=== PATIENT | female | born 1960 | race Caucasian/White ===

== ENCOUNTER 2017-01-23 09:39 | Inpatient (IN) | payer MEDICAID, OTHER ==
[2017-01-23 09:39] VITALS: BMI 29.9
[2017-01-23] MEDS ORDERED: Sodium Chloride 0.9% 1,000 ML IV STA (10:06)
--- NOTE | 2017-01-23 10:08 | C.PDOC ---
History Of Present Illness 56 y/o female presents to the ED complaining of cough x 2 weeks. Patient reports that for the past few days she has been feeling weaker. She also complains of some chest "soreness" with cough and deep inspiration. Patient denies fevers, throat pain, or other complaints. Time Seen by Provider: 01/23/17 09:57 Chief Complaint (Nursing): Chest Pain History Per: Patient History/Exam Limitations: no limitations Onset/Duration Of Symptoms: Days (2 weeks), Gradual, Persistent Current Symptoms Are (Timing): Still Present Recent travel outside of the [place] States: No Past Medical History Reviewed: Historical Data, Nursing Documentation, Vital Signs Vital Signs: Last Vital Signs Temp 98.2 F 01/23/17 09:45 Pulse 102 H 01/23/17 09:45 Resp 20 01/23/17 09:45 BP 123/82 01/23/17 09:45 Pulse Ox 100 01/23/17 12:19 - Medical History PMH: HTN Other PMH: Right breast cancer Other Surgeries: Right mastectomy - [facility] Procedures CONTRAST PHLEBOGRAM NEC (04/13/13) INCIS W REM OF FORIEGN BODY OR DEV FROM SKIN & SUBCUT TISSUE (08/18/13) INSERTION OF TOTALLY IMPLANTABLE VASC ACCESS DEVIC (04/27/13) OTHER SKIN & SUBQ I D (05/07/13) TETANUS TOXOID ADMINIST (05/07/13) Family History: States: Unknown Family Hx - Social History Hx Tobacco Use: No Hx Alcohol Use: No Hx Substance Use: No Review Of Systems Except As Marked, All Systems Reviewed And Found Negative. Constitutional: Positive for: Weakness. Negative for: Fever ENT: Negative for: Throat Pain Cardiovascular: Positive for: Chest Pain Respiratory: Positive for: Cough Physical Exam - Physical Exam Appears: Non-toxic, No Acute Distress Skin: Normal Color, Warm, Dry Head: Atraumatic, Normacephalic Eye(s): bilateral: Normal Inspection, PERRL Ear(s): Bilateral: Normal Nose: Normal Oral Mucosa: Moist Throat: Normal, No Erythema, No Exudate Neck: Normal ROM, Supple Chest: Symmetrical Cardiovascular: Rhythm Regular Respiratory: Decreased Breath Sounds (right), No Rales, No Rhonchi, No Wheezing Gastrointestinal/Abdominal: Normal Exam, Soft, No Tenderness Extremity: Normal ROM, No Swelling Neurological/Psych: Oriented x3, Normal Speech, Normal Cognition ED Course And Treatment - Laboratory Results Result Diagrams: 01/23/17 10:15 01/23/17 10:15 O2 Sat by Pulse Oximetry: 100 (ra) Pulse Ox Interpretation: Normal - Other Rad Chest X-Ray X-Ray: Viewed By Me, Read By Radiologist Interpretation: Accession No. : [id number]. Patient Name / ID : FARIDEH UNDERWOOD / [id number]. Exam Date : 01/23/2017 10:01:43 ( Approved ). Study Comment : Sex / Age : F / 56Y. Creator : Antonio Mariscal MD. Dictator : Antonio Mariscal MD. Production Estimator : Gravity Prospecting Operator Helper : Antonio Mariscal MD. Approver2 : Report Date : 01/23/2017 11:49:30. My Comment : . HISTORY: cough/sob. COMPARISON: 04/27/2013. TECHNIQUE: Chest PA and lateral. FINDINGS: LUNGS: Near complete opacification of the right lung. PLEURA: Possible loculated pleural effusion on the right. CARDIOVASCULAR: Shift of the mediastinum to the left. OSSEOUS STRUCTURES: No significant abnormalities. VISUALIZED UPPER ABDOMEN: Upper abdomen is suboptimally evaluated. OTHER FINDINGS: Surgical clips along right lateral chest wall. IMPRESSION: Near complete opacification of the right mack thorax with most likely space-occupying lesion versus loculated pleural effusion. There is shifted mediastinal to the left. Chest CT recommended. - CT Scan/US CT Chest Other Rad Studies (CT/US): Read By Radiologist, Radiology Report Reviewed CT/US Interpretation: Accession No. : [id number]. Patient Name / ID : FARIDEH UNDERWOOD / [id number]. Exam Date : 01/23/2017 11:38:13 ( Approved ). Study Comment : Sex / Age : F / 56Y. Creator : Antonio Mariscal MD. Dictator : Antonio Mariscal MD. Production Estimator : Gravity Prospecting Operator Helper : Antonio Mariscal MD. Approver2 : Report Date : 01/23/2017 12:00:05. My Comment : . PROCEDURE: CT Chest without contrast. HISTORY: right effusion/vs infiltrate. COMPARISON: 2012. TECHNIQUE: Contiguous axial images were obtained through the chest without intravenous contrast enhancement. Sagittal and coronal reconstructions were performed. Due to lack of intravenous contrast, evaluation of lymph nodes and soft tissue structures is suboptimal. . Radiation dose (DLP): 288.53 mGy- cm. FINDINGS: LUNGS: Patchy and nodular airspace opacities seen in association with right-sided pleural effusion. Hazy and ground-glass opacities also noted in the left lung particularly in the left upper lung. Atelectatic changes in the left lung base. MEDIASTINUM: Unremarkable thoracic aorta. No aneurysm. The heart is not significantly enlarged. Minimal pericardial effusion. Normal caliber of the main pulmonary artery. Evaluation of lymph nodes in the mediastinum is suboptimal due to lack IV contrast. Scattered mediastinal lymphadenopathy. PLEURA: Moderate to large loculated pleural effusion on the right seen. BONES: Diffuse sclerotic densities throughout the osseous structures. These are likely to be metastatic in etiology. UPPER ABDOMEN: Geographic hypoattenuation of the liver could be related to hepatic steatosis. Given lack of intravenous contrast, subtle hepatic masses on PE adequately evaluated. The visualized segments of the spleen, pancreas, gallbladder and the kidneys appear unremarkable. Diffuse thickening of both adrenal glands. Small hiatal hernia. Collapsed stomach limiting evaluation. Visualized segments of the bowel appear grossly unremarkable however remains suboptimally evaluated. OTHER FINDINGS: Right mastectomy. Surgical clips along right lateral chest wall. Nodular soft tissue density along the surgical sabrina are likely from postsurgical scarring. Scattered lymphadenopathy in the left axilla. IMPRESSION: Moderate to large loculated pleural effusion on the right with associated compressive atelectasis and/ pneumonia. Scattered airspace opacities seen in the left side which could represent infection and/or metastatic disease. Diffuse bony metastatic disease. Other findings as above. Progress Note: EKG, CXR, Blood Work, and Blood Culture were ordered. Patient was treated with IV Fluids. CT chest was ordered. Case was d/w and with who accepted patient for admission. - Physician Consult Information Physician Contacted: Gianluca Gordon Outcome Of Conversation: Requested to admit patient to the Hospitalist service and order thoracentesis. 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 - Scribe Statement The provider has reviewed the documentation as recorded by the Scribe (Nguyen Richards) All medical record entries made by the Scribe were at my direction and personally dictated by me. I have reviewed the chart and agree that the record accurately reflects my personal performance of the history, physical exam, medical decision making, and the department course for this patient. I have also personally directed, reviewed, and agree with the discharge instructions and disposition. Decision To Admit - Pt Status Changed To: Hospital Disposition Of: Inpatient - Admit Certification Admit to Inpatient:: After my assessment, the patient will require hospitalization for at least two midnights. This is because of the severity of symptoms shown, intensity of services needed, and/or the medical risk in this patient being treated as an outpatient. - InPatient: Physician Admission Certification: I certify that this patient requires 2 or more midnights of care for the following reason:: Patient with dyspnea, large pleural effusion and newerly found metastasis, probably from previously diagnosed breast cancer. She will need more than 2 days of hospital admission. - . Bed Request Type: Regular Admitting Physician: Ramakrishna Hensley Patient Diagnosis: Pleural effusion, Pleuritic pain, Metastasis, Dyspnea
[2017-01-23] MEDS ORDERED: Sodium Chloride 0.9% 1,000 ML ONE (10:19)
[2017-01-23 10:26] LABS: BASO % 0.5 % (0.0-2.0); EOS % 0.2 % (0.0-4.0); HEMATOCRIT 42.7 % (34.0-47.0); LYMPH # 2.3 K/uL (1.0-4.3); LYMPH % 23.7 % (20.0-40.0); MEAN CORPUSCULAR HEMOGLOBIN 28.2 pg (27.0-31.0); MEAN CORPUSCULAR HGB CONC 32.7 g/dL (33.0-37.0); MEAN PLATELET VOLUME 8.6 fL (7.2-11.7); MONO # 0.8 K/uL (0.0-0.8); MONO % 8.4 % (0.0-10.0); RED CELL DISTRIBUTION WIDTH 13.7 % (11.5-14.5)
[2017-01-23 10:27] LABS: MEAN CELL VOLUME 86.3 fL (81.0-99.0); WHITE BLOOD COUNT 9.7 K/uL (4.8-10.8)
[2017-01-23 10:29] LABS: CHLORIDE 93 mmol/L (98-107); SODIUM 139 mmol/L (132-148)
[2017-01-23 10:30] LABS: POTASSIUM 3.9 mmol/L (3.6-5.2)
[2017-01-23 10:31] LABS: AST/SGOT 85 U/L (14-36); BILIRUBIN,TOTAL 1.6 mg/dL (0.2-1.3); CARBON DIOXIDE 28 mmol/L (22-30); GFR AFRICAN-AMERICAN > 60
[2017-01-23 10:32] LABS: ALB/GLOB RATIO 1.2 (1.0-2.1); ALKALINE PHOSPHATASE 380 U/L (38-126); ALT/SGPT 47 U/L (9-52); BLOOD UREA NITROGEN 11 mg/dL (7-17); CALCIUM 8.9 mg/dl (8.6-10.4); GLUCOSE,RANDOM 178 mg/dL (65-105); TOTAL PROTEIN 7.5 g/dL (6.3-8.3)
[2017-01-23] MEDS ORDERED: Azithromycin 500 MG in Sodium Chloride 0.9% 250 ML IVPB STA (11:08)
[2017-01-23] MEDS ORDERED: cefTRIAXone IV 1 gm in Dextros 50 ML IVPB ONE (11:51)
--- NOTE | 2017-01-23 11:51 | RAD ---
HISTORY: cough/sob COMPARISON: 04/27/2013 TECHNIQUE: Chest PA and lateral FINDINGS: LUNGS: Near complete opacification of the right lung. PLEURA: Possible loculated pleural effusion on the right. CARDIOVASCULAR: Shift of the mediastinum to the left. OSSEOUS STRUCTURES: No significant abnormalities. VISUALIZED UPPER ABDOMEN: Upper abdomen is suboptimally evaluated. OTHER FINDINGS: Surgical clips along right lateral chest wall. IMPRESSION: Near complete opacification of the right mack thorax with most likely space-occupying lesion versus loculated pleural effusion. There is shifted mediastinal to the left. Chest CT recommended.
[2017-01-23] MEDS ORDERED: Azithromycin 500mg/250ML NS 250 ML IVPB ONE (11:52)
--- NOTE | 2017-01-23 12:01 | CT ---
PROCEDURE: CT Chest without contrast HISTORY: right effusion/vs infiltrate COMPARISON: 08/19/2013. TECHNIQUE: Contiguous axial images were obtained through the chest without intravenous contrast enhancement. Sagittal and coronal reconstructions were performed. Due to lack of intravenous contrast, evaluation of lymph nodes and soft tissue structures is suboptimal. Radiation dose (DLP): 288.53 mGy-cm. FINDINGS: LUNGS: Patchy and nodular airspace opacities seen in association with right-sided pleural effusion. Hazy and ground-glass opacities also noted in the left lung particularly in the left upper lung. Atelectatic changes in the left lung base. MEDIASTINUM: Unremarkable thoracic aorta. No aneurysm. The heart is not significantly enlarged. Minimal pericardial effusion. Normal caliber of the main pulmonary artery. Evaluation of lymph nodes in the mediastinum is suboptimal due to lack IV contrast. Scattered mediastinal lymphadenopathy. PLEURA: Moderate to large loculated pleural effusion on the right seen. BONES: Diffuse sclerotic densities throughout the osseous structures. These are likely to be metastatic in etiology. UPPER ABDOMEN: Geographic hypoattenuation of the liver could be related to hepatic steatosis. Given lack of intravenous contrast, subtle hepatic masses on PE adequately evaluated. The visualized segments of the spleen, pancreas, gallbladder and the kidneys appear unremarkable. Diffuse thickening of both adrenal glands. Small hiatal hernia. Collapsed stomach limiting evaluation. Visualized segments of the bowel appear grossly unremarkable however remains suboptimally evaluated. OTHER FINDINGS: Right mastectomy. Surgical clips along right lateral chest wall. Nodular soft tissue density along the surgical sabrina are likely from postsurgical scarring. Scattered lymphadenopathy in the left axilla. IMPRESSION: Moderate to large loculated pleural effusion on the right with associated compressive atelectasis and/ pneumonia. Scattered airspace opacities seen in the left side which could represent infection and/or metastatic disease. Diffuse bony metastatic disease. Other findings as above.
[2017-01-23 13:20] LABS: INR 1.1
--- NOTE | 2017-01-23 15:27 | PCM.SURG1 ---
Surgeon's Initial Post Op Note - Surgeon's Notes Surgeon: Tolu Hernandez MD Quilt Stuffer: NONE Type of Anesthesia: Local Pre-Operative Diagnosis: Pleural effusion Operative Findings: US showed a moderate right effusion Post-Operative Diagnosis: Pleural effusion Operation Performed: US guided thoracentesis. Specimen/Specimens Removed: 900 straw color fluid Estimated Blood Loss: EBL {In ML}: 0 Blood Products Given: N/A Drains Used: No Drains Post-Op Condition: Fair Date of Surgery/Procedure: 01/23/17 Time of Surgery/Procedure: 15:25
[2017-01-23] MEDS: Sodium Chloride 0.9% 1,000 ML IV SCH ×2 (15:50→19:34)
[2017-01-23 15:55] LABS: BODY FLUID TYPE PLEURAL/THORACENTESI
[2017-01-23] MEDS ORDERED: Iohexol 240 (50 ml) ONE (16:02)
--- NOTE | 2017-01-23 16:12 | RAD ---
PROCEDURE: CHEST RADIOGRAPH, 1 VIEW HISTORY: Right pleural effusion COMPARISON: None available. FINDINGS: LUNGS: Slightly improved aeration of the right lung. Residual hazy opacity involving the right lung. PLEURA: Residual effusion on the right. No definite pneumothorax. CARDIOVASCULAR: Normal. OSSEOUS STRUCTURES: The osseous structures demonstrate degenerative changes. VISUALIZED UPPER ABDOMEN: Upper abdomen is suboptimally evaluated. OTHER FINDINGS: Surgical clip along the right axilla and right chest wall. IMPRESSION: Slightly improved aeration of the right lung with residual effusion and opacity.
[2017-01-23] MEDS: Tramadol 25 mg PO PRN (16:16)
[2017-01-23 16:24] LABS: BF GROSS APPEARANCE CLEAR (CLEAR)
[2017-01-23] MEDS ORDERED: Iodixanol 320 MG/ML 100 ML BOTTLE IV ONE (16:41)
--- NOTE | 2017-01-23 17:56 | CP.PCM.HP ---
<Chase Motley - Last Filed: 01/23/17 17:53> History of Present Illness - History of Present Illness History of Present Illness: CC: "Right-sided chest pain and shortness of breath" HPI: Patient is a 56y.o F with PMH of HTN and breast cancer s/p chemo, radiation and right mastectomy in 2012 who presents with shortness of breath and right-sided chest pain that started 2 weeks ago. Patient decided to come to the hospital today because of worsening shortness of breath. She is unable to walk 10 feet without feeling weak. Patient also complains of chest pain that radiates to axilla region but not down arm. Pain is intermittent and currently a 4/10. She is also complaining of bilateral lower back pain as well as a mild headache. Patient reports nonproductive cough that started 1 month ago without accompanying fever or chills. She complains of a 14-pound weight loss in the last month, as well as occasional night sweats. She denies nausea, vomiting, diarrhea, constipation, abdominal pain or leg pain. Heme/onc: Gianluca Gordon PMH: HTN, breast cancer (diagnosed [address] Menon) PSx: Right mastectomy in 2012 Meds: Tamoxifen (prescribed by Dr. Menon in 2012, now gets from [facility]), Antihypertensive Allergies: NKDA Family Hx: Mother and Father- HTN SocialHx: No history of EtOH, tobacco or illicit drug use. Patient is unemployed and lives with sister Present on Admission - Present on Admission Any Indicators Present on Admission: No Review of Systems - Constitutional Constitutional: absent: Chills, Fever - EENT Eyes: absent: Blurred Vision, Pain - Cardiovascular Cardiovascular: absent: Chest Pain, Palpitations - Respiratory Respiratory: Cough (dry), Dyspnea, Dyspnea on Exertion. absent: Hemoptysis, Wheezing, Pain on Inspiration - Gastrointestinal Gastrointestinal: absent: Abdominal Pain, Diarrhea, Nausea, Vomiting - Genitourinary Genitourinary: absent: Urinary Frequency, Urinary Urgency - Musculoskeletal Musculoskeletal: absent: Back Pain, Muscle Cramps, Muscle Weakness, Stiffness - Integumentary Integumentary: absent: Pruritus, Rash - Neurological Neurological: absent: Numbness, Tingling Past Patient History - Past Social History Smoking Status: Never Smoked - CARDIAC Hx Hypertension: Yes - HEMATOLOGICAL/ONCOLOGICAL Other/Comment: Right breast CA - PSYCHIATRIC Hx Substance Use: No - SURGICAL HISTORY Other/Comment: Right mastectomy 2013? Meds Allergies/Adverse Reactions: Allergies Allergy/AdvReac Type Severity Reaction Status Date / Time No Known Allergies Allergy Verified 01/23/17 09:57 Physical Exam - Constitutional Appears: Non-toxic, No Acute Distress - Head Exam Head Exam: ATRAUMATIC, NORMOCEPHALIC - Eye Exam Eye Exam: Normal appearance Pupil Exam: PERRL - ENT Exam ENT Exam: Mucous Membranes Moist - Respiratory Exam Respiratory Exam: Chest Wall Tenderness (on the right), Decreased Breath Sounds (absent breath sounds on the right), NORMAL BREATHING PATTERN. absent: Wheezes - Cardiovascular Exam Cardiovascular Exam: +S1, +S2 - GI/Abdominal Exam GI & Abdominal Exam: Normal Bowel Sounds, Soft - Neurological Exam Neurological exam: Alert, Oriented x3 - Skin Skin Exam: Dry, Warm Results - Vital Signs Recent Vital Signs: Last Vital Signs Temp 98.2 F 01/23/17 16:29 Pulse 100 H 01/23/17 16:29 Resp 20 01/23/17 16:29 BP 130/86 01/23/17 16:29 Pulse Ox 90 L 01/23/17 16:29 - Labs Result Diagrams: 01/23/17 10:15 01/23/17 10:15 Labs: Laboratory Results - last 24 hr 01/23/17 15:53 Fluid Source Pleural/thoracentesi Fluid Appearance Clear Assessment & Plan - Assessment and Plan (Free Text) Assessment: Cough/shortness of breath - Unable to walk 10 feet without tiring/becoming sob - CXR 01/23 - Near complete opacification of the right mack thorax with most likely space-occupying lesion versus loculated pleural effusion. There is shifted mediastinal to the left. Chest CT recommended. - Chest CT 01/23 - Moderate to large loculated pleural effusion on the right with associated compressive atelectasis and/ pneumonia. Scattered airspace opacities seen in the left side which could represent infection and/or metastatic disease. Diffuse bony metastatic disease. - Thoracentesis ordered with labs including cytology - f/u - Heme/onc consulted (Evan) - help appreciated - agrees with thoracentesis - recommends CA15-3 - F/u further recs - Continue azithromycin and rocephin - IVF at 60 cc/hr - No leukocytosis or electrolyte abnormalities, f/u AM labs Chest pain - See above - Tramadol PRN for mod pain - Tylenol PRN for mild pain Elevated alkaline phosphatase - likely due to metastasis - will monitor Hx of HTN - normotensive currently - Heart healthy diet - will cont to monitor PPX - lovenox - protonix <Ramakrishna Hensley - Last Filed: 02/17/17 22:13> Results - Vital Signs Recent Vital Signs: Last Vital Signs Temp 98.2 F 02/05/17 16:00 Pulse 87 02/05/17 16:00 Resp 20 02/05/17 16:00 BP 118/76 02/05/17 16:00 Pulse Ox 98 02/05/17 16:00 - Labs Result Diagrams: 02/05/17 08:34 02/05/17 08:34 Assessment & Plan (1) Dyspnea Status: Acute (2) Metastatic cancer Status: Acute (3) Pleural effusion Status: Acute (4) Pain Status: Acute Attending/Attestation - Attestation I have personally seen and examined this patient.: Yes I have fully participated in the care of the patient.: Yes I have reviewed all pertinent clinical information: Yes
--- NOTE | 2017-01-23 18:57 | CT ---
PROCEDURE: CT Chest, Abdomen and Pelvis with intravenous contrast HISTORY: r/o metastatic disease COMPARISON: CT chest 01/23/2017 11:38 a.m. TECHNIQUE: IV dose administered: 100 mL Visipaque 320 Radiation dose: Total exam DLP = 794.18 mGy-cm. FINDINGS: CT CHEST WITH CONTRAST: LUNGS: Patchy ground-glass opacities and small nodular opacities in left upper lobe, nonspecific. This may be infectious or inflammatory. There are calcified granulomas in the left lower lobe. Right apical neoplasm in association with probable atelectasis. There is complete occlusion of the right upper lobe bronchus and right middle lobe bronchus. There is encasement and severe narrowing of the right pulmonary artery. There is right-sided volume loss with elevation of the right hemidiaphragm. The neoplasm is contiguous with spread to the mediastinum and right hilum. There are no discrete enlarged mediastinal lymph nodes appreciated. The superior vena cava is patent. MEDIASTINUM: As above, extension of right apical neoplasm to right hilum and mediastinum without discrete mediastinal enlarged nodes. Normal heart size. Trace pericardial effusion. LYMPH NODES: As above PLEURA: Small right pleural effusion. The patient is status post thoracentesis with a small amount of air seen in the pleural space at the right lung apex. BONES: There is diffuse sclerotic metastasis throughout all visualized osseous structures. OTHER FINDINGS: Status post right mastectomy. CT ABDOMEN AND PELVIS: LIVER: Diffuse fatty infiltration of the liver. No discrete mass. No biliary ductal dilatation. GALLBLADDER AND BILE DUCTS: Unremarkable. PANCREAS: Unremarkable. No gross lesion or ductal dilatation. SPLEEN: Unremarkable. ADRENALS: Unremarkable. No mass. KIDNEYS AND URETERS: Small bilateral renal cortical cysts, mid right kidney and upper pole left kidney. No renal calculus or hydronephrosis appreciated. VASCULATURE: Unremarkable. No aortic aneurysm. BOWEL: Unremarkable. No obstruction. No gross mural thickening. APPENDIX: Normal appendix. PERITONEUM: Unremarkable. No free fluid. No free air. LYMPH NODES: Unremarkable. No enlarged lymph nodes. BLADDER: Unremarkable. REPRODUCTIVE: Normal uterus. BONES: Diffuse sclerotic metastasis throughout all visualized osseous structures. OTHER FINDINGS: None. IMPRESSION: Right apical neoplasm with probable right apical atelectasis. Narrowing/occlusion right upper lobe and right middle lobe bronchi. Narrowing of right lower lobe bronchus. Severe narrowing and encasement of right pulmonary artery. Right-sided volume loss. Right pleural effusion with minimal pneumothorax status post thoracentesis. Patchy ground-glass and nodular opacities in left upper lobe, possibly infectious or inflammatory. Diffuse sclerotic metastasis of all visualized osseous structures. Right mastectomy. Fatty liver.
[2017-01-23 19:05] LABS: BODY FLUID TOTAL COUNT 100 (0-0)
[2017-01-24 08:10] LABS: BASO % 0.2 % (0.0-2.0); EOS # 0.1 K/uL (0.0-0.7); EOS % 0.6 % (0.0-4.0); HEMATOCRIT 39.8 % (34.0-47.0); LYMPH # 2.6 K/uL (1.0-4.3); LYMPH % 28.8 % (20.0-40.0); MEAN CORPUSCULAR HEMOGLOBIN 28.9 pg (27.0-31.0); MEAN CORPUSCULAR HGB CONC 33.2 g/dL (33.0-37.0); MEAN PLATELET VOLUME 8.5 fL (7.2-11.7); MONO # 0.7 K/uL (0.0-0.8); MONO % 8.3 % (0.0-10.0); NRBC % 0.1 % (0.0-2.0); RED CELL DISTRIBUTION WIDTH 13.7 % (11.5-14.5)
[2017-01-24 08:21] LABS: CHLORIDE 97 mmol/L (98-107); SODIUM 139 mmol/L (132-148)
[2017-01-24 08:23] LABS: GFR AFRICAN-AMERICAN > 60
[2017-01-24 08:24] LABS: ALB/GLOB RATIO 1.1 (1.0-2.1); ALKALINE PHOSPHATASE 373 U/L (38-126); ALT/SGPT 63 U/L (9-52); AST/SGOT 51 U/L (14-36); BILIRUBIN,TOTAL 0.4 mg/dL (0.2-1.3); BLOOD UREA NITROGEN 7 mg/dL (7-17); CALCIUM 8.5 mg/dl (8.6-10.4); CARBON DIOXIDE 31 mmol/L (22-30); GLUCOSE,RANDOM 106 mg/dL (65-105); TOTAL PROTEIN 5.8 g/dL (6.3-8.3)
[2017-01-24 08:38] LABS: POTASSIUM 2.7 mmol/L (3.6-5.2)
[2017-01-24] MEDS: Azithromycin 500 MG in Sodium Chloride 0.9% 250 ML IVPB SCH (10:07)
[2017-01-24] MEDS: Enoxaparin 40 mg Syringe SC SCH (10:08)
[2017-01-24] MEDS: Sodium Chloride 0.9% 1,000 ML IV SCH (10:09)
[2017-01-24] MEDS: Tramadol 25 mg PO PRN (10:59)
[2017-01-24] MEDS ORDERED: Potassium Chloride 20 mEq 100 ML IVPB ONE ×2 (11:01→13:05)
[2017-01-24] MEDS: Potassium Chloride 20 mEq ER Tab PO SCH (12:19)
--- NOTE | 2017-01-24 22:21 | CP.PCM.PN ---
<Charles Bennett - Last Filed: 01/25/17 00:21> Subjective - Date & Time of Evaluation Date of Evaluation: 01/24/17 Time of Evaluation: 11:00 - Subjective Subjective: 56y.o F with PMH of HTN and breast cancer s/p chemo, radiation and right mastectomy in 2012 who presents with shortness of breath and right-sided chest pain that started 2 weeks ago. Patient decided to come to the hospital today because of worsening shortness of breath. Today she is breathing a little better , but still has difficulty breathing. She denies chest pain, abdominal pain, N/V /D, or back pain. Objective - Vital Signs/Intake and Output Vital Signs (last 24 hours): Temp Pulse Resp BP Pulse Ox 98.5 F 82 20 109/74 96 01/24/17 15:35 01/24/17 15:35 01/24/17 15:35 01/24/17 15:35 01/24/17 15:35 Intake and Output: 01/24/17 01/25/17 18:59 06:59 Intake Total 980 Balance 980 - Medications Medications: Current Medications Acetaminophen (Tylenol 325mg Tab) 650 mg PO Q6 PRN PRN Reason: Pain, Mild (1-3) Enoxaparin Sodium (Lovenox) 40 mg SC DAILY [facility] Last Admin: 01/24/17 10:08 Dose: 40 mg Azithromycin 500 mg/ Sodium (Chloride) 250 mls @ 166.667 mls/hr IVPB Q24H [facility] Last Admin: 01/24/17 10:07 Dose: 166.667 mls/hr Sodium Chloride (Sodium Chloride 0.9%) 1,000 mls @ 60 mls/hr IV .[id number] [facility] Last Admin: 01/24/17 10:09 Dose: 60 mls/hr Ceftriaxone Sodium 1 gm/ (Sodium Chloride) 100 mls @ 200 mls/hr IVPB DAILY [facility] Last Admin: 01/24/17 10:55 Dose: 200 mls/hr Pantoprazole Sodium (Protonix Inj) 40 mg IVP DAILY [facility] Last Admin: 01/24/17 10:08 Dose: 40 mg Potassium Chloride (K-Dur 20 Meq Er Tab) 40 meq PO DAILY [facility] Last Admin: 01/24/17 12:19 Dose: 40 meq Tramadol HCl (Ultram) 25 mg PO Q8H PRN PRN Reason: Pain, moderate (4-7) Last Admin: 01/24/17 10:59 Dose: 25 mg - Labs Labs: 01/24/17 08:00 01/24/17 08:00 PT 12.3 SECONDS (9.7-12.2) H 01/23/17 13:04 INR 1.1 01/23/17 13:04 APTT 27 SECONDS (21-34) 01/23/17 13:04 - Constitutional Appears: No Acute Distress - Head Exam Head Exam: ATRAUMATIC, NORMOCEPHALIC - Eye Exam Eye Exam: EOMI - ENT Exam ENT Exam: Mucous Membranes Moist - Neck Exam Neck Exam: Full ROM - Respiratory Exam Respiratory Exam: Chest Wall Tenderness (right side), Decreased Breath Sounds ( right side), NORMAL BREATHING PATTERN - Cardiovascular Exam Cardiovascular Exam: +S1, +S2 - GI/Abdominal Exam GI & Abdominal Exam: Soft, Normal Bowel Sounds - Neurological Exam Neurological Exam: Alert, Awake - Psychiatric Exam Psychiatric exam: Normal Affect, Normal Mood - Skin Skin Exam: Dry, Intact, Normal Color, Warm Assessment and Plan - Assessment and Plan (Free Text) Plan: Cough/shortness of breath - Unable to walk 10 feet without tiring/becoming sob - CXR 01/23 - Near complete opacification of the right mack thorax with most likely space-occupying lesion versus loculated pleural effusion. There is shifted mediastinal to the left. Chest CT recommended. - Chest CT 01/23 - Moderate to large loculated pleural effusion on the right with associated compressive atelectasis and/ pneumonia. Scattered airspace opacities seen in the left side which could represent infection and/or metastatic disease. Diffuse bony metastatic disease. - Chest/Abd/Pel CT 01/23 - right apical neoplasm with probably right apical atelectasis. Diffuse sclerotic mets of all visualized osseous structures. right mastectomy, fatty liver - Thoracentesis ordered with labs including cytology -900 straw colored fluid - Heme/onc consulted (Evan) - help appreciated - agrees with thoracentesis - recommends CA15-3 - F/u further recs -Thoracic surgeon consult - Dr. Damon -surgical product sales consultant informed - Continue azithromycin and rocephin - IVF at 60 cc/hr - No leukocytosis or electrolyte abnormalities, f/u AM labs Chest pain - See above - Tramadol PRN for mod pain - Tylenol PRN for mild pain Elevated alkaline phosphatase - likely due to metastasis - will monitor Hx of HTN - normotensive currently - Heart healthy diet - will cont to monitor Hypokalemia -40 PO K-dur -20 KCl IV PPX - lovenox - protonix <Ramakrishna Hensley - Last Filed: 02/17/17 22:20> Objective - Vital Signs/Intake and Output Vital Signs (last 24 hours): Temp Pulse Resp BP Pulse Ox 98.2 F 87 20 118/76 98 02/05/17 16:00 02/05/17 16:00 02/05/17 16:00 02/05/17 16:00 02/05/17 16:00 - Labs Labs: 02/05/17 08:34 02/05/17 08:34 PT 12.3 SECONDS (9.7-12.2) H 01/23/17 13:04 INR 1.1 01/23/17 13:04 APTT 27 SECONDS (21-34) 01/23/17 13:04 Assessment and Plan (1) Dyspnea Status: Acute (2) Metastatic cancer Status: Acute (3) Pleural effusion Status: Acute (4) Pain Status: Acute Attending/Attestation - Attestation I have personally seen and examined this patient.: Yes I have fully participated in the care of the patient.: Yes I have reviewed all pertinent clinical information, including history, physical exam and plan: Yes
[2017-01-25] MEDS: Sodium Chloride 0.9% 1,000 ML IV SCH ×2 (01:45→17:45)
[2017-01-25 08:44] LABS: BASO # 0.1 K/uL (0.0-0.2); BASO % 0.7 % (0.0-2.0); EOS # 0.1 K/uL (0.0-0.7); EOS % 0.6 % (0.0-4.0); HEMATOCRIT 41.1 % (34.0-47.0); LYMPH # 2.7 K/uL (1.0-4.3); LYMPH % 28.7 % (20.0-40.0); MEAN CELL VOLUME 87.1 fL (81.0-99.0); MEAN CORPUSCULAR HEMOGLOBIN 28.9 pg (27.0-31.0); MEAN CORPUSCULAR HGB CONC 33.2 g/dL (33.0-37.0); MEAN PLATELET VOLUME 8.8 fL (7.2-11.7); MONO # 0.7 K/uL (0.0-0.8); MONO % 7.6 % (0.0-10.0); NRBC % 0.1 % (0.0-2.0); RED CELL DISTRIBUTION WIDTH 13.9 % (11.5-14.5); WHITE BLOOD COUNT 9.3 K/uL (4.8-10.8)
[2017-01-25 08:47] LABS: CHLORIDE 101 mmol/L (98-107)
[2017-01-25 08:48] LABS: POTASSIUM 3.5 mmol/L (3.6-5.2); SODIUM 140 mmol/L (132-148)
[2017-01-25 08:50] LABS: GFR AFRICAN-AMERICAN > 60
[2017-01-25 08:51] LABS: ALKALINE PHOSPHATASE 374 U/L (38-126); ALT/SGPT 74 U/L (9-52); AST/SGOT 48 U/L (14-36); BILIRUBIN,TOTAL 0.4 mg/dL (0.2-1.3); BLOOD UREA NITROGEN 5 mg/dL (7-17); CALCIUM 8.8 mg/dl (8.6-10.4); CARBON DIOXIDE 31 mmol/L (22-30); GLUCOSE,RANDOM 135 mg/dL (65-105); TOTAL PROTEIN 6.2 g/dL (6.3-8.3)
[2017-01-25] MEDS: Enoxaparin 40 mg Syringe SC SCH (09:16)
[2017-01-25] MEDS: Potassium Chloride 20 mEq ER Tab PO SCH (09:20)
[2017-01-25] MEDS: Azithromycin 500 MG in Sodium Chloride 0.9% 250 ML IVPB SCH (11:14)
[2017-01-25 15:51] LABS: RBC URINE < 1 /hpf (0-3); URINE BILIRUBIN NEGATIVE (NEGATIVE); URINE BLOOD NEGATIVE (NEGATIVE); URINE COLOR Straw (YELLOW); URINE GLUCOSE (UA) NORMAL (Normal); URINE KETONE NEGATIVE (NEGATIVE); URINE LEUKOCYTE ESTERASE NEG Leu/uL (Negative); URINE PROTEIN NEGATIVE (NEGATIVE); URINE UROBILINOGEN NORMAL mg/dL (0.2-1.0); WBC URINE < 1 /hpf (0-5)
--- NOTE | 2017-01-25 20:40 | CP.PCM.CON ---
History of Present Illness - History of Present Illness History of Present Illness: 56 year old [place] female with a history of HTN, stage IIIA breast cancer treated with surgery, adjuvant chemotherapy, radiation, on Tamoxifen, who presents with shortness of breath, fatigue/weakness, with concern for metastatic disease to the lung and bones. Cancer history: The patient had hit her breast on a chair in October 2012 which led to the realization of a breast mass. She was sent for mammogram as well as biopsy in [place] which led to the diagnosis of invasive breast cancer. Given her worrisome diagnosis, she traveled to her sisters residence in the [facility], in the hopes of seeking more specialized care. She initially presented with mammogram films and pathology and imaging reports. As they were in [place], I was unable to translate them. From what i could ascertain, she appeared to have had a 3.8cm right breast mass biopsy proven as invasive carcinoma. She underwent a right breast biopsy on 01/13/13 with the pathology revealing invasive ductal carcinoma ER/IA positive, HER2 negative. - 01/[address] C/A/P revealed 3mm RUL lung lesion; repeat imaging recommended in 1 year. - 01/2013 bone scan negative. - 02/10/13 right mastectomy; 3.5 cm, grade 3, negative margins, LVI present, 05/27 LN positive; pT2 N2a Mx Stage IIIa. - Began adjuvant dose dense AC (completed 04/28/13) followed by paclitaxel q2 weeks x 4; completed 06/22/13. - treated with adjuvant radiotherapy which completed in August. - She began Tamoxifen daily after radiotherapy and returned to [place]. Per her sister, she had been doing well up until this year when she began having progressive fatigue and weakness. Her appetite has been diminished and she has been losing weight. She felt she was continuing to decline which prompted her to come back to [place] to seek medical care. Imaging done is suggestive of a lung mass causing lung collapse, pleural effusion with loculation, and diffuse bone lesions concerning for metastatic disease. Past Patient History - Past Medical History & Family History Past Medical History?: Yes - Past Social History Smoking Status: Never Smoked - CARDIAC Hx Cardiac Disorders: Yes Hx Hypertension: Yes - PULMONARY Hx Respiratory Disorders: No - NEUROLOGICAL Hx Neurological Disorder: No - HEENT Hx HEENT Problems: No - RENAL Hx Chronic Kidney Disease: No - ENDOCRINE/METABOLIC Hx Endocrine Disorders: No - HEMATOLOGICAL/ONCOLOGICAL Hx Blood Disorders: No Other/Comment: Right breast CA - INTEGUMENTARY Hx Dermatological Problems: No - MUSCULOSKELETAL/RHEUMATOLOGICAL Hx Musculoskeletal Disorders: No Hx Falls: No - GASTROINTESTINAL Hx Gastrointestinal Disorders: No - GENITOURINARY/GYNECOLOGICAL Hx Genitourinary Disorders: No - PSYCHIATRIC Hx Psychophysiologic Disorder: No Hx Substance Use: No - SURGICAL HISTORY Hx Surgeries: Yes Other/Comment: Right mastectomy 2012? - ANESTHESIA Hx Anesthesia: Yes Hx Anesthesia Reactions: No Hx Malignant Hyperthermia: No Has any member of the family had a problem w/ anesthesia?: No Meds Allergies/Adverse Reactions: Allergies Allergy/AdvReac Type Severity Reaction Status Date / Time No Known Allergies Allergy Verified 01/23/17 09:57 - Medications Medications: Current Medications Acetaminophen (Tylenol 325mg Tab) 650 mg PO Q6 PRN PRN Reason: Pain, Mild (1-3) Enoxaparin Sodium (Lovenox) 40 mg SC DAILY [facility] Last Admin: 01/25/17 09:16 Dose: 40 mg Azithromycin 500 mg/ Sodium (Chloride) 250 mls @ 166.667 mls/hr IVPB Q24H [facility] Last Admin: 01/25/17 11:14 Dose: 166.667 mls/hr Sodium Chloride (Sodium Chloride 0.9%) 1,000 mls @ 60 mls/hr IV .[id number] [facility] Last Admin: 01/25/17 01:45 Dose: Not Given Ceftriaxone Sodium 1 gm/ (Sodium Chloride) 100 mls @ 200 mls/hr IVPB DAILY [facility] Last Admin: 01/25/17 09:22 Dose: 200 mls/hr Pantoprazole Sodium (Protonix Inj) 40 mg IVP DAILY [facility] Last Admin: 01/25/17 09:17 Dose: 40 mg Tramadol HCl (Ultram) 25 mg PO Q8H PRN PRN Reason: Pain, moderate (4-7) Last Admin: 01/24/17 10:59 Dose: 25 mg Physical Exam - Head Exam Head Exam: ATRAUMATIC - Eye Exam Eye Exam: Normal appearance - ENT Exam ENT Exam: Mucous Membranes Dry - Respiratory Exam Respiratory Exam: Decreased Breath Sounds - Cardiovascular Exam Cardiovascular Exam: +S1, +S2 - GI/Abdominal Exam GI & Abdominal Exam: Normal Bowel Sounds - Extremities Exam Extremities exam: Positive for: normal inspection - Neurological Exam Neurological exam: Oriented x3 - Psychiatric Exam Psychiatric exam: Normal Affect, Normal Mood - Skin Skin Exam: Warm Results - Vital Signs Recent Vital Signs: Last Vital Signs Temp 98.8 F 01/25/17 15:20 Pulse 84 01/25/17 15:20 Resp 20 01/25/17 15:20 BP 131/86 01/25/17 15:20 Pulse Ox 97 01/25/17 15:20 - Labs Result Diagrams: 01/25/17 08:32 01/25/17 08:32 Labs: Laboratory Results - last 24 hr 01/23/17 01/25/17 01/25/17 15:53 08:32 15:30 WBC 9.3 RBC 4.71 Hgb 13.6 Hct 41.1 MCV 87.1 MCH 28.9 MCHC 33.2 RDW 13.9 Plt Count 267 MPV 8.8 Neut % (Auto) 62.4 Lymph % (Auto) 28.7 [place] % (Auto) 7.6 Eos % (Auto) 0.6 Baso % (Auto) 0.7 Neut # 5.8 Lymph # 2.7 [place] # 0.7 Eos # 0.1 Baso # 0.1 Sodium 140 Potassium 3.5 L Chloride 101 Carbon Dioxide 31 H Anion Gap 12 BUN 5 L Creatinine 0.6 L Est GFR ( Amer) > 60 Est GFR (Non-Af Amer) > 60 Random Glucose 135 H Calcium 8.8 Total Bilirubin 0.4 AST 48 H ALT 74 H Alkaline Phosphatase 374 H Total Protein 6.2 L Albumin 3.0 L Globulin 3.1 Albumin/Globulin Ratio 1.0 Urine Color Straw Urine Clarity Clear Urine pH 7.0 Ur Specific [place] 1.006 Urine Protein Negative Urine Glucose (UA) Normal Urine Ketones Negative Urine Blood Negative Urine Nitrate Negative Urine Bilirubin Negative Urine Urobilinogen Normal Ur Leukocyte Esterase Neg Urine WBC (Auto) < 1 Urine RBC (Auto) < 1 Ur Squamous Epith Cells < 1 Fluid Albumin TNP Pleural Total Protein TNP Pleural LDH TNP Pleural Glucose TNP Assessment & Plan (1) Metastatic cancer Assessment and Plan: likely recurrence and metastatic breast cancer; lung, LN, bone mets agree with thoracentesis, CT surgery evaluation given loculation of effusion ? malignant effusion f/u pleural fluid cytology check CA 15-3 further treatment based on pathology Thank you for this interesting consult Status: Acute
--- NOTE | 2017-01-25 22:06 | CP.PCM.PN ---
<Charles Bennett - Last Filed: 01/26/17 02:20> Subjective - Date & Time of Evaluation Date of Evaluation: 01/25/17 Time of Evaluation: 08:10 - Subjective Subjective: 56y.o F with PMH of HTN and breast cancer s/p chemo, radiation and right mastectomy in 2012 who presents with shortness of breath and right-sided chest pain that started 2 weeks ago. Patient decided to come to the hospital today because of worsening shortness of breath. Today she is breathing well, but complains of fatigue and decreased appetite. Her family brought in food for her that she seems to like.She denies chest pain, abdominal pain, N/V/D, or back pain. Objective - Vital Signs/Intake and Output Vital Signs (last 24 hours): Temp Pulse Resp BP Pulse Ox 98.8 F 84 20 131/86 97 01/25/17 15:20 01/25/17 15:20 01/25/17 15:20 01/25/17 15:20 01/25/17 15:20 - Medications Medications: Current Medications Acetaminophen (Tylenol 325mg Tab) 650 mg PO Q6 PRN PRN Reason: Pain, Mild (1-3) Enoxaparin Sodium (Lovenox) 40 mg SC DAILY [facility] Last Admin: 01/25/17 09:16 Dose: 40 mg Azithromycin 500 mg/ Sodium (Chloride) 250 mls @ 166.667 mls/hr IVPB Q24H [facility] Last Admin: 01/25/17 11:14 Dose: 166.667 mls/hr Sodium Chloride (Sodium Chloride 0.9%) 1,000 mls @ 60 mls/hr IV .[id number] [facility] Last Admin: 01/25/17 01:45 Dose: Not Given Ceftriaxone Sodium 1 gm/ (Sodium Chloride) 100 mls @ 200 mls/hr IVPB DAILY [facility] Last Admin: 01/25/17 09:22 Dose: 200 mls/hr Pantoprazole Sodium (Protonix Inj) 40 mg IVP DAILY [facility] Last Admin: 01/25/17 09:17 Dose: 40 mg Tramadol HCl (Ultram) 25 mg PO Q8H PRN PRN Reason: Pain, moderate (4-7) Last Admin: 01/24/17 10:59 Dose: 25 mg - Labs Labs: 01/25/17 08:32 01/25/17 08:32 PT 12.3 SECONDS (9.7-12.2) H 01/23/17 13:04 INR 1.1 01/23/17 13:04 APTT 27 SECONDS (21-34) 01/23/17 13:04 - Constitutional Appears: No Acute Distress - Head Exam Head Exam: ATRAUMATIC, NORMOCEPHALIC - Eye Exam Eye Exam: EOMI - ENT Exam ENT Exam: Mucous Membranes Moist - Neck Exam Neck Exam: Normal Inspection - Respiratory Exam Respiratory Exam: Decreased Breath Sounds (Right side), NORMAL BREATHING PATTERN - Cardiovascular Exam Cardiovascular Exam: REGULAR RHYTHM, +S1, +S2. absent: JVD - GI/Abdominal Exam GI & Abdominal Exam: Soft, Normal Bowel Sounds. absent: Tenderness - Neurological Exam Neurological Exam: Alert, Awake - Psychiatric Exam Psychiatric exam: Normal Affect, Normal Mood - Skin Skin Exam: Dry, Intact, Normal Color, Warm Assessment and Plan - Assessment and Plan (Free Text) Plan: Cough/shortness of breath - Unable to walk 10 feet without tiring/becoming sob - CXR 01/23 - Near complete opacification of the right mack thorax with most likely space-occupying lesion versus loculated pleural effusion. There is shifted mediastinal to the left. Chest CT recommended. - Chest CT 01/23 - Moderate to large loculated pleural effusion on the right with associated compressive atelectasis and/ pneumonia. Scattered airspace opacities seen in the left side which could represent infection and/or metastatic disease. Diffuse bony metastatic disease. - Chest/Abd/Pel CT 01/23 - right apical neoplasm with probably right apical atelectasis. Diffuse sclerotic mets of all visualized osseous structures. right mastectomy, fatty liver - Thoracentesis ordered with labs including cytology -900 straw colored fluid - Heme/onc consulted (Evan) - help appreciated - agrees with thoracentesis - recommends CA15-3 - F/u further recs -Thoracic surgeon consult - Dr. Damon -residential sales representative informed - Continue azithromycin and rocephin - IVF at 60 cc/hr - No leukocytosis or electrolyte abnormalities, f/u AM labs Chest pain - See above - Tramadol PRN for mod pain - Tylenol PRN for mild pain Elevated alkaline phosphatase - likely due to metastasis - will monitor Hx of HTN - normotensive currently - Heart healthy diet - will cont to monitor Hypokalemia -40 PO K-dur -20 KCl IV PPX - lovenox - protonix <Ramakrishna Hensley - Last Filed: 02/17/17 22:27> Objective - Vital Signs/Intake and Output Vital Signs (last 24 hours): Temp Pulse Resp BP Pulse Ox 98.2 F 87 20 118/76 98 02/05/17 16:00 02/05/17 16:00 02/05/17 16:00 02/05/17 16:00 02/05/17 16:00 - Labs Labs: 02/05/17 08:34 02/05/17 08:34 PT 12.3 SECONDS (9.7-12.2) H 01/23/17 13:04 INR 1.1 01/23/17 13:04 APTT 27 SECONDS (21-34) 01/23/17 13:04 Assessment and Plan (1) Dyspnea Status: Acute (2) Metastatic cancer Status: Acute (3) Pleural effusion Status: Acute (4) Pain Status: Acute Attending/Attestation - Attestation I have personally seen and examined this patient.: Yes I have fully participated in the care of the patient.: Yes I have reviewed all pertinent clinical information, including history, physical exam and plan: Yes
--- NOTE | 2017-01-25 23:51 | CARD ---
APPROVED REPORT EKG Measurement Heart [id number] <Conclusion> Sinus tachycardia Nonspecific ST and T wave abnormality Abnormal ECG
[2017-01-26 08:46] LABS: BASO % 0.4 % (0.0-2.0); EOS # 0.1 K/uL (0.0-0.7); EOS % 0.7 % (0.0-4.0); HEMATOCRIT 40.2 % (34.0-47.0); LYMPH # 2.2 K/uL (1.0-4.3); LYMPH % 26.4 % (20.0-40.0); MEAN CELL VOLUME 87.4 fL (81.0-99.0); MEAN CORPUSCULAR HEMOGLOBIN 28.7 pg (27.0-31.0); MEAN CORPUSCULAR HGB CONC 32.9 g/dL (33.0-37.0); MEAN PLATELET VOLUME 9.1 fL (7.2-11.7); MONO # 0.6 K/uL (0.0-0.8); MONO % 7.4 % (0.0-10.0); RED CELL DISTRIBUTION WIDTH 13.9 % (11.5-14.5); WHITE BLOOD COUNT 8.4 K/uL (4.8-10.8)
[2017-01-26 08:58] LABS: CHLORIDE 97 mmol/L (98-107); POTASSIUM 3.3 mmol/L (3.6-5.2); SODIUM 139 mmol/L (132-148)
[2017-01-26 09:00] LABS: BILIRUBIN,TOTAL 0.2 mg/dL (0.2-1.3); CARBON DIOXIDE 31 mmol/L (22-30); GFR AFRICAN-AMERICAN > 60
[2017-01-26 09:01] LABS: ALB/GLOB RATIO 1.1 (1.0-2.1); ALKALINE PHOSPHATASE 342 U/L (38-126); ALT/SGPT 73 U/L (9-52); AST/SGOT 51 U/L (14-36); BLOOD UREA NITROGEN 4 mg/dL (7-17); CALCIUM 8.9 mg/dl (8.6-10.4); GLUCOSE,RANDOM 130 mg/dL (65-105); TOTAL PROTEIN 5.9 g/dL (6.3-8.3)
--- NOTE | 2017-01-26 09:29 | CP.PCM.CON ---
History of Present Illness - History of Present Illness History of Present Illness: PGY-1 Surgical Consult Note for Dr. Damon Pt is a 56yo F with PMH of HTN and breast cancer (invasive ductal carcinoma of Right breast) and PSHx of R mastectomy (2012), presented to the ED three days ago with a two week hx of dyspnea and right sided chest pain. In addition, pt reports non-productive cough and fatigue with exertion. CT from 01/23/17 showed large loculated pleural effusion on right side with compressive atelectasis. Thoracentesis was performed, produced 900cc of straw colored fluid and respiratory symptoms have improved. CT also showed right apical neoplasm and diffuse sclerotic mets of osseous structures. Surgery was consulted to evaluate patient for intervention to relieve loculated effusion. PMHx: HTN, Invasive Ductal Carcinoma of R breast (s/p chemo and radiation in 2012), fibroids PShx: R masectomy, myomectomy Home Meds: tamoxifen daily, antihypertensive Allergies: NKDA Family Hx: mom and father have HTN Social Hx: denied ETOH, tobacco and drugs. Pt is unemployed and lvied with sister while in [place]. Pt lives in [place] and comes to [place] for medical trx. Past Patient History - Past Medical History & Family History Past Medical History?: Yes - Past Social History Smoking Status: Never Smoked - CARDIAC Hx Cardiac Disorders: Yes Hx Hypertension: Yes - PULMONARY Hx Respiratory Disorders: No - NEUROLOGICAL Hx Neurological Disorder: No - HEENT Hx HEENT Problems: No - RENAL Hx Chronic Kidney Disease: No - ENDOCRINE/METABOLIC Hx Endocrine Disorders: No - HEMATOLOGICAL/ONCOLOGICAL Hx Blood Disorders: No Other/Comment: Right breast CA - INTEGUMENTARY Hx Dermatological Problems: No - MUSCULOSKELETAL/RHEUMATOLOGICAL Hx Musculoskeletal Disorders: No Hx Falls: No - GASTROINTESTINAL Hx Gastrointestinal Disorders: No - GENITOURINARY/GYNECOLOGICAL Hx Genitourinary Disorders: No - PSYCHIATRIC Hx Psychophysiologic Disorder: No Hx Substance Use: No - SURGICAL HISTORY Hx Surgeries: Yes Other/Comment: Right mastectomy 2012? - ANESTHESIA Hx Anesthesia: Yes Hx Anesthesia Reactions: No Hx Malignant Hyperthermia: No Has any member of the family had a problem w/ anesthesia?: No Meds Allergies/Adverse Reactions: Allergies Allergy/AdvReac Type Severity Reaction Status Date / Time No Known Allergies Allergy Verified 01/23/17 09:57 - Medications Medications: Current Medications Acetaminophen (Tylenol 325mg Tab) 650 mg PO Q6 PRN PRN Reason: Pain, Mild (1-3) Enoxaparin Sodium (Lovenox) 40 mg SC DAILY [facility] Last Admin: 01/25/17 09:16 Dose: 40 mg Azithromycin 500 mg/ Sodium (Chloride) 250 mls @ 166.667 mls/hr IVPB Q24H [facility] Last Admin: 01/25/17 11:14 Dose: 166.667 mls/hr Sodium Chloride (Sodium Chloride 0.9%) 1,000 mls @ 60 mls/hr IV .[id number] [facility] Last Admin: 01/25/17 17:45 Dose: Not Given Ceftriaxone Sodium 1 gm/ (Sodium Chloride) 100 mls @ 200 mls/hr IVPB DAILY [facility] Last Admin: 01/25/17 09:22 Dose: 200 mls/hr Pantoprazole Sodium (Protonix Inj) 40 mg IVP DAILY [facility] Last Admin: 01/25/17 09:17 Dose: 40 mg Tramadol HCl (Ultram) 25 mg PO Q8H PRN PRN Reason: Pain, moderate (4-7) Last Admin: 01/24/17 10:59 Dose: 25 mg Results - Vital Signs Recent Vital Signs: Last Vital Signs Temp 97.9 F 01/26/17 00:00 Pulse 103 H 01/26/17 00:00 Resp 20 01/26/17 00:00 BP 134/90 01/26/17 00:00 Pulse Ox 95 01/26/17 00:00 - Labs Result Diagrams: 01/26/17 08:30 01/26/17 08:30 Labs: Laboratory Results - last 24 hr 01/23/17 01/25/17 01/26/17 15:53 15:30 08:30 WBC 8.4 RBC 4.60 Hgb 13.2 Hct 40.2 MCV 87.4 MCH 28.7 MCHC 32.9 L RDW 13.9 Plt Count 252 MPV 9.1 Neut % (Auto) 65.1 Lymph % (Auto) 26.4 [place] % (Auto) 7.4 Eos % (Auto) 0.7 Baso % (Auto) 0.4 Neut # 5.4 Lymph # 2.2 [place] # 0.6 Eos # 0.1 Baso # 0.0 Sodium 139 Potassium 3.3 L Chloride 97 L Carbon Dioxide 31 H Anion Gap 14 BUN 4 L Creatinine 0.5 L Est GFR ( Amer) > 60 Est GFR (Non-Af Amer) > 60 Random Glucose 130 H Calcium 8.9 Total Bilirubin 0.2 AST 51 H ALT 73 H Alkaline Phosphatase 342 H Total Protein 5.9 L Albumin 3.1 L Globulin 2.8 Albumin/Globulin Ratio 1.1 Urine Color Straw Urine Clarity Clear Urine pH 7.0 Ur Specific [place] 1.006 Urine Protein Negative Urine Glucose (UA) Normal Urine Ketones Negative Urine Blood Negative Urine Nitrate Negative Urine Bilirubin Negative Urine Urobilinogen Normal Ur Leukocyte Esterase Neg Urine WBC (Auto) < 1 Urine RBC (Auto) < 1 Ur Squamous Epith Cells < 1 Fluid Albumin TNP Pleural Total Protein TNP Pleural LDH TNP Pleural Glucose TNP Assessment & Plan - Assessment and Plan (Free Text) Assessment: This is a 56yo F with recurrent breast cancer with bone metastasis and loculated pleural effusion causing cardiorespiratory sympmtoms. Plan: will discuss with Dr. Marisol Kay, PGY-1
[2017-01-26] MEDS ORDERED: Potassium Chloride 20 mEq ER Tab PO ONE (10:45)
[2017-01-26] MEDS: Enoxaparin 40 mg Syringe SC SCH (11:12)
[2017-01-26] MEDS: Azithromycin 500 MG in Sodium Chloride 0.9% 250 ML IVPB SCH (11:15)
--- NOTE | 2017-01-26 12:51 | CP.PCM.PN ---
<Chase Motley - Last Filed: 01/26/17 12:47> Subjective - Date & Time of Evaluation Date of Evaluation: 01/26/17 Time of Evaluation: 12:47 - Subjective Subjective: PGY-1 note medicine service Patient was seen and examined. Patient complaining of right-sided chest pain that radiates to axilla as well as bilateral neck pain with left sided neck swelling. The pain medications provide only 2 hours of pain relief. She states that the swelling is new and may have started 3 days ago. Patient also states that there was not much improvement with breathing after thoracentesis. She reports shortness of breath with any kind of movement, as well as a dry cough. She also reports loss of appetite, but denies nausea or vomiting. She complains of mild headache and generalized weakness. Patient denies fever, chills, diarrhea, constipation, abdominal pain, leg pain. Objective - Vital Signs/Intake and Output Vital Signs (last 24 hours): Temp Pulse Resp BP Pulse Ox 97.6 F 96 H 20 129/89 98 01/26/17 08:00 01/26/17 08:00 01/26/17 08:00 01/26/17 08:00 01/26/17 08:00 Intake and Output: 01/26/17 01/26/17 06:59 18:59 Intake Total 880 880 Balance 880 880 - Medications Medications: Current Medications Acetaminophen (Tylenol 325mg Tab) 650 mg PO Q6 PRN PRN Reason: Pain, Mild (1-3) Enoxaparin Sodium (Lovenox) 40 mg SC DAILY [facility] Last Admin: 01/26/17 11:12 Dose: 40 mg Azithromycin 500 mg/ Sodium (Chloride) 250 mls @ 166.667 mls/hr IVPB Q24H [facility] Last Admin: 01/26/17 11:15 Dose: 166.667 mls/hr Sodium Chloride (Sodium Chloride 0.9%) 1,000 mls @ 60 mls/hr IV .[id number] [facility] Last Admin: 01/25/17 17:45 Dose: Not Given Ceftriaxone Sodium 1 gm/ (Sodium Chloride) 100 mls @ 200 mls/hr IVPB DAILY [facility] Last Admin: 01/26/17 11:15 Dose: 200 mls/hr Pantoprazole Sodium (Protonix Inj) 40 mg IVP DAILY [facility] Last Admin: 01/26/17 11:12 Dose: 40 mg Tramadol HCl (Ultram) 25 mg PO Q8H [facility] - Labs Labs: 01/26/17 08:30 01/26/17 08:30 PT 12.3 SECONDS (9.7-12.2) H 01/23/17 13:04 INR 1.1 01/23/17 13:04 APTT 27 SECONDS (21-34) 01/23/17 13:04 - Constitutional Appears: Non-toxic, No Acute Distress, Chronically Ill - Eye Exam Eye Exam: Normal appearance Pupil Exam: PERRL - ENT Exam ENT Exam: Mucous Membranes Moist - Respiratory Exam Respiratory Exam: Decreased Breath Sounds (Significantly on the right), NORMAL BREATHING PATTERN - Cardiovascular Exam Cardiovascular Exam: +S1, +S2 - GI/Abdominal Exam GI & Abdominal Exam: Soft, Normal Bowel Sounds - Neurological Exam Neurological Exam: Alert, Awake - Skin Skin Exam: Dry, Warm Assessment and Plan - Assessment and Plan (Free Text) Assessment: Cough/shortness of breath - Unable to walk 10 feet without tiring/becoming sob - CXR 01/23 - Near complete opacification of the right mack thorax with most likely space-occupying lesion versus loculated pleural effusion. There is shifted mediastinal to the left. Chest CT recommended. - Chest CT 01/23 - Moderate to large loculated pleural effusion on the right with associated compressive atelectasis and/ pneumonia. Scattered airspace opacities seen in the left side which could represent infection and/or metastatic disease. Diffuse bony metastatic disease. - Chest/Abd/Pel CT 01/23 - right apical neoplasm with probably right apical atelectasis. Diffuse sclerotic mets of all visualized osseous structures. right mastectomy, fatty liver - Thoracentesis ordered with labs including cytology -900 straw colored fluid - results pending - Heme/onc consulted (Evan) - help appreciated - agrees with thoracentesis - recommends CA15-3 - F/u further recs -Thoracic surgeon consult - Dr. Damon -F/U recommendations - Continue azithromycin and rocephin - IVF at 60 cc/hr - No leukocytosis or electrolyte abnormalities - CA 15-3 elevated at 1930 Chest pain - See above - Tramadol scheduled Q8H - Tylenol PRN for mild pain Elevated alkaline phosphatase - likely due to metastasis, stable - will monitor Hx of HTN - normotensive currently - Heart healthy diet - will cont to monitor Hypokalemia - Monitor, replete as needed PPX - lovenox - protonix <Ramakrishna Hensley - Last Filed: 01/26/17 21:04> Objective - Vital Signs/Intake and Output Vital Signs (last 24 hours): Temp Pulse Resp BP Pulse Ox 77.1 F L 104 H 20 126/85 98 01/26/17 15:00 01/26/17 15:00 01/26/17 15:00 01/26/17 15:00 01/26/17 15:00 Intake and Output: 01/26/17 01/27/17 18:59 06:59 Intake Total 1600 Balance 1600 - Medications Medications: Current Medications Acetaminophen (Tylenol 325mg Tab) 650 mg PO Q6 PRN PRN Reason: Pain, Mild (1-3) Enoxaparin Sodium (Lovenox) 40 mg SC DAILY [facility] Last Admin: 01/26/17 11:12 Dose: 40 mg Azithromycin 500 mg/ Sodium (Chloride) 250 mls @ 166.667 mls/hr IVPB Q24H [facility] Last Admin: 01/26/17 11:15 Dose: 166.667 mls/hr Ceftriaxone Sodium 1 gm/ (Sodium Chloride) 100 mls @ 200 mls/hr IVPB DAILY [facility] Last Admin: 01/26/17 11:15 Dose: 200 mls/hr Pantoprazole Sodium (Protonix Inj) 40 mg IVP DAILY [facility] Last Admin: 01/26/17 11:12 Dose: 40 mg Tramadol HCl (Ultram) 25 mg PO Q8H [facility] Last Admin: 01/26/17 19:38 Dose: 25 mg - Labs Labs: 01/26/17 08:30 01/26/17 08:30 PT 12.3 SECONDS (9.7-12.2) H 01/23/17 13:04 INR 1.1 01/23/17 13:04 APTT 27 SECONDS (21-34) 01/23/17 13:04 Attending/Attestation - Attestation I have personally seen and examined this patient.: Yes I have fully participated in the care of the patient.: Yes I have reviewed all pertinent clinical information, including history, physical exam and plan: Yes Notes (Text): Patient with previous breast CA s/p R mastectomy, chemo/radiation, admitted with large R pleural effusion and R apical lung mass; Complaining of neck pain; changing prn tramadol to standing dose q8h; Underwent diagnostic/therapeutic thoracentesis 3 days ago, awaiting cytology results (received per pathology but still in process); Thoracic surgery being consulted regarding R lung mass that is causing complete occlusion of RUL and RML bronchus along with encasement and severe narrowing of R pulm artery; On ceftriaxone and zithromax due to possible PNA affeting L lung; Dispo: Patient uninsured and previously lost to f/u; need plan from thoracic surgery and onc to at least undertake palliative measures. 01/26/17 20:56
--- NOTE | 2017-01-26 12:56 | US ---
PROCEDURE: Date of procedure: 01/23/2017 Procedure: 1. Ultrasound-guided Right thoracentesis, CPT 14202 Medications: 6 cc 1% Lidocaine HISTORY: Right pleural effusion, shortness of breath TECHNIQUE: Following informed consent ,the Patients' right chest was marked. Procedure time-out was called, and the patient was placed in the sitting position and limited ultrasound showed a large right effusion. The patient's right back was prepped and draped in the usual sterile fashion. After the skin was anesthetized with lidocaine, a drainage catheter was advanced under ultrasound guidance into the pleural space. Ultrasound-guided thoracentesis was performed. A total of 900 cubic centimeters of straw-colored fluid removed without complication. A Xeroform dressing was applied. IMPRESSION: Ultrasound guided Right thoracentesis. There were no immediate complications.
[2017-01-26] MEDS: Tramadol 25 mg PO SCH ×2 (15:01→19:38)
[2017-01-27] MEDS: Tramadol 25 mg PO SCH ×3 (03:35→19:25)
[2017-01-27 07:09] LABS: BASO % 0.3 % (0.0-2.0); EOS # 0.1 K/uL (0.0-0.7); EOS % 0.9 % (0.0-4.0); LYMPH % 27.3 % (20.0-40.0); MEAN CELL VOLUME 87.8 fL (81.0-99.0); MEAN CORPUSCULAR HEMOGLOBIN 28.9 pg (27.0-31.0); MEAN PLATELET VOLUME 8.5 fL (7.2-11.7); MONO # 0.7 K/uL (0.0-0.8); MONO % 9.3 % (0.0-10.0); NRBC % 0.1 % (0.0-2.0); RED CELL DISTRIBUTION WIDTH 13.7 % (11.5-14.5); WHITE BLOOD COUNT 7.2 K/uL (4.8-10.8)
[2017-01-27 07:20] LABS: CHLORIDE 96 mmol/L (98-107); POTASSIUM 3.7 mmol/L (3.6-5.2); SODIUM 139 mmol/L (132-148)
[2017-01-27 07:22] LABS: AST/SGOT 50 U/L (14-36); BILIRUBIN,TOTAL 0.2 mg/dL (0.2-1.3); CARBON DIOXIDE 33 mmol/L (22-30); GFR AFRICAN-AMERICAN > 60
[2017-01-27 07:23] LABS: ALB/GLOB RATIO 1.1 (1.0-2.1); ALKALINE PHOSPHATASE 311 U/L (38-126); ALT/SGPT 65 U/L (9-52); BLOOD UREA NITROGEN 6 mg/dL (7-17); CALCIUM 8.6 mg/dl (8.6-10.4); GLUCOSE,RANDOM 110 mg/dL (65-105); TOTAL PROTEIN 5.7 g/dL (6.3-8.3)
--- NOTE | 2017-01-27 08:12 | CP.PCM.PN ---
Subjective - Date & Time of Evaluation Date of Evaluation: 01/27/17 Time of Evaluation: 08:05 - Subjective Subjective: Thoracic Surgery - Dr. Damon Pt S&E. NAEO. Pt complains of mild SOB, she states it is not improved since drainage. She denies any other complaints. No F/C, N/V. Objective - Vital Signs/Intake and Output Vital Signs (last 24 hours): Temp Pulse Resp BP Pulse Ox 97.9 F 93 H 20 120/85 97 01/27/17 07:20 01/27/17 07:20 01/27/17 07:20 01/27/17 07:20 01/27/17 07:20 Intake and Output: 01/27/17 01/27/17 06:59 18:59 Intake Total 1260 Output Total 700 Balance 560 - Medications Medications: Current Medications Acetaminophen (Tylenol 325mg Tab) 650 mg PO Q6 PRN PRN Reason: Pain, Mild (1-3) Enoxaparin Sodium (Lovenox) 40 mg SC DAILY [facility] Last Admin: 01/26/17 11:12 Dose: 40 mg Azithromycin 500 mg/ Sodium (Chloride) 250 mls @ 166.667 mls/hr IVPB Q24H [facility] Last Admin: 01/26/17 11:15 Dose: 166.667 mls/hr Ceftriaxone Sodium 1 gm/ (Sodium Chloride) 100 mls @ 200 mls/hr IVPB DAILY [facility] Last Admin: 01/26/17 11:15 Dose: 200 mls/hr Pantoprazole Sodium (Protonix Inj) 40 mg IVP DAILY [facility] Last Admin: 01/26/17 11:12 Dose: 40 mg Tramadol HCl (Ultram) 25 mg PO Q8H [facility] Last Admin: 01/27/17 03:35 Dose: Not Given - Labs Labs: 01/27/17 07:02 01/27/17 07:02 PT 12.3 SECONDS (9.7-12.2) H 01/23/17 13:04 INR 1.1 01/23/17 13:04 APTT 27 SECONDS (21-34) 01/23/17 13:04 - Constitutional Appears: No Acute Distress - Head Exam Head Exam: ATRAUMATIC, NORMOCEPHALIC - Respiratory Exam Respiratory Exam: Decreased Breath Sounds (Left), NORMAL BREATHING PATTERN. absent: Respiratory Distress - Neurological Exam Neurological Exam: Alert, Oriented x3 - Skin Skin Exam: Dry, Intact Assessment and Plan - Assessment and Plan (Free Text) Assessment: 56 yo F w/ hx of Breast CA s/p Mastectomy, Chemo/Rad, with R apical lung mass and R pleural effusion s/p Thoracentesis Plan: -F/U Pleural fluid Cytology, though negative result would not rule out malignant effusion -Pleurodesis is an option if effusion beecomes recurrent, however may not be beneficial d/t the R apical mass and failure for full lung re-expansion -R apical mass is not ammenable to resection d/t encasement of the pulmonary vessels -Compression of the RUL and RML bronchus could possibly be treated with Endbronchial stenting, however pt. would need to be transferred to another facility for this -Will KASSIDY Medical team regarding options -KASSIDY Damon, who will be by to see the patient later today Radames, PGY2
[2017-01-27] MEDS ORDERED: Potassium Chloride 20 mEq ER Tab PO ONE (10:13)
[2017-01-27] MEDS: Enoxaparin 40 mg Syringe SC SCH (10:27)
[2017-01-27] MEDS: Azithromycin 500 MG in Sodium Chloride 0.9% 250 ML IVPB SCH (12:29)
--- NOTE | 2017-01-27 13:04 | CP.PCM.CON ---
History of Present Illness - History of Present Illness History of Present Illness: Reason for consultation: Loculated right pleural effusion and right lung mass. Requested by: Ramakrishna Hensley. Pt s/e and imaging sutidies reviewed. This is a 56 yio female with pmh of breast ca s/p chemo/rt/mastectomy (2012)who presented to ER with right sided chest [id number] , sob and wt loss. ct: right apical lung mass with right pleural effusion, atelectasis (upper and middle lobe) + bone metastasis. Previous thoracentesis yielded 900cc of serous effusion and pts resp sx unchanged according to the pt.. No pathological dx of lung lesion so far( could be either lung or breast). In either case, we are dealing with stage IV disease, and surgery plays no role here. I am inclined to not to drain the effusion, as the pt has not imroved after thoracentesis, and I believed her resp sx are due to atelectais from bronchial obstructions and poorly functioning lung from the large lung mass. d/w Dr. Crum. Past Patient History - Past Medical History & Family History Past Medical History?: Yes - Past Social History Smoking Status: Never Smoked - CARDIAC Hx Cardiac Disorders: Yes Hx Hypertension: Yes - PULMONARY Hx Respiratory Disorders: No - NEUROLOGICAL Hx Neurological Disorder: No - HEENT Hx HEENT Problems: No - RENAL Hx Chronic Kidney Disease: No - ENDOCRINE/METABOLIC Hx Endocrine Disorders: No - HEMATOLOGICAL/ONCOLOGICAL Hx Blood Disorders: No Other/Comment: Right breast CA - INTEGUMENTARY Hx Dermatological Problems: No - MUSCULOSKELETAL/RHEUMATOLOGICAL Hx Musculoskeletal Disorders: No Hx Falls: No - GASTROINTESTINAL Hx Gastrointestinal Disorders: No - GENITOURINARY/GYNECOLOGICAL Hx Genitourinary Disorders: No - PSYCHIATRIC Hx Psychophysiologic Disorder: No Hx Substance Use: No - SURGICAL HISTORY Hx Surgeries: Yes Other/Comment: Right mastectomy 2012? - ANESTHESIA Hx Anesthesia: Yes Hx Anesthesia Reactions: No Hx Malignant Hyperthermia: No Has any member of the family had a problem w/ anesthesia?: No Meds Allergies/Adverse Reactions: Allergies Allergy/AdvReac Type Severity Reaction Status Date / Time No Known Allergies Allergy Verified 01/23/17 09:57 - Medications Medications: Current Medications Acetaminophen (Tylenol 325mg Tab) 650 mg PO Q6 PRN PRN Reason: Pain, Mild (1-3) Enoxaparin Sodium (Lovenox) 40 mg SC DAILY [facility] Last Admin: 01/27/17 10:27 Dose: 40 mg Azithromycin 500 mg/ Sodium (Chloride) 250 mls @ 166.667 mls/hr IVPB Q24H [facility] Last Admin: 01/27/17 12:29 Dose: 166.667 mls/hr Ceftriaxone Sodium 1 gm/ (Sodium Chloride) 100 mls @ 200 mls/hr IVPB DAILY [facility] Last Admin: 01/27/17 10:26 Dose: 200 mls/hr Pantoprazole Sodium (Protonix Inj) 40 mg IVP DAILY [facility] Last Admin: 01/27/17 10:26 Dose: 40 mg Tramadol HCl (Ultram) 25 mg PO Q8H [facility] Last Admin: 01/27/17 10:27 Dose: 25 mg Results - Vital Signs Recent Vital Signs: Last Vital Signs Temp 97.9 F 01/27/17 07:20 Pulse 93 H 01/27/17 10:52 Resp 20 01/27/17 07:20 BP 120/85 01/27/17 07:20 Pulse Ox 97 01/27/17 07:20 - Labs Result Diagrams: 01/28/17 07:15 01/28/17 07:15 Labs: Laboratory Results - last 24 hr 01/27/17 07:02 WBC 7.2 RBC 4.45 Hgb 12.9 Hct 39.0 MCV 87.8 MCH 28.9 MCHC 33.0 RDW 13.7 Plt Count 231 MPV 8.5 Neut % (Auto) 62.2 Lymph % (Auto) 27.3 [place] % (Auto) 9.3 Eos % (Auto) 0.9 Baso % (Auto) 0.3 Neut # 4.5 Lymph # 2.0 [place] # 0.7 Eos # 0.1 Baso # 0.0 Sodium 139 Potassium 3.7 Chloride 96 L Carbon Dioxide 33 H Anion Gap 14 BUN 6 L Creatinine 0.5 L Est GFR ( Amer) > 60 Est GFR (Non-Af Amer) > 60 Random Glucose 110 H Calcium 8.6 Total Bilirubin 0.2 AST 50 H ALT 65 H Alkaline Phosphatase 311 H Total Protein 5.7 L Albumin 3.0 L Globulin 2.8 Albumin/Globulin Ratio 1.1
--- NOTE | 2017-01-27 14:41 | CP.PCM.PN ---
<Chase Motley - Last Filed: 01/27/17 14:36> Subjective - Date & Time of Evaluation Date of Evaluation: 01/27/17 Time of Evaluation: 14:36 - Subjective Subjective: PGY-1 note for medicine service Pt seen and examined at bedside. She reports persistent fatigue, especially with any exertion. She states she is still sob with an associated cough. Denies any fevers, chills, chest pain, nausea or vomiting. Objective - Vital Signs/Intake and Output Vital Signs (last 24 hours): Temp Pulse Resp BP Pulse Ox 97.9 F 93 H 20 120/85 97 01/27/17 07:20 01/27/17 10:52 01/27/17 07:20 01/27/17 07:20 01/27/17 07:20 Intake and Output: 01/27/17 01/27/17 06:59 18:59 Intake Total 1260 Output Total 700 Balance 560 - Medications Medications: Current Medications Acetaminophen (Tylenol 325mg Tab) 650 mg PO Q6 PRN PRN Reason: Pain, Mild (1-3) Enoxaparin Sodium (Lovenox) 40 mg SC DAILY [facility] Last Admin: 01/27/17 10:27 Dose: 40 mg Azithromycin 500 mg/ Sodium (Chloride) 250 mls @ 166.667 mls/hr IVPB Q24H [facility] Last Admin: 01/27/17 12:29 Dose: 166.667 mls/hr Ceftriaxone Sodium 1 gm/ (Sodium Chloride) 100 mls @ 200 mls/hr IVPB DAILY [facility] Last Admin: 01/27/17 10:26 Dose: 200 mls/hr Pantoprazole Sodium (Protonix Inj) 40 mg IVP DAILY [facility] Last Admin: 01/27/17 10:26 Dose: 40 mg Tramadol HCl (Ultram) 25 mg PO Q8H [facility] Last Admin: 01/27/17 10:27 Dose: 25 mg - Labs Labs: 01/27/17 07:02 01/27/17 07:02 PT 12.3 SECONDS (9.7-12.2) H 01/23/17 13:04 INR 1.1 01/23/17 13:04 APTT 27 SECONDS (21-34) 01/23/17 13:04 - Constitutional Appears: Chronically Ill - Head Exam Head Exam: ATRAUMATIC, NORMOCEPHALIC - ENT Exam ENT Exam: Mucous Membranes Moist - Respiratory Exam Respiratory Exam: Decreased Breath Sounds (on the right, absent), NORMAL BREATHING PATTERN - Cardiovascular Exam Cardiovascular Exam: +S1, +S2 - GI/Abdominal Exam GI & Abdominal Exam: Soft, Normal Bowel Sounds - Neurological Exam Neurological Exam: Alert, Awake - Skin Skin Exam: Dry, Warm Assessment and Plan - Assessment and Plan (Free Text) Assessment: Cough/shortness of breath - Persistent, worse with exertion - CXR 01/23 - Near complete opacification of the right mack thorax with most likely space-occupying lesion versus loculated pleural effusion. There is shifted mediastinal to the left. Chest CT recommended. - Chest CT 01/23 - Moderate to large loculated pleural effusion on the right with associated compressive atelectasis and/ pneumonia. Scattered airspace opacities seen in the left side which could represent infection and/or metastatic disease. Diffuse bony metastatic disease. - Chest/Abd/Pel CT 01/23 - right apical neoplasm with probably right apical atelectasis. Diffuse sclerotic mets of all visualized osseous structures. right mastectomy, fatty liver - Thoracentesis ordered with labs including cytology -900 straw colored fluid - results still pending - Heme/onc consulted (Evan) - help appreciated - agrees with thoracentesis - recommends CA15-3 - elevated - F/u further recs -Thoracic surgeon consult - Dr. Damon -No surgery. SOB likely due to atelectasis from bronchial obstructions. Consider bronchial stenting - Continue azithromycin and rocephin - IVF at 60 cc/hr - No leukocytosis or electrolyte abnormalities - CA 15-3 elevated at 1930 Chest pain - See above - Tramadol scheduled Q8H - Tylenol PRN for mild pain Elevated alkaline phosphatase - likely due to metastasis, stable - will monitor Hx of HTN - normotensive currently - Heart healthy diet - will cont to monitor Hypokalemia - Monitor, replete as needed PPX - lovenox - protonix <Ramakrishna Hensley - Last Filed: 02/17/17 22:33> Objective - Vital Signs/Intake and Output Vital Signs (last 24 hours): Temp Pulse Resp BP Pulse Ox 98.2 F 87 20 118/76 98 02/05/17 16:00 02/05/17 16:00 02/05/17 16:00 02/05/17 16:00 02/05/17 16:00 - Labs Labs: 02/05/17 08:34 02/05/17 08:34 PT 12.3 SECONDS (9.7-12.2) H 01/23/17 13:04 INR 1.1 01/23/17 13:04 APTT 27 SECONDS (21-34) 01/23/17 13:04 Assessment and Plan (1) Dyspnea Status: Acute (2) Metastatic cancer Status: Acute (3) Pleural effusion Status: Acute (4) Pain Status: Acute Attending/Attestation - Attestation I have personally seen and examined this patient.: Yes I have fully participated in the care of the patient.: Yes I have reviewed all pertinent clinical information, including history, physical exam and plan: Yes
[2017-01-28] MEDS: Albuterol 0.042% Inhal Sol (1.25 mg/3 mL) UD INH SCH ×2 (01:22→08:07)
[2017-01-28] MEDS: Acetylcysteine 20% Inhal Soln (4ml) INH SCH ×2 (01:22→08:07)
[2017-01-28] MEDS: Tramadol 25 mg PO SCH ×3 (02:27→18:32)
[2017-01-28 07:53] LABS: BASO % 0.4 % (0.0-2.0); EOS # 0.1 K/uL (0.0-0.7); EOS % 0.7 % (0.0-4.0); HEMATOCRIT 40.6 % (34.0-47.0); LYMPH % 25.3 % (20.0-40.0); MEAN CELL VOLUME 88.3 fL (81.0-99.0); MEAN CORPUSCULAR HEMOGLOBIN 28.8 pg (27.0-31.0); MEAN CORPUSCULAR HGB CONC 32.7 g/dL (33.0-37.0); MEAN PLATELET VOLUME 8.9 fL (7.2-11.7); MONO # 0.7 K/uL (0.0-0.8); MONO % 8.6 % (0.0-10.0); NRBC % 0.1 % (0.0-2.0); RED CELL DISTRIBUTION WIDTH 13.7 % (11.5-14.5); WHITE BLOOD COUNT 7.8 K/uL (4.8-10.8)
[2017-01-28 07:57] LABS: CHLORIDE 94 mmol/L (98-107)
[2017-01-28 07:58] LABS: POTASSIUM 3.4 mmol/L (3.6-5.2); SODIUM 139 mmol/L (132-148)
[2017-01-28 08:00] LABS: ALB/GLOB RATIO 1.1 (1.0-2.1); AST/SGOT 62 U/L (14-36); BILIRUBIN,TOTAL 0.2 mg/dL (0.2-1.3); BLOOD UREA NITROGEN 6 mg/dL (7-17); CARBON DIOXIDE 34 mmol/L (22-30); GFR AFRICAN-AMERICAN > 60
[2017-01-28 08:01] LABS: ALKALINE PHOSPHATASE 336 U/L (38-126); ALT/SGPT 72 U/L (9-52); CALCIUM 8.8 mg/dl (8.6-10.4); GLUCOSE,RANDOM 110 mg/dL (65-105)
[2017-01-28] MEDS ORDERED: Potassium Chloride 20 mEq ER Tab PO ONE (10:15)
[2017-01-28] MEDS: Enoxaparin 40 mg Syringe SC SCH (10:18)
[2017-01-28] MEDS: Azithromycin 500 MG in Sodium Chloride 0.9% 250 ML IVPB SCH (10:20)
--- NOTE | 2017-01-28 12:48 | CP.PCM.PN ---
Subjective - Date & Time of Evaluation Date of Evaluation: 01/28/17 Time of Evaluation: 08:30 - Subjective Subjective: PGY-1 progress note for Cardiothoracic Surgery, Dr. Damon Pt S&E. ROCCO. Pt reports continued SOB and fatigue. Surgical team spoke with family member at bedside who understands that there is no role for surgery in her case. Dr. Damon spoke with the patient yesterday and discussed with her that there are no further plans for intervention. She denies chest pain, fever, or chills. Objective - Vital Signs/Intake and Output Vital Signs (last 24 hours): Temp Pulse Resp BP Pulse Ox 97.9 F 98 H 20 136/90 96 01/28/17 08:07 01/28/17 08:07 01/28/17 08:07 01/28/17 08:07 01/28/17 08:07 Intake and Output: 01/28/17 01/28/17 06:59 18:59 Intake Total 540 Balance 540 - Medications Medications: Current Medications Acetaminophen (Tylenol 325mg Tab) 650 mg PO Q6 PRN PRN Reason: Pain, Mild (1-3) Acetylcysteine (Acetylcysteine 20%) 4 ml INH RQ6 [facility] Last Admin: 01/28/17 08:07 Dose: 4 ml Albuterol Sulfate (Albuterol 0.042% Inhal [place] (1.25mg/3ml) Ud) 1.25 mg INH RQ6 [facility] Last Admin: 01/28/17 08:07 Dose: 1.25 mg Enoxaparin Sodium (Lovenox) 40 mg SC DAILY [facility] Last Admin: 01/28/17 10:18 Dose: 40 mg Azithromycin 500 mg/ Sodium (Chloride) 250 mls @ 166.667 mls/hr IVPB Q24H [facility] Last Admin: 01/28/17 10:20 Dose: 166.667 mls/hr Ceftriaxone Sodium 1 gm/ (Sodium Chloride) 100 mls @ 200 mls/hr IVPB DAILY [facility] Last Admin: 01/28/17 10:19 Dose: 200 mls/hr Pantoprazole Sodium (Protonix Inj) 40 mg IVP DAILY [facility] Last Admin: 01/28/17 10:19 Dose: 40 mg Tramadol HCl (Ultram) 25 mg PO Q8H [facility] Last Admin: 01/28/17 10:23 Dose: 25 mg - Labs Labs: 01/28/17 07:15 01/28/17 07:15 PT 12.3 SECONDS (9.7-12.2) H 01/23/17 13:04 INR 1.1 01/23/17 13:04 APTT 27 SECONDS (21-34) 01/23/17 13:04 - Constitutional Appears: Chronically Ill - Head Exam Head Exam: NORMAL INSPECTION, NORMOCEPHALIC - Eye Exam Eye Exam: EOMI, Normal appearance Pupil Exam: PERRL - ENT Exam ENT Exam: Mucous Membranes Moist - Respiratory Exam Respiratory Exam: Decreased Breath Sounds - Cardiovascular Exam Cardiovascular Exam: REGULAR RHYTHM, +S1, +S2 - GI/Abdominal Exam GI & Abdominal Exam: Soft, Normal Bowel Sounds Assessment and Plan - Assessment and Plan (Free Text) Assessment: 56 yo F w/ hx of Breast CA s/p Mastectomy, Chemo/Rad, with R apical lung mass and R pleural effusion s/p Thoracentesis Plan: Discussed with medical team regarding possible pt transfer for endobronchial stent Per Dr. Damon, no further surgical intervention Surgical team will sign off D/W Dr. Marisol Kay, PGY-1
[2017-01-28] MEDS: MethylPREDNISolone 40 mg Vial IVP SCH ×2 (14:03→21:01)
--- NOTE | 2017-01-28 16:28 | CP.PCM.PN ---
<Chase Motley - Last Filed: 01/28/17 16:24> Subjective - Date & Time of Evaluation Date of Evaluation: 01/28/17 Time of Evaluation: 16:24 - Subjective Subjective: PGY-1 note for medicine service Pt seen and examined at bedside. Pt states that she continues to have some sob and cough. No other new complaints. Denies fevers, chills, chest pain, sob, nausea or vomiting. Objective - Vital Signs/Intake and Output Vital Signs (last 24 hours): Temp Pulse Resp BP Pulse Ox 97.9 F 98 H 20 136/90 96 01/28/17 08:07 01/28/17 08:07 01/28/17 08:07 01/28/17 08:07 01/28/17 08:07 Intake and Output: 01/28/17 01/28/17 06:59 18:59 Intake Total 540 Balance 540 - Medications Medications: Current Medications Acetaminophen (Tylenol 325mg Tab) 650 mg PO Q6 PRN PRN Reason: Pain, Mild (1-3) Acetylcysteine (Acetylcysteine 20%) 4 ml INH RQ6 [facility] Last Admin: 01/28/17 08:07 Dose: 4 ml Albuterol Sulfate (Albuterol 0.042% Inhal Diamante (1.25mg/3ml) Ud) 1.25 mg INH RQ6 [facility] Last Admin: 01/28/17 08:07 Dose: 1.25 mg Enoxaparin Sodium (Lovenox) 40 mg SC DAILY [facility] Last Admin: 01/28/17 10:18 Dose: 40 mg Methylprednisolone (Solu-Medrol) 40 mg IVP Q8H [facility] Last Admin: 01/28/17 14:03 Dose: 40 mg Pantoprazole Sodium (Protonix Inj) 40 mg IVP DAILY [facility] Last Admin: 01/28/17 10:19 Dose: 40 mg Tramadol HCl (Ultram) 25 mg PO Q8H [facility] Last Admin: 01/28/17 10:23 Dose: 25 mg - Labs Labs: 01/28/17 07:15 01/28/17 07:15 PT 12.3 SECONDS (9.7-12.2) H 01/23/17 13:04 INR 1.1 01/23/17 13:04 APTT 27 SECONDS (21-34) 01/23/17 13:04 - Constitutional Appears: Non-toxic, No Acute Distress - Head Exam Head Exam: ATRAUMATIC, NORMOCEPHALIC - ENT Exam ENT Exam: Mucous Membranes Moist - Respiratory Exam Respiratory Exam: Decreased Breath Sounds (on right), NORMAL BREATHING PATTERN - Cardiovascular Exam Cardiovascular Exam: +S1, +S2 - GI/Abdominal Exam GI & Abdominal Exam: Soft, Normal Bowel Sounds - Neurological Exam Neurological Exam: Alert, Awake - Skin Skin Exam: Dry, Warm Assessment and Plan - Assessment and Plan (Free Text) Assessment: Cough/shortness of breath - Persistent, worse with exertion - CXR 01/23 - Near complete opacification of the right mack thorax with most likely space-occupying lesion versus loculated pleural effusion. There is shifted mediastinal to the left. Chest CT recommended. - Chest CT 01/23 - Moderate to large loculated pleural effusion on the right with associated compressive atelectasis and/ pneumonia. Scattered airspace opacities seen in the left side which could represent infection and/or metastatic disease. Diffuse bony metastatic disease. - Chest/Abd/Pel CT 01/23 - right apical neoplasm with probably right apical atelectasis. Diffuse sclerotic mets of all visualized osseous structures. right mastectomy, fatty liver - Thoracentesis ordered with labs including cytology -900 straw colored fluid - results still pending - Heme/onc consulted (Evan) - help appreciated - agrees with thoracentesis - recommends CA15-3 - elevated - F/u further recs - Awaiting cytology -Thoracic surgeon consult - Dr. Damon -No surgery. SOB likely due to atelectasis from bronchial obstructions. Consider bronchial stenting. Surgery signed off - Pulm consult (Mitch) - Stent would not help either. Start Solu medrol for now - Continue azithromycin and rocephin - stopped 01/28 - IVF at 60 cc/hr - No leukocytosis or electrolyte abnormalities - CA 15-3 elevated at 1930 Chest pain - See above - Tramadol scheduled Q8H - Tylenol PRN for mild pain Elevated alkaline phosphatase - likely due to metastasis, stable - will monitor Hx of HTN - normotensive currently - Heart healthy diet - will cont to monitor Hypokalemia - Monitor, replete as needed PPX - lovenox - protonix <Ramakrishna Hensley - Last Filed: 01/28/17 18:28> Objective - Vital Signs/Intake and Output Vital Signs (last 24 hours): Temp Pulse Resp BP Pulse Ox 98.2 F 102 H 19 121/80 96 01/28/17 15:20 01/28/17 15:20 01/28/17 15:20 01/28/17 15:20 01/28/17 15:20 Intake and Output: 01/28/17 01/28/17 06:59 18:59 Intake Total 540 Balance 540 - Medications Medications: Current Medications Acetaminophen (Tylenol 325mg Tab) 650 mg PO Q6 PRN PRN Reason: Pain, Mild (1-3) Acetylcysteine (Acetylcysteine 20%) 4 ml INH RQ6 [facility] Last Admin: 01/28/17 08:07 Dose: 4 ml Albuterol Sulfate (Albuterol 0.042% Inhal Diamante (1.25mg/3ml) Ud) 1.25 mg INH RQ6 [facility] Last Admin: 01/28/17 08:07 Dose: 1.25 mg Enoxaparin Sodium (Lovenox) 40 mg SC DAILY [facility] Last Admin: 01/28/17 10:18 Dose: 40 mg Guaifenesin (Robitussin) 100 mg PO Q4H PRN PRN Reason: Cough Methylprednisolone (Solu-Medrol) 40 mg IVP Q8H [facility] Last Admin: 01/28/17 14:03 Dose: 40 mg Pantoprazole Sodium (Protonix Ec Tab) 40 mg PO DAILY [facility] Tramadol HCl (Ultram) 25 mg PO Q8H [facility] Last Admin: 01/28/17 10:23 Dose: 25 mg - Labs Labs: 01/28/17 07:15 01/28/17 07:15 PT 12.3 SECONDS (9.7-12.2) H 01/23/17 13:04 INR 1.1 01/23/17 13:04 APTT 27 SECONDS (21-34) 01/23/17 13:04 Attending/Attestation - Attestation I have personally seen and examined this patient.: Yes I have fully participated in the care of the patient.: Yes I have reviewed all pertinent clinical information, including history, physical exam and plan: Yes Notes (Text): Patient with previously treated breast Ca, admitted with symptomatic large lung mass; Pleural fluid cytology today consistent with metastatic breast Ca; discussed with oncologist; need ER/ND and HER2/shawn markers to determine treatment; if cannot be added onto pleural fluid cells, will need needle biopsy; will discuss with pathology; May be candidate for radiation tx to shrink mass that is causing collapse of RUL and RML bronchus; to be discussed with radiation oncology; Pulmonary consulted for further recs; feels that bronchial stent is not viable option given extent of mass; recommending steroids for now; Will likely need home O2; will have PT evaluate O2 sat on ambulation; Will get palliative care consult; Dispo: Patient with no insurance; once treatment plan is in place and home O2 setup, can be discharged home. 01/28/17 18:19
[2017-01-28] MEDS: guaiFENesin 100 mg/5 ml Syrup UD PO PRN (18:32)
[2017-01-29] MEDS: Acetylcysteine 20% Inhal Soln (4ml) INH SCH ×4 (01:32→20:15)
[2017-01-29] MEDS: Albuterol 0.042% Inhal Sol (1.25 mg/3 mL) UD INH SCH ×4 (01:33→20:15)
[2017-01-29] MEDS: Tramadol 25 mg PO SCH ×3 (03:15→19:20)
[2017-01-29] MEDS: MethylPREDNISolone 40 mg Vial IVP SCH ×3 (05:45→21:40)
[2017-01-29 08:23] LABS: BASO % 0.2 % (0.0-2.0); HEMATOCRIT 38.4 % (34.0-47.0); LYMPH # 1.3 K/uL (1.0-4.3); LYMPH % 11.9 % (20.0-40.0); MEAN CELL VOLUME 87.5 fL (81.0-99.0); MEAN CORPUSCULAR HEMOGLOBIN 28.9 pg (27.0-31.0); MEAN PLATELET VOLUME 9.7 fL (7.2-11.7); MONO # 0.5 K/uL (0.0-0.8); MONO % 4.6 % (0.0-10.0); NRBC % 0.1 % (0.0-2.0); RED CELL DISTRIBUTION WIDTH 13.7 % (11.5-14.5); WHITE BLOOD COUNT 10.9 K/uL (4.8-10.8)
[2017-01-29 08:30] LABS: CHLORIDE 92 mmol/L (98-107)
[2017-01-29 08:31] LABS: POTASSIUM 3.8 mmol/L (3.6-5.2); SODIUM 136 mmol/L (132-148)
[2017-01-29 08:33] LABS: GFR AFRICAN-AMERICAN > 60
[2017-01-29 08:34] LABS: ALB/GLOB RATIO 1.1 (1.0-2.1); ALKALINE PHOSPHATASE 350 U/L (38-126); ALT/SGPT 89 U/L (9-52); AST/SGOT 64 U/L (14-36); BILIRUBIN,TOTAL 0.2 mg/dL (0.2-1.3); BLOOD UREA NITROGEN 10 mg/dL (7-17); CALCIUM 9.1 mg/dl (8.6-10.4); CARBON DIOXIDE 31 mmol/L (22-30); GLUCOSE,RANDOM 200 mg/dL (65-105); TOTAL PROTEIN 6.4 g/dL (6.3-8.3)
[2017-01-29] MEDS: guaiFENesin 100 mg/5 ml Syrup UD PO PRN (09:06)
[2017-01-29] MEDS: Pantoprazole 40 mg EC Tab PO SCH (09:07)
[2017-01-29] MEDS: Enoxaparin 40 mg Syringe SC SCH (09:07)
--- NOTE | 2017-01-29 10:20 | CP.PCM.PN ---
<Chase Motley - Last Filed: 01/29/17 14:23> Subjective - Date & Time of Evaluation Date of Evaluation: 01/29/17 Time of Evaluation: 10:16 - Subjective Subjective: PGY-1 note for medicine service Pt seen and examined at bedside. Pt states that her breathing feels a little improved since starting the IV steroids. Pt has no new complaints and no overnight events. Denies fevers, chills, chest pain, nausea or vomiting. Objective - Vital Signs/Intake and Output Vital Signs (last 24 hours): Temp Pulse Resp BP Pulse Ox 98.4 F 103 H 20 141/89 96 01/29/17 07:26 01/29/17 07:26 01/29/17 07:26 01/29/17 07:26 01/29/17 07:26 Intake and Output: 01/29/17 01/29/17 06:59 18:59 Intake Total 470 Output Total 700 Balance -230 - Medications Medications: Current Medications Acetaminophen (Tylenol 325mg Tab) 650 mg PO Q6 PRN PRN Reason: Pain, Mild (1-3) Acetylcysteine (Acetylcysteine 20%) 4 ml INH RQ6 [facility] Last Admin: 01/29/17 01:32 Dose: 4 ml Albuterol Sulfate (Albuterol 0.042% Inhal Diamante (1.25mg/3ml) Ud) 1.25 mg INH RQ6 [facility] Last Admin: 01/29/17 01:33 Dose: 1.25 mg Enoxaparin Sodium (Lovenox) 40 mg SC DAILY [facility] Last Admin: 01/29/17 09:07 Dose: 40 mg Guaifenesin (Robitussin) 100 mg PO Q4H PRN PRN Reason: Cough Last Admin: 01/29/17 09:06 Dose: 100 mg Methylprednisolone (Solu-Medrol) 40 mg IVP Q8H [facility] Last Admin: 01/29/17 05:45 Dose: 40 mg Pantoprazole Sodium (Protonix Ec Tab) 40 mg PO DAILY [facility] Last Admin: 01/29/17 09:07 Dose: 40 mg Tramadol HCl (Ultram) 25 mg PO Q8H [facility] Last Admin: 01/29/17 03:15 Dose: Not Given - Labs Labs: 01/29/17 08:15 01/29/17 08:15 PT 12.3 SECONDS (9.7-12.2) H 01/23/17 13:04 INR 1.1 01/23/17 13:04 APTT 27 SECONDS (21-34) 01/23/17 13:04 - Constitutional Appears: Non-toxic, No Acute Distress - Head Exam Head Exam: ATRAUMATIC, NORMOCEPHALIC - ENT Exam ENT Exam: Mucous Membranes Moist - Respiratory Exam Respiratory Exam: Decreased Breath Sounds (on right), NORMAL BREATHING PATTERN - Cardiovascular Exam Cardiovascular Exam: +S1, +S2 - GI/Abdominal Exam GI & Abdominal Exam: Soft, Normal Bowel Sounds - Neurological Exam Neurological Exam: Alert, Awake - Skin Skin Exam: Dry, Warm Assessment and Plan - Assessment and Plan (Free Text) Assessment: Metastatic breast cancer - Thoracentesis drawn on 01/23 - metastatic breast cancer - Heme/Onc (Evan, S) following - Recommends getting port placement for more chemo, Will obtain tumor markers. Then d/c for outpatient therapy - IR port placement requested - CA15-3 - elevated Cough/shortness of breath - Secondary to metastatic breast cancer - Persistent, worse with exertion - CXR 01/23 - Near complete opacification of the right mack thorax with most likely space-occupying lesion versus loculated pleural effusion. There is shifted mediastinal to the left. Chest CT recommended. - Chest CT 01/23 - Moderate to large loculated pleural effusion on the right with associated compressive atelectasis and/ pneumonia. Scattered airspace opacities seen in the left side which could represent infection and/or metastatic disease. Diffuse bony metastatic disease. - Chest/Abd/Pel CT 01/23 - right apical neoplasm with probably right apical atelectasis. Diffuse sclerotic mets of all visualized osseous structures. right mastectomy, fatty liver - Thoracentesis ordered with labs including cytology -900 straw colored fluid - resulted: metastatic breast cancer - Heme/onc consulted (Evan) - help appreciated -see above -Thoracic surgeon consult - Dr. Damon -No surgery. SOB likely due to atelectasis from bronchial obstructions. Consider bronchial stenting. Surgery signed off - Pulm consult (Mitch) - Stent would not help either. Start Solu medrol for now - Continue azithromycin and rocephin - stopped 01/28 - IVF at 60 cc/hr - No leukocytosis or electrolyte abnormalities - CA 15-3 elevated at 1930 Chest pain - See above - Tramadol scheduled Q8H - Tylenol PRN for mild pain Elevated alkaline phosphatase - likely due to metastasis, stable - will monitor Hx of HTN - normotensive currently - Heart healthy diet - will cont to monitor Hypokalemia - Monitor, replete as needed PPX - lovenox - protonix <Yvan Mcdowellrosette Marie - Last Filed: 01/29/17 18:20> Objective - Vital Signs/Intake and Output Vital Signs (last 24 hours): Temp Pulse Resp BP Pulse Ox 98.0 F 105 H 20 129/88 99 01/29/17 15:45 01/29/17 16:02 01/29/17 15:45 01/29/17 15:45 01/29/17 15:45 Intake and Output: 01/29/17 01/29/17 06:59 18:59 Intake Total 470 241 Output Total 700 Balance -230 241 - Medications Medications: Current Medications Acetaminophen (Tylenol 325mg Tab) 650 mg PO Q6 PRN PRN Reason: Pain, Mild (1-3) Acetylcysteine (Acetylcysteine 20%) 4 ml INH RQ6 [facility] Last Admin: 01/29/17 13:02 Dose: Not Given Albuterol Sulfate (Albuterol 0.042% Inhal Diamante (1.25mg/3ml) Ud) 1.25 mg INH RQ6 [facility] Last Admin: 01/29/17 13:02 Dose: Not Given Enoxaparin Sodium (Lovenox) 40 mg SC DAILY [facility] Last Admin: 01/29/17 09:07 Dose: 40 mg Guaifenesin (Robitussin) 100 mg PO Q4H PRN PRN Reason: Cough Last Admin: 01/29/17 09:06 Dose: 100 mg Methylprednisolone (Solu-Medrol) 40 mg IVP Q8H [facility] Last Admin: 01/29/17 13:00 Dose: 40 mg Pantoprazole Sodium (Protonix Ec Tab) 40 mg PO DAILY [facility] Last Admin: 01/29/17 09:07 Dose: 40 mg Tramadol HCl (Ultram) 25 mg PO Q8H [facility] Last Admin: 01/29/17 11:09 Dose: 25 mg - Labs Labs: 01/29/17 08:15 01/29/17 08:15 PT 12.3 SECONDS (9.7-12.2) H 01/23/17 13:04 INR 1.1 01/23/17 13:04 APTT 27 SECONDS (21-34) 01/23/17 13:04 Attending/Attestation - Attestation I have personally seen and examined this patient.: Yes I have fully participated in the care of the patient.: Yes I have reviewed all pertinent clinical information, including history, physical exam and plan: Yes Notes (Text): 01/29/17 18:20 patient was seen and examined at bedside with the resident Patient appears comfortable without any acute distress Denies any shortness of breath or pain at this time Plan is for placement of Port-A-Cath the for chemotherapy Discussed the plan of care with the resident and agree with the above assessment and plan by the resident
--- NOTE | 2017-01-29 21:34 | CP.PCM.PN ---
Subjective - Date & Time of Evaluation Date of Evaluation: 01/29/17 Time of Evaluation: 17:00 - Subjective Subjective: Feeling better with steroids Objective - Vital Signs/Intake and Output Vital Signs (last 24 hours): Temp Pulse Resp BP Pulse Ox 98.0 F 105 H 20 129/88 99 01/29/17 15:45 01/29/17 16:02 01/29/17 15:45 01/29/17 15:45 01/29/17 15:45 Intake and Output: 01/29/17 01/30/17 18:59 06:59 Intake Total 241 Balance 241 - Medications Medications: Current Medications Acetaminophen (Tylenol 325mg Tab) 650 mg PO Q6 PRN PRN Reason: Pain, Mild (1-3) Acetylcysteine (Acetylcysteine 20%) 4 ml INH RQ6 [facility] Last Admin: 01/29/17 20:15 Dose: Not Given Albuterol Sulfate (Albuterol 0.042% Inhal Diamante (1.25mg/3ml) Ud) 1.25 mg INH RQ6 [facility] Last Admin: 01/29/17 20:15 Dose: Not Given Enoxaparin Sodium (Lovenox) 40 mg SC DAILY [facility] Last Admin: 01/29/17 09:07 Dose: 40 mg Guaifenesin (Robitussin) 100 mg PO Q4H PRN PRN Reason: Cough Last Admin: 01/29/17 09:06 Dose: 100 mg Methylprednisolone (Solu-Medrol) 40 mg IVP Q8H [facility] Last Admin: 01/29/17 13:00 Dose: 40 mg Pantoprazole Sodium (Protonix Ec Tab) 40 mg PO DAILY [facility] Last Admin: 01/29/17 09:07 Dose: 40 mg Tramadol HCl (Ultram) 25 mg PO Q8H [facility] Last Admin: 01/29/17 11:09 Dose: 25 mg - Labs Labs: 01/29/17 08:15 01/29/17 08:15 PT 12.3 SECONDS (9.7-12.2) H 01/23/17 13:04 INR 1.1 01/23/17 13:04 APTT 27 SECONDS (21-34) 01/23/17 13:04 - Head Exam Head Exam: ATRAUMATIC - Eye Exam Eye Exam: Normal appearance - ENT Exam ENT Exam: Mucous Membranes Dry - Respiratory Exam Respiratory Exam: Decreased Breath Sounds - Cardiovascular Exam Cardiovascular Exam: +S1, +S2 - GI/Abdominal Exam GI & Abdominal Exam: Normal Bowel Sounds - Extremities Exam Extremities Exam: Normal Inspection Assessment and Plan (1) Breast cancer Assessment & Plan: malignant effusion s/p drainage lung, LN, bone mets discussed with rad onc Dr. Graves; no emergent need for radiation outpatient chemotherapy ER/GA/HER2 pending Status: Acute
[2017-01-30] MEDS: Albuterol 0.042% Inhal Sol (1.25 mg/3 mL) UD INH SCH ×3 (01:16→14:04)
[2017-01-30] MEDS: Acetylcysteine 20% Inhal Soln (4ml) INH SCH ×3 (01:16→14:05)
[2017-01-30] MEDS: Tramadol 25 mg PO SCH ×4 (03:55→18:49)
[2017-01-30] MEDS: MethylPREDNISolone 40 mg Vial IVP SCH ×3 (06:12→22:19)
--- NOTE | 2017-01-30 10:15 | CP.PCM.PN ---
<Chase Motley - Last Filed: 01/30/17 12:11> Subjective - Date & Time of Evaluation Date of Evaluation: 01/30/17 Time of Evaluation: 10:10 - Subjective Subjective: PGY-1 note for medicine service Pt seen and examined at bedside. Pt states that she feels at baseline with breathing but is complaining of diffuse body aches. Denies fevers, chills, chest pain, increased sob, nausea or vomiting. She is for port placement today, has been NPO since midnight. Objective - Vital Signs/Intake and Output Vital Signs (last 24 hours): Temp Pulse Resp BP Pulse Ox 97.8 F 88 20 133/90 97 01/30/17 07:40 01/30/17 07:40 01/30/17 07:40 01/30/17 07:40 01/30/17 07:40 Intake and Output: 01/30/17 01/30/17 06:59 18:59 Intake Total 320 Balance 320 - Medications Medications: Current Medications Acetaminophen (Tylenol 325mg Tab) 650 mg PO Q6 PRN PRN Reason: Pain, Mild (1-3) Acetylcysteine (Acetylcysteine 20%) 4 ml INH RQ6 [facility] Last Admin: 01/30/17 08:45 Dose: 4 ml Albuterol Sulfate (Albuterol 0.042% Inhal Diamante (1.25mg/3ml) Ud) 1.25 mg INH RQ6 [facility] Last Admin: 01/30/17 08:45 Dose: 1.25 mg Enoxaparin Sodium (Lovenox) 40 mg SC DAILY [facility] Last Admin: 01/29/17 09:07 Dose: 40 mg Guaifenesin (Robitussin) 100 mg PO Q4H PRN PRN Reason: Cough Last Admin: 01/29/17 09:06 Dose: 100 mg Methylprednisolone (Solu-Medrol) 40 mg IVP Q8H [facility] Last Admin: 01/30/17 06:12 Dose: 40 mg Pantoprazole Sodium (Protonix Ec Tab) 40 mg PO DAILY [facility] Last Admin: 01/29/17 09:07 Dose: 40 mg Tramadol HCl (Ultram) 25 mg PO Q8H [facility] Last Admin: 01/30/17 03:55 Dose: Not Given - Labs Labs: 01/29/17 08:15 01/29/17 08:15 PT 12.3 SECONDS (9.7-12.2) H 01/23/17 13:04 INR 1.1 01/23/17 13:04 APTT 27 SECONDS (21-34) 01/23/17 13:04 - Constitutional Appears: Non-toxic, No Acute Distress, Chronically Ill - Head Exam Head Exam: ATRAUMATIC, NORMOCEPHALIC - Eye Exam Eye Exam: Normal appearance Pupil Exam: PERRL - ENT Exam ENT Exam: Mucous Membranes Moist - Respiratory Exam Respiratory Exam: Decreased Breath Sounds (on the right), NORMAL BREATHING PATTERN. absent: Rhonchi, Wheezes - Cardiovascular Exam Cardiovascular Exam: +S1, +S2 - GI/Abdominal Exam GI & Abdominal Exam: Soft, Normal Bowel Sounds - Neurological Exam Neurological Exam: Alert, Awake - Skin Skin Exam: Dry, Warm Assessment and Plan - Assessment and Plan (Free Text) Assessment: Metastatic breast cancer - Port placement today - Thoracentesis drawn on 01/23 - metastatic breast cancer - Heme/Onc (Evan, S) following - Recommends getting port placement for more chemo, Will obtain tumor markers. Then d/c for outpatient therapy - IR port placement requested - CA15-3 - elevated - Morphine 2mg Q4h PRN pain Cough/shortness of breath - Secondary to metastatic breast cancer - Persistent, worse with exertion - CXR 01/23 - Near complete opacification of the right mack thorax with most likely space-occupying lesion versus loculated pleural effusion. There is shifted mediastinal to the left. Chest CT recommended. - Chest CT 01/23 - Moderate to large loculated pleural effusion on the right with associated compressive atelectasis and/ pneumonia. Scattered airspace opacities seen in the left side which could represent infection and/or metastatic disease. Diffuse bony metastatic disease. - Chest/Abd/Pel CT 01/23 - right apical neoplasm with probably right apical atelectasis. Diffuse sclerotic mets of all visualized osseous structures. right mastectomy, fatty liver - Thoracentesis ordered with labs including cytology -900 straw colored fluid - resulted: metastatic breast cancer - Heme/onc consulted (Evan) - help appreciated -see above -Thoracic surgeon consult - Dr. Damon -No surgery. SOB likely due to atelectasis from bronchial obstructions. Consider bronchial stenting. Surgery signed off - Pulm consult (Mitch) - Stent would not help either. Start Solu medrol for now - Feels better with steroids - Continue azithromycin and rocephin - stopped 01/28 - IVF at 60 cc/hr - No leukocytosis or electrolyte abnormalities - CA 15-3 elevated at 1930 Chest pain - See above - Morphine 2mg Q4h PRN pain - Tramadol scheduled Q8H - Tylenol PRN for mild pain Elevated alkaline phosphatase - likely due to metastasis, stable - will monitor Hx of HTN - normotensive currently - Heart healthy diet - will cont to monitor Hypokalemia - Monitor, replete as needed PPX - lovenox - protonix <Aric Mcdowell - Last Filed: 02/02/17 16:18> Objective - Vital Signs/Intake and Output Vital Signs (last 24 hours): Temp Pulse Resp BP Pulse Ox 98.0 F 80 20 124/86 97 02/02/17 08:00 02/02/17 16:10 02/02/17 08:00 02/02/17 08:00 02/02/17 08:00 Intake and Output: 02/02/17 02/02/17 06:59 18:59 Intake Total 350 Output Total 500 Balance -150 - Medications Medications: Current Medications Acetaminophen (Tylenol 325mg Tab) 650 mg PO Q6 PRN PRN Reason: Pain, Mild (1-3) Acetylcysteine (Acetylcysteine 20%) 4 ml INH RQ6 [facility] Last Admin: 02/02/17 13:53 Dose: 4 ml Albuterol Sulfate (Albuterol 0.042% Inhal Diamante (1.25mg/3ml) Ud) 1.25 mg INH RQ6 [facility] Last Admin: 02/02/17 13:53 Dose: 1.25 mg Enoxaparin Sodium (Lovenox) 40 mg SC DAILY [facility] Last Admin: 02/02/17 10:30 Dose: 40 mg Guaifenesin (Robitussin) 100 mg PO Q4H PRN PRN Reason: Cough Last Admin: 02/02/17 10:30 Dose: 100 mg Methylprednisolone (Solu-Medrol) 40 mg IVP DAILY [facility] Last Admin: 02/02/17 10:31 Dose: 40 mg Morphine Sulfate (Morphine) 2 mg IVP Q4 PRN PRN Reason: Pain, severe (8-10) Last Admin: 02/02/17 08:04 Dose: 2 mg Pantoprazole Sodium (Protonix Ec Tab) 40 mg PO DAILY [facility] Last Admin: 02/02/17 10:31 Dose: 40 mg Tramadol HCl (Ultram) 25 mg PO Q8H [facility] Last Admin: 02/02/17 10:30 Dose: 25 mg - Labs Labs: 02/02/17 11:58 02/02/17 11:58 PT 12.3 SECONDS (9.7-12.2) H 01/23/17 13:04 INR 1.1 01/23/17 13:04 APTT 27 SECONDS (21-34) 01/23/17 13:04 Attending/Attestation - Attestation I have personally seen and examined this patient.: Yes I have fully participated in the care of the patient.: Yes I have reviewed all pertinent clinical information, including history, physical exam and plan: Yes Notes (Text): 02/02/17 16:18 Patient was seen and examined at bedside with the resident This a late computer entry Patient is scheduled for Port-A-Cath placement I agree with the above assessment and plan by the resident.
[2017-01-30] MEDS: Pantoprazole 40 mg EC Tab PO SCH (10:19)
[2017-01-30] MEDS: Enoxaparin 40 mg Syringe SC SCH (10:19)
[2017-01-30 10:27] LABS: BASO # 0.1 K/uL (0.0-0.2); BASO % 0.3 % (0.0-2.0); HEMATOCRIT 40.8 % (34.0-47.0); LYMPH # 1.7 K/uL (1.0-4.3); LYMPH % 10.2 % (20.0-40.0); MEAN CELL VOLUME 88.4 fL (81.0-99.0); MEAN CORPUSCULAR HEMOGLOBIN 28.4 pg (27.0-31.0); MEAN CORPUSCULAR HGB CONC 32.1 g/dL (33.0-37.0); MEAN PLATELET VOLUME 9.6 fL (7.2-11.7); MONO # 0.9 K/uL (0.0-0.8); MONO % 5.5 % (0.0-10.0); NRBC % 0.1 % (0.0-2.0); RED CELL DISTRIBUTION WIDTH 13.8 % (11.5-14.5); WHITE BLOOD COUNT 16.9 K/uL (4.8-10.8)
[2017-01-30 10:38] LABS: CHLORIDE 92 mmol/L (98-107); SODIUM 138 mmol/L (132-148)
[2017-01-30 10:39] LABS: POTASSIUM 3.9 mmol/L (3.6-5.2)
[2017-01-30 10:41] LABS: ALB/GLOB RATIO 1.1 (1.0-2.1); AST/SGOT 74 U/L (14-36); BILIRUBIN,TOTAL 0.3 mg/dL (0.2-1.3); BLOOD UREA NITROGEN 15 mg/dL (7-17); CARBON DIOXIDE 32 mmol/L (22-30); GFR AFRICAN-AMERICAN > 60; GLUCOSE,RANDOM 91 mg/dL (65-105); TOTAL PROTEIN 6.6 g/dL (6.3-8.3)
[2017-01-30 10:42] LABS: ALKALINE PHOSPHATASE 377 U/L (38-126); ALT/SGPT 104 U/L (9-52); CALCIUM 9.2 mg/dl (8.6-10.4)
[2017-01-30] MEDS ORDERED: ceFAZolin IV 1 gm in Dextrose 100 ML IVPB ONE (11:30)
[2017-01-30] MEDS ORDERED: Lidocaine 2% Inj (20ml) ONE (11:31)
[2017-01-30] MEDS ORDERED: Midazolam 2 MG/2 ML VIAL ONE (11:31)
[2017-01-30] MEDS ORDERED: DiphenhydrAMINE 50 mg/ml Inj ONE (11:31)
--- NOTE | 2017-01-30 12:54 | PCM.SURG1 ---
Surgeon's Initial Post Op Note - Surgeon's Notes Surgeon: Tolu Hernandez MD Mail Officer: NONE Type of Anesthesia: Moderate Sedation{RN} Pre-Operative Diagnosis: Metastatic breast cancer Operative Findings: Occluded left IJV. Multiple collateral veins left neck. Patent right IJV. Multiple enlarged right supraclavicular nodes. Post-Operative Diagnosis: Metastatic breast cancer. Operation Performed: Left neck was prepped sterile manner for port placement. Unable to place left IJV port secondary to occluded IJV. Right neck and chest prepped and draped in sterile manner. A right IJV port placed. Tip on port in SVC. Specimen/Specimens Removed: NONE Estimated Blood Loss: EBL {In ML}: 5 Blood Products Given: N/A Drains Used: No Drains Post-Op Condition: Fair Date of Surgery/Procedure: 01/30/17 Time of Surgery/Procedure: 12:50
[2017-01-30 17:16] VITALS: RESP 20
[2017-01-31] MEDS: Acetylcysteine 20% Inhal Soln (4ml) INH SCH ×3 (01:16→14:25)
[2017-01-31] MEDS: Albuterol 0.042% Inhal Sol (1.25 mg/3 mL) UD INH SCH ×3 (01:17→14:25)
[2017-01-31] MEDS: Tramadol 25 mg PO SCH ×4 (03:15→20:11)
[2017-01-31] MEDS: MethylPREDNISolone 40 mg Vial IVP SCH (05:16)
[2017-01-31 08:45] LABS: BASO % 0.2 % (0.0-2.0); HEMATOCRIT 41.3 % (34.0-47.0); LYMPH # 1.4 K/uL (1.0-4.3); LYMPH % 10.7 % (20.0-40.0); MEAN CELL VOLUME 87.6 fL (81.0-99.0); MEAN CORPUSCULAR HEMOGLOBIN 27.9 pg (27.0-31.0); MEAN CORPUSCULAR HGB CONC 31.9 g/dL (33.0-37.0); MEAN PLATELET VOLUME 9.4 fL (7.2-11.7); MONO % 7.5 % (0.0-10.0); WHITE BLOOD COUNT 13.3 K/uL (4.8-10.8)
[2017-01-31 08:58] LABS: CHLORIDE 92 mmol/L (98-107)
[2017-01-31 08:59] LABS: POTASSIUM 3.8 mmol/L (3.6-5.2); SODIUM 137 mmol/L (132-148)
[2017-01-31] MEDS: guaiFENesin 100 mg/5 ml Syrup UD PO PRN ×2 (09:00→12:58)
[2017-01-31 09:01] LABS: AST/SGOT 74 U/L (14-36); BILIRUBIN,TOTAL 0.5 mg/dL (0.2-1.3); GFR AFRICAN-AMERICAN > 60
[2017-01-31 09:02] LABS: ALB/GLOB RATIO 1.1 (1.0-2.1); ALKALINE PHOSPHATASE 469 U/L (38-126); ALT/SGPT 138 U/L (9-52); BLOOD UREA NITROGEN 15 mg/dL (7-17); CALCIUM 8.6 mg/dl (8.6-10.4); CARBON DIOXIDE 34 mmol/L (22-30); GLUCOSE,RANDOM 118 mg/dL (65-105); TOTAL PROTEIN 6.5 g/dL (6.3-8.3)
[2017-01-31] MEDS: Enoxaparin 40 mg Syringe SC SCH (09:29)
[2017-01-31] MEDS: Pantoprazole 40 mg EC Tab PO SCH (09:29)
--- NOTE | 2017-01-31 17:31 | CP.PCM.PN ---
<Chase Motley - Last Filed: 01/31/17 17:28> Subjective - Date & Time of Evaluation Date of Evaluation: 01/31/17 Time of Evaluation: 17:28 - Subjective Subjective: PGY-1 note for medicine service Pt seen and examined at bedside. Pt complains of some pain at the surgical site. Pain tolerable with pain regimen. Denies any fevers, chills, chest pain, palpitations, nausea or vomiting. Still complains of cough and sob with exertion Case working on home O2 and getting tammy care Objective - Vital Signs/Intake and Output Vital Signs (last 24 hours): Temp Pulse Resp BP Pulse Ox 98 F 95 H 20 128/81 97 01/31/17 16:00 01/31/17 16:22 01/31/17 16:00 01/31/17 16:00 01/31/17 16:00 Intake and Output: 01/31/17 01/31/17 06:59 18:59 Intake Total 240 300 Balance 240 300 - Medications Medications: Current Medications Acetaminophen (Tylenol 325mg Tab) 650 mg PO Q6 PRN PRN Reason: Pain, Mild (1-3) Acetylcysteine (Acetylcysteine 20%) 4 ml INH RQ6 [facility] Last Admin: 01/31/17 14:25 Dose: 4 ml Albuterol Sulfate (Albuterol 0.042% Inhal Diamante (1.25mg/3ml) Ud) 1.25 mg INH RQ6 [facility] Last Admin: 01/31/17 14:25 Dose: 1.25 mg Enoxaparin Sodium (Lovenox) 40 mg SC DAILY [facility] Last Admin: 01/31/17 09:29 Dose: 40 mg Guaifenesin (Robitussin) 100 mg PO Q4H PRN PRN Reason: Cough Last Admin: 01/31/17 12:58 Dose: 100 mg Methylprednisolone (Solu-Medrol) 40 mg IVP DAILY [facility] Morphine Sulfate (Morphine) 2 mg IVP Q4 PRN PRN Reason: Pain, severe (8-10) Last Admin: 01/31/17 13:01 Dose: 2 mg Pantoprazole Sodium (Protonix Ec Tab) 40 mg PO DAILY [facility] Last Admin: 01/31/17 09:29 Dose: 40 mg Tramadol HCl (Ultram) 25 mg PO Q8H [facility] Last Admin: 01/31/17 11:16 Dose: Not Given - Labs Labs: 01/31/17 08:30 01/31/17 08:30 PT 12.3 SECONDS (9.7-12.2) H 01/23/17 13:04 INR 1.1 01/23/17 13:04 APTT 27 SECONDS (21-34) 01/23/17 13:04 - Constitutional Appears: Non-toxic, No Acute Distress - Head Exam Head Exam: ATRAUMATIC, NORMOCEPHALIC - Eye Exam Eye Exam: Normal appearance Pupil Exam: PERRL - ENT Exam ENT Exam: Mucous Membranes Moist - Respiratory Exam Respiratory Exam: Decreased Breath Sounds (on right, but mildy improved), NORMAL BREATHING PATTERN - Cardiovascular Exam Cardiovascular Exam: +S1, +S2 - GI/Abdominal Exam GI & Abdominal Exam: Soft, Normal Bowel Sounds - Neurological Exam Neurological Exam: Alert, Awake - Skin Skin Exam: Dry, Warm Assessment and Plan - Assessment and Plan (Free Text) Assessment: Metastatic breast cancer - Port placed, appropriate tenderness to surgical site. Bandages c/d/i - Thoracentesis drawn on 01/23 - metastatic breast cancer - Heme/Onc (Ballinger, S) following - Recommends getting port placement for more chemo, Will obtain tumor markers. Then d/c for outpatient therapy - IR port placement requested - CA15-3 - elevated - Morphine 2mg Q4h PRN pain Cough/shortness of breath - Secondary to metastatic breast cancer - Persistent, worse with exertion. Case working on getting home O2 - CXR 01/23 - Near complete opacification of the right mack thorax with most likely space-occupying lesion versus loculated pleural effusion. There is shifted mediastinal to the left. Chest CT recommended. - Chest CT 01/23 - Moderate to large loculated pleural effusion on the right with associated compressive atelectasis and/ pneumonia. Scattered airspace opacities seen in the left side which could represent infection and/or metastatic disease. Diffuse bony metastatic disease. - Chest/Abd/Pel CT 01/23 - right apical neoplasm with probably right apical atelectasis. Diffuse sclerotic mets of all visualized osseous structures. right mastectomy, fatty liver - Thoracentesis ordered with labs including cytology -900 straw colored fluid - resulted: metastatic breast cancer - Heme/onc consulted (Evan) - help appreciated -see above -Thoracic surgeon consult - Dr. Damon -No surgery. SOB likely due to atelectasis from bronchial obstructions. Consider bronchial stenting. Surgery signed off - Pulm consult ([place]) - Stent would not help either. Start Solu medrol for now - Feels better with steroids - Continue azithromycin and rocephin - stopped 01/28 - IVF at 60 cc/hr - No leukocytosis or electrolyte abnormalities - CA 15-3 elevated at 1930 Chest pain - See above - Morphine 2mg Q4h PRN pain - Tramadol scheduled Q8H - Tylenol PRN for mild pain Elevated alkaline phosphatase - likely due to metastasis, stable - will monitor Hx of HTN - normotensive currently - Heart healthy diet - will cont to monitor Hypokalemia - Monitor, replete as needed PPX - lovenox - protonix <Ramakrishna Hensley - Last Filed: 02/17/17 22:45> Objective - Vital Signs/Intake and Output Vital Signs (last 24 hours): Temp Pulse Resp BP Pulse Ox 98.2 F 87 20 118/76 98 02/05/17 16:00 02/05/17 16:00 02/05/17 16:00 02/05/17 16:00 02/05/17 16:00 - Labs Labs: 02/05/17 08:34 02/05/17 08:34 PT 12.3 SECONDS (9.7-12.2) H 01/23/17 13:04 INR 1.1 01/23/17 13:04 APTT 27 SECONDS (21-34) 01/23/17 13:04 Assessment and Plan (1) Dyspnea Status: Acute (2) Metastatic cancer Status: Acute (3) Pleural effusion Status: Acute (4) Pain Status: Acute Attending/Attestation - Attestation I have personally seen and examined this patient.: Yes I have fully participated in the care of the patient.: Yes I have reviewed all pertinent clinical information, including history, physical exam and plan: Yes
[2017-02-01] MEDS: Albuterol 0.042% Inhal Sol (1.25 mg/3 mL) UD INH SCH ×4 (01:22→20:20)
[2017-02-01] MEDS: Acetylcysteine 20% Inhal Soln (4ml) INH SCH ×4 (01:22→20:20)
[2017-02-01] MEDS: Tramadol 25 mg PO SCH ×3 (03:00→19:30)
[2017-02-01 07:23] LABS: BASO % 0.3 % (0.0-2.0); EOS % 0.1 % (0.0-4.0); HEMATOCRIT 39.8 % (34.0-47.0); LYMPH # 2.4 K/uL (1.0-4.3); LYMPH % 17.6 % (20.0-40.0); MEAN CELL VOLUME 87.6 fL (81.0-99.0); MEAN CORPUSCULAR HEMOGLOBIN 28.5 pg (27.0-31.0); MEAN CORPUSCULAR HGB CONC 32.5 g/dL (33.0-37.0); MEAN PLATELET VOLUME 8.7 fL (7.2-11.7); MONO % 7.6 % (0.0-10.0); NRBC % 0.1 % (0.0-2.0); RED CELL DISTRIBUTION WIDTH 13.9 % (11.5-14.5); WHITE BLOOD COUNT 13.5 K/uL (4.8-10.8)
[2017-02-01 07:46] LABS: CHLORIDE 93 mmol/L (98-107); POTASSIUM 3.5 mmol/L (3.6-5.2); SODIUM 138 mmol/L (132-148)
[2017-02-01 07:48] LABS: BILIRUBIN,TOTAL 0.5 mg/dL (0.2-1.3); GFR AFRICAN-AMERICAN > 60
[2017-02-01 07:49] LABS: ALB/GLOB RATIO 1.2 (1.0-2.1); ALKALINE PHOSPHATASE 453 U/L (38-126); ALT/SGPT 111 U/L (9-52); AST/SGOT 58 U/L (14-36); BLOOD UREA NITROGEN 12 mg/dL (7-17); CALCIUM 8.3 mg/dl (8.6-10.4); CARBON DIOXIDE 36 mmol/L (22-30); GLUCOSE,RANDOM 99 mg/dL (65-105); TOTAL PROTEIN 5.7 g/dL (6.3-8.3)
[2017-02-01] MEDS ORDERED: Potassium Chloride 20 mEq ER Tab PO ONE ×2 (08:50→10:00)
[2017-02-01] MEDS: Enoxaparin 40 mg Syringe SC SCH (09:56)
[2017-02-01] MEDS: guaiFENesin 100 mg/5 ml Syrup UD PO PRN (09:56)
[2017-02-01] MEDS: Pantoprazole 40 mg EC Tab PO SCH (09:57)
[2017-02-01] MEDS: MethylPREDNISolone 40 mg Vial IVP SCH (10:01)
[2017-02-02] MEDS: Albuterol 0.042% Inhal Sol (1.25 mg/3 mL) UD INH SCH ×4 (01:15→19:18)
[2017-02-02] MEDS: Acetylcysteine 20% Inhal Soln (4ml) INH SCH ×4 (01:15→19:18)
[2017-02-02] MEDS: Tramadol 25 mg PO SCH ×4 (01:33→19:15)
--- NOTE | 2017-02-02 09:45 | CP.PCM.PN ---
Subjective - Date & Time of Evaluation Date of Evaluation: 02/01/17 Time of Evaluation: 11:00 - Subjective Subjective: Patient without new complaints; Objective - Vital Signs/Intake and Output Vital Signs (last 24 hours): Temp Pulse Resp BP Pulse Ox 98.1 F 95 H 20 127/82 96 02/01/17 23:22 02/02/17 00:28 02/01/17 23:22 02/01/17 23:22 02/01/17 23:22 Intake and Output: 02/02/17 02/02/17 06:59 18:59 Intake Total 350 Output Total 500 Balance -150 - Medications Medications: Current Medications Acetaminophen (Tylenol 325mg Tab) 650 mg PO Q6 PRN PRN Reason: Pain, Mild (1-3) Acetylcysteine (Acetylcysteine 20%) 4 ml INH RQ6 [facility] Last Admin: 02/02/17 09:08 Dose: 4 ml Albuterol Sulfate (Albuterol 0.042% Inhal Diamante (1.25mg/3ml) Ud) 1.25 mg INH RQ6 [facility] Last Admin: 02/02/17 09:08 Dose: 1.25 mg Enoxaparin Sodium (Lovenox) 40 mg SC DAILY [facility] Last Admin: 02/01/17 09:56 Dose: 40 mg Guaifenesin (Robitussin) 100 mg PO Q4H PRN PRN Reason: Cough Last Admin: 02/01/17 09:56 Dose: 100 mg Methylprednisolone (Solu-Medrol) 40 mg IVP DAILY [facility] Last Admin: 02/01/17 10:01 Dose: 40 mg Morphine Sulfate (Morphine) 2 mg IVP Q4 PRN PRN Reason: Pain, severe (8-10) Last Admin: 02/02/17 08:04 Dose: 2 mg Pantoprazole Sodium (Protonix Ec Tab) 40 mg PO DAILY [facility] Last Admin: 02/01/17 09:57 Dose: 40 mg Tramadol HCl (Ultram) 25 mg PO Q8H [facility] Last Admin: 02/02/17 03:15 Dose: Not Given - Labs Labs: 02/01/17 07:09 02/01/17 07:09 PT 12.3 SECONDS (9.7-12.2) H 01/23/17 13:04 INR 1.1 01/23/17 13:04 APTT 27 SECONDS (21-34) 01/23/17 13:04 - Constitutional Appears: Well, No Acute Distress - Head Exam Head Exam: NORMAL INSPECTION - Eye Exam Eye Exam: Normal appearance - ENT Exam ENT Exam: Mucous Membranes Moist - Neck Exam Neck Exam: Normal Inspection - Respiratory Exam Respiratory Exam: absent: Accessory Muscle Use, Rhonchi, Wheezes Additional comments: Markedly decreased breath sound on R but slightly improved; L clear; - Cardiovascular Exam Cardiovascular Exam: REGULAR RHYTHM, RRR, +S1, +S2 - GI/Abdominal Exam GI & Abdominal Exam: Soft. absent: Distended - Extremities Exam Extremities Exam: Normal Inspection - Neurological Exam Neurological Exam: Alert, Awake - Psychiatric Exam Psychiatric exam: Normal Affect, Normal Mood - Skin Skin Exam: Warm. absent: Cyanosis Assessment and Plan (1) Dyspnea Assessment & Plan: O2 sat 88% on RA after ambulating per PT; needs home O2 setup, can then d/c home ; Status: Acute (2) Metastatic cancer Assessment & Plan: Breast CA with large lung mass and pleural fluid cytology consistent with primary breast CA; awaiting ER/SD and HER-2-ADRIANO for further tx options per onc; R portacath placed last week; Status: Acute (3) Pleural effusion Assessment & Plan: 900 cc/ drained on day of admission; per thoracic surgery, not amenable for pleurodesis; Status: Acute (4) Pain Assessment & Plan: On tramadol, continue; Status: Acute
[2017-02-02] MEDS: Enoxaparin 40 mg Syringe SC SCH (10:30)
[2017-02-02] MEDS: guaiFENesin 100 mg/5 ml Syrup UD PO PRN (10:30)
[2017-02-02] MEDS: MethylPREDNISolone 40 mg Vial IVP SCH (10:31)
[2017-02-02] MEDS: Pantoprazole 40 mg EC Tab PO SCH (10:31)
--- NOTE | 2017-02-02 11:23 | CP.PCM.PN ---
<Chase Motley - Last Filed: 02/02/17 11:20> Subjective - Date & Time of Evaluation Date of Evaluation: 02/02/17 Time of Evaluation: 11:20 - Subjective Subjective: PGY-1 note for medicine service Pt seen and examined at bedside. Pt reports some increased pain currently. Per nursing staff she is not asking for her PRN meds and sometimes refuses her standing Tramadol. Denies any other new symptoms. Denies fevers, chills, chest pain, palpitations, nausea, vomiting. Still has sob with minimal ambulation. Objective - Vital Signs/Intake and Output Vital Signs (last 24 hours): Temp Pulse Resp BP Pulse Ox 98.0 F 80 20 124/86 97 02/02/17 08:00 02/02/17 08:00 02/02/17 08:00 02/02/17 08:00 02/02/17 08:00 Intake and Output: 02/02/17 02/02/17 06:59 18:59 Intake Total 350 Output Total 500 Balance -150 - Medications Medications: Current Medications Acetaminophen (Tylenol 325mg Tab) 650 mg PO Q6 PRN PRN Reason: Pain, Mild (1-3) Acetylcysteine (Acetylcysteine 20%) 4 ml INH RQ6 [facility] Last Admin: 02/02/17 09:08 Dose: 4 ml Albuterol Sulfate (Albuterol 0.042% Inhal Diamante (1.25mg/3ml) Ud) 1.25 mg INH RQ6 [facility] Last Admin: 02/02/17 09:08 Dose: 1.25 mg Enoxaparin Sodium (Lovenox) 40 mg SC DAILY [facility] Last Admin: 02/02/17 10:30 Dose: 40 mg Guaifenesin (Robitussin) 100 mg PO Q4H PRN PRN Reason: Cough Last Admin: 02/02/17 10:30 Dose: 100 mg Methylprednisolone (Solu-Medrol) 40 mg IVP DAILY [facility] Last Admin: 02/02/17 10:31 Dose: 40 mg Morphine Sulfate (Morphine) 2 mg IVP Q4 PRN PRN Reason: Pain, severe (8-10) Last Admin: 02/02/17 08:04 Dose: 2 mg Pantoprazole Sodium (Protonix Ec Tab) 40 mg PO DAILY [facility] Last Admin: 02/02/17 10:31 Dose: 40 mg Tramadol HCl (Ultram) 25 mg PO Q8H [facility] Last Admin: 02/02/17 10:30 Dose: 25 mg - Labs Labs: 02/01/17 07:09 02/01/17 07:09 PT 12.3 SECONDS (9.7-12.2) H 01/23/17 13:04 INR 1.1 01/23/17 13:04 APTT 27 SECONDS (21-34) 01/23/17 13:04 - Constitutional Appears: Non-toxic, No Acute Distress - Head Exam Head Exam: ATRAUMATIC, NORMOCEPHALIC - Eye Exam Eye Exam: Normal appearance Pupil Exam: PERRL - ENT Exam ENT Exam: Mucous Membranes Moist - Respiratory Exam Respiratory Exam: Decreased Breath Sounds (On the right, but improved since starting steroids), NORMAL BREATHING PATTERN - Cardiovascular Exam Cardiovascular Exam: +S1, +S2 - GI/Abdominal Exam GI & Abdominal Exam: Soft, Normal Bowel Sounds - Neurological Exam Neurological Exam: Alert, Awake - Skin Skin Exam: Dry, Warm Assessment and Plan - Assessment and Plan (Free Text) Assessment: Dispo - Pt needs home O2 - case says that must be ordered 2ithin 24 hours of the pt going home. Pt also needs [facility] care to go follow up at [facility] to then get a referral to follow up with Dr Gordon to get chemo. Metastatic breast cancer - Port placed, appropriate tenderness to surgical site. Bandages c/d/i - Thoracentesis drawn on 01/23 - metastatic breast cancer - Heme/Onc (Evan, S) following - Recommends getting port placement for more chemo, Will obtain tumor markers. Then d/c for outpatient therapy - IR port placement requested - CA15-3 - elevated - Morphine 2mg Q4h PRN pain Cough/shortness of breath - Secondary to metastatic breast cancer - Persistent, worse with exertion. Case working on getting home O2 - CXR 01/23 - Near complete opacification of the right mack thorax with most likely space-occupying lesion versus loculated pleural effusion. There is shifted mediastinal to the left. Chest CT recommended. - Chest CT 01/23 - Moderate to large loculated pleural effusion on the right with associated compressive atelectasis and/ pneumonia. Scattered airspace opacities seen in the left side which could represent infection and/or metastatic disease. Diffuse bony metastatic disease. - Chest/Abd/Pel CT 01/23 - right apical neoplasm with probably right apical atelectasis. Diffuse sclerotic mets of all visualized osseous structures. right mastectomy, fatty liver - Thoracentesis ordered with labs including cytology -900 straw colored fluid - resulted: metastatic breast cancer - Heme/onc consulted (Evan) - help appreciated -see above -Thoracic surgeon consult - Dr. Damon -No surgery. SOB likely due to atelectasis from bronchial obstructions. Consider bronchial stenting. Surgery signed off - Pulm consult (Mitch) - Stent would not help either. Start Solu medrol for now - Feels better with steroids - Continue azithromycin and rocephin - stopped 01/28 - IVF at 60 cc/hr stopped - No leukocytosis or electrolyte abnormalities - CA 15-3 elevated at 1930 Chest pain - See above - Morphine 2mg Q4h PRN pain - Tramadol scheduled Q8H - Tylenol PRN for mild pain Elevated alkaline phosphatase - likely due to metastasis, stable - will monitor Hx of HTN - normotensive currently - Heart healthy diet - will cont to monitor Hypokalemia - Monitor, replete as needed PPX - lovenox - protonix <Aric Mcdowell - Last Filed: 02/03/17 13:41> Objective - Vital Signs/Intake and Output Vital Signs (last 24 hours): Temp Pulse Resp BP Pulse Ox 98.5 F 84 20 125/84 99 02/03/17 08:00 02/03/17 08:00 02/03/17 08:00 02/03/17 08:00 02/03/17 08:00 Intake and Output: 02/03/17 02/03/17 06:59 18:59 Intake Total 240 Balance 240 - Medications Medications: Current Medications Acetaminophen (Tylenol 325mg Tab) 650 mg PO Q6 PRN PRN Reason: Pain, Mild (1-3) Acetylcysteine (Acetylcysteine 20%) 4 ml INH RQ6 [facility] Last Admin: 02/03/17 13:18 Dose: 4 ml Albuterol Sulfate (Albuterol 0.042% Inhal Diamante (1.25mg/3ml) Ud) 1.25 mg INH RQ6 [facility] Last Admin: 02/03/17 13:18 Dose: 1.25 mg Enoxaparin Sodium (Lovenox) 40 mg SC DAILY [facility] Last Admin: 02/03/17 10:37 Dose: 40 mg Guaifenesin (Robitussin) 100 mg PO Q4H PRN PRN Reason: Cough Last Admin: 02/02/17 10:30 Dose: 100 mg Methylprednisolone (Solu-Medrol) 40 mg IVP DAILY [facility] Last Admin: 02/03/17 10:38 Dose: 40 mg Morphine Sulfate (Morphine) 2 mg IVP Q4 PRN PRN Reason: Pain, severe (8-10) Last Admin: 02/02/17 08:04 Dose: 2 mg Pantoprazole Sodium (Protonix Ec Tab) 40 mg PO DAILY [facility] Last Admin: 02/03/17 10:37 Dose: 40 mg Tramadol HCl (Ultram) 25 mg PO Q8H [facility] Last Admin: 02/03/17 10:37 Dose: 25 mg - Labs Labs: 02/03/17 07:54 02/03/17 07:54 PT 12.3 SECONDS (9.7-12.2) H 01/23/17 13:04 INR 1.1 01/23/17 13:04 APTT 27 SECONDS (21-34) 01/23/17 13:04 Attending/Attestation - Attestation I have personally seen and examined this patient.: Yes I have fully participated in the care of the patient.: Yes I have reviewed all pertinent clinical information, including history, physical exam and plan: Yes Notes (Text): 02/03/17 13:40 Patient was seen and examined at bedside with the resident Patient denies any pain at this time Discussed the plan of care with the resident Discharge planning is in progress I agree with the above for history and physical and assessment/plan by the resident
[2017-02-02 12:19] LABS: BASO % 0.3 % (0.0-2.0); EOS % 0.1 % (0.0-4.0); HEMATOCRIT 42.7 % (34.0-47.0); LYMPH # 1.3 K/uL (1.0-4.3); LYMPH % 9.5 % (20.0-40.0); MEAN CELL VOLUME 88.4 fL (81.0-99.0); MEAN CORPUSCULAR HEMOGLOBIN 28.6 pg (27.0-31.0); MEAN CORPUSCULAR HGB CONC 32.3 g/dL (33.0-37.0); MEAN PLATELET VOLUME 9.1 fL (7.2-11.7); MONO # 0.5 K/uL (0.0-0.8); MONO % 3.7 % (0.0-10.0); PLATELET COUNT 299 K/uL (130-400); RED CELL DISTRIBUTION WIDTH 14.1 % (11.5-14.5); WHITE BLOOD COUNT 14.1 K/uL (4.8-10.8)
[2017-02-02 12:21] LABS: CHLORIDE 91 mmol/L (98-107); SODIUM 135 mmol/L (132-148)
[2017-02-02 12:23] LABS: GFR AFRICAN-AMERICAN > 60
[2017-02-02 12:24] LABS: ALB/GLOB RATIO 1.1 (1.0-2.1); ALKALINE PHOSPHATASE 509 U/L (38-126); ALT/SGPT 107 U/L (9-52); AST/SGOT 49 U/L (14-36); BILIRUBIN,TOTAL 0.2 mg/dL (0.2-1.3); BLOOD UREA NITROGEN 13 mg/dL (7-17); CARBON DIOXIDE 32 mmol/L (22-30); GLUCOSE,RANDOM 273 mg/dL (65-105); PHOSPHOROUS 3.2 mg/dL (2.5-4.5); TOTAL PROTEIN 6.4 g/dL (6.3-8.3)
[2017-02-02 12:25] LABS: CALCIUM 8.8 mg/dl (8.6-10.4); MAGNESIUM 1.9 mg/dL (1.6-2.3)
[2017-02-02 12:52] LABS: NEUTROPHIL 84 % (50-75); TOTAL CELLS COUNTED 100
[2017-02-03] MEDS: Acetylcysteine 20% Inhal Soln (4ml) INH SCH ×4 (01:17→19:23)
[2017-02-03] MEDS: Albuterol 0.042% Inhal Sol (1.25 mg/3 mL) UD INH SCH ×4 (01:19→19:23)
[2017-02-03] MEDS: Tramadol 25 mg PO SCH ×3 (02:36→19:45)
[2017-02-03 08:00] LABS: BASO # 0.1 K/uL (0.0-0.2); BASO % 0.9 % (0.0-2.0); EOS % 0.3 % (0.0-4.0); HEMATOCRIT 37.9 % (34.0-47.0); LYMPH # 2.5 K/uL (1.0-4.3); LYMPH % 21.1 % (20.0-40.0); MEAN CELL VOLUME 87.8 fL (81.0-99.0); MEAN CORPUSCULAR HEMOGLOBIN 28.3 pg (27.0-31.0); MEAN CORPUSCULAR HGB CONC 32.3 g/dL (33.0-37.0); MEAN PLATELET VOLUME 8.4 fL (7.2-11.7); MONO # 0.8 K/uL (0.0-0.8); MONO % 7.1 % (0.0-10.0); NRBC % 0.1 % (0.0-2.0); RED CELL DISTRIBUTION WIDTH 14.1 % (11.5-14.5); WHITE BLOOD COUNT 11.9 K/uL (4.8-10.8)
[2017-02-03 08:17] LABS: CHLORIDE 93 mmol/L (98-107); POTASSIUM 3.7 mmol/L (3.6-5.2); SODIUM 135 mmol/L (132-148)
[2017-02-03 08:19] LABS: BILIRUBIN,TOTAL 0.2 mg/dL (0.2-1.3); CARBON DIOXIDE 34 mmol/L (22-30); GFR AFRICAN-AMERICAN > 60
[2017-02-03 08:20] LABS: ALB/GLOB RATIO 1.1 (1.0-2.1); ALKALINE PHOSPHATASE 427 U/L (38-126); ALT/SGPT 76 U/L (9-52); AST/SGOT 35 U/L (14-36); BLOOD UREA NITROGEN 12 mg/dL (7-17); CALCIUM 8.8 mg/dl (8.6-10.4); GLUCOSE,RANDOM 118 mg/dL (65-105); TOTAL PROTEIN 5.6 g/dL (6.3-8.3)
[2017-02-03] MEDS: Pantoprazole 40 mg EC Tab PO SCH (10:37)
[2017-02-03] MEDS: Enoxaparin 40 mg Syringe SC SCH (10:37)
[2017-02-03] MEDS: MethylPREDNISolone 40 mg Vial IVP SCH (10:38)
--- NOTE | 2017-02-03 16:49 | CP.PCM.PN ---
<Chase Motley - Last Filed: 02/03/17 16:46> Subjective - Date & Time of Evaluation Date of Evaluation: 02/03/17 Time of Evaluation: 16:46 - Subjective Subjective: PGY-1 note for medicine service Pt seen and examined at bedside. Pt has no new complaints. Pain is tolerated. Denies any fevers, chills, chest pain, nausea or vomiting. At baseline Objective - Vital Signs/Intake and Output Vital Signs (last 24 hours): Temp Pulse Resp BP Pulse Ox 98.5 F 84 20 125/84 99 02/03/17 08:00 02/03/17 16:44 02/03/17 08:00 02/03/17 08:00 02/03/17 08:00 Intake and Output: 02/03/17 02/03/17 06:59 18:59 Intake Total 240 300 Balance 240 300 - Medications Medications: Current Medications Acetaminophen (Tylenol 325mg Tab) 650 mg PO Q6 PRN PRN Reason: Pain, Mild (1-3) Acetylcysteine (Acetylcysteine 20%) 4 ml INH RQ6 [facility] Last Admin: 02/03/17 13:18 Dose: 4 ml Albuterol Sulfate (Albuterol 0.042% Inhal Diamante (1.25mg/3ml) Ud) 1.25 mg INH RQ6 [facility] Last Admin: 02/03/17 13:18 Dose: 1.25 mg Enoxaparin Sodium (Lovenox) 40 mg SC DAILY [facility] Last Admin: 02/03/17 10:37 Dose: 40 mg Guaifenesin (Robitussin) 100 mg PO Q4H PRN PRN Reason: Cough Last Admin: 02/02/17 10:30 Dose: 100 mg Methylprednisolone (Solu-Medrol) 40 mg IVP DAILY [facility] Last Admin: 02/03/17 10:38 Dose: 40 mg Morphine Sulfate (Morphine) 2 mg IVP Q4 PRN PRN Reason: Pain, severe (8-10) Last Admin: 02/02/17 08:04 Dose: 2 mg Pantoprazole Sodium (Protonix Ec Tab) 40 mg PO DAILY [facility] Last Admin: 02/03/17 10:37 Dose: 40 mg Tramadol HCl (Ultram) 25 mg PO Q8H [facility] Last Admin: 02/03/17 10:37 Dose: 25 mg - Labs Labs: 02/03/17 07:54 02/03/17 07:54 PT 12.3 SECONDS (9.7-12.2) H 01/23/17 13:04 INR 1.1 01/23/17 13:04 APTT 27 SECONDS (21-34) 01/23/17 13:04 - Constitutional Appears: Non-toxic, No Acute Distress - Head Exam Head Exam: ATRAUMATIC, NORMOCEPHALIC - ENT Exam ENT Exam: Mucous Membranes Moist - Respiratory Exam Respiratory Exam: Decreased Breath Sounds (decreased on right), NORMAL BREATHING PATTERN - Cardiovascular Exam Cardiovascular Exam: +S1, +S2 - GI/Abdominal Exam GI & Abdominal Exam: Soft, Normal Bowel Sounds - Neurological Exam Neurological Exam: Alert, Awake - Skin Skin Exam: Dry, Warm Assessment and Plan - Assessment and Plan (Free Text) Assessment: Dispo - Pt needs home O2 - case says that must be ordered within 24 hours of the pt going home - still waiting on authorization. Pt has [facility] care, will follow up at clinic Metastatic breast cancer - Port placed, appropriate tenderness to surgical site. Bandages c/d/i - Thoracentesis drawn on 01/23 - metastatic breast cancer - Heme/Onc (Evan, S) following - Recommends getting port placement for more chemo, Will obtain tumor markers. Then d/c for outpatient therapy - IR port placement requested - CA15-3 - elevated - Morphine 2mg Q4h PRN pain Cough/shortness of breath - Secondary to metastatic breast cancer - Persistent, worse with exertion. Case working on getting home O2 - CXR 01/23 - Near complete opacification of the right mack thorax with most likely space-occupying lesion versus loculated pleural effusion. There is shifted mediastinal to the left. Chest CT recommended. - Chest CT 01/23 - Moderate to large loculated pleural effusion on the right with associated compressive atelectasis and/ pneumonia. Scattered airspace opacities seen in the left side which could represent infection and/or metastatic disease. Diffuse bony metastatic disease. - Chest/Abd/Pel CT 01/23 - right apical neoplasm with probably right apical atelectasis. Diffuse sclerotic mets of all visualized osseous structures. right mastectomy, fatty liver - Thoracentesis ordered with labs including cytology -900 straw colored fluid - resulted: metastatic breast cancer - Heme/onc consulted (Evan) - help appreciated -see above -Thoracic surgeon consult - Dr. Damon -No surgery. SOB likely due to atelectasis from bronchial obstructions. Consider bronchial stenting. Surgery signed off - Pulm consult (Mitch) - Stent would not help either. Start Solu medrol for now - Feels better with steroids - Continue azithromycin and rocephin - stopped 01/28 - IVF at 60 cc/hr stopped - No leukocytosis or electrolyte abnormalities - CA 15-3 elevated at 1930 Chest pain - See above - Morphine 2mg Q4h PRN pain - Tramadol scheduled Q8H - Tylenol PRN for mild pain Elevated alkaline phosphatase - likely due to metastasis, stable - will monitor Hx of HTN - normotensive currently - Heart healthy diet - will cont to monitor Hypokalemia - Monitor, replete as needed PPX - lovenox - protonix <Aric Mcdowell - Last Filed: 02/03/17 18:35> Objective - Vital Signs/Intake and Output Vital Signs (last 24 hours): Temp Pulse Resp BP Pulse Ox 98.0 F 84 20 115/77 98 02/03/17 16:28 02/03/17 16:44 02/03/17 16:28 02/03/17 16:28 02/03/17 16:28 Intake and Output: 02/03/17 02/03/17 06:59 18:59 Intake Total 240 300 Balance 240 300 - Medications Medications: Current Medications Acetaminophen (Tylenol 325mg Tab) 650 mg PO Q6 PRN PRN Reason: Pain, Mild (1-3) Acetylcysteine (Acetylcysteine 20%) 4 ml INH RQ6 [facility] Last Admin: 02/03/17 13:18 Dose: 4 ml Albuterol Sulfate (Albuterol 0.042% Inhal [facility]ante (1.25mg/3ml) Ud) 1.25 mg INH RQ6 [facility] Last Admin: 02/03/17 13:18 Dose: 1.25 mg Enoxaparin Sodium (Lovenox) 40 mg SC DAILY [facility] Last Admin: 02/03/17 10:37 Dose: 40 mg Guaifenesin (Robitussin) 100 mg PO Q4H PRN PRN Reason: Cough Last Admin: 02/02/17 10:30 Dose: 100 mg Methylprednisolone (Solu-Medrol) 40 mg IVP DAILY [facility] Last Admin: 02/03/17 10:38 Dose: 40 mg Morphine Sulfate (Morphine) 2 mg IVP Q4 PRN PRN Reason: Pain, severe (8-10) Last Admin: 02/02/17 08:04 Dose: 2 mg Pantoprazole Sodium (Protonix Ec Tab) 40 mg PO DAILY [facility] Last Admin: 02/03/17 10:37 Dose: 40 mg Tramadol HCl (Ultram) 25 mg PO Q8H [facility] Last Admin: 02/03/17 10:37 Dose: 25 mg - Labs Labs: 02/03/17 07:54 02/03/17 07:54 PT 12.3 SECONDS (9.7-12.2) H 01/23/17 13:04 INR 1.1 01/23/17 13:04 APTT 27 SECONDS (21-34) 01/23/17 13:04 Attending/Attestation - Attestation I have personally seen and examined this patient.: Yes I have fully participated in the care of the patient.: Yes I have reviewed all pertinent clinical information, including history, physical exam and plan: Yes Notes (Text): 02/03/17 18:35 Patient was seen and examined at bedside She does not complain of any pain today Patient will need home oxygen Discharge planning is in progress. Discussed the plan of care with the resident and agree with the above history and physical and assessment/plan but the resident
--- NOTE | 2017-02-04 01:31 | CP.PCM.PN ---
Subjective - Date & Time of Evaluation Date of Evaluation: 02/03/17 Time of Evaluation: 20:00 - Subjective Subjective: No complaints. Objective - Vital Signs/Intake and Output Vital Signs (last 24 hours): Temp Pulse Resp BP Pulse Ox 98.1 F 80 20 142/90 96 02/04/17 00:02 02/04/17 00:02 02/04/17 00:02 02/04/17 00:02 02/04/17 00:02 Intake and Output: 02/03/17 02/04/17 18:59 06:59 Intake Total 300 240 Balance 300 240 - Medications Medications: Current Medications Acetaminophen (Tylenol 325mg Tab) 650 mg PO Q6 PRN PRN Reason: Pain, Mild (1-3) Acetylcysteine (Acetylcysteine 20%) 4 ml INH RQ6 [facility] Last Admin: 02/03/17 19:23 Dose: 4 ml Albuterol Sulfate (Albuterol 0.042% Inhal Diamante (1.25mg/3ml) Ud) 1.25 mg INH RQ6 [facility] Last Admin: 02/03/17 19:23 Dose: 1.25 mg Enoxaparin Sodium (Lovenox) 40 mg SC DAILY [facility] Last Admin: 02/03/17 10:37 Dose: 40 mg Guaifenesin (Robitussin) 100 mg PO Q4H PRN PRN Reason: Cough Last Admin: 02/02/17 10:30 Dose: 100 mg Methylprednisolone (Solu-Medrol) 40 mg IVP DAILY [facility] Last Admin: 02/03/17 10:38 Dose: 40 mg Morphine Sulfate (Morphine) 2 mg IVP Q4 PRN PRN Reason: Pain, severe (8-10) Last Admin: 02/02/17 08:04 Dose: 2 mg Pantoprazole Sodium (Protonix Ec Tab) 40 mg PO DAILY [facility] Last Admin: 02/03/17 10:37 Dose: 40 mg Tramadol HCl (Ultram) 25 mg PO Q8H [facility] Last Admin: 02/03/17 19:45 Dose: 25 mg - Labs Labs: 02/03/17 07:54 02/03/17 07:54 PT 12.3 SECONDS (9.7-12.2) H 01/23/17 13:04 INR 1.1 01/23/17 13:04 APTT 27 SECONDS (21-34) 01/23/17 13:04 - Head Exam Head Exam: ATRAUMATIC Assessment and Plan (1) Breast cancer Assessment & Plan: stage IV outpatient arranged for next week Status: Acute
[2017-02-04] MEDS: Albuterol 0.042% Inhal Sol (1.25 mg/3 mL) UD INH SCH ×4 (01:54→20:13)
[2017-02-04] MEDS: Acetylcysteine 20% Inhal Soln (4ml) INH SCH ×4 (01:54→20:13)
[2017-02-04] MEDS: Tramadol 25 mg PO SCH ×3 (03:42→19:06)
[2017-02-04 07:32] LABS: BASO % 0.3 % (0.0-2.0); EOS % 0.1 % (0.0-4.0); HEMATOCRIT 37.9 % (34.0-47.0); LYMPH # 2.8 K/uL (1.0-4.3); LYMPH % 21.6 % (20.0-40.0); MEAN CELL VOLUME 87.9 fL (81.0-99.0); MEAN CORPUSCULAR HEMOGLOBIN 28.4 pg (27.0-31.0); MEAN CORPUSCULAR HGB CONC 32.3 g/dL (33.0-37.0); MEAN PLATELET VOLUME 8.8 fL (7.2-11.7); MONO # 0.9 K/uL (0.0-0.8); MONO % 7.3 % (0.0-10.0); NRBC % 0.1 % (0.0-2.0); RED CELL DISTRIBUTION WIDTH 13.9 % (11.5-14.5)
[2017-02-04 07:57] LABS: CHLORIDE 94 mmol/L (98-107); POTASSIUM 3.9 mmol/L (3.6-5.2); SODIUM 136 mmol/L (132-148)
[2017-02-04 07:59] LABS: BILIRUBIN,TOTAL 0.1 mg/dL (0.2-1.3); CARBON DIOXIDE 33 mmol/L (22-30); GFR AFRICAN-AMERICAN > 60
[2017-02-04 08:00] LABS: ALB/GLOB RATIO 1.1 (1.0-2.1); ALKALINE PHOSPHATASE 426 U/L (38-126); ALT/SGPT 71 U/L (9-52); AST/SGOT 36 U/L (14-36); BLOOD UREA NITROGEN 12 mg/dL (7-17); CALCIUM 8.9 mg/dl (8.6-10.4); GLUCOSE,RANDOM 107 mg/dL (65-105); TOTAL PROTEIN 5.6 g/dL (6.3-8.3)
[2017-02-04] MEDS: MethylPREDNISolone 40 mg Vial IVP SCH (09:39)
[2017-02-04] MEDS: Enoxaparin 40 mg Syringe SC SCH (09:39)
[2017-02-04] MEDS: Pantoprazole 40 mg EC Tab PO SCH (09:39)
--- NOTE | 2017-02-04 15:59 | CP.PCM.PN ---
<Chase Motley - Last Filed: 02/04/17 15:56> Subjective - Date & Time of Evaluation Date of Evaluation: 02/04/17 Time of Evaluation: 15:56 - Subjective Subjective: PGY-1 note for medicine service Pt seen and examined at bedside. She has no new complaints today. At her baseline for breathing. Denies any fevers, chills, chest pain, sob, nausea or vomiting. Objective - Vital Signs/Intake and Output Vital Signs (last 24 hours): Temp Pulse Resp BP Pulse Ox 97.9 F 85 20 144/88 98 02/04/17 08:15 02/04/17 08:15 02/04/17 08:15 02/04/17 08:15 02/04/17 08:15 Intake and Output: 02/04/17 02/04/17 06:59 18:59 Intake Total 440 Balance 440 - Medications Medications: Current Medications Acetaminophen (Tylenol 325mg Tab) 650 mg PO Q6 PRN PRN Reason: Pain, Mild (1-3) Acetylcysteine (Acetylcysteine 20%) 4 ml INH RQ6 [facility] Last Admin: 02/04/17 14:00 Dose: 4 ml Albuterol Sulfate (Albuterol 0.042% Inhal Diamante (1.25mg/3ml) Ud) 1.25 mg INH RQ6 [facility] Last Admin: 02/04/17 14:00 Dose: 1.25 mg Enoxaparin Sodium (Lovenox) 40 mg SC DAILY [facility] Last Admin: 02/04/17 09:39 Dose: 40 mg Guaifenesin (Robitussin) 100 mg PO Q4H PRN PRN Reason: Cough Last Admin: 02/02/17 10:30 Dose: 100 mg Methylprednisolone (Solu-Medrol) 40 mg IVP DAILY [facility] Last Admin: 02/04/17 09:39 Dose: 40 mg Morphine Sulfate (Morphine) 2 mg IVP Q4 PRN PRN Reason: Pain, severe (8-10) Last Admin: 02/04/17 01:18 Dose: 2 mg Pantoprazole Sodium (Protonix Ec Tab) 40 mg PO DAILY [facility] Last Admin: 02/04/17 09:39 Dose: 40 mg Tramadol HCl (Ultram) 25 mg PO Q8H [facility] Last Admin: 02/04/17 12:41 Dose: 25 mg - Labs Labs: 02/04/17 07:17 02/04/17 07:17 PT 12.3 SECONDS (9.7-12.2) H 01/23/17 13:04 INR 1.1 01/23/17 13:04 APTT 27 SECONDS (21-34) 01/23/17 13:04 - Constitutional Appears: Non-toxic, No Acute Distress - Head Exam Head Exam: ATRAUMATIC, NORMOCEPHALIC - ENT Exam ENT Exam: Mucous Membranes Moist - Respiratory Exam Respiratory Exam: Decreased Breath Sounds (on the right), NORMAL BREATHING PATTERN - Cardiovascular Exam Cardiovascular Exam: +S1, +S2 - GI/Abdominal Exam GI & Abdominal Exam: Soft, Normal Bowel Sounds - Neurological Exam Neurological Exam: Alert, Awake - Skin Skin Exam: Dry, Warm Assessment and Plan - Assessment and Plan (Free Text) Assessment: Dispo - Pt needs home O2 - case says that must be ordered within 24 hours of the pt going home - still waiting on authorization, likely d/c tomorrow Pt has [facility] care, will follow up at clinic Metastatic breast cancer - Port placed, appropriate tenderness to surgical site. Bandages c/d/i - Thoracentesis drawn on 01/23 - metastatic breast cancer - Heme/Onc (Evan, S) following - Recommends getting port placement for more chemo, Will obtain tumor markers. Then d/c for outpatient therapy - IR port placement requested - CA15-3 - elevated - Morphine 2mg Q4h PRN pain Cough/shortness of breath - Secondary to metastatic breast cancer - Persistent, worse with exertion. Case working on getting home O2 - CXR 01/23 - Near complete opacification of the right mack thorax with most likely space-occupying lesion versus loculated pleural effusion. There is shifted mediastinal to the left. Chest CT recommended. - Chest CT 01/23 - Moderate to large loculated pleural effusion on the right with associated compressive atelectasis and/ pneumonia. Scattered airspace opacities seen in the left side which could represent infection and/or metastatic disease. Diffuse bony metastatic disease. - Chest/Abd/Pel CT 01/23 - right apical neoplasm with probably right apical atelectasis. Diffuse sclerotic mets of all visualized osseous structures. right mastectomy, fatty liver - Thoracentesis ordered with labs including cytology -900 straw colored fluid - resulted: metastatic breast cancer - Heme/onc consulted (Evan) - help appreciated -see above -Thoracic surgeon consult - Dr. Damon -No surgery. SOB likely due to atelectasis from bronchial obstructions. Consider bronchial stenting. Surgery signed off - Pulm consult (Mitch) - Stent would not help either. Start Solu medrol for now - Feels better with steroids - Continue azithromycin and rocephin - stopped 01/28 - IVF at 60 cc/hr stopped - No leukocytosis or electrolyte abnormalities - CA 15-3 elevated at 1930 Chest pain - See above - Morphine 2mg Q4h PRN pain - Tramadol scheduled Q8H - Tylenol PRN for mild pain Elevated alkaline phosphatase - likely due to metastasis, stable - will monitor Hx of HTN - normotensive currently - Heart healthy diet - will cont to monitor Hypokalemia - Monitor, replete as needed PPX - lovenox - protonix <Aric Mcdowell - Last Filed: 02/04/17 18:52> Objective - Vital Signs/Intake and Output Vital Signs (last 24 hours): Temp Pulse Resp BP Pulse Ox 97.7 F 86 20 116/76 98 02/04/17 16:04 02/04/17 16:54 02/04/17 16:04 02/04/17 16:04 02/04/17 16:04 Intake and Output: 02/04/17 02/04/17 06:59 18:59 Intake Total 440 Balance 440 - Medications Medications: Current Medications Acetaminophen (Tylenol 325mg Tab) 650 mg PO Q6 PRN PRN Reason: Pain, Mild (1-3) Acetylcysteine (Acetylcysteine 20%) 4 ml INH RQ6 [facility] Last Admin: 02/04/17 14:00 Dose: 4 ml Albuterol Sulfate (Albuterol 0.042% Inhal Diamante (1.25mg/3ml) Ud) 1.25 mg INH RQ6 [facility] Last Admin: 02/04/17 14:00 Dose: 1.25 mg Enoxaparin Sodium (Lovenox) 40 mg SC DAILY [facility] Last Admin: 02/04/17 09:39 Dose: 40 mg Guaifenesin (Robitussin) 100 mg PO Q4H PRN PRN Reason: Cough Last Admin: 02/02/17 10:30 Dose: 100 mg Methylprednisolone (Solu-Medrol) 40 mg IVP DAILY [facility] Last Admin: 02/04/17 09:39 Dose: 40 mg Morphine Sulfate (Morphine) 2 mg IVP Q4 PRN PRN Reason: Pain, severe (8-10) Last Admin: 02/04/17 01:18 Dose: 2 mg Pantoprazole Sodium (Protonix Ec Tab) 40 mg PO DAILY [facility] Last Admin: 02/04/17 09:39 Dose: 40 mg Tramadol HCl (Ultram) 25 mg PO Q8H [facility] Last Admin: 02/04/17 12:41 Dose: 25 mg - Labs Labs: 02/04/17 07:17 02/04/17 07:17 PT 12.3 SECONDS (9.7-12.2) H 01/23/17 13:04 INR 1.1 01/23/17 13:04 APTT 27 SECONDS (21-34) 01/23/17 13:04 Attending/Attestation - Attestation I have personally seen and examined this patient.: Yes I have fully participated in the care of the patient.: Yes I have reviewed all pertinent clinical information, including history, physical exam and plan: Yes Notes (Text): 02/04/17 18:51 Patient was seen and examined at bedside with the resident Patient denies any chest pain or shortness of breath today Patient will need home oxygen on discharge Discharge planning is in progress Discussed with case management
[2017-02-05] MEDS: Acetylcysteine 20% Inhal Soln (4ml) INH SCH ×3 (01:32→14:04)
[2017-02-05] MEDS: Albuterol 0.042% Inhal Sol (1.25 mg/3 mL) UD INH SCH ×3 (01:33→14:04)
[2017-02-05] MEDS: Tramadol 25 mg PO SCH ×3 (03:51→18:00)
[2017-02-05 08:50] LABS: BASO % 0.3 % (0.0-2.0); CHLORIDE 93 mmol/L (98-107); EOS % 0.2 % (0.0-4.0); HEMATOCRIT 45.1 % (34.0-47.0); LYMPH # 3.1 K/uL (1.0-4.3); LYMPH % 22.5 % (20.0-40.0); MEAN CELL VOLUME 87.9 fL (81.0-99.0); MEAN CORPUSCULAR HEMOGLOBIN 28.3 pg (27.0-31.0); MEAN CORPUSCULAR HGB CONC 32.2 g/dL (33.0-37.0); MEAN PLATELET VOLUME 8.9 fL (7.2-11.7); MONO # 0.9 K/uL (0.0-0.8); MONO % 6.9 % (0.0-10.0); NRBC % 0.1 % (0.0-2.0); RED CELL DISTRIBUTION WIDTH 14.4 % (11.5-14.5); WHITE BLOOD COUNT 13.7 K/uL (4.8-10.8)
[2017-02-05 08:51] LABS: POTASSIUM 3.7 mmol/L (3.6-5.2); SODIUM 139 mmol/L (132-148)
[2017-02-05 08:53] LABS: AST/SGOT 36 U/L (14-36); BILIRUBIN,TOTAL 0.3 mg/dL (0.2-1.3); CARBON DIOXIDE 34 mmol/L (22-30); GFR AFRICAN-AMERICAN > 60
[2017-02-05 08:54] LABS: ALB/GLOB RATIO 1.1 (1.0-2.1); ALKALINE PHOSPHATASE 519 U/L (38-126); ALT/SGPT 71 U/L (9-52); BLOOD UREA NITROGEN 14 mg/dL (7-17); CALCIUM 9.1 mg/dl (8.6-10.4); GLUCOSE,RANDOM 100 mg/dL (65-105); TOTAL PROTEIN 6.8 g/dL (6.3-8.3)
[2017-02-05] MEDS: Enoxaparin 40 mg Syringe SC SCH (11:28)
[2017-02-05] MEDS: Pantoprazole 40 mg EC Tab PO SCH (11:29)
[2017-02-05] MEDS: MethylPREDNISolone 40 mg Vial IVP SCH (11:33)
--- NOTE | 2017-02-05 13:45 | CP.PCM.CON ---
History of Present Illness - History of Present Illness History of Present Illness: Palliative consult requested by Isael APPLE Reason: Gals of care Patient is a 59 yo Turkmen female admitted with complaints of cough X 2 weeks and sore throat. The CT chest upon admission was significant for large RUL mass , [id number]. Patient has a known Hx of breast CA and is S/P right mastectomy. On 01/23/2017 patient underwent thoracenetesis, when 900 cc of fluid was removed. Patient is seen by Doctor Evan and outpatient chemo was scheduled for next week. Palliative consult was called for goals of care discussion. PMH: S/P right mastectomy Soc. Hx: , no children, lives with the sister PMH: Cousin from breast CA Review of Systems - Constitutional Constitutional: absent: As Per HPI, Anorexia, Chills, Daytime Sleepiness, Excessive Sweating, Fatigue, Fever, Frequent Falls, Headache, Increased Appetite , Lethargy, Malaise, Night Sweats, Snoring, Sleep Apnea, Weight Gain, Weight Loss, Weakness, Other - EENT Eyes: absent: As Per HPI, Blind Spots, Blurred Vision, Change in Vision, Decreased Night Vision, Diplopia, Discharge, Dry Eye, Exophthalmos, Floaters, Irritation, Itchy Eyes, Loss of Peripheral Vision, Pain, Photophobia, Requires Corrective Lenses, Sees Flashes, Spots in Vision, Tunnel Vision, Other Visual Disturbances, Loss of Vision, Other Ears: absent: As Per HPI, Decreased Hearing, Ear Discharge, Ear Pain, Tinnitus, Abnormal Hearing, Disequilibrium, Dizziness, Other Nose/Mouth/Throat: absent: As Per HPI, Epistaxis, Nasal Congestion, Nasal Discharge, Nasal Obstruction, Nasal Trauma, Nose Pain, Post Nasal Drip, Sinus Pain, Sinus Pressure, Bleeding Gums, Change in Voice, Dental Pain, Dry Mouth, Dysphagia, Halitosis, Hoarsness, Lip Swelling, Mouth Lesions, Mouth Pain, Odynophagia, Sore Throat, Throat Swelling, Tongue Swelling, Facial Pain, Neck Pain, Neck Mass, Other - Breasts Additional comments: Right mastectomy - Cardiovascular Cardiovascular: absent: As Per HPI, Acrocyanosis, Chest Pain, Chest Pain at Rest , Chest Pain with Activity, Claudication, Diaphoresis, Dyspnea, Dyspnea on Exertion, Edema, Irregular Heart Rhythm, Pain Radiating to Arm/Neck/Jaw, Leg Edema, Leg Ulcers, Lightheadedness, Orthopnea, Palpitations, Paroxysmal Nocturnal Dyspnea, Pedal Edema, Radiating Pain, Rapid Heart Rate, Slow Heart Rate, Syncope, Other - Respiratory Respiratory: Dyspnea, Dyspnea on Exertion - Gastrointestinal Gastrointestinal: absent: As Per HPI, Abdominal Pain, Belching, Bloating, Change in Bowel Habits, Change in Stool Character, Coffee Ground Emesis, Constipation, Cramping, Diarrhea, Dyspepsia, Dysphagia, Early Satiety, Excessive Flatus, Fecal Incontinence, Heartburn, Hematemesis, Hematochezia, Loose Stools, Melena, Nausea, Odynophagia, Temesmus, Vomiting, Other - Genitourinary Genitourinary: absent: As Per HPI, Change in Urinary Stream, Difficulty Urinating, Dysuria, Flank Pain, Hematuria, Pyuria, Nocturia, Urinary Incontinence, Urinary Frequency, Urinary Hesitance, Urinary Urgency, Voiding Freq/Small Amts, Freq UTI, Hx Renal/Bladder Calculi, Hx /Renal Surgery, Bladder Distension, Other - Reproductive: Female Reproductive:Female: Post Menopausal - Menstruation Menstruation: Post Menopausal - Musculoskeletal Musculoskeletal: Back Pain - Integumentary Integumentary: absent: As Per HPI, Acne, Alopecia, Bleeding Lesions, Change in Hair, Change in Nails, Change in Pigmentation, Changing Lesions, Dry Skin, Erythema, Furuncle, Hirsutism, Lesions, New Lesions, Non-Healing Lesions, Photosensitivity, Pruritus, Rash, Skin Pain, Skin Ulcer, Sores, Striae, Swelling , Unusual Bruising, Wounds, Jaundice, Other - Neurological Neurological: absent: As Per HPI, Abnormal Gait, Abnormal Hearing, Abnormal Movements, Abnormal Speech, Behavioral Changes, Burning Sensations, Confusion, Convulsions, Disequilibrium, Dizziness, Numbness, Focal Weakness, Frequent Falls , Headaches, Lack of Coordination, Loss of Vision, Memory Loss, Paresthesias, Radicular Pain, Restless Legs, Sensory Deficit, Syncope, Tingling, Tremor, Vertigo, Weakness, Other Visual Disturbances, Other - Psychiatric Psychiatric: absent: As Per HPI, Abnormal Sleep Pattern, Anhedonia, Anxiety, Auditory Hallucinations, Behavioral Changes, Change in Appetite, Change in Libido, Confusion, Depression, Difficulty Concentrating, Hallucinations, Homicidal Ideation, Hopelessness, Irritability, Memory Loss, Mood Swings, Panic Attacks, Paranoia, Suicidal Ideation, Visual Hallucinations, Tactile Hallucinations, Other - Endocrine Endocrine: absent: As Per HPI, Change in Body Appearance, Change in Libido, Cold Intolorance, Deepening of Voice, Excessive Sweating, Fatigue, Flushing, Heat Intolorance, Increase in Ring/Shoe/Hat Size, Palpitations, Polydipsia, Polyphagia, Polyuria, Other - Hematologic/Lymphatic Hematologic: absent: As Per HPI, Easy Bleeding, Easy Bruising, Lymphadenopathy, Other Past Patient History - Past Medical History & Family History Past Medical History?: Yes - Past Social History Smoking Status: Never Smoked - CARDIAC Hx Cardiac Disorders: Yes Hx Hypertension: Yes - PULMONARY Hx Respiratory Disorders: No - NEUROLOGICAL Hx Neurological Disorder: No - HEENT Hx HEENT Problems: No - RENAL Hx Chronic Kidney Disease: No - ENDOCRINE/METABOLIC Hx Endocrine Disorders: No - HEMATOLOGICAL/ONCOLOGICAL Hx Blood Disorders: No Other/Comment: Right breast CA - INTEGUMENTARY Hx Dermatological Problems: No - MUSCULOSKELETAL/RHEUMATOLOGICAL Hx Musculoskeletal Disorders: No Hx Falls: No - GASTROINTESTINAL Hx Gastrointestinal Disorders: No - GENITOURINARY/GYNECOLOGICAL Hx Genitourinary Disorders: No - PSYCHIATRIC Hx Psychophysiologic Disorder: No Hx Substance Use: No - SURGICAL HISTORY Hx Surgeries: Yes Other/Comment: Right mastectomy 2013? - ANESTHESIA Hx Anesthesia: Yes Hx Anesthesia Reactions: No Hx Malignant Hyperthermia: No Has any member of the family had a problem w/ anesthesia?: No Meds Allergies/Adverse Reactions: Allergies Allergy/AdvReac Type Severity Reaction Status Date / Time No Known Allergies Allergy Verified 01/23/17 09:57 - Medications Medications: Current Medications Acetaminophen (Tylenol 325mg Tab) 650 mg PO Q6 PRN PRN Reason: Pain, Mild (1-3) Acetylcysteine (Acetylcysteine 20%) 4 ml INH RQ6 [facility] Last Admin: 02/05/17 08:40 Dose: 4 ml Albuterol Sulfate (Albuterol 0.042% Inhal Diamante (1.25mg/3ml) Ud) 1.25 mg INH RQ6 [facility] Last Admin: 02/05/17 08:40 Dose: 1.25 mg Enoxaparin Sodium (Lovenox) 40 mg SC DAILY [facility] Last Admin: 02/05/17 11:28 Dose: 40 mg Guaifenesin (Robitussin) 100 mg PO Q4H PRN PRN Reason: Cough Last Admin: 02/02/17 10:30 Dose: 100 mg Methylprednisolone (Solu-Medrol) 40 mg IVP DAILY [facility] Last Admin: 02/05/17 11:33 Dose: 40 mg Morphine Sulfate (Morphine) 2 mg IVP Q4 PRN PRN Reason: Pain, severe (8-10) Last Admin: 02/04/17 01:18 Dose: 2 mg Pantoprazole Sodium (Protonix Ec Tab) 40 mg PO DAILY [facility] Last Admin: 02/05/17 11:29 Dose: 40 mg Tramadol HCl (Ultram) 25 mg PO Q8H [facility] Last Admin: 02/05/17 11:34 Dose: 25 mg Physical Exam - Constitutional Appears: Chronically Ill - Head Exam Head Exam: ATRAUMATIC - Eye Exam Eye Exam: Normal appearance Pupil Exam: NORMAL ACCOMODATION - ENT Exam ENT Exam: Normal Exam - Neck Exam Neck exam: Positive for: Normal Inspection - Respiratory Exam Respiratory Exam: Decreased Breath Sounds, Wheezes - Cardiovascular Exam Cardiovascular Exam: REGULAR RHYTHM - GI/Abdominal Exam GI & Abdominal Exam: Normal Bowel Sounds - Rectal Exam Rectal Exam: Deferred - Extremities Exam Extremities exam: Positive for: normal inspection - Back Exam Back exam: NORMAL INSPECTION - Neurological Exam Neurological exam: Alert, Oriented x3 - Psychiatric Exam Psychiatric exam: Normal Affect, Normal Mood - Skin Skin Exam: Normal Color Results - Vital Signs Recent Vital Signs: Last Vital Signs Temp 98.3 F 02/05/17 07:59 Pulse 71 02/05/17 07:59 Resp 20 02/05/17 07:59 BP 125/89 02/05/17 07:59 Pulse Ox 97 02/05/17 07:59 - Labs Result Diagrams: 02/05/17 08:34 02/05/17 08:34 Labs: Laboratory Results - last 24 hr 02/05/17 08:34 WBC 13.7 H RBC 5.13 Hgb 14.5 D Hct 45.1 MCV 87.9 MCH 28.3 MCHC 32.2 L RDW 14.4 Plt Count 301 MPV 8.9 Neut % (Auto) 70.1 Lymph % (Auto) 22.5 [place] % (Auto) 6.9 Eos % (Auto) 0.2 Baso % (Auto) 0.3 Neut # 9.6 H Lymph # 3.1 [place] # 0.9 H Eos # 0.0 Baso # 0.0 Sodium 139 Potassium 3.7 Chloride 93 L Carbon Dioxide 34 H Anion Gap 16 BUN 14 Creatinine 0.5 L Est GFR ( Amer) > 60 Est GFR (Non-Af Amer) > 60 Random Glucose 100 Calcium 9.1 Total Bilirubin 0.3 AST 36 ALT 71 H Alkaline Phosphatase 519 H D Total Protein 6.8 Albumin 3.6 Globulin 3.2 Albumin/Globulin Ratio 1.1 Assessment & Plan - Assessment and Plan (Free Text) Assessment: Code status , Full Code. No Advance directive on chart. PPS 60%. I reviewed medical records, all diagnostic studies, examined and interviewed patient in the bed. Patient is only Turkmen speaking, translation used. Total time spent, 60 min. Patient is alert, oriented X 3 in no acute distress, very pleasant lady, only Turkmen speaking. Translation provided by her sister at bed side. Patient appears comfortable and denied any smptoms. On exam, the breath sounds are diminished and congested, o2 sAT 97 % NC. Patient admits breathing better after thoracentesis. Abdomen is soft. Denies constipation. Urinates frequently . No burning upon urination. Ambulates independently, reports fair appetite and good sleep. Patient reports pain to upper back, which is described as a pinching pain of 6/ 10, that comes and goes. patient does not offer factors influencing pain level. Ultram 25 mg PO PRN on board. We discussed the chemo Tx and its possible side effects. germania had chemo Tx in the past and is familiar with. Patient shows no fear or exagerated emotions, remains in good spirit. The sster at bed side suggetsed that patint gets plenty of support at home. Impression * This is patient recently diagnosed with lung cancer with chemo therapy approaching * Patient is not in any acute distress * Shortness of breath with ambulation * Reports uppr back pain " that comes and goes" * Frequent urination * Suggestion * Would discharge with home O2 * PO pain meds upon discharge * Instruct patient to report upper back pain if severe and not relieved by Ultram Thank you for consulting Palliative care
[2017-02-05 16:49] VITALS: BP 118/76; PULSE 87; TEMP 98.2; O2SAT 98
--- NOTE | 2017-02-05 19:18 | CP.PCM.DIS ---
<Chase Motley - Last Filed: 02/05/17 19:19> Provider - Provider Date of Admission: 01/23/17 13:09 Attending physician: Ramakrishna Hensley MD Primary care physician: Clinic Consults: Heme/Onc - [facility] - [facility] Pulm - [facility] CT surg - [facility] Time Spent in preparation of Discharge (in minutes): 31 Hospital Course - Lab Results Lab Results: Most Recent Lab Values WBC 13.7 K/uL (4.8-10.8) H 02/05/17 08:34 RBC 5.13 Mil/uL (3.80-5.20) 02/05/17 08:34 Hgb 14.5 g/dL (11.0-16.0) D 02/05/17 08:34 Hct 45.1 % (34.0-47.0) 02/05/17 08:34 MCV 87.9 fL (81.0-99.0) 02/05/17 08:34 MCH 28.3 pg (27.0-31.0) 02/05/17 08:34 MCHC 32.2 g/dL (33.0-37.0) L 02/05/17 08:34 RDW 14.4 % (11.5-14.5) 02/05/17 08:34 Plt Count 301 K/uL (130-400) 02/05/17 08:34 MPV 8.9 fL (7.2-11.7) 02/05/17 08:34 Neut % (Auto) 70.1 % (50.0-75.0) 02/05/17 08:34 Lymph % (Auto) 22.5 % (20.0-40.0) 02/05/17 08:34 Cochran % (Auto) 6.9 % (0.0-10.0) 02/05/17 08:34 Eos % (Auto) 0.2 % (0.0-4.0) 02/05/17 08:34 Baso % (Auto) 0.3 % (0.0-2.0) 02/05/17 08:34 Neut # 9.6 K/uL (1.8-7.0) H 02/05/17 08:34 Lymph # 3.1 K/uL (1.0-4.3) 02/05/17 08:34 Cochran # 0.9 K/uL (0.0-0.8) H 02/05/17 08:34 Eos # 0.0 K/uL (0.0-0.7) 02/05/17 08:34 Baso # 0.0 K/uL (0.0-0.2) 02/05/17 08:34 Neutrophils % (Manual) 84 % (50-75) H 02/02/17 11:58 Band Neutrophils % 2 % (0-2) 02/02/17 11:58 Lymphocytes % (Manual) 10 % (20-40) L 02/02/17 11:58 Monocytes % (Manual) 4 % (0-10) 02/02/17 11:58 Platelet Estimate Normal (NORMAL) 02/02/17 11:58 RBC Morphology Normal 02/02/17 11:58 PT 12.3 SECONDS (9.7-12.2) H 01/23/17 13:04 INR 1.1 01/23/17 13:04 APTT 27 SECONDS (21-34) 01/23/17 13:04 Sodium 139 mmol/L (132-148) 02/05/17 08:34 Potassium 3.7 mmol/L (3.6-5.2) 02/05/17 08:34 Chloride 93 mmol/L (98-107) L 02/05/17 08:34 Carbon Dioxide 34 mmol/L (22-30) H 02/05/17 08:34 Anion Gap 16 (10-20) 02/05/17 08:34 BUN 14 mg/dL (7-17) 02/05/17 08:34 Creatinine 0.5 MG/DL (0.7-1.2) L 02/05/17 08:34 Est GFR ( Amer) > 60 02/05/17 08:34 Est GFR (Non-Af Amer) > 60 02/05/17 08:34 Random Glucose 100 mg/dL (65-105) 02/05/17 08:34 Calcium 9.1 mg/dl (8.6-10.4) 02/05/17 08:34 Phosphorus 3.2 mg/dL (2.5-4.5) 02/02/17 11:58 Magnesium 1.9 mg/dL (1.6-2.3) 02/02/17 11:58 Total Bilirubin 0.3 mg/dL (0.2-1.3) 02/05/17 08:34 AST 36 U/L (14-36) 02/05/17 08:34 ALT 71 U/L (9-52) H 02/05/17 08:34 Alkaline Phosphatase 519 U/L (38-126) H D 02/05/17 08:34 Total Protein 6.8 g/dL (6.3-8.3) 02/05/17 08:34 Albumin 3.6 g/dL (3.5-5.0) 02/05/17 08:34 Globulin 3.2 gm/dL (2.2-3.9) 02/05/17 08:34 Albumin/Globulin Ratio 1.1 (1.0-2.1) 02/05/17 08:34 CA 15-3 Antigen 1930 U/mL (0-35) H 01/24/17 08:00 Urine Color Straw (YELLOW) 01/25/17 15:30 Urine Clarity Clear (Clear) 01/25/17 15:30 Urine pH 7.0 (5.0-8.0) 01/25/17 15:30 Ur Specific Clifton 1.006 (1.003-1.030) 01/25/17 15:30 Urine Protein Negative mg/dL (NEGATIVE) 01/25/17 15:30 Urine Glucose (UA) Normal mg/dL (Normal) 01/25/17 15:30 Urine Ketones Negative mg/dL (NEGATIVE) 01/25/17 15:30 Urine Blood Negative (NEGATIVE) 01/25/17 15:30 Urine Nitrate Negative (NEGATIVE) 01/25/17 15:30 Urine Bilirubin Negative (NEGATIVE) 01/25/17 15:30 Urine Urobilinogen Normal mg/dL (0.2-1.0) 01/25/17 15:30 Ur Leukocyte Esterase Neg Waldemar/uL (Negative) 01/25/17 15:30 Urine WBC (Auto) < 1 /hpf (0-5) 01/25/17 15:30 Urine RBC (Auto) < 1 /hpf (0-3) 01/25/17 15:30 Ur Squamous Epith Cells < 1 /hpf (0-5) 01/25/17 15:30 Urine HCG, Qual Negative (NEGATIVE) 01/30/17 10:35 Fluid Source Pleural/thoracentesi 01/23/17 15:53 Fluid Appearance Clear (CLEAR) 01/23/17 15:53 Fluid WBC 1125.0 /mm3 (0.0-300.0) H 01/23/17 15:53 Fluid RBC 437.0 /mm3 (0.0-0.0) H 01/23/17 15:53 Fluid Tot Cell Count 100 (0-0) H 01/23/17 15:53 Fluid Neutrophils 2.0 % (0-0) H 01/23/17 15:53 Fluid Lymphocytes 95.0 % (0-0) H 01/23/17 15:53 Fld Monocyte/Macrophag 3 % (0-0) H 01/23/17 15:53 Fluid Albumin TNP 01/23/17 15:53 Fluid Comment 01/23/17 15:53 Pleural Total Protein TNP 01/23/17 15:53 Pleural LDH TNP 01/23/17 15:53 Pleural Glucose TNP 01/23/17 15:53 Pleural Amylase 25 U/L (()) 01/23/17 15:53 Pleur Adenosine Deamin 8.1 U/L (<9.2) 01/23/17 15:53 - Hospital Course Hospital Course: On hospital admission Patient is a 56 yo F with PMH of HTN and breast cancer s/p chemo, radiation and right mastectomy in 2012 who presents with shortness of breath and right-sided chest pain that started 2 weeks ago. Patient decided to come to the hospital today because of worsening shortness of breath. She is unable to walk 10 feet without feeling weak. Patient also complains of chest pain that radiates to axilla region but not down arm. Pain is intermittent and currently a 4/10. She is also complaining of bilateral lower back pain as well as a mild headache. Patient reports nonproductive cough that started 1 month ago without accompanying fever or chills. She complains of a 14-pound weight loss in the last month, as well as occasional night sweats. She denies nausea, vomiting, diarrhea, constipation, abdominal pain or leg pain. On hospital course Pt was admitted for severe deconditioning/shortness of breath secondary to suspected right lung mass. She underwent imaging studies which included a CT of the chest/abdomen/pelvis, which revealed a right apical neoplasm with probably right apical atelectasis and diffuse sclerotic mets of all visualized osseous structures. CT surgery and pulmonology were both consulted. CT surgery thought that stenting may help symptomatically but pulmonology disagreed, stating that stenting would do nothing. Pulmonology recommended IV steroids and the pt found some improvement in symptoms. Heme/onc was consulted as well, Dr Gordon, who is familiar with the patient. He recommended port placement for out patient chemotherapy. Pt had port placed by IR and tolerated the procedure well. Pt continued to desaturate with minimal ambulationg and home O2 was recommended. After being approved for home O2 the pt was discharged in stable condition on the following medications: oxyCODONE/Acetaminophen [Percocet 5/325 mg Tab] 1 ea PO Q6H PRN #20 tab PRN Reason: Pain, Severe (8-10) predniSONE [predniSONE Tab] 10 mg PO DAILY #12 tab Tramadol 25mg PO Q8H #15 Diagnoses Metastatic breast cancer - Date & Time of H&P Date of H&P: 01/23/17 Time of H&P: 17:53 Discharge Exam - Head Exam Head Exam: ATRAUMATIC - Eye Exam Eye Exam: Normal appearance - Respiratory Exam Respiratory Exam: Decreased Breath Sounds (on the right), NORMAL BREATHING PATTERN - Cardiovascular Exam Cardiovascular Exam: +S1, +S2 - GI/Abdominal Exam GI & Abdominal Exam: Normal Bowel Sounds, Unremarkable - Neurological Exam Neurological exam: Alert, Oriented x3 - Skin Skin Exam: Dry, Warm Discharge Plan - Discharge Medications Prescriptions: oxyCODONE/Acetaminophen [Percocet 5/325 mg Tab] 1 ea PO Q6H PRN #20 tab PRN Reason: Pain, Severe (8-10) predniSONE [predniSONE Tab] 10 mg PO DAILY #12 tab - Follow Up Plan Condition: GOOD Disposition: HOME/ ROUTINE Instructions: Breast Cancer in Women (DC), Pleural Effusion (DC) Additional Instructions: Pt to follow up in the clinic at [facility]. She is to also follow up at the Infusion center - . Referrals: [facility] at [facility] [Outside] Gianluca Gordon MD [Staff Provider] - <Aric Mcdowell M - Last Filed: 02/06/17 13:28> Provider - Provider Date of Admission: 01/23/17 13:09 Attending physician: Ramakrishna Hensley MD Hospital Course - Lab Results Lab Results: Most Recent Lab Values WBC 13.7 K/uL (4.8-10.8) H 02/05/17 08:34 RBC 5.13 Mil/uL (3.80-5.20) 02/05/17 08:34 Hgb 14.5 g/dL (11.0-16.0) D 02/05/17 08:34 Hct 45.1 % (34.0-47.0) 02/05/17 08:34 MCV 87.9 fL (81.0-99.0) 02/05/17 08:34 MCH 28.3 pg (27.0-31.0) 02/05/17 08:34 MCHC 32.2 g/dL (33.0-37.0) L 02/05/17 08:34 RDW 14.4 % (11.5-14.5) 02/05/17 08:34 Plt Count 301 K/uL (130-400) 02/05/17 08:34 MPV 8.9 fL (7.2-11.7) 02/05/17 08:34 Neut % (Auto) 70.1 % (50.0-75.0) 02/05/17 08:34 Lymph % (Auto) 22.5 % (20.0-40.0) 02/05/17 08:34 Cochran % (Auto) 6.9 % (0.0-10.0) 02/05/17 08:34 Eos % (Auto) 0.2 % (0.0-4.0) 02/05/17 08:34 Baso % (Auto) 0.3 % (0.0-2.0) 02/05/17 08:34 Neut # 9.6 K/uL (1.8-7.0) H 02/05/17 08:34 Lymph # 3.1 K/uL (1.0-4.3) 02/05/17 08:34 Cochran # 0.9 K/uL (0.0-0.8) H 02/05/17 08:34 Eos # 0.0 K/uL (0.0-0.7) 02/05/17 08:34 Baso # 0.0 K/uL (0.0-0.2) 02/05/17 08:34 Neutrophils % (Manual) 84 % (50-75) H 02/02/17 11:58 Band Neutrophils % 2 % (0-2) 02/02/17 11:58 Lymphocytes % (Manual) 10 % (20-40) L 02/02/17 11:58 Monocytes % (Manual) 4 % (0-10) 02/02/17 11:58 Platelet Estimate Normal (NORMAL) 02/02/17 11:58 RBC Morphology Normal 02/02/17 11:58 PT 12.3 SECONDS (9.7-12.2) H 01/23/17 13:04 INR 1.1 01/23/17 13:04 APTT 27 SECONDS (21-34) 01/23/17 13:04 Sodium 139 mmol/L (132-148) 02/05/17 08:34 Potassium 3.7 mmol/L (3.6-5.2) 02/05/17 08:34 Chloride 93 mmol/L (98-107) L 02/05/17 08:34 Carbon Dioxide 34 mmol/L (22-30) H 02/05/17 08:34 Anion Gap 16 (10-20) 02/05/17 08:34 BUN 14 mg/dL (7-17) 02/05/17 08:34 Creatinine 0.5 MG/DL (0.7-1.2) L 02/05/17 08:34 Est GFR ( Amer) > 60 02/05/17 08:34 Est GFR (Non-Af Amer) > 60 02/05/17 08:34 Random Glucose 100 mg/dL (65-105) 02/05/17 08:34 Calcium 9.1 mg/dl (8.6-10.4) 02/05/17 08:34 Phosphorus 3.2 mg/dL (2.5-4.5) 02/02/17 11:58 Magnesium 1.9 mg/dL (1.6-2.3) 02/02/17 11:58 Total Bilirubin 0.3 mg/dL (0.2-1.3) 02/05/17 08:34 AST 36 U/L (14-36) 02/05/17 08:34 ALT 71 U/L (9-52) H 02/05/17 08:34 Alkaline Phosphatase 519 U/L (38-126) H D 02/05/17 08:34 Total Protein 6.8 g/dL (6.3-8.3) 02/05/17 08:34 Albumin 3.6 g/dL (3.5-5.0) 02/05/17 08:34 Globulin 3.2 gm/dL (2.2-3.9) 02/05/17 08:34 Albumin/Globulin Ratio 1.1 (1.0-2.1) 02/05/17 08:34 CA 15-3 Antigen 1930 U/mL (0-35) H 01/24/17 08:00 Urine Color Straw (YELLOW) 01/25/17 15:30 Urine Clarity Clear (Clear) 01/25/17 15:30 Urine pH 7.0 (5.0-8.0) 01/25/17 15:30 Ur Specific Clifton 1.006 (1.003-1.030) 01/25/17 15:30 Urine Protein Negative mg/dL (NEGATIVE) 01/25/17 15:30 Urine Glucose (UA) Normal mg/dL (Normal) 01/25/17 15:30 Urine Ketones Negative mg/dL (NEGATIVE) 01/25/17 15:30 Urine Blood Negative (NEGATIVE) 01/25/17 15:30 Urine Nitrate Negative (NEGATIVE) 01/25/17 15:30 Urine Bilirubin Negative (NEGATIVE) 01/25/17 15:30 Urine Urobilinogen Normal mg/dL (0.2-1.0) 01/25/17 15:30 Ur Leukocyte Esterase Neg Waldemar/uL (Negative) 01/25/17 15:30 Urine WBC (Auto) < 1 /hpf (0-5) 01/25/17 15:30 Urine RBC (Auto) < 1 /hpf (0-3) 01/25/17 15:30 Ur Squamous Epith Cells < 1 /hpf (0-5) 01/25/17 15:30 Urine HCG, Qual Negative (NEGATIVE) 01/30/17 10:35 Fluid Source Pleural/thoracentesi 01/23/17 15:53 Fluid Appearance Clear (CLEAR) 01/23/17 15:53 Fluid WBC 1125.0 /mm3 (0.0-300.0) H 01/23/17 15:53 Fluid RBC 437.0 /mm3 (0.0-0.0) H 01/23/17 15:53 Fluid Tot Cell Count 100 (0-0) H 01/23/17 15:53 Fluid Neutrophils 2.0 % (0-0) H 01/23/17 15:53 Fluid Lymphocytes 95.0 % (0-0) H 01/23/17 15:53 Fld Monocyte/Macrophag 3 % (0-0) H 01/23/17 15:53 Fluid Albumin TNP 01/23/17 15:53 Fluid Comment 01/23/17 15:53 Pleural Total Protein TNP 01/23/17 15:53 Pleural LDH TNP 01/23/17 15:53 Pleural Glucose TNP 01/23/17 15:53 Pleural Amylase 25 U/L (()) 01/23/17 15:53 Pleur Adenosine Deamin 8.1 U/L (<9.2) 01/23/17 15:53 Attending/Attestation - Attestation I have personally seen and examined this patient.: Yes I have fully participated in the care of the patient.: Yes I have reviewed all pertinent clinical information, including history, physical exam and plan: Yes Notes (Text): 02/06/17 13:27 Patient was seen and examined at bedside with the resident Patient has no new complaints Home oxygen arrangements have been made Patient will be discharged to home Discussed with the hematology/oncology and all arrangements have been made for outpatient chemotherapy at the infusion center We will discharge the patient to home I agree with the above discharge note by the resident
== END 2017-02-05 18:10 | disposition home or self-care (01) | DRG 180 ==
LOC: C.ER 09:39 → C.9E 13:09 → C.3T 16:45
PROVIDERS: ADMIT Internal Medicine Nephrology; ATTEND Internal Medicine Nephrology
PROC: 0W993ZZ Drainage of Right Pleural Cavity, Percutaneous Approach (ICD-10-PCS; principal; 2017-01-26)
PROC: 0JH60XZ Insertion of Tunneled Vascular Access Device into Chest Subcutaneous Tissue and Fascia, Open Approach (ICD-10-PCS; 2017-01-30)
PROC: 02HV33Z Insertion of Infusion Device into Superior Vena Cava, Percutaneous Approach (ICD-10-PCS; 2017-01-30)
DX: C78.01 Secondary malignant neoplasm of right lung (principal); J18.9 Pneumonia, unspecified organism; J91.0 Malignant pleural effusion; C79.51 Secondary malignant neoplasm of bone; K76.0 Fatty (change of) liver, not elsewhere classified; J98.11 Atelectasis; I87.1 Compression of vein; Z85.3 Personal history of malignant neoplasm of breast; E11.9 Type 2 diabetes mellitus without complications; I10 Essential (primary) hypertension; E87.6 Hypokalemia; Z79.810 Long term (current) use of selective estrogen receptor modulators (SERMs); Z90.11 Acquired absence of right breast and nipple; Z92.21 Personal history of antineoplastic chemotherapy; Z92.3 Personal history of irradiation; Z82.49 Family history of ischemic heart disease and other diseases of the circulatory system; Z99.81 Dependence on supplemental oxygen

== ENCOUNTER 2017-08-31 07:53 | Inpatient (IN) | payer MEDICAID, SELFPAY ==
[2017-08-31 07:53] VITALS: BMI 26.1
[~2017-08-31 07:53] MED LIST: Gadodiamide 287 MG/ML VIAL (15ML) IV ONE
--- NOTE | 2017-08-31 08:25 | C.PDOC ---
History Of Present Illness PI: Patient is a 56y.o F with PMH of HTN and breast cancer, Right mastectomy in 2013, currently on chemo (last one was week ago), come in accompanied by family member for evaluation of generalized weakness, bodyaches, decrease appetite, intermittent vomiting for past 4-5 days. As per family, developed Right eye mild swelling and redness along eyelids associated with yellow/greenish discharges. As per family, " she also has some reaction after chemo with vomiting, mild bodyaches but never that bad". Otherwise, denies fever, headache , dizziness, syncopy, CP, SOB, dyspnea, palpitation, abd. pain, diarrhea, denies B/L calfs pain. At the time of evaluation, pt appears chronically ill, resting in bed, no t in resp. distress. PMD: Clinic, [facility] Heme/onc: Gianluca Gordon PMH: HTN, breast cancer (diagnosed [address] Menon) PSx: Right mastectomy in 2012 Time Seen by Provider: 08/31/17 08:21 Chief Complaint (Nursing): Pain, Chronic History Per: Patient, Family Onset/Duration Of Symptoms: Gradual Past Medical History Reviewed: Historical Data, Nursing Documentation, Vital Signs Vital Signs: Last Vital Signs Temp 97.7 F 08/31/17 11:54 Pulse 76 08/31/17 11:54 Resp 20 08/31/17 11:54 BP 117/77 08/31/17 11:54 Pulse Ox 97 08/31/17 11:54 - Medical History PMH: HTN, Malignancy Denies: Chronic Kidney Disease Other Surgeries: Right mastectomy, - [facility] Procedures CONTRAST PHLEBOGRAM NEC (04/13/13) DRAINAGE OF RIGHT PLEURAL CAVITY, PERCUTANEOUS APPROACH (01/23/17) INCIS W REM OF FORIEGN BODY OR DEV FROM SKIN & SUBCUT TISSUE (08/18/13) INSERTION OF INFUSION DEV INTO SUP VENA CAVA, PERC APPROACH (01/23/17) INSERTION OF TOTALLY IMPLANTABLE VASC ACCESS DEVIC (04/27/13) INSERTION OF VAD INTO CHEST SUBCU/FASCIA, OPEN APPROACH (01/23/17) OTHER SKIN & SUBQ I D (05/07/13) TETANUS TOXOID ADMINIST (05/07/13) Family History: States: Unknown Family Hx - Social History Hx Tobacco Use: No Hx Alcohol Use: No Hx Substance Use: No - Immunization History Hx Tetanus Toxoid Vaccination: No Hx Influenza Vaccination: No Hx Pneumococcal Vaccination: No Review Of Systems Except As Marked, All Systems Reviewed And Found Negative. Constitutional: Positive for: Weakness, Malaise, Weight loss. Negative for: Fever, Chills Eyes: Positive for: Eyelid Inflammation. Negative for: Vision Change ENT: Negative for: Ear Discharge, Nose Discharge Cardiovascular: Negative for: Chest Pain, Palpitations, Edema, Light Headedness Respiratory: Negative for: Cough, Shortness of Breath, Wheezing Gastrointestinal: Negative for: Nausea, Vomiting, Abdominal Pain Skin: Negative for: Rash Neurological: Negative for: Altered Mental Status, Headache Physical Exam - Physical Exam Appears: Well, No Acute Distress, Chronically Ill Skin: Normal Color, Warm, Dry, No Rash Eye(s): bilateral: PERRL, EOMI (no pain or limitation on extraocula movement B/L ), left: Eyelid Inflammation (diffuse upper and inner corner of lower eyelids with mild edema or erythema, (+) scant yellow discahrges noted. No conjunctival erythema, NO periorbital edema or erythema.) Nose: No Flaring, No Discharge Oral Mucosa: Moist, No Drooling Tongue: Normal Appearing Lips: Normal Appearing Throat: No Drooling Neck: Trachea Midline, Supple, Other (Right subclavian port) Cardiovascular: Rhythm Regular, No Murmur, No JVD, Other ((-) carotid bruits) Respiratory: Decreased Breath Sounds (Right lower lobe), No Accessory Muscle Use , No Stridor, No Wheezing, No Plerual Rub Gastrointestinal/Abdominal: Soft, No Tenderness, No Distention, No Guarding Back: No CVA Tenderness Extremity: Normal ROM, No Pedal Edema, No Swelling Neurological/Psych: Oriented x3, Normal Speech ED Course And Treatment - Laboratory Results Result Diagrams: 08/31/17 08:39 08/31/17 08:39 Lab Interpretation: No Acute Changes ECG: Interpreted By Me, Viewed By Me Interpretation Of ECG: SR@78/min, NAD, no acute T wave or ST-T changes. Compare to previous study from 01/23/17, no acute abnormalities. O2 Sat by Pulse Oximetry: 97 Pulse Ox Interpretation: Normal - Other Rad cxr X-Ray: Read By Radiologist Interpretation: COMPARISON: 01/23/2017. TECHNIQUE: Chest PA and lateral. FINDINGS: LUNGS: Complete opacification of right mack thorax. No evidence of volume loss. No left-sided infiltrate. PLEURA: No left pleural effusion. Cannot rule out right pleural effusion. CARDIOVASCULAR: Grossly normal heart size. Evaluation limited. Right central venous infusion port. OSSEOUS STRUCTURES: Multiple sclerotic opacities seen in the proximal humerus bilaterally as well as suspected in multiple ribs, suspicious for metastatic disease. This is consistent with the finding of diffuse sclerotic metastasis on chest CT examination of 01/23/2017. VISUALIZED UPPER ABDOMEN: Normal. OTHER FINDINGS: None. IMPRESSION: Complete opacification right hemithorax without volume loss. Widespread sclerotic metastasis. Progress Note: Case discussed with pt's hemonc and admission to Hospitalist recommend. Request inpatient thoracentesis of Right lung, MRI of brain w/IV contrast, Chest/Abd/Pelvis w/IV+PO contrast. Case dsicussed with , notified about requested thoracentesis. Hospitalist accepted admission. Disposition - Disposition Disposition: HOSPITALIZED Disposition Time: 10:23 Condition: FAIR - Clinical Impression Clinical Impression: Pleural effusion, Metastatic cancer, Breast cancer
[2017-08-31 08:50] LABS: BASO # 0.1 K/uL (0.0-0.2); EOS % 0.3 % (0.0-4.0); HEMATOCRIT 39.4 % (34.0-47.0); LYMPH # 2.1 K/uL (1.0-4.3); LYMPH % 32.7 % (20.0-40.0); MEAN CELL VOLUME 88.1 fL (81.0-99.0); MEAN CORPUSCULAR HEMOGLOBIN 29.5 pg (27.0-31.0); MEAN CORPUSCULAR HGB CONC 33.5 g/dL (33.0-37.0); MEAN PLATELET VOLUME 8.7 fL (7.2-11.7); MONO # 0.3 K/uL (0.0-0.8); NRBC % 0.2 % (0.0-2.0); RED CELL DISTRIBUTION WIDTH 20.6 % (11.5-14.5); WHITE BLOOD COUNT 6.3 K/uL (4.8-10.8)
[2017-08-31 08:54] LABS: INR 1.1
[2017-08-31] MEDS ORDERED: Tobramycin 0.3% OPH OINT OD STA (09:03)
[2017-08-31] MEDS ORDERED: Sodium Chloride 0.9% 1,000 ML IV ONE (09:03)
--- NOTE | 2017-08-31 09:03 | RAD ---
HISTORY: SOB COMPARISON: 01/23/2017 TECHNIQUE: Chest PA and lateral FINDINGS: LUNGS: Complete opacification of right mack thorax. No evidence of volume loss. No left-sided infiltrate. PLEURA: No left pleural effusion. Cannot rule out right pleural effusion. CARDIOVASCULAR: Grossly normal heart size. Evaluation limited. Right central venous infusion port. OSSEOUS STRUCTURES: Multiple sclerotic opacities seen in the proximal humerus bilaterally as well as suspected in multiple ribs, suspicious for metastatic disease. This is consistent with the finding of diffuse sclerotic metastasis on chest CT examination of 01/23/2017. VISUALIZED UPPER ABDOMEN: Normal. OTHER FINDINGS: None. IMPRESSION: Complete opacification right hemithorax without volume loss. Widespread sclerotic metastasis.
[2017-08-31 09:07] LABS: CHLORIDE 93 mmol/L (98-107); POTASSIUM 3.6 mmol/L (3.6-5.2); SODIUM 132 mmol/L (132-148)
[2017-08-31 09:09] LABS: AST/SGOT 39 U/L (14-36); BILIRUBIN,TOTAL 0.8 mg/dL (0.2-1.3); GFR AFRICAN-AMERICAN > 60
[2017-08-31 09:10] LABS: ALB/GLOB RATIO 1.7 (1.0-2.1); ALKALINE PHOSPHATASE 202 U/L (38-126); ALT/SGPT 34 U/L (9-52); BLOOD UREA NITROGEN 9 mg/dL (7-17); CALCIUM 9.6 mg/dl (8.6-10.4); CARBON DIOXIDE 29 mmol/L (22-30); GLUCOSE,RANDOM 101 mg/dL (65-105); TOTAL PROTEIN 6.8 g/dL (6.3-8.3)
[2017-08-31] MEDS ORDERED: Sodium Chloride 0.9% 1,000 ML ONE (09:16)
[2017-08-31] MEDS ORDERED: Tobramycin 0.3% OPH OINT ONE (09:21)
[2017-08-31 10:24] LABS: RBC URINE 1 /hpf (0-3); URINE BACTERIA RARE (<OCC); URINE BILIRUBIN NEGATIVE (NEGATIVE); URINE BLOOD NEGATIVE (NEGATIVE); URINE COLOR Straw (YELLOW); URINE GLUCOSE (UA) NORMAL (Normal); URINE KETONE NEGATIVE (NEGATIVE); URINE LEUKOCYTE ESTERASE NEG Leu/uL (Negative); URINE PROTEIN NEGATIVE (NEGATIVE); URINE UROBILINOGEN NORMAL mg/dL (0.2-1.0); WBC URINE 5 /hpf (0-5)
--- NOTE | 2017-08-31 12:21 | PCM.SURG1 ---
Surgeon's Initial Post Op Note - Surgeon's Notes Surgeon: Tolu Hernandez MD Motorcycle Fabricator: None Type of Anesthesia: Local Pre-Operative Diagnosis: Right pleural effusion Operative Findings: US showed a large Right pleural effusion Post-Operative Diagnosis: Right pleural effusion Operation Performed: US guided right thoracentesis Specimen/Specimens Removed: 1400 cc of straw colored fluid Estimated Blood Loss: EBL {In ML}: 0 Blood Products Given: N/A Drains Used: No Drains Post-Op Condition: Fair Date of Surgery/Procedure: 08/31/17 Time of Surgery/Procedure: 12:20
--- NOTE | 2017-08-31 13:38 | RAD ---
Chest x-ray single frontal view History: Thoracentesis. Comparison: 08/31/2017 Findings: Right chest wall port with tip extending to the cavoatrial junction. Surgical clips in the right axilla. Persistent near complete opacification of the right mack thorax with persistent large right pleural effusion. Some residual aeration within the right upper lung zone. Diffuse increased interstitial lung markings throughout the left lung. Degenerative changes in the spine and shoulders with patchy sclerosis seen throughout the visualized osseous structures. Impression: Right chest wall port with tip extending to the cavoatrial junction. Surgical clips in the right axilla. Persistent near complete opacification of the right mack thorax with persistent large right pleural effusion. Some residual aeration within the right upper lung zone. Diffuse increased interstitial lung markings throughout the left lung. Degenerative changes in the spine and shoulders with patchy sclerosis seen throughout the visualized osseous structures.
--- NOTE | 2017-08-31 13:56 | CP.PCM.HP ---
<Raoul Graf - Last Filed: 08/31/17 17:40> History of Present Illness - History of Present Illness History of Present Illness: Med H&P for Dr. Granados CC: General weakness and vomiting HPI: 57 year old female with PMHx of metastatic breast cancer and HTN presents to ED with complaints of generalized weakness, "full body pain," and vomiting. Through translation by patient's sister, patient states the weakness and vomiting has been going on for two weeks but worsened one day ago. Patient's sister stated she was able to eat a small amount last night at 7pm without vomiting. Patient denies vomiting today. Patient is currently receiving chemotherapy for breast cancer, last treatment Thursday08/26/2017. Patient has nausea and vomiting following chemotherapy for one day but usually resolves. Patient's sister stated that her sister had trouble forming words and slurred her speech yesterday but it has since resolved. ROS: * Const: Denies wt changes, fever, chills. * HEENT: Positive headache, sore throat. Denies rhinorhea. * Respiratory: Denies SOB, cough, hemoptysis. * Cardiac: Denies Chest pain, palpitations. * GI: Positive nausea, vomiting. Denies abdominal pain, diarrhea, constipation, changes in stool, or hematachezia. * : Positive urinary frequency. Denies dysuria, hematuria. * Breast: Positive hx of right mastectomy. * MSK: Positive muscle weakness. Denies falls. Does not use assistive devices. * Neuro: Positive dizziness and changes of speech. Denies syncope, LOC, confusion. PMH: Metastatic Breast Cancer, HTN PSH: Right mastectomy FH: Mother CKD, Father HTN SH: Patient lives with her sister and [id number]. Patient is , no children. Patient denies smoking, alcohol or illicit drugs. Medications: Tramadol, Nausea medication (unknown on name), multivitamins Allergies: NKDA PMD: [place] Present on Admission - Present on Admission Any Indicators Present on Admission: No Review of Systems - Constitutional Constitutional: As Per HPI - EENT Eyes: As Per HPI Ears: As Per HPI Nose/Mouth/Throat: As Per HPI - Breasts Breasts: As Per HPI - Cardiovascular Cardiovascular: As Per HPI - Respiratory Respiratory: As Per HPI - Gastrointestinal Gastrointestinal: As Per HPI - Genitourinary Genitourinary: As Per HPI - Reproductive: Female Reproductive:Female: As Per HPI - Menstruation Menstruation: As Per HPI - Musculoskeletal Musculoskeletal: As Per HPI - Integumentary Integumentary: As Per HPI - Neurological Neurological: As Per HPI - Psychiatric Psychiatric: As Per HPI - Endocrine Endocrine: As Per HPI - Hematologic/Lymphatic Hematologic: As Per HPI Past Patient History - Past Medical History & Family History Past Medical History?: Yes - Past Social History Smoking Status: Never Smoked - CARDIAC Hx Cardiac Disorders: Yes Hx Hypertension: Yes - PULMONARY Hx Respiratory Disorders: No - NEUROLOGICAL Hx Neurological Disorder: No - HEENT Hx HEENT Problems: No - RENAL Hx Chronic Kidney Disease: No - ENDOCRINE/METABOLIC Hx Endocrine Disorders: No - HEMATOLOGICAL/ONCOLOGICAL Hx Blood Disorders: Yes Hx Cancer: Yes (BREAST WITH METS TO LUNG) Hx Chemotherapy: Yes Other/Comment: Right breast CA - INTEGUMENTARY Hx Dermatological Problems: No - MUSCULOSKELETAL/RHEUMATOLOGICAL Hx Musculoskeletal Disorders: No Hx Falls: No - GASTROINTESTINAL Hx Gastrointestinal Disorders: No - GENITOURINARY/GYNECOLOGICAL Hx Genitourinary Disorders: No - PSYCHIATRIC Hx Substance Use: No - SURGICAL HISTORY Hx Surgeries: Yes Hx Mastectomy: Yes (RIGHT BREAST MASTECTOMY 2012) Hx Vascular Access Device: Yes (RIGHT LEORA CATH) - ANESTHESIA Hx Anesthesia: Yes Hx Anesthesia Reactions: No Hx Malignant Hyperthermia: No Meds Allergies/Adverse Reactions: Allergies Allergy/AdvReac Type Severity Reaction Status Date / Time No Known Allergies Allergy Verified 08/31/17 08:03 Physical Exam - Constitutional Appears: Chronically Ill - Head Exam Head Exam: ATRAUMATIC, NORMAL INSPECTION, NORMOCEPHALIC - Eye Exam Eye Exam: EOMI Pupil Exam: NORMAL ACCOMODATION - ENT Exam ENT Exam: Mucous Membranes Moist - Respiratory Exam Respiratory Exam: Clear to Auscultation Bilateral, NORMAL BREATHING PATTERN - Cardiovascular Exam Cardiovascular Exam: REGULAR RHYTHM - GI/Abdominal Exam GI & Abdominal Exam: Normal Bowel Sounds, Soft. absent: Distended, Tenderness - Extremities Exam Extremities exam: Negative for: joint swelling, tenderness - Back Exam Back exam: absent: CVA tenderness (L), CVA tenderness (R) - Neurological Exam Neurological exam: Alert, Oriented x3 - Psychiatric Exam Psychiatric exam: Normal Affect, Normal Mood - Skin Skin Exam: Dry, Intact, Normal Color, Warm Results - Vital Signs Recent Vital Signs: Last Vital Signs Temp 97.7 F 08/31/17 11:54 Pulse 76 08/31/17 11:54 Resp 20 08/31/17 11:54 BP 117/77 08/31/17 11:54 Pulse Ox 97 08/31/17 11:54 - Labs Result Diagrams: 08/31/17 08:39 08/31/17 08:39 Labs: Laboratory Results - last 24 hr 08/31/17 08/31/17 08/31/17 08:39 08:39 08:39 WBC 6.3 RBC 4.48 Hgb 13.2 Hct 39.4 MCV 88.1 MCH 29.5 MCHC 33.5 RDW 20.6 H Plt Count 342 MPV 8.7 Neut % (Auto) 61.0 Lymph % (Auto) 32.7 [place] % (Auto) 5.0 Eos % (Auto) 0.3 Baso % (Auto) 1.0 Neut # 3.9 Lymph # 2.1 [place] # 0.3 Eos # 0.0 Baso # 0.1 PT 12.1 INR 1.1 APTT 30 Sodium 132 Potassium 3.6 Chloride 93 L Carbon Dioxide 29 Anion Gap 14 BUN 9 Creatinine 0.6 L Est GFR ( Amer) > 60 Est GFR (Non-Af Amer) > 60 Random Glucose 101 Calcium 9.6 Total Bilirubin 0.8 AST 39 H D ALT 34 Alkaline Phosphatase 202 H Total Creatine Kinase 65 Total Protein 6.8 Albumin 4.3 Globulin 2.5 Albumin/Globulin Ratio 1.7 Urine Color Urine Clarity Urine pH Ur Specific [place] Urine Protein Urine Glucose (UA) Urine Ketones Urine Blood Urine Nitrate Urine Bilirubin Urine Urobilinogen Ur Leukocyte Esterase Urine WBC (Auto) Urine RBC (Auto) Urine Bacteria 08/31/17 10:16 WBC RBC Hgb Hct MCV MCH MCHC RDW Plt Count MPV Neut % (Auto) Lymph % (Auto) [place] % (Auto) Eos % (Auto) Baso % (Auto) Neut # Lymph # [place] # Eos # Baso # PT INR APTT Sodium Potassium Chloride Carbon Dioxide Anion Gap BUN Creatinine Est GFR ( Amer) Est GFR (Non-Af Amer) Random Glucose Calcium Total Bilirubin AST ALT Alkaline Phosphatase Total Creatine Kinase Total Protein Albumin Globulin Albumin/Globulin Ratio Urine Color Straw Urine Clarity Clear Urine pH 8.0 Ur Specific [place] 1.008 Urine Protein Negative Urine Glucose (UA) Normal Urine Ketones Negative Urine Blood Negative Urine Nitrate Negative Urine Bilirubin Negative Urine Urobilinogen Normal Ur Leukocyte Esterase Neg Urine WBC (Auto) 5 Urine RBC (Auto) 1 Urine Bacteria Rare Assessment & Plan - Assessment and Plan (Free Text) Assessment: Metastatic Breast CA * Heme/Onc ([place]) * F/U MRI Brain * F/U CT C/A/P * Complains of diffuse body pain * Tramadol 25 PO TID PRN Vomiting * Likely 2/2 to chemo * Resolved * Zofran 4mg IV Q6 * Tolerating regular diet Pleural Effusion * Pulm () * Consider pleurodesis * Thoracentesis 08/31 * 1400 straw colored fluid PPx * Pepcid * SCD * Ambulate * PT/OT * Tylenol 325mg PO Q5 PRN Decision To Admit - Pt Status Changed To: Hospital Disposition Of: Observation - . Bed Request Type: Regular <Riley Miles - Last Filed: 08/31/17 18:33> Results - Vital Signs Recent Vital Signs: Last Vital Signs Temp 97.7 F 08/31/17 11:54 Pulse 76 08/31/17 11:54 Resp 20 08/31/17 11:54 BP 117/77 08/31/17 11:54 Pulse Ox 97 08/31/17 11:54 - Labs Result Diagrams: 08/31/17 08:39 08/31/17 08:39 Labs: Laboratory Results - last 24 hr 08/31/17 08/31/17 08/31/17 08:39 08:39 08:39 WBC 6.3 RBC 4.48 Hgb 13.2 Hct 39.4 MCV 88.1 MCH 29.5 MCHC 33.5 RDW 20.6 H Plt Count 342 MPV 8.7 Neut % (Auto) 61.0 Lymph % (Auto) 32.7 [place] % (Auto) 5.0 Eos % (Auto) 0.3 Baso % (Auto) 1.0 Neut # 3.9 Lymph # 2.1 [place] # 0.3 Eos # 0.0 Baso # 0.1 PT 12.1 INR 1.1 APTT 30 Sodium 132 Potassium 3.6 Chloride 93 L Carbon Dioxide 29 Anion Gap 14 BUN 9 Creatinine 0.6 L Est GFR ( Amer) > 60 Est GFR (Non-Af Amer) > 60 Random Glucose 101 Calcium 9.6 Total Bilirubin 0.8 AST 39 H D ALT 34 Alkaline Phosphatase 202 H Total Creatine Kinase 65 Total Protein 6.8 Albumin 4.3 Globulin 2.5 Albumin/Globulin Ratio 1.7 Urine Color Urine Clarity Urine pH Ur Specific [place] Urine Protein Urine Glucose (UA) Urine Ketones Urine Blood Urine Nitrate Urine Bilirubin Urine Urobilinogen Ur Leukocyte Esterase Urine WBC (Auto) Urine RBC (Auto) Urine Bacteria 08/31/17 10:16 WBC RBC Hgb Hct MCV MCH MCHC RDW Plt Count MPV Neut % (Auto) Lymph % (Auto) [place] % (Auto) Eos % (Auto) Baso % (Auto) Neut # Lymph # [place] # Eos # Baso # PT INR APTT Sodium Potassium Chloride Carbon Dioxide Anion Gap BUN Creatinine Est GFR ( Amer) Est GFR (Non-Af Amer) Random Glucose Calcium Total Bilirubin AST ALT Alkaline Phosphatase Total Creatine Kinase Total Protein Albumin Globulin Albumin/Globulin Ratio Urine Color Straw Urine Clarity Clear Urine pH 8.0 Ur Specific [place] 1.008 Urine Protein Negative Urine Glucose (UA) Normal Urine Ketones Negative Urine Blood Negative Urine Nitrate Negative Urine Bilirubin Negative Urine Urobilinogen Normal Ur Leukocyte Esterase Neg Urine WBC (Auto) 5 Urine RBC (Auto) 1 Urine Bacteria Rare Attending/Attestation - Attestation I have personally seen and examined this patient.: Yes I have fully participated in the care of the patient.: Yes I have reviewed all pertinent clinical information: Yes Notes (Text): This is 57 year old female with history of metastatic breast cancer and HTN presents to ED with complaints of generalized weakness and vomiting. Patient is currently receiving chemotherapy for breast cancer, last treatment Thursday08/26/2017. Patient has nausea and vomiting following chemotherapy for one day but usually resolves. Patient's sister stated that her sister had trouble forming words and slurred her speech yesterday . Patient was seen and examined with resident.Discussed with the patient and her sister.S/P Thoracentesis removed 1400ml fluid. she is lying down comfortable no complain,feels better after thoracentesis. 1.Pleural effusion s/p Thoracentesis pulmonary consult /recurrent effusion for evaluation of pleurodesis 2. Vomting-fluids 3.Metastatic breast cancer-oncology consult MRI brain to rule out brain mets 4.HTN 5.pain meds and prophylaxis for DVT and GI 08/31/17 18:32
--- NOTE | 2017-08-31 16:52 | MRI ---
PROCEDURE: MRI BRAIN WITH AND WITHOUT CONTRAST HISTORY: Dizziness, Breast CA mets? COMPARISON: None. TECHNIQUE: Multiplanar, multisequence MR images of the brain were obtained with and without intravenous contrast enhancement. 13 mL Omniscan was injected intravenously. FINDINGS: HEMORRHAGE: None DWI: No evidence of an acute or early subacute infarction. BRAIN PARENCHYMA: There are innumerable variable-sized superficial solid and rim enhancing lesions in both cerebral and cerebellar hemispheres, right anterior sharron, smaller lesions in central forms and smaller lesions genu of the right internal capsule, left external capsule and left resendiz radiata. The largest ring enhancing lesion in the left temporal lobe measures 13 mm. There is mild surrounding vasogenic edema without mass effect or midline shift. No evidence of herniation. There is no extra-axial fluid collection. ENHANCEMENT: No abnormal leptomeningeal enhancement. VENTRICLES: Unremarkable. No hydrocephalus. CRANIUM: There are multifocal T1 and T2 hypointense lesions in the calvarium. ORBITS: Grossly unremarkable. PARANASAL SINUSES/MASTOIDS: Clear VASCULAR SYSTEM: Skull base flow voids intact. OTHER FINDINGS: None . IMPRESSION: 1. Diffuse cerebral and cerebellar large metastatic lesions with mild surrounding vasogenic edema without evidence of mass effect, midline shift or herniation. No hydrocephalus. 2. Diffuse osteoblastic calvarial metastasis.
[2017-08-31] MEDS: Bacitracin Opht OINT 3.5GM OU SCH (17:18)
[2017-08-31] MEDS ORDERED: Iohexol 240 (50 ml) PO PRN (18:00)
[2017-08-31] MEDS: Tramadol 25 mg PO PRN (18:19)
[2017-08-31] MEDS ORDERED: Iodixanol 320 mg/ml 150 ml Bottle IV ONE (19:28)
[2017-08-31] MEDS ORDERED: Dexamethasone 10 MG in Sodium Chloride 0.9% 50 ML IV ONE (20:21)
--- NOTE | 2017-08-31 21:23 | CT ---
EXAM: CT Chest With Intravenous Contrast CLINICAL HISTORY: 57 years old, female; Condition or disease; Cancer; Other: Breast; Other: Pain; Additional info: Breast ca mets? TECHNIQUE: Axial computed tomography images of the chest with intravenous contrast. All CT scans at this facility use one or more dose reduction techniques, viz.: automated exposure control; ma/kV adjustment per patient size (including targeted exams where dose is matched to indication; i.e. head); or iterative reconstruction technique. Coronal and sagittal reformatted images were created and reviewed. CONTRAST: 100 mL of visipaque 320 administered intravenously. COMPARISON: No relevant prior studies available. FINDINGS: Lungs: Peripheral filling defect within RIGHT main pulmonary artery and probable filling defects within branches of RIGHT upper lobe pulmonary artery. Patchy and confluent groundglass/airspace disease within RIGHT lung with volume loss. Few subpleural nodules are more likely scarring within LEFT upper lobe, up to 0.3 cm. Pleural space: Large RIGHT pleural effusion with few foci of air. Heart: Partial shift of heart and mediastinum into RIGHT hemithorax. Bones/joints: Innumerable sclerotic lesions throughout the visualized bones. Soft tissues: Surgical clips about RIGHT axilla. RIGHT mastectomy. Vasculature: See above. Lymph nodes: No pathologically enlarged lymph nodes. Tubes, lines and devices: Central venous catheter. IMPRESSION: 1. Pulmonary emboli. 2. Diffuse osseous metastases. 3. RIGHT hydropneumothorax. 4. Patchy/confluent airspace disease within RIGHT lung. DDX: Atelectasis, pneumonia, and/or neoplasm. 5. Incidental/non-acute findings are described above. EXAM: CT Abdomen and Pelvis With Intravenous Contrast CLINICAL HISTORY: 57 years old, female; Condition or disease; Cancer; Other: Breast; Other: Pain; Additional info: Breast ca mets? TECHNIQUE: Axial computed tomography images of the abdomen and pelvis with intravenous contrast. All CT scans at this facility use one or more dose reduction techniques, viz.: automated exposure control; ma/kV adjustment per patient size (including targeted exams where dose is matched to indication; i.e. head); or iterative reconstruction technique. Coronal and sagittal reformatted images were created and reviewed. CONTRAST: 100 mL of visipaque 320 administered intravenously. COMPARISON: No relevant prior studies available. FINDINGS: ABDOMEN: Liver: Few subcentimeter hypodense lesions within liver, indeterminate by CT criteria. Gallbladder and bile ducts: No calcified stones. No ductal dilation. Pancreas: No ductal dilation. No mass. Spleen: No splenomegaly. Adrenals: No mass. Kidneys and ureters: No mass. No hydronephrosis. Stomach and bowel: No definite mural thickening. No obstruction. Appendix: Normal caliber. No inflammation. PELVIS: Bladder: Unremarkable. Reproductive: Unremarkable as visualized. ABDOMEN and PELVIS: Intraperitoneal space: No significant fluid collection. No free air. Bones/joints: Innumerable sclerotic lesions within the visualized bones. Soft tissues: Several subcentimeter soft tissue nodules within subcutaneous tissues, nonspecific. Vasculature: Unremarkable. No aneurysm. Lymph nodes: No pathologically enlarged lymph nodes. IMPRESSION: 1. Diffuse osseous metastases. 2. Liver lesions, indeterminate. Metastatic disease not excluded. 3. Incidental/non-acute findings are described above.
[2017-08-31] MEDS ORDERED: Enoxaparin 60 mg Syringe SC SCH (22:15)
--- NOTE | 2017-08-31 22:18 | CP.PCM.PN ---
Subjective - Date & Time of Evaluation Date of Evaluation: 08/31/17 Time of Evaluation: 22:15 - Subjective Subjective: Chest/Abdomen/Pelvis CT: pulmonary emboli - right pulmonary artery; diffuse osseous metastases; right hydropneumothorax; patchy/confluent airspace disease within right lung PE possibly secondary to breast cancer - Started patient on Lovenox 70mg q12. Objective - Vital Signs/Intake and Output Vital Signs (last 24 hours): Temp Pulse Resp BP Pulse Ox 98.2 F 90 20 112/79 97 08/31/17 15:00 08/31/17 15:00 08/31/17 15:00 08/31/17 15:00 08/31/17 16:01 - Medications Medications: Current Medications Acetaminophen (Tylenol 325mg Tab) 650 mg PO Q6 PRN PRN Reason: Fever >100.4 F Bacitracin (Bacitracin Opht Oint) 0 applic OU BID [facility] Last Admin: 08/31/17 17:18 Dose: 1 applic Dexamethasone (Decadron Inj) 4 mg IV Q6 [facility] Enoxaparin Sodium (Lovenox) 70 mg SC Q12 SHORTY Famotidine (Pepcid) 20 mg PO BID [facility] Last Admin: 08/31/17 17:20 Dose: 20 mg Iohexol (Omnipaque 240 (50 Ml)) 50 ml PO ONCE PRN PRN Reason: FOR CAT SCAN Last Admin: 08/31/17 18:19 Dose: 50 ml Ondansetron HCl (Zofran Inj) 4 mg IVP Q6 PRN PRN Reason: Nausea/Vomiting Tramadol HCl (Ultram) 25 mg PO TID PRN PRN Reason: Pain, moderate (4-7) Last Admin: 08/31/17 18:19 Dose: 25 mg - Labs Labs: 08/31/17 08:39 08/31/17 08:39 PT 12.1 SECONDS (9.7-12.2) 08/31/17 08:39 INR 1.1 08/31/17 08:39 APTT 30 SECONDS (21-34) 08/31/17 08:39
[2017-09-01 08:12] LABS: BASO % 0.3 % (0.0-2.0); HEMATOCRIT 39.5 % (34.0-47.0); LYMPH # 1.4 K/uL (1.0-4.3); LYMPH % 31.3 % (20.0-40.0); MEAN CORPUSCULAR HEMOGLOBIN 29.2 pg (27.0-31.0); MEAN CORPUSCULAR HGB CONC 33.5 g/dL (33.0-37.0); MEAN PLATELET VOLUME 9.2 fL (7.2-11.7); MONO # 0.1 K/uL (0.0-0.8); MONO % 2.5 % (0.0-10.0); NRBC % 0.2 % (0.0-2.0); RED CELL DISTRIBUTION WIDTH 20.1 % (11.5-14.5); WHITE BLOOD COUNT 4.6 K/uL (4.8-10.8)
[2017-09-01 08:35] LABS: ALB/GLOB RATIO 1.2 (1.0-2.1); ALKALINE PHOSPHATASE 207 U/L (38-126); AST/SGOT 29 U/L (14-36); BILIRUBIN,TOTAL 0.6 mg/dL (0.2-1.3); BLOOD UREA NITROGEN 10 mg/dL (7-17); CARBON DIOXIDE 25 mmol/L (22-30); GFR AFRICAN-AMERICAN > 60; TOTAL PROTEIN 7.2 g/dL (6.3-8.3)
[2017-09-01 08:36] LABS: ALT/SGPT 28 U/L (9-52); GLUCOSE,RANDOM 134 mg/dL (65-105)
[2017-09-01 08:37] LABS: CHLORIDE 96 mmol/L (98-107); POTASSIUM 3.5 mmol/L (3.6-5.2); SODIUM 132 mmol/L (132-148)
--- NOTE | 2017-09-01 09:20 | CP.PCM.CON ---
History of Present Illness - History of Present Illness History of Present Illness: 57 year old Citizen [place] female with a history of HTN, stage IV breast cancer on chemotherapy, admitted with headache and shortness of breath, found to have brain metastasis, PE, and pleural effusion, likely malignant. Cancer history: The patient had hit her breast on a chair in October 2012 which led to the realization of a breast mass. She was sent for mammogram as well as biopsy in [place] which led to the diagnosis of invasive breast cancer. Given her worrisome diagnosis, she traveled to her sisters residence in the [facility], in the hopes of seeking more specialized care. She initially presented with mammogram films and pathology and imaging reports. As they were in Greek, I was unable to translate them. From what i could ascertain, she appeared to have had a 3.8cm right breast mass biopsy proven as invasive carcinoma. She underwent a right breast biopsy on 01/13/13 with the pathology revealing invasive ductal carcinoma ER/PA positive, HER2 negative. - 01/[address] C/A/P revealed 3mm RUL lung lesion; repeat imaging recommended in 1 year. - 01/2013 bone scan negative. - 02/10/13 right mastectomy; 3.5 cm, grade 3, negative margins, LVI present, 05/27 LN positive; pT2 N2a Mx Stage IIIa. - Began adjuvant dose dense AC (completed 04/28/13) followed by paclitaxel q2 weeks x 4; completed 06/22/13. - treated with adjuvant radiotherapy which completed in August. - She began Tamoxifen daily after radiotherapy and returned to [place]. - She represented in 01/2017 with widely metastatic disease and was initiated on chemotherapy with paclitaxel and obtained an excellent response with decreased tumor burden and declining tumor markers. Per her sister, she had been doing well up until the last 1-2 weeks. She notes she has been having progressive fatigue and weakness. Her appetite has been diminished and she feels she has episodes of confusion. Past Patient History - Past Medical History & Family History Past Medical History?: Yes - Past Social History Smoking Status: Never Smoked - CARDIAC Hx Cardiac Disorders: Yes Hx Hypertension: Yes - PULMONARY Hx Respiratory Disorders: No - NEUROLOGICAL Hx Neurological Disorder: No - HEENT Hx HEENT Problems: No - RENAL Hx Chronic Kidney Disease: No - ENDOCRINE/METABOLIC Hx Endocrine Disorders: No - HEMATOLOGICAL/ONCOLOGICAL Hx Blood Disorders: Yes Hx Cancer: Yes (BREAST WITH METS TO LUNG) Hx Chemotherapy: Yes Other/Comment: Right breast CA - INTEGUMENTARY Hx Dermatological Problems: No - MUSCULOSKELETAL/RHEUMATOLOGICAL Hx Musculoskeletal Disorders: No Hx Falls: No - GASTROINTESTINAL Hx Gastrointestinal Disorders: No - GENITOURINARY/GYNECOLOGICAL Hx Genitourinary Disorders: No - PSYCHIATRIC Hx Substance Use: No - SURGICAL HISTORY Hx Surgeries: Yes Hx Mastectomy: Yes (RIGHT BREAST MASTECTOMY 2012) Hx Vascular Access Device: Yes (RIGHT LEORA CATH) - ANESTHESIA Hx Anesthesia: Yes Hx Anesthesia Reactions: No Hx Malignant Hyperthermia: No Meds Allergies/Adverse Reactions: Allergies Allergy/AdvReac Type Severity Reaction Status Date / Time No Known Allergies Allergy Verified 08/31/17 08:03 - Medications Medications: Current Medications Acetaminophen (Tylenol 325mg Tab) 650 mg PO Q6 PRN PRN Reason: Fever >100.4 F Bacitracin (Bacitracin Opht Oint) 0 applic OU BID [facility] Last Admin: 08/31/17 17:18 Dose: 1 applic Dexamethasone (Decadron Inj) 4 mg IV Q6 [facility] Enoxaparin Sodium (Lovenox) 70 mg SC Q12 [facility] Last Admin: 08/31/17 22:28 Dose: 70 mg Famotidine (Pepcid) 20 mg PO BID [facility] Last Admin: 08/31/17 17:20 Dose: 20 mg Iohexol (Omnipaque 240 (50 Ml)) 50 ml PO ONCE PRN PRN Reason: FOR CAT SCAN Last Admin: 08/31/17 18:19 Dose: 50 ml Ondansetron HCl (Zofran Inj) 4 mg IVP Q6 PRN PRN Reason: Nausea/Vomiting Tramadol HCl (Ultram) 25 mg PO TID PRN PRN Reason: Pain, moderate (4-7) Last Admin: 08/31/17 18:19 Dose: 25 mg Physical Exam - Head Exam Head Exam: ATRAUMATIC - Eye Exam Eye Exam: Normal appearance - ENT Exam ENT Exam: Mucous Membranes Dry - Respiratory Exam Respiratory Exam: Decreased Breath Sounds - Cardiovascular Exam Cardiovascular Exam: +S1, +S2 - GI/Abdominal Exam GI & Abdominal Exam: Normal Bowel Sounds - Extremities Exam Extremities exam: Positive for: normal inspection - Psychiatric Exam Psychiatric exam: Depressed - Skin Skin Exam: Warm Results - Vital Signs Recent Vital Signs: Last Vital Signs Temp 97.9 F 09/01/17 08:13 Pulse 87 10/24/17 08:13 Resp 20 09/01/17 08:13 BP 123/87 09/01/17 08:13 Pulse Ox 100 09/01/17 08:13 - Labs Result Diagrams: 09/01/17 07:37 09/01/17 07:37 Labs: Laboratory Results - last 24 hr 08/31/17 09/01/17 09/01/17 10:16 07:37 07:37 WBC 4.6 L RBC 4.54 Hgb 13.2 Hct 39.5 MCV 87.0 MCH 29.2 MCHC 33.5 RDW 20.1 H Plt Count 315 MPV 9.2 Neut % (Auto) 65.9 Lymph % (Auto) 31.3 [place] % (Auto) 2.5 Eos % (Auto) 0.0 Baso % (Auto) 0.3 Neut # 3.0 Lymph # 1.4 [place] # 0.1 Eos # 0.0 Baso # 0.0 Sodium 132 Potassium 3.5 L Chloride 96 L Carbon Dioxide 25 Anion Gap 15 BUN 10 Creatinine 0.6 L Est GFR ( Amer) > 60 Est GFR (Non-Af Amer) > 60 Random Glucose 134 H Calcium 10.0 Total Bilirubin 0.6 AST 29 ALT 28 Alkaline Phosphatase 207 H Total Protein 7.2 Albumin 3.9 Globulin 3.3 Albumin/Globulin Ratio 1.2 Urine Color Straw Urine Clarity Clear Urine pH 8.0 Ur Specific [place] 1.008 Urine Protein Negative Urine Glucose (UA) Normal Urine Ketones Negative Urine Blood Negative Urine Nitrate Negative Urine Bilirubin Negative Urine Urobilinogen Normal Ur Leukocyte Esterase Neg Urine WBC (Auto) 5 Urine RBC (Auto) 1 Urine Bacteria Rare Assessment & Plan (1) Brain metastasis Assessment and Plan: on steroids radiation oncology evaluation for whole brain radiotherapy Status: Acute (2) Pleural effusion Assessment and Plan: suspect malignant effusion s/p thoracentesis CT surgery evaluation for pleurodesis Status: Acute (3) Pulmonary emboli Assessment and Plan: recommend holding anticoagulation given brain mets and concern for hemorrhage okay to anticoagulate post radiotherapy recommend venous duplex LE; if positive for DVT, would benefit from IVC filter placement Status: Acute (4) Breast cancer Assessment and Plan: stage IV ER/PA positive, HER2 negative systemic therapy post radiotherapy Thank you for this interesting consult. Status: Acute
[2017-09-01] MEDS ORDERED: Potassium Chloride 20 mEq ER Tab PO ONE (09:49)
--- NOTE | 2017-09-01 09:55 | CP.PCM.PN ---
<Torrey Palma R - Last Filed: 09/01/17 15:48> Subjective - Date & Time of Evaluation Date of Evaluation: 09/01/17 Time of Evaluation: 09:52 - Subjective Subjective: PGY-1 Note for medicine, Dr Miles. Patient seen and examined at bedside this AM. Translation machine was used to communicate as patient speaks macedonian and patient's sister was not nearby. She was alert and oriented. She stated she is feeling better than yesterday. She complained of dizziness. She said she was not aware of the imaging results. She is sleeping fine and eating well. Denies chest pain, diarrhea, abdominal pain, shortness of breath, nausea, vomiting, constipation, fever, chills, bleeding, pleuritic chest pain, blurry vision, headaches. Objective - Vital Signs/Intake and Output Vital Signs (last 24 hours): Temp Pulse Resp BP Pulse Ox 97.9 F 87 20 123/87 100 09/01/17 08:13 09/01/17 08:13 09/01/17 08:13 09/01/17 08:13 09/01/17 08:13 Intake and Output: 09/01/17 09/01/17 06:59 18:59 Intake Total 120 Balance 120 - Medications Medications: Current Medications Acetaminophen (Tylenol 325mg Tab) 650 mg PO Q6 PRN PRN Reason: Fever >100.4 F Bacitracin (Bacitracin Opht Oint) 0 applic OU BID [facility] Last Admin: 08/31/17 17:18 Dose: 1 applic Dexamethasone (Decadron Inj) 4 mg IV Q6 [facility] Enoxaparin Sodium (Lovenox) 70 mg SC Q12 [facility] Last Admin: 08/31/17 22:28 Dose: 70 mg Famotidine (Pepcid) 20 mg PO BID [facility] Last Admin: 08/31/17 17:20 Dose: 20 mg Iohexol (Omnipaque 240 (50 Ml)) 50 ml PO ONCE PRN PRN Reason: FOR CAT SCAN Last Admin: 08/31/17 18:19 Dose: 50 ml Ondansetron HCl (Zofran Inj) 4 mg IVP Q6 PRN PRN Reason: Nausea/Vomiting Potassium Chloride (K-Dur 20 Meq Er Tab) 40 meq PO ONCE ONE Stop: 09/01/17 09:50 Tramadol HCl (Ultram) 25 mg PO TID PRN PRN Reason: Pain, moderate (4-7) Last Admin: 08/31/17 18:19 Dose: 25 mg - Labs Labs: 09/01/17 07:37 09/01/17 07:37 PT 12.1 SECONDS (9.7-12.2) 08/31/17 08:39 INR 1.1 08/31/17 08:39 APTT 30 SECONDS (21-34) 08/31/17 08:39 - Constitutional Appears: Well, No Acute Distress - Head Exam Head Exam: ATRAUMATIC, NORMAL INSPECTION - Eye Exam Eye Exam: EOMI Pupil Exam: PERRL - ENT Exam ENT Exam: Mucous Membranes Moist - Neck Exam Neck Exam: Normal Inspection. absent: Lymphadenopathy - Respiratory Exam Respiratory Exam: Clear to Ausculation Bilateral, NORMAL BREATHING PATTERN. absent: Rales, Rhonchi, Wheezes - Cardiovascular Exam Cardiovascular Exam: REGULAR RHYTHM. absent: Bradycardia, Tachycardia - GI/Abdominal Exam GI & Abdominal Exam: Soft, Normal Bowel Sounds. absent: Tenderness - Extremities Exam Extremities Exam: Normal Capillary Refill, Normal Inspection. absent: Pedal Edema - Neurological Exam Neurological Exam: Alert, Awake, Oriented x3 - Psychiatric Exam Psychiatric exam: Normal Affect, Normal Mood - Skin Skin Exam: Dry, Intact, Normal Color, Warm Assessment and Plan (1) Metastatic breast cancer Assessment & Plan: Heme/Onc consulted, Dr Gordon Radiation Oncologist consulted, Dr Harper Graves Patient to have radiation treatment tomorrow coordinated by Dr Harper Graves at [facility] Dexamethasone 4mg iv q6 tramadol 25mg po tid prn for pain Status: Acute (2) Pulmonary emboli Assessment & Plan: CT chest/abd/pelvis 08/31/17: Peripheral filling defect within RIGHT main pulmonary artery and probable filling defects within branches of RIGHT upper lobe pulmonary artery. Patchy and confluent groundglass/airspace disease within RIGHT lung with volume. Hold anticoagulation due to cancer metastasis to the brain Status: Acute (3) Osseous metastasis Assessment & Plan: CT chest/abd/pelvis 08/31/17: Innumerable sclerotic lesions throughout the visualized bones. Tramadol 25mg po tid prn tylenol 650mg po q6 prn for pain Status: Acute (4) Hydropneumothorax Assessment & Plan: Denies shortness of breath, cough, hemoptysis CT chest/abd/pelvis 08/31/17: Pleural space - Large RIGHT pleural effusion with few foci of air. s/p US guided right thoracentesis 08/31/17, 1400 cc of straw colored fluid removed Thoracic surgery consulted, Dr Damon Possible pleurodesis vs chest tube Status: Acute (5) Brain metastasis Assessment & Plan: (+) dizziness, (+) changes in speech MRI Brain 05/31/17: 1. Diffuse cerebral and cerebellar large metastatic lesions with mild surrounding vasogenic edema without evidence of mass effect, midline shift or herniation. No hydrocephalus. 2. Diffuse osteoblastic calvarial metastasis. Status: Acute (6) Prophylactic measure Assessment & Plan: Famotidine 20mg po bid SCDs, hold anticoagulation due to brain metastasis Regular Diet PT/OT eval and treat Fluids: NS at 70 cc/hr Status: Acute <Riley Miles - Last Filed: 09/03/17 19:04> Objective - Vital Signs/Intake and Output Vital Signs (last 24 hours): Temp Pulse Resp BP Pulse Ox 97.9 F 87 20 123/87 100 09/01/17 08:13 09/01/17 08:13 09/01/17 08:13 09/01/17 08:13 09/01/17 08:13 Intake and Output: 09/01/17 09/01/17 06:59 18:59 Intake Total 120 550 Balance 120 550 - Medications Medications: Current Medications Acetaminophen (Tylenol 325mg Tab) 650 mg PO Q6 PRN PRN Reason: Fever >100.4 F Bacitracin (Bacitracin Opht Oint) 0 applic OU BID [facility] Last Admin: 09/01/17 12:16 Dose: 1 applic Dexamethasone (Decadron Inj) 4 mg IV Q6 [facility] Last Admin: 09/01/17 12:05 Dose: Not Given Famotidine (Pepcid) 20 mg PO BID [facility] Last Admin: 09/01/17 10:43 Dose: 20 mg Sodium Chloride (Sodium Chloride 0.45%) 1,000 mls @ 70 mls/hr IV .[id number] [facility] Last Admin: 09/01/17 11:47 Dose: 70 mls/hr Iohexol (Omnipaque 240 (50 Ml)) 50 ml PO ONCE PRN PRN Reason: FOR CAT SCAN Last Admin: 08/31/17 18:19 Dose: 50 ml Ondansetron HCl (Zofran Inj) 4 mg IVP Q6 PRN PRN Reason: Nausea/Vomiting Tramadol HCl (Ultram) 25 mg PO TID PRN PRN Reason: Pain, moderate (4-7) Last Admin: 09/01/17 11:00 Dose: 25 mg - Labs Labs: 09/01/17 07:37 09/01/17 07:37 PT 12.1 SECONDS (9.7-12.2) 08/31/17 08:39 INR 1.1 08/31/17 08:39 APTT 30 SECONDS (21-34) 08/31/17 08:39 Attending/Attestation - Attestation I have personally seen and examined this patient.: Yes I have fully participated in the care of the patient.: Yes I have reviewed all pertinent clinical information, including history, physical exam and plan: Yes Notes (Text): Patient was seen and examined.Discussed with her oncologist.Thorasic surgery consulted for pleurx vs Pleurodesis Agree with the resident's documentation of assessment and plan. 09/03/17 19:01
[2017-09-01] MEDS: Dexamethasone 4 mg/1 ml IV SCH ×3 (10:42→17:15)
[2017-09-01] MEDS: Tramadol 25 mg PO PRN (11:00)
[2017-09-01] MEDS ORDERED: Enoxaparin 80 mg Syringe SC SCH (11:15)
[2017-09-01] MEDS: Sodium Chloride 0.45% 1,000 ML IV SCH (11:47)
--- NOTE | 2017-09-01 12:10 | US ---
PROCEDURE: Date of procedure: 08/31/2017 Procedure: 1. Ultrasound-guided Right thoracentesis, CPT 88229 Medications: 8cc 1% Lidocaine HISTORY: Right pleural effusion, shortness of breath TECHNIQUE: Following informed consent ,the Patients' right chest was marked. Procedure time-out was called, and the patient was placed in the sitting position and limited ultrasound showed a large right effusion. The patient's right back was prepped and draped in the usual sterile fashion. After the skin was anesthetized with lidocaine, a drainage catheter was advanced under ultrasound guidance into the pleural space. Ultrasound-guided thoracentesis was performed. A total of 1400 cubic centimeters of straw-colored fluid removed without complication. A Xeroform dressing was applied. IMPRESSION: Ultrasound guided Right thoracentesis. There were no immediate complications.
[2017-09-01] MEDS: Bacitracin Opht OINT 3.5GM OU SCH ×2 (12:16→17:32)
--- NOTE | 2017-09-01 17:50 | CP.PCM.CON ---
History of Present Illness - History of Present Illness History of Present Illness: Thoracic Surgery Dr. Damon 57 y/o F w/ PMHx of R breast Ca and malignant pleural effusion presented to the ED on 08/31 c/o fatigue and SOB. Pt is Icelandic-speaking. Sister @bedside provided translation. According to the sister, pt was experiencing worsening SOB and generalized fatigue for few weeks before presenting to ED. Pt had similar symptoms ~6mons ago at which time pt underwent thoracentesis. Cytology at that time revealed malignant pleural effusion. Pt underwent thoracentesis yesterday and feels much better today. Pt reports improved SOB and fatigue. Pt denies CP, N/V, F/C. Surgery is consulted for placement of pleurex catheter. PMHx: see above, HTN Meds: reviwed in chart NKDA PSHx: right mastectomy, portacath, thoracentesis SHx: denies tobacco, EtOH, drug use FHx: HTN, CKD Review of Systems - Review of Systems All systems: reviewed and no additional remarkable complaints except (see HPI) Past Patient History - Past Medical History & Family History Past Medical History?: Yes - Past Social History Smoking Status: Never Smoked - CARDIAC Hx Cardiac Disorders: Yes Hx Hypertension: Yes - PULMONARY Hx Respiratory Disorders: No - NEUROLOGICAL Hx Neurological Disorder: No - HEENT Hx HEENT Problems: No - RENAL Hx Chronic Kidney Disease: No - ENDOCRINE/METABOLIC Hx Endocrine Disorders: No - HEMATOLOGICAL/ONCOLOGICAL Hx Blood Disorders: Yes Hx Cancer: Yes (BREAST WITH METS TO LUNG) Hx Chemotherapy: Yes Other/Comment: Right breast CA - INTEGUMENTARY Hx Dermatological Problems: No - MUSCULOSKELETAL/RHEUMATOLOGICAL Hx Musculoskeletal Disorders: No Hx Falls: No - GASTROINTESTINAL Hx Gastrointestinal Disorders: No - GENITOURINARY/GYNECOLOGICAL Hx Genitourinary Disorders: No - PSYCHIATRIC Hx Substance Use: No - SURGICAL HISTORY Hx Surgeries: Yes Hx Mastectomy: Yes (RIGHT BREAST MASTECTOMY 2012) Hx Vascular Access Device: Yes (RIGHT LEORA CATH) - ANESTHESIA Hx Anesthesia: Yes Hx Anesthesia Reactions: No Hx Malignant Hyperthermia: No Meds Allergies/Adverse Reactions: Allergies Allergy/AdvReac Type Severity Reaction Status Date / Time No Known Allergies Allergy Verified 08/31/17 08:03 - Medications Medications: Current Medications Acetaminophen (Tylenol 325mg Tab) 650 mg PO Q6 PRN PRN Reason: Fever >100.4 F Bacitracin (Bacitracin Opht Oint) 0 applic OU BID [facility] Last Admin: 09/01/17 17:32 Dose: 1 applic Dexamethasone (Decadron Inj) 4 mg IV Q6 [facility] Last Admin: 09/01/17 17:15 Dose: 4 mg Famotidine (Pepcid) 20 mg PO BID [facility] Last Admin: 09/01/17 17:14 Dose: 20 mg Sodium Chloride (Sodium Chloride 0.45%) 1,000 mls @ 70 mls/hr IV .[id number] [facility] Last Admin: 09/01/17 11:47 Dose: 70 mls/hr Iohexol (Omnipaque 240 (50 Ml)) 50 ml PO ONCE PRN PRN Reason: FOR CAT SCAN Last Admin: 08/31/17 18:19 Dose: 50 ml Ondansetron HCl (Zofran Inj) 4 mg IVP Q6 PRN PRN Reason: Nausea/Vomiting Tramadol HCl (Ultram) 25 mg PO TID PRN PRN Reason: Pain, moderate (4-7) Last Admin: 09/01/17 11:00 Dose: 25 mg Physical Exam - Constitutional Appears: Non-toxic, No Acute Distress - Head Exam Head Exam: NORMAL INSPECTION - Eye Exam Eye Exam: Normal appearance - ENT Exam ENT Exam: Mucous Membranes Moist - Respiratory Exam Respiratory Exam: NORMAL BREATHING PATTERN. absent: Accessory Muscle Use, Respiratory Distress - Cardiovascular Exam Cardiovascular Exam: absent: Bradycardia, Tachycardia - GI/Abdominal Exam GI & Abdominal Exam: Soft. absent: Distended, Tenderness - Extremities Exam Extremities exam: Positive for: normal inspection - Back Exam Additional comments: thoracentesis dressing c/d/i - Neurological Exam Neurological exam: Alert, Oriented x3 - Psychiatric Exam Psychiatric exam: Normal Affect, Normal Mood - Skin Skin Exam: Dry, Intact, Normal Color, Warm Results - Vital Signs Recent Vital Signs: Last Vital Signs Temp 97.8 F 09/01/17 15:00 Pulse 86 09/01/17 15:00 Resp 20 09/01/17 15:00 BP 138/97 H 09/01/17 15:00 Pulse Ox 97 09/01/17 15:00 - Labs Result Diagrams: 09/01/17 07:37 09/01/17 07:37 Labs: Laboratory Results - last 24 hr 09/01/17 09/01/17 07:37 07:37 WBC 4.6 L RBC 4.54 Hgb 13.2 Hct 39.5 MCV 87.0 MCH 29.2 MCHC 33.5 RDW 20.1 H Plt Count 315 MPV 9.2 Neut % (Auto) 65.9 Lymph % (Auto) 31.3 [place] % (Auto) 2.5 Eos % (Auto) 0.0 Baso % (Auto) 0.3 Neut # 3.0 Lymph # 1.4 [place] # 0.1 Eos # 0.0 Baso # 0.0 Sodium 132 Potassium 3.5 L Chloride 96 L Carbon Dioxide 25 Anion Gap 15 BUN 10 Creatinine 0.6 L Est GFR ( Amer) > 60 Est GFR (Non-Af Amer) > 60 Random Glucose 134 H Calcium 10.0 Total Bilirubin 0.6 AST 29 ALT 28 Alkaline Phosphatase 207 H Total Protein 7.2 Albumin 3.9 Globulin 3.3 Albumin/Globulin Ratio 1.2 - Imaging and Cardiology MRI - head Status: Image reviewed by me, Report reviewed by me CT scan - abdomen Status: Image reviewed by me, Report reviewed by me CT scan - chest Status: Image reviewed by me, Report reviewed by me Assessment & Plan - Assessment and Plan (Free Text) Assessment: 57 y/o F w/ breast cancer and distant metastasis and recurrent malignant pleural effusion - monitor vitals - O2 and breathing treatments PRN - encourage IS use - OOB to chair/Ambulation - Dr. Damon to examine tomorrow afternoon - Possible OR day for pleurex catheter vs pleurodesis. Pt discussed w/ Dr. Marisol Prescott DO PGY2
[2017-09-02] MEDS: Sodium Chloride 0.45% 1,000 ML IV SCH ×2 (02:20→15:10)
[2017-09-02] MEDS: Dexamethasone 4 mg/1 ml IV SCH ×5 (05:35→23:58)
[2017-09-02 06:32] LABS: BASO % 0.3 % (0.0-2.0); HEMATOCRIT 35.4 % (34.0-47.0); LYMPH # 1.8 K/uL (1.0-4.3); LYMPH % 22.7 % (20.0-40.0); MEAN CELL VOLUME 86.2 fL (81.0-99.0); MEAN CORPUSCULAR HEMOGLOBIN 28.9 pg (27.0-31.0); MEAN CORPUSCULAR HGB CONC 33.5 g/dL (33.0-37.0); MEAN PLATELET VOLUME 9.1 fL (7.2-11.7); MONO # 0.2 K/uL (0.0-0.8); MONO % 3.1 % (0.0-10.0)
[2017-09-02 06:51] LABS: CHLORIDE 96 mmol/L (98-107)
[2017-09-02 06:52] LABS: POTASSIUM 3.9 mmol/L (3.6-5.2); SODIUM 132 mmol/L (132-148)
[2017-09-02 06:54] LABS: ALB/GLOB RATIO 1.2 (1.0-2.1); ALKALINE PHOSPHATASE 176 U/L (38-126); ALT/SGPT 32 U/L (9-52); AST/SGOT 25 U/L (14-36); BILIRUBIN,TOTAL 0.5 mg/dL (0.2-1.3); BLOOD UREA NITROGEN 11 mg/dL (7-17); CARBON DIOXIDE 24 mmol/L (22-30); GFR AFRICAN-AMERICAN > 60; TOTAL PROTEIN 6.9 g/dL (6.3-8.3)
[2017-09-02 06:55] LABS: CALCIUM 9.6 mg/dl (8.6-10.4); GLUCOSE,RANDOM 119 mg/dL (65-105)
--- NOTE | 2017-09-02 07:46 | CP.PCM.PN ---
<Torrey Palma - Last Filed: 09/02/17 10:56> Subjective - Date & Time of Evaluation Date of Evaluation: 09/02/17 Time of Evaluation: 07:42 - Subjective Subjective: PGY-1 note for medicine, Dr Miles. The patient was taken to [place] early this morning to begin her whole brain radiation. I will see if the patient has returned from her treatment later today. Objective - Vital Signs/Intake and Output Vital Signs (last 24 hours): Temp Pulse Resp BP Pulse Ox 98.4 F 81 20 128/79 99 09/02/17 05:00 09/02/17 05:00 09/02/17 05:00 09/02/17 05:00 09/02/17 05:00 Intake and Output: 09/02/17 09/02/17 06:59 18:59 Intake Total 800 Balance 800 - Medications Medications: Current Medications Acetaminophen (Tylenol 325mg Tab) 650 mg PO Q6 PRN PRN Reason: Fever >100.4 F Bacitracin (Bacitracin Opht Oint) 0 applic OU BID [facility] Last Admin: 09/01/17 17:32 Dose: 1 applic Dexamethasone (Decadron Inj) 4 mg IV Q6 [facility] Last Admin: 09/02/17 05:35 Dose: 4 mg Famotidine (Pepcid) 20 mg PO BID [facility] Last Admin: 09/01/17 17:14 Dose: 20 mg Sodium Chloride (Sodium Chloride 0.45%) 1,000 mls @ 70 mls/hr IV .[id number] [facility] Last Admin: 09/02/17 02:20 Dose: 70 mls/hr Iohexol (Omnipaque 240 (50 Ml)) 50 ml PO ONCE PRN PRN Reason: FOR CAT SCAN Last Admin: 08/31/17 18:19 Dose: 50 ml Ondansetron HCl (Zofran Inj) 4 mg IVP Q6 PRN PRN Reason: Nausea/Vomiting Tramadol HCl (Ultram) 25 mg PO TID PRN PRN Reason: Pain, moderate (4-7) Last Admin: 09/01/17 11:00 Dose: 25 mg - Labs Labs: 09/02/17 06:15 09/02/17 06:15 PT 12.1 SECONDS (9.7-12.2) 08/31/17 08:39 INR 1.1 08/31/17 08:39 APTT 30 SECONDS (21-34) 08/31/17 08:39 Assessment and Plan (1) Metastatic breast cancer Status: Acute (2) Pulmonary emboli Status: Acute (3) Osseous metastasis Status: Acute (4) Hydropneumothorax Status: Acute (5) Brain metastasis Status: Acute (6) Prophylactic measure Status: Acute - Assessment and Plan (Free Text) Assessment: (1) Metastatic breast cancer Assessment & Plan: Heme/Onc consulted, Dr Gordon Radiation Oncologist consulted, Dr Harper Graves Patient to have whole brain radiation treatment 09/02/[address] Harper Graves at [facility] Hx of chestwall and regional amira irradiation at [facility] in 2013 Currently on chemotherapy Dexamethasone 4mg iv q6 tramadol 25mg po tid prn for pain Status: Acute (2) Pulmonary emboli Assessment & Plan: Denies shortness of breath, cough, hemoptysis CT chest/abd/pelvis 08/31/17: Peripheral filling defect within RIGHT main pulmonary artery and probable filling defects within branches of RIGHT upper lobe pulmonary artery. Patchy and confluent groundglass/airspace disease within RIGHT lung with volume. Hold anticoagulation due to cancer metastasis to the brain and ensuing radiation Status: Acute (3) Osseous metastasis Assessment & Plan: CT chest/abd/pelvis 08/31/17: Innumerable sclerotic lesions throughout the visualized bones. Tramadol 25mg po tid prn tylenol 650mg po q6 prn for pain Status: Acute (4) Hydropneumothorax Assessment & Plan: Denies shortness of breath, cough, hemoptysis Thoracic surgery consulted, Dr Damon CT chest/abd/pelvis 08/31/17: Pleural space - Large RIGHT pleural effusion with few foci of air. s/p US guided right thoracentesis 08/31/17, 1400 cc of straw colored fluid removed Possible OR for pleurex catheter vs pleurodesis Incentive spirometry q1h Status: Acute (5) Brain metastasis Assessment & Plan: (+) dizziness, (+) changes in speech MRI Brain 05/31/17: 1. Diffuse cerebral and cerebellar large metastatic lesions with mild surrounding vasogenic edema without evidence of mass effect, midline shift or herniation. No hydrocephalus. 2. Diffuse osteoblastic calvarial metastasis. Status: Acute (6) Prophylactic measure Assessment & Plan: Famotidine 20mg po bid SCDs, hold anticoagulation due to brain metastasis Regular Diet PT/OT eval and treat Fluids: NS at 70 cc/hr Status: Acute <Riley Miles - Last Filed: 09/03/17 19:09> Objective - Vital Signs/Intake and Output Vital Signs (last 24 hours): Temp Pulse Resp BP Pulse Ox 97.9 F 86 20 132/89 97 09/03/17 17:15 09/03/17 17:15 09/03/17 17:15 09/03/17 17:15 09/03/17 17:15 Intake and Output: 09/03/17 09/04/17 18:59 06:59 Intake Total 680 Balance 680 - Medications Medications: Current Medications Acetaminophen (Tylenol 325mg Tab) 650 mg PO Q6 PRN PRN Reason: Fever >100.4 F Bacitracin (Bacitracin Opht Oint) 0 applic OU BID [facility] Last Admin: 09/03/17 18:03 Dose: 1 applic Dexamethasone (Decadron Inj) 4 mg IV Q6 [facility] Last Admin: 09/03/17 18:07 Dose: 4 mg Famotidine (Pepcid) 20 mg PO BID [facility] Last Admin: 09/03/17 18:07 Dose: 20 mg Ondansetron HCl (Zofran Inj) 4 mg IVP Q6 PRN PRN Reason: Nausea/Vomiting Tramadol HCl (Ultram) 25 mg PO TID PRN PRN Reason: Pain, moderate (4-7) Last Admin: 09/01/17 11:00 Dose: 25 mg - Labs Labs: 09/03/17 07:16 09/03/17 07:16 PT 12.1 SECONDS (9.7-12.2) 08/31/17 08:39 INR 1.1 08/31/17 08:39 APTT 30 SECONDS (21-34) 08/31/17 08:39 Attending/Attestation - Attestation I have personally seen and examined this patient.: Yes I have fully participated in the care of the patient.: Yes I have reviewed all pertinent clinical information, including history, physical exam and plan: Yes Notes (Text): This is 57 year old female with history of metastatic breast cancer and HTN presents to ED with complaints of generalized weakness and vomiting. Patient is currently receiving chemotherapy for breast cancer, last treatment Thursday08/26/2017. Patient was seen and examined.Discussed with the patient's sister. 1. Brain metastatic mass Radiation therapy,Decadron 2..Pleural effusion s/p Thoracentesis Pleurx as per thorasic surgery 3.Metastatic breast cancer-oncology consult MRI brain to rule out brain mets 4.HTN 5.pain meds and prophylaxis for DVT and GI Agree with the residents assessment.
--- NOTE | 2017-09-02 08:41 | CP.PCM.CON ---
History of Present Illness - History of Present Illness History of Present Illness: Ms Baker is a 57 year old female with metastatic breast cancer with diffuse brain metastases. She is known to our department. We initially saw her in 2012 when she was diagnosed with a stage IIIA right breast cancer. She received chestwall and regional amira irradiation. She returned to [place], and recently came back in January of 2017. At that time, she was found to have widely metastatic disease in the bone. She has been on chemotherapy and reportedly doing relatively well. However, she was recently admitted to [facility] with generalized weakness, shortness of breath as well as dizziness. A CT of the chest, abdomen and pelvis on August revealed pulmonary embolus along with right hydropneumothorax. There were liver metastases as well as diffuse osseous metastases. She had a thoracentesis on September 01, 2017. A MRI of the brain on August 31, 2017 revealed diffuse cerebral and cerebellar metastases with mild vasogenic edema. She had a thoracentesis yesterday. She is referred to us for consideration of palliative radiation therapy. Her last chemotherapy was Thursday. Review of Systems - Constitutional Constitutional: Headache, Weakness - Respiratory Respiratory: Dyspnea - Musculoskeletal Additional comments: leg and hand pain - Neurological Neurological: Vertigo Past Patient History - Past Medical History & Family History Past Medical History?: Yes - Past Social History Smoking Status: Never Smoked Alcohol: None - CARDIAC Hx Cardiac Disorders: Yes Hx Hypertension: Yes - PULMONARY Hx Respiratory Disorders: No - NEUROLOGICAL Hx Neurological Disorder: No - HEENT Hx HEENT Problems: No - RENAL Hx Chronic Kidney Disease: No - ENDOCRINE/METABOLIC Hx Endocrine Disorders: No - HEMATOLOGICAL/ONCOLOGICAL Hx Blood Disorders: Yes Hx Cancer: Yes (BREAST WITH METS TO LUNG) Hx Chemotherapy: Yes Other/Comment: Right breast CA - INTEGUMENTARY Hx Dermatological Problems: No - MUSCULOSKELETAL/RHEUMATOLOGICAL Hx Musculoskeletal Disorders: No Hx Falls: No - GASTROINTESTINAL Hx Gastrointestinal Disorders: No - GENITOURINARY/GYNECOLOGICAL Hx Genitourinary Disorders: No - PSYCHIATRIC Hx Substance Use: No - SURGICAL HISTORY Hx Surgeries: Yes Hx Mastectomy: Yes (RIGHT BREAST MASTECTOMY 2012) Hx Vascular Access Device: Yes (RIGHT LEORA CATH) - ANESTHESIA Hx Anesthesia: Yes Hx Anesthesia Reactions: No Hx Malignant Hyperthermia: No Meds Allergies/Adverse Reactions: Allergies Allergy/AdvReac Type Severity Reaction Status Date / Time No Known Allergies Allergy Verified 08/31/17 08:03 - Medications Medications: Current Medications Acetaminophen (Tylenol 325mg Tab) 650 mg PO Q6 PRN PRN Reason: Fever >100.4 F Bacitracin (Bacitracin Opht Oint) 0 applic OU BID [facility] Last Admin: 09/01/17 17:32 Dose: 1 applic Dexamethasone (Decadron Inj) 4 mg IV Q6 [facility] Last Admin: 09/02/17 05:35 Dose: 4 mg Famotidine (Pepcid) 20 mg PO BID [facility] Last Admin: 09/01/17 17:14 Dose: 20 mg Sodium Chloride (Sodium Chloride 0.45%) 1,000 mls @ 70 mls/hr IV .[id number] [facility] Last Admin: 09/02/17 02:20 Dose: 70 mls/hr Iohexol (Omnipaque 240 (50 Ml)) 50 ml PO ONCE PRN PRN Reason: FOR CAT SCAN Last Admin: 08/31/17 18:19 Dose: 50 ml Ondansetron HCl (Zofran Inj) 4 mg IVP Q6 PRN PRN Reason: Nausea/Vomiting Tramadol HCl (Ultram) 25 mg PO TID PRN PRN Reason: Pain, moderate (4-7) Last Admin: 09/01/17 11:00 Dose: 25 mg Physical Exam - Eye Exam Eye Exam: EOMI - ENT Exam ENT Exam: Mucous Membranes Moist - Respiratory Exam Additional comments: slight decreased breath sounds at right lung base - Cardiovascular Exam Cardiovascular Exam: REGULAR RHYTHM - GI/Abdominal Exam GI & Abdominal Exam: Normal Bowel Sounds - Neurological Exam Neurological exam: CN II-XII Intact, Oriented x3 Results - Vital Signs Recent Vital Signs: Last Vital Signs Temp 98.5 F 09/02/17 08:00 Pulse 68 09/02/17 08:00 Resp 20 09/02/17 08:00 BP 147/65 09/02/17 08:00 Pulse Ox 100 09/02/17 08:00 - Labs Result Diagrams: 09/02/17 06:15 09/02/17 06:15 Labs: Laboratory Results - last 24 hr 09/01/17 09/02/17 09/02/17 07:37 06:15 06:15 WBC 8.0 D RBC 4.10 Hgb 11.9 Hct 35.4 MCV 86.2 MCH 28.9 MCHC 33.5 RDW 20.0 H Plt Count 308 MPV 9.1 Neut % (Auto) 73.9 Lymph % (Auto) 22.7 Day % (Auto) 3.1 Eos % (Auto) 0.0 Baso % (Auto) 0.3 Neut # 5.9 Lymph # 1.8 Day # 0.2 Eos # 0.0 Baso # 0.0 Sodium 132 132 Potassium 3.5 L 3.9 Chloride 96 L 96 L Carbon Dioxide 24 Anion Gap 16 BUN 11 Creatinine 0.5 L Est GFR ( Amer) > 60 Est GFR (Non-Af Amer) > 60 Random Glucose 119 H Calcium 9.6 Total Bilirubin 0.5 AST 25 ALT 32 Alkaline Phosphatase 176 H Total Protein 6.9 Albumin 3.9 3.7 Globulin 3.2 Albumin/Globulin Ratio 1.2 Assessment & Plan - Assessment and Plan (Free Text) Assessment: Ms Baker is a 57 year old female with metastatic breast cancer with diffuse brain metastases. We would concur that she would benefit from whole brain radiation therapy. She is currently on decadron. We will schedule her for a simulation, and begin her treatment today. She will need [facility] care for [place] as well. We informed her about this as well.
[2017-09-02] MEDS: Bacitracin Opht OINT 3.5GM OU SCH ×2 (10:32→18:00)
--- NOTE | 2017-09-02 12:10 | CP.PCM.CON ---
History of Present Illness - History of Present Illness History of Present Illness: Reason for consultation: Placement of pleurex cath for Pleural effusion. Requeted by Dr. Meza. Pt s/e, reviewed progress notes and imaging studies. 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 CT chest: a Massive right pleural effusion and compressive atelectasis of right lung and infiltrates right lung. Pleurex cath placement on Thursday under IV sedation plus local. I doubt the catheter will reexpand lung completely, but certainly lessen the burden of sob to some extent. a/p: 1. Symptomatic refractory right pleural effusion and compressive atelectasis. 2. Pleurex cath on Thursday-will discuss with surgical residents. Past Patient History - Past Medical History & Family History Past Medical History?: Yes - Past Social History Smoking Status: Never Smoked Alcohol: None - CARDIAC Hx Cardiac Disorders: Yes Hx Hypertension: Yes - PULMONARY Hx Respiratory Disorders: No - NEUROLOGICAL Hx Neurological Disorder: No - HEENT Hx HEENT Problems: No - RENAL Hx Chronic Kidney Disease: No - ENDOCRINE/METABOLIC Hx Endocrine Disorders: No - HEMATOLOGICAL/ONCOLOGICAL Hx Blood Disorders: Yes Hx Cancer: Yes (BREAST WITH METS TO LUNG) Hx Chemotherapy: Yes Other/Comment: Right breast CA - INTEGUMENTARY Hx Dermatological Problems: No - MUSCULOSKELETAL/RHEUMATOLOGICAL Hx Musculoskeletal Disorders: No Hx Falls: No - GASTROINTESTINAL Hx Gastrointestinal Disorders: No - GENITOURINARY/GYNECOLOGICAL Hx Genitourinary Disorders: No - PSYCHIATRIC Hx Substance Use: No - SURGICAL HISTORY Hx Surgeries: Yes Hx Mastectomy: Yes (RIGHT BREAST MASTECTOMY 2012) Hx Vascular Access Device: Yes (RIGHT LEORA CATH) - ANESTHESIA Hx Anesthesia: Yes Hx Anesthesia Reactions: No Hx Malignant Hyperthermia: No Meds Allergies/Adverse Reactions: Allergies Allergy/AdvReac Type Severity Reaction Status Date / Time No Known Allergies Allergy Verified 08/31/17 08:03 - Medications Medications: Current Medications Acetaminophen (Tylenol 325mg Tab) 650 mg PO Q6 PRN PRN Reason: Fever >100.4 F Bacitracin (Bacitracin Opht Oint) 0 applic OU BID [facility] Last Admin: 09/02/17 10:32 Dose: Not Given Dexamethasone (Decadron Inj) 4 mg IV Q6 [facility] Last Admin: 09/02/17 05:35 Dose: 4 mg Famotidine (Pepcid) 20 mg PO BID [facility] Last Admin: 09/02/17 10:34 Dose: Not Given Sodium Chloride (Sodium Chloride 0.45%) 1,000 mls @ 70 mls/hr IV .[id number] [facility] Last Admin: 09/02/17 02:20 Dose: 70 mls/hr Iohexol (Omnipaque 240 (50 Ml)) 50 ml PO ONCE PRN PRN Reason: FOR CAT SCAN Last Admin: 08/31/17 18:19 Dose: 50 ml Ondansetron HCl (Zofran Inj) 4 mg IVP Q6 PRN PRN Reason: Nausea/Vomiting Tramadol HCl (Ultram) 25 mg PO TID PRN PRN Reason: Pain, moderate (4-7) Last Admin: 09/01/17 11:00 Dose: 25 mg Results - Vital Signs Recent Vital Signs: Last Vital Signs Temp 98.5 F 09/02/17 08:00 Pulse 68 09/02/17 08:00 Resp 20 09/02/17 08:00 BP 147/65 09/02/17 08:00 Pulse Ox 100 09/02/17 08:00 - Labs Result Diagrams: 09/02/17 06:15 09/02/17 06:15 Labs: Laboratory Results - last 24 hr 09/02/17 09/02/17 06:15 06:15 WBC 8.0 D RBC 4.10 Hgb 11.9 Hct 35.4 MCV 86.2 MCH 28.9 MCHC 33.5 RDW 20.0 H Plt Count 308 MPV 9.1 Neut % (Auto) 73.9 Lymph % (Auto) 22.7 [place] % (Auto) 3.1 Eos % (Auto) 0.0 Baso % (Auto) 0.3 Neut # 5.9 Lymph # 1.8 [place] # 0.2 Eos # 0.0 Baso # 0.0 Sodium 132 Potassium 3.9 Chloride 96 L Carbon Dioxide 24 Anion Gap 16 BUN 11 Creatinine 0.5 L Est GFR ( Amer) > 60 Est GFR (Non-Af Amer) > 60 Random Glucose 119 H Calcium 9.6 Total Bilirubin 0.5 AST 25 ALT 32 Alkaline Phosphatase 176 H Total Protein 6.9 Albumin 3.7 Globulin 3.2 Albumin/Globulin Ratio 1.2
[2017-09-03] MEDS: Dexamethasone 4 mg/1 ml IV SCH ×4 (05:23→23:54)
[2017-09-03] MEDS: Sodium Chloride 0.45% 1,000 ML IV SCH (06:10)
[2017-09-03 07:32] LABS: BASO % 0.3 % (0.0-2.0); LYMPH # 1.4 K/uL (1.0-4.3); LYMPH % 17.1 % (20.0-40.0); MEAN CELL VOLUME 87.1 fL (81.0-99.0); MEAN CORPUSCULAR HEMOGLOBIN 29.6 pg (27.0-31.0); MEAN PLATELET VOLUME 8.9 fL (7.2-11.7); MONO # 0.5 K/uL (0.0-0.8); MONO % 5.7 % (0.0-10.0); WHITE BLOOD COUNT 8.3 K/uL (4.8-10.8)
[2017-09-03 08:23] LABS: CHLORIDE 95 mmol/L (98-107); POTASSIUM 3.7 mmol/L (3.6-5.2); SODIUM 129 mmol/L (132-148)
[2017-09-03 08:25] LABS: ALB/GLOB RATIO 1.7 (1.0-2.1); ALKALINE PHOSPHATASE 164 U/L (38-126); AST/SGOT 46 U/L (14-36); BILIRUBIN,TOTAL 0.5 mg/dL (0.2-1.3); CARBON DIOXIDE 23 mmol/L (22-30); GFR AFRICAN-AMERICAN > 60; TOTAL PROTEIN 5.7 g/dL (6.3-8.3)
[2017-09-03 08:26] LABS: ALT/SGPT 52 U/L (9-52); BLOOD UREA NITROGEN 12 mg/dL (7-17); CALCIUM 8.8 mg/dl (8.6-10.4); GLUCOSE,RANDOM 116 mg/dL (65-105)
--- NOTE | 2017-09-03 09:07 | CP.PCM.PN ---
Subjective - Date & Time of Evaluation Date of Evaluation: 09/03/17 Time of Evaluation: 07:35 - Subjective Subjective: Thoracic Surgery Dr. Damon Pt S&E @bedside. NAEO. pt has no complaints. denies F/C, N/V. continued baseline SOB. tolerating diet. Objective - Vital Signs/Intake and Output Vital Signs (last 24 hours): Temp Pulse Resp BP Pulse Ox 97.7 F 79 20 132/86 97 09/03/17 01:00 09/03/17 01:00 09/03/17 01:00 09/03/17 01:00 09/03/17 01:00 Intake and Output: 09/03/17 09/03/17 06:59 18:59 Intake Total 900 680 Balance 900 680 - Medications Medications: Current Medications Acetaminophen (Tylenol 325mg Tab) 650 mg PO Q6 PRN PRN Reason: Fever >100.4 F Bacitracin (Bacitracin Opht Oint) 0 applic OU BID [facility] Last Admin: 09/02/17 18:00 Dose: 1 applic Dexamethasone (Decadron Inj) 4 mg IV Q6 [facility] Last Admin: 09/03/17 05:23 Dose: 4 mg Famotidine (Pepcid) 20 mg PO BID [facility] Last Admin: 09/02/17 17:43 Dose: 20 mg Sodium Chloride (Sodium Chloride 0.45%) 1,000 mls @ 70 mls/hr IV .[id number] [facility] Last Admin: 09/03/17 06:10 Dose: Not Given Ondansetron HCl (Zofran Inj) 4 mg IVP Q6 PRN PRN Reason: Nausea/Vomiting Tramadol HCl (Ultram) 25 mg PO TID PRN PRN Reason: Pain, moderate (4-7) Last Admin: 09/01/17 11:00 Dose: 25 mg - Labs Labs: 09/03/17 07:16 09/03/17 07:16 PT 12.1 SECONDS (9.7-12.2) 08/31/17 08:39 INR 1.1 08/31/17 08:39 APTT 30 SECONDS (21-34) 08/31/17 08:39 - Constitutional Appears: Non-toxic, No Acute Distress - Head Exam Head Exam: NORMAL INSPECTION - Eye Exam Eye Exam: Normal appearance - ENT Exam ENT Exam: Mucous Membranes Moist - Respiratory Exam Respiratory Exam: NORMAL BREATHING PATTERN. absent: Accessory Muscle Use, Respiratory Distress - Cardiovascular Exam Cardiovascular Exam: absent: Bradycardia, Tachycardia - GI/Abdominal Exam GI & Abdominal Exam: Soft. absent: Distended, Tenderness - Extremities Exam Extremities Exam: Normal Inspection - Neurological Exam Neurological Exam: Alert, Awake, Oriented x3 - Psychiatric Exam Psychiatric exam: Normal Affect, Normal Mood - Skin Skin Exam: Dry, Intact, Normal Color, Warm Assessment and Plan - Assessment and Plan (Free Text) Assessment: 57 y/o F w/ breast cancer and distant metastasis w/ refractory malignant pleural effusion - NPO past MN - Coags tomorrow prior to surgery - monitor vitals - O2 and breathing treatments PRN - encourage IS use - OOB to chair/Ambulation - OR Thursday for pleurex catheter placement Pt discussed w/ Dr. Marisol Prescott DO PGY2
[2017-09-03] MEDS: Bacitracin Opht OINT 3.5GM OU SCH ×2 (10:58→18:03)
--- NOTE | 2017-09-03 14:16 | CP.PCM.PN ---
Subjective - Date & Time of Evaluation Date of Evaluation: 09/03/17 Time of Evaluation: 14:15 - Subjective Subjective: Pleurex cath placement tomorrow under local + IV sedation. Objective - Vital Signs/Intake and Output Vital Signs (last 24 hours): Temp Pulse Resp BP Pulse Ox 98.4 F 97 H 20 148/99 H 95 09/03/17 08:00 09/03/17 08:00 09/03/17 08:00 09/03/17 08:00 09/03/17 08:00 Intake and Output: 09/03/17 09/03/17 06:59 18:59 Intake Total 900 680 Balance 900 680 - Medications Medications: Current Medications Acetaminophen (Tylenol 325mg Tab) 650 mg PO Q6 PRN PRN Reason: Fever >100.4 F Bacitracin (Bacitracin Opht Oint) 0 applic OU BID [facility] Last Admin: 09/03/17 10:58 Dose: 1 applic Dexamethasone (Decadron Inj) 4 mg IV Q6 [facility] Last Admin: 09/03/17 11:17 Dose: 4 mg Famotidine (Pepcid) 20 mg PO BID [facility] Last Admin: 09/03/17 10:57 Dose: 20 mg Ondansetron HCl (Zofran Inj) 4 mg IVP Q6 PRN PRN Reason: Nausea/Vomiting Tramadol HCl (Ultram) 25 mg PO TID PRN PRN Reason: Pain, moderate (4-7) Last Admin: 09/01/17 11:00 Dose: 25 mg - Labs Labs: 09/03/17 07:16 09/03/17 07:16 PT 12.1 SECONDS (9.7-12.2) 08/31/17 08:39 INR 1.1 08/31/17 08:39 APTT 30 SECONDS (21-34) 08/31/17 08:39
--- NOTE | 2017-09-03 14:23 | CP.PCM.PN ---
<Torrey Palma R - Last Filed: 09/03/17 16:45> Subjective - Date & Time of Evaluation Date of Evaluation: 09/03/17 Time of Evaluation: 14:20 - Subjective Subjective: PGY-[address] Miles. Patient was seen and examined at bedside. A translation machine was used as the patient speaks kinyarwanda only and her sister was not around. She reports fatigue. She denied all other symptoms. She denied chest pain, cough, abdominal pain, shortness of breath, fever, chills. Objective - Vital Signs/Intake and Output Vital Signs (last 24 hours): Temp Pulse Resp BP Pulse Ox 98.4 F 97 H 20 148/99 H 95 09/03/17 08:00 09/03/17 08:00 09/03/17 08:00 09/03/17 08:00 09/03/17 08:00 Intake and Output: 09/03/17 09/03/17 06:59 18:59 Intake Total 900 680 Balance 900 680 - Medications Medications: Current Medications Acetaminophen (Tylenol 325mg Tab) 650 mg PO Q6 PRN PRN Reason: Fever >100.4 F Bacitracin (Bacitracin Opht Oint) 0 applic OU BID [facility] Last Admin: 09/03/17 10:58 Dose: 1 applic Dexamethasone (Decadron Inj) 4 mg IV Q6 [facility] Last Admin: 09/03/17 11:17 Dose: 4 mg Famotidine (Pepcid) 20 mg PO BID [facility] Last Admin: 09/03/17 10:57 Dose: 20 mg Ondansetron HCl (Zofran Inj) 4 mg IVP Q6 PRN PRN Reason: Nausea/Vomiting Tramadol HCl (Ultram) 25 mg PO TID PRN PRN Reason: Pain, moderate (4-7) Last Admin: 09/01/17 11:00 Dose: 25 mg - Labs Labs: 09/03/17 07:16 09/03/17 07:16 PT 12.1 SECONDS (9.7-12.2) 08/31/17 08:39 INR 1.1 08/31/17 08:39 APTT 30 SECONDS (21-34) 08/31/17 08:39 Assessment and Plan (1) Metastatic breast cancer Status: Acute (2) Pulmonary emboli Status: Acute (3) Osseous metastasis Status: Acute (4) Hydropneumothorax Status: Acute (5) Brain metastasis Status: Acute (6) Prophylactic measure Status: Acute - Assessment and Plan (Free Text) Assessment: (1) Metastatic breast cancer Assessment & Plan: Heme/Onc consulted, Dr Gordon Radiation Oncologist consulted, Dr Harper Graves Patient s/p whole brain radiation treatment 09/02/17, 09/03/17, coordinated by Dr Harper Graves at [facility] Hx of chestwall and regional amira irradiation at [facility] in 2012 Currently on chemotherapy Dexamethasone 4mg iv q6 tramadol 25mg po tid prn for pain Status: Acute (2) Brain metastasis Assessment & Plan: (+) dizziness, (+) changes in speech, on admission MRI Brain 05/31/17: 1. Diffuse cerebral and cerebellar large metastatic lesions with mild surrounding vasogenic edema without evidence of mass effect, midline shift or herniation. No hydrocephalus. 2. Diffuse osteoblastic calvarial metastasis. Patient s/p whole brain radiation treatment 09/02/17, 09/03/17, coordinated by Dr Harper Graves at [facility] Status: Acute (3) Pulmonary emboli Assessment & Plan: Denies shortness of breath, cough, hemoptysis CT chest/abd/pelvis 08/31/17: Peripheral filling defect within RIGHT main pulmonary artery and probable filling defects within branches of RIGHT upper lobe pulmonary artery. Patchy and confluent groundglass/airspace disease within RIGHT lung with volume. Hold anticoagulation due to cancer metastasis to the brain and whole brain radiation Status: Acute (4) Hydropneumothorax Assessment & Plan: Denies shortness of breath, cough, hemoptysis Thoracic surgery consulted, Dr Damon CT chest/abd/pelvis 08/31/17: Pleural space - Large RIGHT pleural effusion with few foci of air. s/p US guided right thoracentesis 08/31/17, 1400 cc of straw colored fluid removed Pleurex cath placement tomorrow 09/04/17 Incentive spirometry q1h Status: Acute (5) Osseous metastasis Assessment & Plan: CT chest/abd/pelvis 08/31/17: Innumerable sclerotic lesions throughout the visualized bones. Tramadol 25mg po tid prn tylenol 650mg po q6 prn for pain Status: Acute (6) Prophylactic measure Assessment & Plan: Famotidine 20mg po bid SCDs, hold anticoagulation due to brain metastasis NPO past midnight for pleurex cath placement tomorrow 09/04/17 PT/OT eval and treat Fluids: NS at 70 cc/hr Status: Acute <Riley Miles - Last Filed: 09/03/17 19:10> Objective - Vital Signs/Intake and Output Vital Signs (last 24 hours): Temp Pulse Resp BP Pulse Ox 97.9 F 86 20 132/89 97 09/03/17 17:15 09/03/17 17:15 09/03/17 17:15 09/03/17 17:15 09/03/17 17:15 Intake and Output: 09/03/17 09/04/17 18:59 06:59 Intake Total 680 Balance 680 - Medications Medications: Current Medications Acetaminophen (Tylenol 325mg Tab) 650 mg PO Q6 PRN PRN Reason: Fever >100.4 F Bacitracin (Bacitracin Opht Oint) 0 applic OU BID [facility] Last Admin: 09/03/17 18:03 Dose: 1 applic Dexamethasone (Decadron Inj) 4 mg IV Q6 [facility] Last Admin: 09/03/17 18:07 Dose: 4 mg Famotidine (Pepcid) 20 mg PO BID [facility] Last Admin: 09/03/17 18:07 Dose: 20 mg Ondansetron HCl (Zofran Inj) 4 mg IVP Q6 PRN PRN Reason: Nausea/Vomiting Tramadol HCl (Ultram) 25 mg PO TID PRN PRN Reason: Pain, moderate (4-7) Last Admin: 09/01/17 11:00 Dose: 25 mg - Labs Labs: 09/03/17 07:16 09/03/17 07:16 PT 12.1 SECONDS (9.7-12.2) 08/31/17 08:39 INR 1.1 08/31/17 08:39 APTT 30 SECONDS (21-34) 08/31/17 08:39 Attending/Attestation - Attestation I have personally seen and examined this patient.: Yes I have fully participated in the care of the patient.: Yes I have reviewed all pertinent clinical information, including history, physical exam and plan: Yes Notes (Text): This is 57 year old female with history of metastatic breast cancer and HTN presents to ED with complaints of generalized weakness and vomiting. Patient is currently receiving chemotherapy for breast cancer, last treatment Thursday08/26/2017. Patient was seen and examined. 1. Brain metastatic mass Radiation therapy,Decadron 2..Pleural effusion s/p Thoracentesis Pleurx as per thorasic surgery 3.Metastatic breast cancer-oncology consult MRI brain to rule out brain mets 4.HTN 5.pain meds and prophylaxis for DVT and GI Agree with the documentation of residents assessment and plan.
[2017-09-04] MEDS: Dexamethasone 4 mg/1 ml IV SCH ×3 (05:06→17:52)
[2017-09-04 07:29] LABS: BASO % 0.3 % (0.0-2.0); HEMATOCRIT 35.7 % (34.0-47.0); LYMPH # 1.3 K/uL (1.0-4.3); LYMPH % 14.4 % (20.0-40.0); MEAN CELL VOLUME 87.5 fL (81.0-99.0); MEAN CORPUSCULAR HEMOGLOBIN 29.3 pg (27.0-31.0); MEAN CORPUSCULAR HGB CONC 33.5 g/dL (33.0-37.0); MEAN PLATELET VOLUME 8.7 fL (7.2-11.7); MONO # 0.6 K/uL (0.0-0.8); MONO % 7.2 % (0.0-10.0); NRBC % 0.1 % (0.0-2.0); WHITE BLOOD COUNT 8.9 K/uL (4.8-10.8)
--- NOTE | 2017-09-04 07:36 | CP.PCM.PN ---
<Torrey Palma R - Last Filed: 09/04/17 11:23> Subjective - Date & Time of Evaluation Date of Evaluation: 09/04/17 Time of Evaluation: 07:33 - Subjective Subjective: PGY-[address] Miles. Patient was seen and examined at bedside. She was sleeping comfortably when I walked in. A translation machine was used as she speaks only indonesian. She did not have any complaints today. She understood that she was having a procedure today. She denied chest pain, abdominal pain, headache, vision changes, shortness of breath, fever, chills. An order was in chart for her to go to [facility], likely for another round of whole brain radiation today. Objective - Vital Signs/Intake and Output Vital Signs (last 24 hours): Temp Pulse Resp BP Pulse Ox 98.0 F 90 20 145/99 H 99 09/04/17 00:00 09/04/17 00:00 09/04/17 00:00 09/04/17 00:00 09/04/17 00:00 Intake and Output: 09/04/17 09/04/17 06:59 18:59 Intake Total 700 Balance 700 - Medications Medications: Current Medications Acetaminophen (Tylenol 325mg Tab) 650 mg PO Q6 PRN PRN Reason: Fever >100.4 F Bacitracin (Bacitracin Opht Oint) 0 applic OU BID [facility] Last Admin: 09/03/17 18:03 Dose: 1 applic Dexamethasone (Decadron Inj) 4 mg IV Q6 [facility] Last Admin: 09/04/17 05:06 Dose: 4 mg Famotidine (Pepcid) 20 mg PO BID [facility] Last Admin: 09/03/17 18:07 Dose: 20 mg Ondansetron HCl (Zofran Inj) 4 mg IVP Q6 PRN PRN Reason: Nausea/Vomiting Tramadol HCl (Ultram) 25 mg PO TID PRN PRN Reason: Pain, moderate (4-7) Last Admin: 09/01/17 11:00 Dose: 25 mg - Labs Labs: 09/03/17 07:16 09/03/17 07:16 PT 12.1 SECONDS (9.7-12.2) 08/31/17 08:39 INR 1.1 08/31/17 08:39 APTT 30 SECONDS (21-34) 08/31/17 08:39 - Additional Findings Additional findings: - Constitutional Appears: Well, No Acute Distress - Head Exam Head Exam: ATRAUMATIC, NORMAL INSPECTION - Eye Exam Eye Exam: EOMI Pupil Exam: PERRL - ENT Exam ENT Exam: Mucous Membranes Moist - Neck Exam Neck Exam: Normal Inspection. absent: Lymphadenopathy - Respiratory Exam Respiratory Exam: Clear to Ausculation Bilateral, NORMAL BREATHING PATTERN. absent: Rales, Rhonchi, Wheezes - Cardiovascular Exam Cardiovascular Exam: REGULAR RHYTHM. absent: Bradycardia, Tachycardia - GI/Abdominal Exam GI & Abdominal Exam: Soft, Normal Bowel Sounds. absent: Tenderness - Extremities Exam Extremities Exam: Normal Capillary Refill, Normal Inspection. absent: Pedal Edema - Neurological Exam Neurological Exam: Alert, Awake, Oriented x3 - Psychiatric Exam Psychiatric exam: Normal Affect, Normal Mood - Skin Skin Exam: Dry, Intact, Normal Color, Warm Additional Findings: rt chest portacath Assessment and Plan (1) Metastatic breast cancer Status: Acute (2) Pulmonary emboli Status: Acute (3) Osseous metastasis Status: Acute (4) Hydropneumothorax Status: Acute (5) Brain metastasis Status: Acute (6) Prophylactic measure Status: Acute - Assessment and Plan (Free Text) Assessment: (1) Metastatic breast cancer Assessment & Plan: Heme/Onc consulted, Dr Gordon Radiation Oncologist consulted, Dr Harper Graves Patient with ongoing whole brain radiation treatment coordinated by Dr Harper Graves at [facility] Hx of chestwall and regional amira irradiation at [facility] in 2012 Currently on chemotherapy Dexamethasone 4mg iv q6 tramadol 25mg po tid prn for pain Status: Acute (2) Brain metastasis Assessment & Plan: (+) dizziness, (+) changes in speech, on admission MRI Brain 05/31/17: 1. Diffuse cerebral and cerebellar large metastatic lesions with mild surrounding vasogenic edema without evidence of mass effect, midline shift or herniation. No hydrocephalus. 2. Diffuse osteoblastic calvarial metastasis. Patient with ongoing whole brain radiation treatment coordinated by Dr Harper Graves at [facility] Status: Acute (3) Pulmonary emboli Assessment & Plan: Denies shortness of breath, cough, hemoptysis CT chest/abd/pelvis 08/31/17: Peripheral filling defect within RIGHT main pulmonary artery and probable filling defects within branches of RIGHT upper lobe pulmonary artery. Patchy and confluent groundglass/airspace disease within RIGHT lung with volume. Hold anticoagulation due to cancer metastasis to the brain and whole brain radiation Status: Acute (4) Hydropneumothorax Assessment & Plan: Denies shortness of breath, cough, hemoptysis Thoracic surgery consulted, Dr Damon CT chest/abd/pelvis 08/31/17: Pleural space - Large RIGHT pleural effusion with few foci of air. s/p US guided right thoracentesis 08/31/17, 1400 cc of straw colored fluid removed Pleurex cath placement today 09/04/[address] Damon Incentive spirometry q1h Status: Acute (5) Osseous metastasis Assessment & Plan: CT chest/abd/pelvis 08/31/17: Innumerable sclerotic lesions throughout the visualized bones. Tramadol 25mg po tid prn tylenol 650mg po q6 prn for pain Status: Acute (6) Prophylactic measure Assessment & Plan: Famotidine 20mg po bid SCDs, hold anticoagulation due to brain metastasis NPO past midnight for pleurex cath placement tomorrow 09/04/17 PT/OT eval and treat Status: Acute <Riley Miles - Last Filed: 09/05/17 18:07> Objective - Vital Signs/Intake and Output Vital Signs (last 24 hours): Temp Pulse Resp BP Pulse Ox 98.3 F 83 20 136/94 H 97 09/05/17 17:42 09/05/17 17:42 09/05/17 17:42 09/05/17 17:42 09/05/17 17:42 Intake and Output: 09/05/17 09/05/17 06:59 18:59 Intake Total 260 300 Output Total 215 1307 Balance 45 -1007 - Medications Medications: Current Medications Acetaminophen (Tylenol 325mg Tab) 650 mg PO Q6 PRN PRN Reason: Fever >100.4 F Bacitracin (Bacitracin Opht Oint) 0 applic OU BID [facility] Last Admin: 09/05/17 17:58 Dose: 1 applic Dexamethasone (Decadron Inj) 4 mg IV Q6 [facility] Last Admin: 09/05/17 18:00 Dose: 4 mg Famotidine (Pepcid) 20 mg PO BID [facility] Last Admin: 09/05/17 17:58 Dose: 20 mg Morphine Sulfate (Morphine) 2 mg IVP Q4 PRN PRN Reason: Pain, severe (8-10) Last Admin: 09/05/17 17:59 Dose: 2 mg Ondansetron HCl (Zofran Inj) 4 mg IVP Q6 PRN PRN Reason: Nausea/Vomiting Tramadol HCl (Ultram) 25 mg PO TID PRN PRN Reason: Pain, moderate (4-7) Last Admin: 09/01/17 11:00 Dose: 25 mg - Labs Labs: 09/05/17 08:40 09/05/17 08:39 PT 11.2 SECONDS (9.7-12.2) 09/04/17 07:03 INR 1.0 09/04/17 07:03 APTT 25 SECONDS (21-34) 09/04/17 07:03 Attending/Attestation - Attestation I have personally seen and examined this patient.: Yes I have fully participated in the care of the patient.: Yes I have reviewed all pertinent clinical information, including history, physical exam and plan: Yes Notes (Text): Patient was seen and examined after pleurex this evening. c/o chest pain.Spoke to her sister at bedside I agree with the residents documentation and plan
[2017-09-04 07:52] LABS: CHLORIDE 93 mmol/L (98-107); POTASSIUM 3.6 mmol/L (3.6-5.2); SODIUM 130 mmol/L (132-148)
[2017-09-04 07:55] LABS: ALB/GLOB RATIO 1.7 (1.0-2.1); ALKALINE PHOSPHATASE 167 U/L (38-126); ALT/SGPT 43 U/L (9-52); AST/SGOT 33 U/L (14-36); BILIRUBIN,TOTAL 0.5 mg/dL (0.2-1.3); BLOOD UREA NITROGEN 14 mg/dL (7-17); CALCIUM 9.1 mg/dl (8.6-10.4); CARBON DIOXIDE 25 mmol/L (22-30); GFR AFRICAN-AMERICAN > 60; GLUCOSE,RANDOM 117 mg/dL (65-105); TOTAL PROTEIN 5.9 g/dL (6.3-8.3)
[2017-09-04] MEDS: Bacitracin Opht OINT 3.5GM OU SCH ×2 (11:00→17:56)
[2017-09-04] MEDS ORDERED: Bupivacaine 0.5% Inj(30mL) ONE ×2 (11:34→12:08)
[2017-09-04] MEDS ORDERED: ceFAZolin 1 gm FROZEN Premix 1 GM/50 ML ML IVPB ONE (12:14)
[2017-09-04] MEDS ORDERED: Midazolam 2 MG/2 ML VIAL ONE (12:25)
[2017-09-04] MEDS ORDERED: Propofol 10 mg/ml Inj (20 ML) ONE (12:25)
[2017-09-04] MEDS ORDERED: Lactated Ringer's 1,000 ML IV ONE (12:35)
[2017-09-04] MEDS ORDERED: Lidocaine 1% Inj (20ml) ONE (13:15)
[2017-09-04] MEDS ORDERED: Bacitracin Ointment 30 GM TUBE ONE (13:52)
--- NOTE | 2017-09-04 14:13 | PCM.SURG1 ---
Surgeon's Initial Post Op Note - Surgeon's Notes Surgeon: Dr. Damon [employer] Consultant: Dr. Harper PGY-3 Type of Anesthesia: IV Sedation, Local Pre-Operative Diagnosis: Malignant pleural effusions Operative Findings: placement confirmed via fluoro Post-Operative Diagnosis: Malignant pleural effusions Operation Performed: PleurX catheter placement Specimen/Specimens Removed: 860cc straw colored pleural fluid Estimated Blood Loss: EBL {In ML}: 5 Blood Products Given: N/A Drains Used: Chest Tubes Post-Op Condition: Fair Date of Surgery/Procedure: 09/04/17 Time of Surgery/Procedure: 14:13
[2017-09-04] MEDS ORDERED: Labetalol 25mg/5ml Syringe IVP PRN (14:17)
--- NOTE | 2017-09-04 15:10 | RAD ---
PROCEDURE: Intraoperative Fluoroscopy. HISTORY: RT PLEURAL EFFUSION FINDINGS: Fluoroscopic assistance was provided. 53.2 seconds fluoroscopy time utilized. Radiation dose = 0.09563
--- NOTE | 2017-09-04 15:18 | RAD ---
HISTORY: s/p right PleurX catheter placement rest with doctor low COMPARISON: Comparison chest 08/31/2017 FINDINGS: LUNGS: Interval placement drainage catheter right lung base. There is a large right-sided pneumothorax. Right-sided pneumothorax . Questionable partially aerated lung lateral chest wall PLEURA: No significant pleural effusion identified, no pneumothorax apparent. CARDIOVASCULAR: Normal. OSSEOUS STRUCTURES: Diffuse sclerotic metastases. VISUALIZED UPPER ABDOMEN: Normal. OTHER FINDINGS: Re- demonstrated are metallic surgical clips in the right axilla. IMPRESSION: Interval placement drainage catheter right lung base with large right-sided pneumothorax ; questionable partially aerated lung rule along the lateral chest wall. Decreased size right-sided effusion. Findings discussed with Dr. Groves by telephone at 2:55 p.m. with written down and read back verification.
--- NOTE | 2017-09-04 16:14 | CT ---
PROCEDURE: CT chest dated 08/31/2017 HISTORY: Rule out pneumothorax COMPARISON: Comparison made with chest radiograph earlier same day as well as CT scan chest 08/31/2017 TECHNIQUE: Contiguous helical/transaxial images were obtained through the chest without intravenous contrast enhancement. Sagittal and coronal reconstructions were performed. Radiation dose (DLP): 478.94 mGy-cm. This CT exam was performed using one or more of the following dose reduction techniques: Automated exposure control, adjustment of the mA and/or kV according to patient size, and/or use of iterative reconstruction technique. FINDINGS: LUNGS: The current study reveals large right-sided pneumothorax despite interval recent placement of a chest tube in the right lung base. There has been down marked decrease in size of large effusion. The entire right lung has not undergone re-expansion likely due to chronic compression. Underlying scarring and/or metastatic lesions within the collapsed lung cannot be excluded. Small left-sided effusion and minimal left basilar atelectasis. . MEDIASTINUM: Minimal [id number] mediastinal shift due to the large at aforementioned right-sided chronic pneumothorax. Unremarkable thoracic aorta. No aneurysm. Normal sized heart. Main pulmonary artery unremarkable. No vascular congestion. In situ MediPort unchanged No significant mediastinal adenopathy . Evaluation for hilar adenopathy is limited due to the lack of circulating intravenous contrast material PLEURA: As above. BONES: Diffuse sclerotic metastatic disease. . UPPER ABDOMEN: Grossly unremarkable. OTHER FINDINGS: Status post right mastectomy with surgical clips right axilla region again noted. . IMPRESSION: Interval placement right-sided chest tube with marked decrease size right-sided effusion. Large pneumothorax well with chronic of collapse of the entire right lung as detailed above. . . Slight shift of the mediastinum from [id number]. Diffuse bony metastasis. Postoperative changes of right mastectomy with metallic surgical clips right axillary region
--- NOTE | 2017-09-04 16:29 | CP.PCM.PN ---
Subjective - Date & Time of Evaluation Date of Evaluation: 09/04/17 Time of Evaluation: 16:11 - Subjective Subjective: s/p pleurex cath placemen under fluoroscopic guidance. Uneventful other than introduction of some air during the cath manipulations. Postop chest xsray: read as a gigantic pneumothorax.( air fluid level and fluid is now replaced with dark space which contains air). CT of chest: The space is due to nonexpanding lung from chronic process(tumor). The pt is hemodynamically stable and O2 sat, 100% on 3lnc. Pleural pressure +, intermittent air leaks. Continue chest tube to suction . Daily cxr. Expectant postoop rx. a/p: s/p Placement of Pleurex cath.-satisfactory. Space issue-most likely not resolved i.e will fill up with fluid again as soon as suction is discontinued. Continue pleurex cath to continuous suction at 20cm H2O. Objective - Vital Signs/Intake and Output Vital Signs (last 24 hours): Temp Pulse Resp BP Pulse Ox 97.2 F L 86 15 144/102 H 100 09/04/17 14:10 09/04/17 15:40 09/04/17 15:40 09/04/17 15:40 09/04/17 15:40 Intake and Output: 09/04/17 09/04/17 06:59 18:59 Intake Total 700 0 Balance 700 0 - Medications Medications: Current Medications Acetaminophen (Tylenol 325mg Tab) 650 mg PO Q6 PRN PRN Reason: Fever >100.4 F Bacitracin (Bacitracin Opht Oint) 0 applic OU BID [facility] Last Admin: 09/04/17 11:00 Dose: Not Given Dexamethasone (Decadron Inj) 4 mg IV Q6 [facility] Last Admin: 09/04/17 12:01 Dose: Not Given Famotidine (Pepcid) 20 mg PO BID [facility] Last Admin: 09/04/17 11:00 Dose: Not Given Labetalol HCl (Trandate) 5 mg IVP Q5M PRN PRN Reason: Diastolic blood pressure Stop: 09/04/17 16:19 Morphine Sulfate (Morphine) 1 mg IVP Q10M PRN PRN Reason: Pain, severe (8-10) Stop: 09/04/17 16:17 Last Admin: 09/04/17 14:30 Dose: 1 mg Morphine Sulfate (Morphine) 2 mg IVP Q4 PRN PRN Reason: Pain, severe (8-10) Ondansetron HCl (Zofran Inj) 4 mg IVP Q6 PRN PRN Reason: Nausea/Vomiting Tramadol HCl (Ultram) 25 mg PO TID PRN PRN Reason: Pain, moderate (4-7) Last Admin: 09/01/17 11:00 Dose: 25 mg - Labs Labs: 09/04/17 07:03 09/04/17 07:03 PT 11.2 SECONDS (9.7-12.2) 09/04/17 07:03 INR 1.0 09/04/17 07:03 APTT 25 SECONDS (21-34) 09/04/17 07:03
[2017-09-04 16:52] LABS: AMYLASE 222 U/L (30-110)
[2017-09-04 16:54] LABS: BF GROSS APPEARANCE CLEAR (CLEAR); BODY FLUID TYPE PLEURAL
--- NOTE | 2017-09-04 17:03 | CARD ---
APPROVED REPORT EKG Measurement Heart [id number] <Conclusion> Normal sinus rhythm
--- NOTE | 2017-09-04 21:05 | CP.PCM.PN ---
Subjective - Date & Time of Evaluation Date of Evaluation: 09/04/17 Time of Evaluation: 19:00 - Subjective Subjective: S/p chest tube Objective - Vital Signs/Intake and Output Vital Signs (last 24 hours): Temp Pulse Resp BP Pulse Ox 98.4 F 69 11 L 141/99 H 100 09/04/17 15:55 09/04/17 15:55 09/04/17 15:55 09/04/17 15:55 09/04/17 15:55 Intake and Output: 09/04/17 09/05/17 18:59 06:59 Intake Total 250 Output Total 900 Balance -650 - Medications Medications: Current Medications Acetaminophen (Tylenol 325mg Tab) 650 mg PO Q6 PRN PRN Reason: Fever >100.4 F Bacitracin (Bacitracin Opht Oint) 0 applic OU BID [facility] Last Admin: 09/04/17 17:56 Dose: 1 applic Dexamethasone (Decadron Inj) 4 mg IV Q6 [facility] Last Admin: 09/04/17 17:52 Dose: 4 mg Famotidine (Pepcid) 20 mg PO BID [facility] Last Admin: 09/04/17 17:52 Dose: 20 mg Morphine Sulfate (Morphine) 2 mg IVP Q4 PRN PRN Reason: Pain, severe (8-10) Ondansetron HCl (Zofran Inj) 4 mg IVP Q6 PRN PRN Reason: Nausea/Vomiting Tramadol HCl (Ultram) 25 mg PO TID PRN PRN Reason: Pain, moderate (4-7) Last Admin: 09/01/17 11:00 Dose: 25 mg - Labs Labs: 09/04/17 07:03 09/04/17 07:03 PT 11.2 SECONDS (9.7-12.2) 09/04/17 07:03 INR 1.0 09/04/17 07:03 APTT 25 SECONDS (21-34) 09/04/17 07:03 - Head Exam Head Exam: ATRAUMATIC - Eye Exam Eye Exam: Normal appearance - ENT Exam ENT Exam: Mucous Membranes Dry - Respiratory Exam Respiratory Exam: Decreased Breath Sounds - Cardiovascular Exam Cardiovascular Exam: +S1, +S2 - GI/Abdominal Exam GI & Abdominal Exam: Normal Bowel Sounds Assessment and Plan (1) Brain metastasis Assessment & Plan: radiotherapy Status: Acute (2) Pleural effusion Assessment & Plan: likely malignant s/p chest tube Status: Acute (3) Pulmonary emboli Assessment & Plan: anticoagulation after whole brain radiotherapy Status: Acute (4) Breast cancer Assessment & Plan: outpatient treatment Status: Acute
[2017-09-05] MEDS: Dexamethasone 4 mg/1 ml IV SCH ×4 (00:20→18:00)
[2017-09-05 01:01] VITALS: RESP 20
--- NOTE | 2017-09-05 03:06 | CP.PCM.PN ---
<BarbaraRaoul moreno - Last Filed: 09/05/17 03:03> Subjective - Date & Time of Evaluation Date of Evaluation: 09/05/17 Time of Evaluation: 03:03 - Subjective Subjective: Medicine Progress Note HPI: Patient was seen and examined at bedside. sleeping comfortably. No complaints today. Denies chest pain, abdominal pain, headache, vision changes, shortness of breath, fever, chills. Objective - Vital Signs/Intake and Output Vital Signs (last 24 hours): Temp Pulse Resp BP Pulse Ox 98.3 F 79 20 147/99 H 97 09/05/17 00:00 09/05/17 00:00 09/05/17 00:00 09/05/17 00:00 09/05/17 00:00 Intake and Output: 09/04/17 09/05/17 18:59 06:59 Intake Total 250 Output Total 900 Balance -650 - Medications Medications: Current Medications Acetaminophen (Tylenol 325mg Tab) 650 mg PO Q6 PRN PRN Reason: Fever >100.4 F Bacitracin (Bacitracin Opht Oint) 0 applic OU BID [facility] Last Admin: 09/04/17 17:56 Dose: 1 applic Dexamethasone (Decadron Inj) 4 mg IV Q6 [facility] Last Admin: 09/05/17 00:20 Dose: 4 mg Famotidine (Pepcid) 20 mg PO BID [facility] Last Admin: 09/04/17 17:52 Dose: 20 mg Morphine Sulfate (Morphine) 2 mg IVP Q4 PRN PRN Reason: Pain, severe (8-10) Last Admin: 09/05/17 00:20 Dose: 2 mg Ondansetron HCl (Zofran Inj) 4 mg IVP Q6 PRN PRN Reason: Nausea/Vomiting Tramadol HCl (Ultram) 25 mg PO TID PRN PRN Reason: Pain, moderate (4-7) Last Admin: 09/01/17 11:00 Dose: 25 mg - Labs Labs: 09/04/17 07:03 09/04/17 07:03 PT 11.2 SECONDS (9.7-12.2) 09/04/17 07:03 INR 1.0 09/04/17 07:03 APTT 25 SECONDS (21-34) 09/04/17 07:03 - Additional Findings Additional findings: - Constitutional Appears: Well, No Acute Distress - Head Exam Head Exam: ATRAUMATIC, NORMAL INSPECTION - Eye Exam Eye Exam: EOMI Pupil Exam: PERRL - ENT Exam ENT Exam: Mucous Membranes Moist - Neck Exam Neck Exam: Normal Inspection. absent: Lymphadenopathy - Respiratory Exam Respiratory Exam: Clear to Ausculation Bilateral, NORMAL BREATHING PATTERN. absent: Rales, Rhonchi, Wheezes - Cardiovascular Exam Cardiovascular Exam: REGULAR RHYTHM. absent: Bradycardia, Tachycardia - GI/Abdominal Exam GI & Abdominal Exam: Soft, Normal Bowel Sounds. absent: Tenderness - Extremities Exam Extremities Exam: Normal Capillary Refill, Normal Inspection. absent: Pedal Edema - Neurological Exam Neurological Exam: Alert, Awake, Oriented x3 - Psychiatric Exam Psychiatric exam: Normal Affect, Normal Mood - Skin Skin Exam: Dry, Intact, Normal Color, Warm Additional Findings: rt chest portacath Assessment and Plan - Assessment and Plan (Free Text) Assessment: (1) Metastatic breast cancer Assessment & Plan: Heme/Onc consulted, Dr Gordon Radiation Oncologist consulted, Dr Harper Graves Patient with ongoing whole brain radiation treatment coordinated by Dr Harper Graves at [facility] Hx of chestwall and regional amira irradiation at [facility] in 2012 Currently on chemotherapy Dexamethasone 4mg iv q6 tramadol 25mg po tid prn for pain Status: Acute (2) Brain metastasis Assessment & Plan: (+) dizziness, (+) changes in speech, on admission MRI Brain 05/31/17: 1. Diffuse cerebral and cerebellar large metastatic lesions with mild surrounding vasogenic edema without evidence of mass effect, midline shift or herniation. No hydrocephalus. 2. Diffuse osteoblastic calvarial metastasis. Patient with ongoing whole brain radiation treatment coordinated by Dr Harper Graves at [facility] Status: Acute (3) Pulmonary emboli Assessment & Plan: Denies shortness of breath, cough, hemoptysis CT chest/abd/pelvis 08/31/17: Peripheral filling defect within RIGHT main pulmonary artery and probable filling defects within branches of RIGHT upper lobe pulmonary artery. Patchy and confluent groundglass/airspace disease within RIGHT lung with volume. Hold anticoagulation due to cancer metastasis to the brain and whole brain radiation Status: Acute (4) Hydropneumothorax Assessment & Plan: Denies shortness of breath, cough, hemoptysis Thoracic surgery consulted, Dr Damon CT chest/abd/pelvis 08/31/17: Pleural space - Large RIGHT pleural effusion with few foci of air. s/p US guided right thoracentesis 08/31/17, 1400 cc of straw colored fluid removed Pleurex cath placement today 09/04/[address] Damon Incentive spirometry q1h Status: Acute (5) Osseous metastasis Assessment & Plan: CT chest/abd/pelvis 08/31/17: Innumerable sclerotic lesions throughout the visualized bones. Tramadol 25mg po tid prn tylenol 650mg po q6 prn for pain Status: Acute (6) Prophylactic measure Assessment & Plan: Famotidine 20mg po bid SCDs, hold anticoagulation due to brain metastasis NPO past midnight for pleurex cath placement tomorrow 09/04/17 PT/OT eval and treat Status: Acute <Riley Miles - Last Filed: 09/05/17 18:05> Objective - Vital Signs/Intake and Output Vital Signs (last 24 hours): Temp Pulse Resp BP Pulse Ox 98.3 F 83 20 136/94 H 97 09/05/17 17:42 09/05/17 17:42 09/05/17 17:42 09/05/17 17:42 09/05/17 17:42 Intake and Output: 09/05/17 09/05/17 06:59 18:59 Intake Total 260 300 Output Total 215 1307 Balance 45 -1007 - Medications Medications: Current Medications Acetaminophen (Tylenol 325mg Tab) 650 mg PO Q6 PRN PRN Reason: Fever >100.4 F Bacitracin (Bacitracin Opht Oint) 0 applic OU BID [facility] Last Admin: 09/05/17 10:41 Dose: 1 applic Dexamethasone (Decadron Inj) 4 mg IV Q6 [facility] Last Admin: 09/05/17 12:23 Dose: 4 mg Famotidine (Pepcid) 20 mg PO BID [facility] Last Admin: 09/05/17 09:56 Dose: 20 mg Morphine Sulfate (Morphine) 2 mg IVP Q4 PRN PRN Reason: Pain, severe (8-10) Last Admin: 09/05/17 14:40 Dose: 2 mg Ondansetron HCl (Zofran Inj) 4 mg IVP Q6 PRN PRN Reason: Nausea/Vomiting Tramadol HCl (Ultram) 25 mg PO TID PRN PRN Reason: Pain, moderate (4-7) Last Admin: 09/01/17 11:00 Dose: 25 mg - Labs Labs: 09/05/17 08:40 09/05/17 08:39 PT 11.2 SECONDS (9.7-12.2) 09/04/17 07:03 INR 1.0 09/04/17 07:03 APTT 25 SECONDS (21-34) 09/04/17 07:03 Attending/Attestation - Attestation I have personally seen and examined this patient.: Yes I have fully participated in the care of the patient.: Yes I have reviewed all pertinent clinical information, including history, physical exam and plan: Yes Notes (Text): Patient was seen and examined. She is nauseous,s/p vomiting,confused on and off,able to talk ,She agrees to discuss all her care with her sister. s/p Pleurex yesterday,has chest discomfort d/w sister yesterday today afternoon ,patient has on and off confusion.Her sister understand her condition,Doesn't cardiac or pulmonary want resuscitation. I spoke to her oncologist today.She is vomiting and confused.Not ready for discharge.We will get palliative care consult I agree with the residents documentation of assessment and plan of the resident 09/05/17 17:58
[2017-09-05 08:47] LABS: BASO % 0.1 % (0.0-2.0); HEMATOCRIT 38.3 % (34.0-47.0); LYMPH # 0.9 K/uL (1.0-4.3); LYMPH % 10.8 % (20.0-40.0); MEAN CELL VOLUME 87.8 fL (81.0-99.0); MEAN CORPUSCULAR HEMOGLOBIN 29.1 pg (27.0-31.0); MEAN CORPUSCULAR HGB CONC 33.2 g/dL (33.0-37.0); MEAN PLATELET VOLUME 8.7 fL (7.2-11.7); MONO # 0.6 K/uL (0.0-0.8); MONO % 6.8 % (0.0-10.0); NRBC % 0.1 % (0.0-2.0); RED CELL DISTRIBUTION WIDTH 21.2 % (11.5-14.5); WHITE BLOOD COUNT 8.3 K/uL (4.8-10.8)
[2017-09-05 09:23] LABS: CHLORIDE 92 mmol/L (98-107); SODIUM 131 mmol/L (132-148)
[2017-09-05 09:24] LABS: POTASSIUM 3.4 mmol/L (3.6-5.2)
[2017-09-05 09:25] LABS: GFR AFRICAN-AMERICAN > 60
[2017-09-05 09:26] LABS: ALB/GLOB RATIO 1.2 (1.0-2.1); ALKALINE PHOSPHATASE 166 U/L (38-126); ALT/SGPT 58 U/L (9-52); AST/SGOT 41 U/L (14-36); BILIRUBIN,TOTAL 0.4 mg/dL (0.2-1.3); BLOOD UREA NITROGEN 16 mg/dL (7-17); CALCIUM 9.3 mg/dl (8.6-10.4); CARBON DIOXIDE 28 mmol/L (22-30); GLUCOSE,RANDOM 132 mg/dL (65-105)
--- NOTE | 2017-09-05 09:35 | CP.PCM.PN ---
Subjective - Date & Time of Evaluation Date of Evaluation: 09/05/17 Time of Evaluation: 07:40 - Subjective Subjective: CT Surgery Pt S&E, NAEO Minimal pain at pleurex site. No air leak, 215cc jimbo fluid out since PACU. Objective - Vital Signs/Intake and Output Vital Signs (last 24 hours): Temp Pulse Resp BP Pulse Ox 97.8 F 76 20 148/87 100 09/05/17 06:00 09/05/17 06:00 09/05/17 06:00 09/05/17 06:00 09/05/17 06:00 Intake and Output: 09/05/17 09/05/17 06:59 18:59 Intake Total 260 Output Total 215 Balance 45 - Medications Medications: Current Medications Acetaminophen (Tylenol 325mg Tab) 650 mg PO Q6 PRN PRN Reason: Fever >100.4 F Bacitracin (Bacitracin Opht Oint) 0 applic OU BID [facility] Last Admin: 09/04/17 17:56 Dose: 1 applic Dexamethasone (Decadron Inj) 4 mg IV Q6 [facility] Last Admin: 09/05/17 05:45 Dose: 4 mg Famotidine (Pepcid) 20 mg PO BID [facility] Last Admin: 09/04/17 17:52 Dose: 20 mg Morphine Sulfate (Morphine) 2 mg IVP Q4 PRN PRN Reason: Pain, severe (8-10) Last Admin: 09/05/17 00:20 Dose: 2 mg Ondansetron HCl (Zofran Inj) 4 mg IVP Q6 PRN PRN Reason: Nausea/Vomiting Tramadol HCl (Ultram) 25 mg PO TID PRN PRN Reason: Pain, moderate (4-7) Last Admin: 09/01/17 11:00 Dose: 25 mg - Labs Labs: 09/05/17 08:40 09/05/17 08:39 PT 11.2 SECONDS (9.7-12.2) 09/04/17 07:03 INR 1.0 09/04/17 07:03 APTT 25 SECONDS (21-34) 09/04/17 07:03 - Constitutional Appears: Non-toxic, No Acute Distress - Head Exam Head Exam: ATRAUMATIC, NORMOCEPHALIC - Eye Exam Eye Exam: EOMI. absent: Scleral icterus - Respiratory Exam Respiratory Exam: NORMAL BREATHING PATTERN. absent: Respiratory Distress Additional comments: catheter in place, dressing C/D/I, no air leak - GI/Abdominal Exam GI & Abdominal Exam: Soft. absent: Distended, Tenderness - Neurological Exam Neurological Exam: Alert, Awake - Skin Skin Exam: Dry, Warm Assessment and Plan - Assessment and Plan (Free Text) Assessment: 57F s/p pleurex catheter placement POD#1 Plan: Follow up CXR Continue pleuravac to wall suction D/W Dr. Marisol Hauser PGY4
[2017-09-05] MEDS: Bacitracin Opht OINT 3.5GM OU SCH ×3 (09:55→17:58)
--- NOTE | 2017-09-05 10:08 | RAD ---
HISTORY: s/p Right PleurX catheter placement COMPARISON: 09/04/2017 FINDINGS: LUNGS: Persistent large right sided pneumothorax with pleural drain at the right lung base. Right chest wall port with tip extending to the cavoatrial junction. Venous congestion. PLEURA: As above. CARDIOVASCULAR: Cardiomegaly. OSSEOUS STRUCTURES: Degenerative changes in the spine and shoulders. Pseudoarticulation of the coracoid and undersurface of the mid bilateral clavicles. VISUALIZED UPPER ABDOMEN: Surgical clips in the right axilla. OTHER FINDINGS: None. IMPRESSION: Persistent large right sided pneumothorax with pleural drain at the right lung base. Right chest wall port with tip extending to the cavoatrial junction. Venous congestion.
[2017-09-06] MEDS: Dexamethasone 4 mg/1 ml IV SCH ×4 (00:15→17:19)
--- NOTE | 2017-09-06 01:50 | CP.PCM.PN ---
<Raoul Graf - Last Filed: 09/06/17 01:48> Subjective - Date & Time of Evaluation Date of Evaluation: 09/06/17 Time of Evaluation: 01:48 - Subjective Subjective: Medicine Progress Note HPI: Patient seen and examined at bedside. No complaints at this time. Resting comfortably Objective - Vital Signs/Intake and Output Vital Signs (last 24 hours): Temp Pulse Resp BP Pulse Ox 98.1 F 81 20 131/86 98 09/05/17 23:44 09/05/17 23:44 09/05/17 23:44 09/05/17 23:44 09/05/17 23:44 Intake and Output: 09/05/17 09/06/17 18:59 06:59 Intake Total 300 300 Output Total 1307 60 Balance -1007 240 - Medications Medications: Current Medications Acetaminophen (Tylenol 325mg Tab) 650 mg PO Q6 PRN PRN Reason: Fever >100.4 F Bacitracin (Bacitracin Opht Oint) 0 applic OU BID [facility] Last Admin: 09/05/17 17:58 Dose: 1 applic Dexamethasone (Decadron Inj) 4 mg IV Q6 [facility] Last Admin: 09/06/17 00:15 Dose: 4 mg Famotidine (Pepcid) 20 mg PO BID [facility] Last Admin: 09/05/17 17:58 Dose: 20 mg Morphine Sulfate (Morphine) 2 mg IVP Q4 PRN PRN Reason: Pain, severe (8-10) Last Admin: 09/05/17 17:59 Dose: 2 mg Ondansetron HCl (Zofran Inj) 4 mg IVP Q6 PRN PRN Reason: Nausea/Vomiting Tramadol HCl (Ultram) 25 mg PO TID PRN PRN Reason: Pain, moderate (4-7) Last Admin: 09/01/17 11:00 Dose: 25 mg - Labs Labs: 09/05/17 08:40 09/05/17 08:39 PT 11.2 SECONDS (9.7-12.2) 09/04/17 07:03 INR 1.0 09/04/17 07:03 APTT 25 SECONDS (21-34) 09/04/17 07:03 - Additional Findings Additional findings: - Constitutional Appears: Well, No Acute Distress - Head Exam Head Exam: ATRAUMATIC, NORMAL INSPECTION - Eye Exam Eye Exam: EOMI Pupil Exam: PERRL - ENT Exam ENT Exam: Mucous Membranes Moist - Neck Exam Neck Exam: Normal Inspection. absent: Lymphadenopathy - Respiratory Exam Respiratory Exam: Clear to Ausculation Bilateral, NORMAL BREATHING PATTERN. absent: Rales, Rhonchi, Wheezes - Cardiovascular Exam Cardiovascular Exam: REGULAR RHYTHM. absent: Bradycardia, Tachycardia - GI/Abdominal Exam GI & Abdominal Exam: Soft, Normal Bowel Sounds. absent: Tenderness - Extremities Exam Extremities Exam: Normal Capillary Refill, Normal Inspection. absent: Pedal Edema - Neurological Exam Neurological Exam: Alert, Awake, Oriented x3 - Psychiatric Exam Psychiatric exam: Normal Affect, Normal Mood - Skin Skin Exam: Dry, Intact, Normal Color, Warm Additional Findings: rt chest portacath Assessment and Plan - Assessment and Plan (Free Text) Assessment: (1) Metastatic breast cancer Assessment & Plan: Heme/Onc consulted, Dr Gordon Radiation Oncologist consulted, Dr Harper Graves Patient with ongoing whole brain radiation treatment coordinated by Dr Harper Graves at [facility] Hx of chestwall and regional amira irradiation at [facility] in 2012 Currently on chemotherapy Dexamethasone 4mg iv q6 tramadol 25mg po tid prn for pain Status: Acute (2) Brain metastasis Assessment & Plan: (+) dizziness, (+) changes in speech, on admission MRI Brain 05/31/17: 1. Diffuse cerebral and cerebellar large metastatic lesions with mild surrounding vasogenic edema without evidence of mass effect, midline shift or herniation. No hydrocephalus. 2. Diffuse osteoblastic calvarial metastasis. Patient with ongoing whole brain radiation treatment coordinated by Dr Harper Graves at [facility] Status: Acute (3) Pulmonary emboli Assessment & Plan: Denies shortness of breath, cough, hemoptysis CT chest/abd/pelvis 08/31/17: Peripheral filling defect within RIGHT main pulmonary artery and probable filling defects within branches of RIGHT upper lobe pulmonary artery. Patchy and confluent groundglass/airspace disease within RIGHT lung with volume. Hold anticoagulation due to cancer metastasis to the brain and whole brain radiation Status: Acute (4) Hydropneumothorax Assessment & Plan: Denies shortness of breath, cough, hemoptysis Thoracic surgery consulted, Dr Damon CT chest/abd/pelvis 08/31/17: Pleural space - Large RIGHT pleural effusion with few foci of air. s/p US guided right thoracentesis 08/31/17, 1400 cc of straw colored fluid removed Pleurex cath placement today 09/04/[address] Damon Incentive spirometry q1h Status: Acute (5) Osseous metastasis Assessment & Plan: CT chest/abd/pelvis 08/31/17: Innumerable sclerotic lesions throughout the visualized bones. Tramadol 25mg po tid prn tylenol 650mg po q6 prn for pain Status: Acute (6) Prophylactic measure Assessment & Plan: Famotidine 20mg po bid SCDs, hold anticoagulation due to brain metastasis NPO past midnight for pleurex cath placement tomorrow 09/04/17 PT/OT eval and treat Status: Acute <Riley Miles - Last Filed: 09/06/17 16:32> Objective - Vital Signs/Intake and Output Vital Signs (last 24 hours): Temp Pulse Resp BP Pulse Ox 97.9 F 75 20 151/90 H 100 09/06/17 08:20 09/06/17 08:20 09/06/17 08:20 09/06/17 08:20 09/06/17 08:20 Intake and Output: 09/06/17 09/06/17 06:59 18:59 Intake Total 560 250 Output Total 100 16 Balance 460 234 - Medications Medications: Current Medications Acetaminophen (Tylenol 325mg Tab) 650 mg PO Q6 PRN PRN Reason: Fever >100.4 F Bacitracin (Bacitracin Opht Oint) 0 applic OU BID [facility] Last Admin: 09/06/17 09:46 Dose: 1 applic Dexamethasone (Decadron Inj) 4 mg IV Q6 [facility] Last Admin: 09/06/17 11:35 Dose: 4 mg Famotidine (Pepcid) 20 mg PO BID [facility] Last Admin: 09/06/17 09:46 Dose: 20 mg Morphine Sulfate (Morphine) 2 mg IVP Q4 PRN PRN Reason: Pain, severe (8-10) Last Admin: 09/06/17 14:24 Dose: 2 mg Ondansetron HCl (Zofran Inj) 4 mg IVP Q6 PRN PRN Reason: Nausea/Vomiting Tramadol HCl (Ultram) 25 mg PO TID PRN PRN Reason: Pain, moderate (4-7) Last Admin: 09/01/17 11:00 Dose: 25 mg - Labs Labs: 09/06/17 07:30 09/06/17 07:30 PT 11.2 SECONDS (9.7-12.2) 09/04/17 07:03 INR 1.0 09/04/17 07:03 APTT 25 SECONDS (21-34) 09/04/17 07:03 Attending/Attestation - Attestation I have personally seen and examined this patient.: Yes I have fully participated in the care of the patient.: Yes I have reviewed all pertinent clinical information, including history, physical exam and plan: Yes Notes (Text): is is 57 year old female with history of metastatic breast cancer and HTN presents to ED with complaints of generalized weakness and vomiting. Patient is currently receiving chemotherapy for breast cancer, last treatment Thursday08/26/2017. I spoke to sister yesterday.Patient is confused on and off.Patient was able to admit that she wants her sister to make decision for her. Advance directives discussed.She is DNR/DNI Patient was seen and examined.lying comfortable 1. Brain metastatic mass Radiation therapy,Decadron 2.Hydropneumothorax s/p Thoracentesis, s/ Pleurx by thorasic surgery 3.Metastatic breast cancer with brain mets Getting radiation therapy spoke to Dr Gordon yesterday Patient is confused DNR and DNI Palliative care requested d/w sister 4.Pulmonary embolism Not on anticoagulation due to brain mets getting radiation therapy 5.pain meds and prophylaxis for DVT and GI 6.Debility/vomiting/poor intake /unsteady gait I agree with the resident's documentation of the assessment and plan
[2017-09-06 07:48] LABS: BASO % 0.3 % (0.0-2.0); EOS % 0.1 % (0.0-4.0); HEMATOCRIT 40.3 % (34.0-47.0); LYMPH # 0.9 K/uL (1.0-4.3); LYMPH % 9.8 % (20.0-40.0); MEAN CELL VOLUME 87.4 fL (81.0-99.0); MEAN CORPUSCULAR HEMOGLOBIN 29.2 pg (27.0-31.0); MEAN CORPUSCULAR HGB CONC 33.4 g/dL (33.0-37.0); MEAN PLATELET VOLUME 8.7 fL (7.2-11.7); MONO # 0.8 K/uL (0.0-0.8); MONO % 8.6 % (0.0-10.0); NRBC % 0.1 % (0.0-2.0); PLATELET COUNT 376 K/uL (130-400); RED CELL DISTRIBUTION WIDTH 20.6 % (11.5-14.5); WHITE BLOOD COUNT 9.6 K/uL (4.8-10.8)
[2017-09-06 07:59] LABS: CHLORIDE 92 mmol/L (98-107); POTASSIUM 3.5 mmol/L (3.6-5.2); SODIUM 131 mmol/L (132-148)
[2017-09-06 08:01] LABS: AST/SGOT 125 U/L (14-36); BILIRUBIN,TOTAL 0.8 mg/dL (0.2-1.3); CARBON DIOXIDE 28 mmol/L (22-30); GFR AFRICAN-AMERICAN > 60
[2017-09-06 08:02] LABS: ALB/GLOB RATIO 1.7 (1.0-2.1); ALKALINE PHOSPHATASE 178 U/L (38-126); ALT/SGPT 162 U/L (9-52); BLOOD UREA NITROGEN 18 mg/dL (7-17); GLUCOSE,RANDOM 132 mg/dL (65-105); TOTAL PROTEIN 6.1 g/dL (6.3-8.3)
[2017-09-06 09:43] LABS: NEUTROPHIL 82 % (50-75); TOTAL CELLS COUNTED 100
[2017-09-06 09:45] LABS: LARGE PLATELETS PRESENT
[2017-09-06] MEDS: Bacitracin Opht OINT 3.5GM OU SCH ×2 (09:46→17:31)
--- NOTE | 2017-09-06 09:54 | RAD ---
HISTORY: s/p Right PleurX catheter placement COMPARISON: 09/05/2017 FINDINGS: LUNGS: Persistent moderate to large right-sided pneumothorax. PleurX catheter in place. Other lines and tubes stable position. Diffuse increased interstitial lung markings. PLEURA: As above. CARDIOVASCULAR: Normal. OSSEOUS STRUCTURES: Patchy sclerosis of the visualized osseous structures. VISUALIZED UPPER ABDOMEN: Normal. OTHER FINDINGS: Surgical clips in the right axilla. IMPRESSION: Persistent moderate to large right-sided pneumothorax. PleurX catheter in place. Other lines and tubes in stable position. Diffuse increased interstitial lung markings.
--- NOTE | 2017-09-06 17:05 | CP.PCM.PN ---
Subjective - Date & Time of Evaluation Date of Evaluation: 09/06/17 Time of Evaluation: 07:00 - Subjective Subjective: THORACIC SURGERY PROGRESS NOTE FOR DR. BAILEY Patient seen and examined at bedside. Per the sister, the patient has been confused. She has some pain. No SOB. There is a new cannister for PleurX drainage. Objective - Vital Signs/Intake and Output Vital Signs (last 24 hours): Temp Pulse Resp BP Pulse Ox 97.9 F 75 20 151/90 H 100 09/06/17 08:20 09/06/17 08:20 09/06/17 08:20 09/06/17 08:20 09/06/17 08:20 Intake and Output: 09/06/17 09/06/17 06:59 18:59 Intake Total 560 250 Output Total 100 16 Balance 460 234 - Medications Medications: Current Medications Acetaminophen (Tylenol 325mg Tab) 650 mg PO Q6 PRN PRN Reason: Fever >100.4 F Bacitracin (Bacitracin Opht Oint) 0 applic OU BID [facility] Last Admin: 09/06/17 09:46 Dose: 1 applic Dexamethasone (Decadron Inj) 4 mg IV Q6 [facility] Last Admin: 09/06/17 11:35 Dose: 4 mg Famotidine (Pepcid) 20 mg PO BID [facility] Last Admin: 09/06/17 09:46 Dose: 20 mg Morphine Sulfate (Morphine) 2 mg IVP Q4 PRN PRN Reason: Pain, severe (8-10) Last Admin: 09/06/17 14:24 Dose: 2 mg Ondansetron HCl (Zofran Inj) 4 mg IVP Q6 PRN PRN Reason: Nausea/Vomiting Tramadol HCl (Ultram) 25 mg PO TID PRN PRN Reason: Pain, moderate (4-7) Last Admin: 09/01/17 11:00 Dose: 25 mg - Labs Labs: 09/06/17 07:30 09/06/17 07:30 PT 11.2 SECONDS (9.7-12.2) 09/04/17 07:03 INR 1.0 09/04/17 07:03 APTT 25 SECONDS (21-34) 09/04/17 07:03 - Constitutional Appears: Non-toxic, No Acute Distress - Eye Exam Eye Exam: EOMI, Normal appearance - Respiratory Exam Respiratory Exam: NORMAL BREATHING PATTERN. absent: Respiratory Distress Additional comments: PleurX catheter in place on right. 290cc drained over past 24 hours. Dressing clean/dry/intact - Cardiovascular Exam Cardiovascular Exam: +S1, +S2 - Neurological Exam Neurological Exam: Alert, Awake - Skin Skin Exam: Dry, Warm Assessment and Plan - Assessment and Plan (Free Text) Assessment: 57yo F with recurrent malignant right pleural effusion s/p PleurX catheter placement POD#2 - 290cc drained over past 24 hours - Daily CXR, improved from yesterday - Continue pleurovac to wall suction - Will possibly cap PleurX tomorrow - Discussed plan with Dr. Marisol Harper PGY-3
[2017-09-07] MEDS: Dexamethasone 4 mg/1 ml IV SCH ×4 (00:25→17:28)
--- NOTE | 2017-09-07 07:42 | CP.PCM.PN ---
<Torrey Palma - Last Filed: 09/07/17 16:17> Subjective - Date & Time of Evaluation Date of Evaluation: 09/07/17 Time of Evaluation: 07:38 - Subjective Subjective: PGY-1 medicine note. No acute events overnight. Patient seen and examined at bedside this AM. Per sister, the patient has been confused lately. Patient currently has no complaints. Patient denied chest pain, shortness of breath, abdominal pain, nausea, vomiting, diarrhea, fever, chills. Objective - Vital Signs/Intake and Output Vital Signs (last 24 hours): Temp Pulse Resp BP Pulse Ox 98.2 F 85 20 126/84 96 09/06/17 23:39 09/06/17 23:39 09/06/17 23:39 09/06/17 23:39 09/06/17 23:39 Intake and Output: 09/07/17 09/07/17 06:59 18:59 Intake Total 460 Output Total 114 Balance 346 - Medications Medications: Current Medications Acetaminophen (Tylenol 325mg Tab) 650 mg PO Q6 PRN PRN Reason: Fever >100.4 F Bacitracin (Bacitracin Opht Oint) 0 applic OU BID [facility] Last Admin: 09/06/17 17:31 Dose: 1 applic Dexamethasone (Decadron Inj) 4 mg IV Q6 [facility] Last Admin: 09/07/17 05:30 Dose: 4 mg Famotidine (Pepcid) 20 mg PO BID [facility] Last Admin: 09/06/17 17:20 Dose: 20 mg Morphine Sulfate (Morphine) 2 mg IVP Q4 PRN PRN Reason: Pain, severe (8-10) Last Admin: 09/07/17 05:50 Dose: 2 mg Ondansetron HCl (Zofran Inj) 4 mg IVP Q6 PRN PRN Reason: Nausea/Vomiting Potassium Chloride (K-Dur 20 Meq Er Tab) 40 meq PO DAILY [facility] Tramadol HCl (Ultram) 25 mg PO TID PRN PRN Reason: Pain, moderate (4-7) Last Admin: 09/01/17 11:00 Dose: 25 mg - Labs Labs: 09/06/17 07:30 09/06/17 07:30 PT 11.2 SECONDS (9.7-12.2) 09/04/17 07:03 INR 1.0 09/04/17 07:03 APTT 25 SECONDS (21-34) 09/04/17 07:03 - Additional Findings Additional findings: - Constitutional Appears: Well, No Acute Distress - Head Exam Head Exam: ATRAUMATIC, NORMAL INSPECTION - Eye Exam Eye Exam: EOMI Pupil Exam: PERRL - ENT Exam ENT Exam: Mucous Membranes Moist - Neck Exam Neck Exam: Normal Inspection. absent: Lymphadenopathy - Respiratory Exam Respiratory Exam: Clear to Ausculation Bilateral, NORMAL BREATHING PATTERN. absent: Rales, Rhonchi, Wheezes - Cardiovascular Exam Cardiovascular Exam: REGULAR RHYTHM. absent: Bradycardia, Tachycardia - GI/Abdominal Exam GI & Abdominal Exam: Soft, Normal Bowel Sounds. absent: Tenderness - Extremities Exam Extremities Exam: Normal Capillary Refill, Normal Inspection. absent: Pedal Edema - Neurological Exam Neurological Exam: Alert, Awake, Oriented x3 - Psychiatric Exam Psychiatric exam: Normal Affect, Normal Mood - Skin Skin Exam: Dry, Intact, Normal Color, Warm Additional Findings: PleurX catheter in place on right. Dressing clean/dry/ intact. Assessment and Plan (1) Metastatic breast cancer Status: Acute (2) Pulmonary emboli Status: Acute (3) Osseous metastasis Status: Acute (4) Hydropneumothorax Status: Acute (5) Brain metastasis Status: Acute (6) Prophylactic measure Status: Acute - Assessment and Plan (Free Text) Assessment: (1) Metastatic breast cancer Assessment & Plan: Heme/Onc consulted, Dr Gordon Radiation Oncologist consulted, Dr Harper Graves Patient with ongoing whole brain radiation treatment coordinated by Dr Harepr Graves at [facility] Hx of chestwall and regional amira irradiation at [facility] in 2012 Currently on chemotherapy Dexamethasone 4mg iv q6 tramadol 25mg po tid prn for pain Morphine 2mg ivp q4h prn for pain Status: Acute (2) Brain metastasis Assessment & Plan: (+) dizziness, (+) changes in speech, on admission MRI Brain 05/31/17: 1. Diffuse cerebral and cerebellar large metastatic lesions with mild surrounding vasogenic edema without evidence of mass effect, midline shift or herniation. No hydrocephalus. 2. Diffuse osteoblastic calvarial metastasis. Patient with ongoing whole brain radiation treatment coordinated by Dr Harper Graves at [facility] Status: Acute (3) Pulmonary emboli Assessment & Plan: Denies shortness of breath, cough, hemoptysis CT chest/abd/pelvis 08/31/17: Peripheral filling defect within RIGHT main pulmonary artery and probable filling defects within branches of RIGHT upper lobe pulmonary artery. Patchy and confluent groundglass/airspace disease within RIGHT lung with volume. Hold anticoagulation due to cancer metastasis to the brain and whole brain radiation. Will start AO after completed of whole brain radiation. Status: Acute (4) Hydropneumothorax Assessment & Plan: Denies shortness of breath, cough, hemoptysis Thoracic surgery consulted, Dr Damon CT chest/abd/pelvis 08/31/17: Pleural space - Large RIGHT pleural effusion with few foci of air. s/p US guided right thoracentesis 08/31/17, 1400 cc of straw colored fluid removed s/p pleurex cath placement 09/04/[address] Damon. Pleurovac to wall suction Pleural effusion to be drained q 1week initially, freqency to be adjusted based on amount of effusion to be drained Pleural fluid culture 09/04 shows no growth up to date Incentive spirometry q1h Status: Acute (5) Osseous metastasis Assessment & Plan: CT chest/abd/pelvis 08/31/17: Innumerable sclerotic lesions throughout the visualized bones. Tramadol 25mg po tid prn tylenol 650mg po q6 prn for pain Status: Acute (6) Prophylactic measure Assessment & Plan: Famotidine 20mg po bid SCDs, hold anticoagulation due to brain metastasis PT/OT eval and treat Regular Diet Palliative care consult, Sarai to have family meeting 09/07 and have sister sign POLST Status: Acute <Scott Fournier H - Last Filed: 09/07/17 18:00> Objective - Vital Signs/Intake and Output Vital Signs (last 24 hours): Temp Pulse Resp BP Pulse Ox 98.0 F 84 20 125/86 100 09/07/17 07:58 09/07/17 07:58 09/07/17 07:58 09/07/17 07:58 09/07/17 07:58 Intake and Output: 09/07/17 09/07/17 06:59 18:59 Intake Total 460 120 Output Total 114 Balance 346 120 - Medications Medications: Current Medications Acetaminophen (Tylenol 325mg Tab) 650 mg PO Q6 PRN PRN Reason: Fever >100.4 F Bacitracin (Bacitracin Opht Oint) 0 applic OU BID [facility] Last Admin: 09/07/17 17:30 Dose: 1 applic Dexamethasone (Decadron Inj) 4 mg IV Q6 [facility] Last Admin: 09/07/17 17:28 Dose: 4 mg Famotidine (Pepcid) 20 mg PO BID [facility] Last Admin: 09/07/17 17:28 Dose: 20 mg Morphine Sulfate (Morphine) 2 mg IVP Q4 PRN PRN Reason: Pain, severe (8-10) Last Admin: 09/07/17 17:37 Dose: 2 mg Ondansetron HCl (Zofran Inj) 4 mg IVP Q6 PRN PRN Reason: Nausea/Vomiting Potassium Chloride (K-Dur 20 Meq Er Tab) 40 meq PO DAILY [facility] Last Admin: 09/07/17 11:16 Dose: 40 meq Tramadol HCl (Ultram) 25 mg PO TID PRN PRN Reason: Pain, moderate (4-7) Last Admin: 09/01/17 11:00 Dose: 25 mg - Labs Labs: 09/06/17 07:30 09/06/17 07:30 PT 11.2 SECONDS (9.7-12.2) 09/04/17 07:03 INR 1.0 09/04/17 07:03 APTT 25 SECONDS (21-34) 09/04/17 07:03 Attending/Attestation - Attestation I have personally seen and examined this patient.: Yes I have fully participated in the care of the patient.: Yes I have reviewed all pertinent clinical information, including history, physical exam and plan: Yes Notes (Text): 09/07/17 18:00 Medical attending: Patient was seen and examined by me. Agree with the above note by medical lab technician. This is my first time meeting the patient. However the overall prognosis appears to be very grim. When I saw her she was not in any acute distress or concern. Our conversation was somewhat limited due to language difference however she indicated to us that she was not in any pain at the moment when I saw her. I reviewed some the previous notes and discussed with the resident about the case. Unfortunately the patient has a metastatic cancer it appears to be breast cancer in origin that spread up to a lot of the brain. Her situation is made even worse because she's had found a pulmonary embolism and she is not on anticoagulation due to concerns of the malignancy in the brain. There is also metastatic spread to the bone as well. Currently she is postop day 2 of a Pleurx catheter placement and it appears that she also had a thoracentesis done removing 1400 mL of fluid. By the time I saw her in the afternoon it appears that this catheter had already been removed. The patient is DNR and DNI. Unfortunately the overall prognosis appears to be very poor Thank you very much Scott Fournier
--- NOTE | 2017-09-07 09:44 | RAD ---
HISTORY: s/p Right PleurX catheter placement COMPARISON: Portable chest 09/06/2017. FINDINGS: Right-sided life port catheter unchanged in position. LUNGS: A large right pneumothorax persists with no significant interval change although right-sided chest tube is unchanged in position. No left-sided infiltrate or pleural effusion. Right pleural effusion was seen only in prior chest CT 09/04/2017 and likely remains quite small. No left pneumothorax. Cardiomediastinal silhouette appears stable, shifted toward the right due to volume loss from prominent right sided pulmonary collapse. OSSEOUS STRUCTURES: No significant abnormalities. VISUALIZED UPPER ABDOMEN: Normal. OTHER FINDINGS: None. IMPRESSION: Persistent large right pneumothorax with right-sided chest tube unchanged in position terminating at the medial right apex. Left lung is unremarkable.
[2017-09-07] MEDS: Bacitracin Opht OINT 3.5GM OU SCH ×2 (09:52→17:30)
[2017-09-07] MEDS: Potassium Chloride 20 mEq ER Tab PO SCH ×2 (09:52→11:16)
--- NOTE | 2017-09-07 10:31 | CP.PCM.PN ---
Subjective - Date & Time of Evaluation Date of Evaluation: 09/07/17 Time of Evaluation: 07:15 - Subjective Subjective: Thoracic Surgery Dr. Damon Pt S&E @bedside. Sister present to provide translation. pt c/o chest tightness. denies F/C, CP, SOB, N/V. tolerating diet. Objective - Vital Signs/Intake and Output Vital Signs (last 24 hours): Temp Pulse Resp BP Pulse Ox 98.0 F 84 20 125/86 100 09/07/17 07:58 09/07/17 07:58 09/07/17 07:58 09/07/17 07:58 09/07/17 07:58 Intake and Output: 09/07/17 09/07/17 06:59 18:59 Intake Total 460 Output Total 114 Balance 346 Pleurex catheter 200cc output x24hrs - Medications Medications: Current Medications Acetaminophen (Tylenol 325mg Tab) 650 mg PO Q6 PRN PRN Reason: Fever >100.4 F Bacitracin (Bacitracin Opht Oint) 0 applic OU BID [facility] Last Admin: 09/07/17 09:52 Dose: Not Given Dexamethasone (Decadron Inj) 4 mg IV Q6 [facility] Last Admin: 09/07/17 05:30 Dose: 4 mg Famotidine (Pepcid) 20 mg PO BID [facility] Last Admin: 09/07/17 09:52 Dose: Not Given Morphine Sulfate (Morphine) 2 mg IVP Q4 PRN PRN Reason: Pain, severe (8-10) Last Admin: 09/07/17 05:50 Dose: 2 mg Ondansetron HCl (Zofran Inj) 4 mg IVP Q6 PRN PRN Reason: Nausea/Vomiting Potassium Chloride (K-Dur 20 Meq Er Tab) 40 meq PO DAILY [facility] Last Admin: 09/07/17 09:52 Dose: Not Given Tramadol HCl (Ultram) 25 mg PO TID PRN PRN Reason: Pain, moderate (4-7) Last Admin: 09/01/17 11:00 Dose: 25 mg - Labs Labs: 09/06/17 07:30 09/06/17 07:30 PT 11.2 SECONDS (9.7-12.2) 09/04/17 07:03 INR 1.0 09/04/17 07:03 APTT 25 SECONDS (21-34) 09/04/17 07:03 - Constitutional Appears: Non-toxic, No Acute Distress - Head Exam Head Exam: NORMAL INSPECTION - Eye Exam Eye Exam: Normal appearance - Neck Exam Neck Exam: Normal Inspection - Respiratory Exam Respiratory Exam: NORMAL BREATHING PATTERN. absent: Accessory Muscle Use, Respiratory Distress Additional comments: dressing c/d/i - Cardiovascular Exam Cardiovascular Exam: absent: Bradycardia, Tachycardia - GI/Abdominal Exam GI & Abdominal Exam: Soft. absent: Distended, Tenderness - Extremities Exam Extremities Exam: Normal Inspection - Neurological Exam Neurological Exam: Alert, Awake, Oriented x3 - Psychiatric Exam Psychiatric exam: Normal Affect, Normal Mood - Skin Skin Exam: Dry, Intact, Normal Color, Warm Assessment and Plan - Assessment and Plan (Free Text) Assessment: 57 y/o F POD#3 s/p pleurex catheter placement - daily CXR - monitor chest tube output - may cap catheter today - Further recs per Dr. Marisol Prescott DO PGY2
--- NOTE | 2017-09-07 12:08 | CP.PCM.PN ---
Subjective - Date & Time of Evaluation Date of Evaluation: 09/07/17 Time of Evaluation: 11:56 - Subjective Subjective: Pt s/e. cxr-trapped lung with post surgical space due to non-expanding lung(comparable to post pneumonectomy space), not pneumolthorax. chest drainage-200cc/y. Pleurex cath capped by (assisted by Dr. Damon). Pleural effusion will be drained once a week initially(on Thursday). a/p: s/p Placement of Pleurex cath. Pleural effusion to be drained q 1week initiallly-freqency to be adjusted based on amount of effusion to be drained. d/w Dr Hernandez and Mrs Rocío Dean, and Napoleon, Nurse. Objective - Vital Signs/Intake and Output Vital Signs (last 24 hours): Temp Pulse Resp BP Pulse Ox 98.0 F 84 20 125/86 100 09/07/17 07:58 09/07/17 07:58 09/07/17 07:58 09/07/17 07:58 09/07/17 07:58 Intake and Output: 09/07/17 09/07/17 06:59 18:59 Intake Total 460 Output Total 114 Balance 346 - Medications Medications: Current Medications Acetaminophen (Tylenol 325mg Tab) 650 mg PO Q6 PRN PRN Reason: Fever >100.4 F Bacitracin (Bacitracin Opht Oint) 0 applic OU BID [facility] Last Admin: 09/07/17 09:52 Dose: Not Given Dexamethasone (Decadron Inj) 4 mg IV Q6 [facility] Last Admin: 09/07/17 11:16 Dose: 4 mg Famotidine (Pepcid) 20 mg PO BID [facility] Last Admin: 09/07/17 09:52 Dose: Not Given Morphine Sulfate (Morphine) 2 mg IVP Q4 PRN PRN Reason: Pain, severe (8-10) Last Admin: 09/07/17 05:50 Dose: 2 mg Ondansetron HCl (Zofran Inj) 4 mg IVP Q6 PRN PRN Reason: Nausea/Vomiting Potassium Chloride (K-Dur 20 Meq Er Tab) 40 meq PO DAILY [facility] Last Admin: 09/07/17 11:16 Dose: 40 meq Tramadol HCl (Ultram) 25 mg PO TID PRN PRN Reason: Pain, moderate (4-7) Last Admin: 09/01/17 11:00 Dose: 25 mg - Labs Labs: 09/06/17 07:30 09/06/17 07:30 PT 11.2 SECONDS (9.7-12.2) 09/04/17 07:03 INR 1.0 09/04/17 07:03 APTT 25 SECONDS (21-34) 09/04/17 07:03
--- NOTE | 2017-09-07 12:56 | CP.PCM.PCO ---
Physician Communication Note - Physician Communication Note Physician Communication Note: Family meeting at 3 pm today
--- NOTE | 2017-09-07 13:02 | CP.PCM.CON ---
History of Present Illness - History of Present Illness History of Present Illness: Palliative consult Requested by Nikki APPLE Reason: Goals of care and support Patient is a 56 yo female, admitted from home with worsening symptoms of nausea , intermittent vomiting, weakness and decreased appetite. Per record, patient had similar symptoms in the past as reaction to chemo, but not as intense as of now. Patient denied dizziness, CP, syncopy, SOB. Patient was diagnosed with malignant ascites and PleurEX catheter was placed yesterday. The MRI brain showed widely distributed mets. Metastitic disease was also found in bones. Patient is on daily Radiation therapy at [place]. PMH: Breast CA , right mastectomy in 2012, on chemo, last was last week Soc. Hx: Lives at home with sister, single Fam, Hx; No CA in family Review of Systems - Constitutional Constitutional: Weight Loss, Weakness - EENT Eyes: absent: As Per HPI, Blind Spots, Blurred Vision, Change in Vision, Decreased Night Vision, Diplopia, Discharge, Dry Eye, Exophthalmos, Floaters, Irritation, Itchy Eyes, Loss of Peripheral Vision, Pain, Photophobia, Requires Corrective Lenses, Sees Flashes, Spots in Vision, Tunnel Vision, Other Visual Disturbances, Loss of Vision, Other Ears: absent: As Per HPI, Decreased Hearing, Ear Discharge, Ear Pain, Tinnitus, Abnormal Hearing, Disequilibrium, Dizziness, Other Nose/Mouth/Throat: absent: As Per HPI, Epistaxis, Nasal Congestion, Nasal Discharge, Nasal Obstruction, Nasal Trauma, Nose Pain, Post Nasal Drip, Sinus Pain, Sinus Pressure, Bleeding Gums, Change in Voice, Dental Pain, Dry Mouth, Dysphagia, Halitosis, Hoarsness, Lip Swelling, Mouth Lesions, Mouth Pain, Odynophagia, Sore Throat, Throat Swelling, Tongue Swelling, Facial Pain, Neck Pain, Neck Mass, Other - Breasts Additional comments: Right mastectomy - Cardiovascular Cardiovascular: absent: As Per HPI, Acrocyanosis, Chest Pain, Chest Pain at Rest , Chest Pain with Activity, Claudication, Diaphoresis, Dyspnea, Dyspnea on Exertion, Edema, Irregular Heart Rhythm, Pain Radiating to Arm/Neck/Jaw, Leg Edema, Leg Ulcers, Lightheadedness, Orthopnea, Palpitations, Paroxysmal Nocturnal Dyspnea, Pedal Edema, Radiating Pain, Rapid Heart Rate, Slow Heart Rate, Syncope, Other - Respiratory Respiratory: Dyspnea on Exertion - Gastrointestinal Gastrointestinal: Nausea, Vomiting - Genitourinary Genitourinary: absent: As Per HPI, Change in Urinary Stream, Difficulty Urinating, Dysuria, Flank Pain, Hematuria, Pyuria, Nocturia, Urinary Incontinence, Urinary Frequency, Urinary Hesitance, Urinary Urgency, Voiding Freq/Small Amts, Freq UTI, Hx Renal/Bladder Calculi, Hx /Renal Surgery, Bladder Distension, Other - Reproductive: Female Reproductive:Female: Post Menopausal - Menstruation Menstruation: Post Menopausal - Musculoskeletal Musculoskeletal: Muscle Weakness - Integumentary Integumentary: Change in Pigmentation - Neurological Neurological: Focal Weakness - Psychiatric Psychiatric: Anhedonia, Change in Appetite - Endocrine Endocrine: absent: As Per HPI, Change in Body Appearance, Change in Libido, Cold Intolorance, Deepening of Voice, Excessive Sweating, Fatigue, Flushing, Heat Intolorance, Increase in Ring/Shoe/Hat Size, Palpitations, Polydipsia, Polyphagia, Polyuria, Other - Hematologic/Lymphatic Hematologic: absent: As Per HPI, Easy Bleeding, Easy Bruising, Lymphadenopathy, Other Past Patient History - Past Medical History & Family History Past Medical History?: Yes - Past Social History Smoking Status: Never Smoked Alcohol: None - CARDIAC Hx Cardiac Disorders: Yes Hx Hypertension: Yes - PULMONARY Hx Respiratory Disorders: No - NEUROLOGICAL Hx Neurological Disorder: No - HEENT Hx HEENT Problems: No - RENAL Hx Chronic Kidney Disease: No - ENDOCRINE/METABOLIC Hx Endocrine Disorders: No - HEMATOLOGICAL/ONCOLOGICAL Hx Blood Disorders: Yes Hx Cancer: Yes (BREAST WITH METS TO LUNG) Hx Chemotherapy: Yes Other/Comment: Right breast CA - INTEGUMENTARY Hx Dermatological Problems: No - MUSCULOSKELETAL/RHEUMATOLOGICAL Hx Musculoskeletal Disorders: No Hx Falls: No - GASTROINTESTINAL Hx Gastrointestinal Disorders: No - GENITOURINARY/GYNECOLOGICAL Hx Genitourinary Disorders: No - PSYCHIATRIC Hx Substance Use: No - SURGICAL HISTORY Hx Surgeries: Yes Hx Mastectomy: Yes (RIGHT BREAST MASTECTOMY 2012) Hx Vascular Access Device: Yes (RIGHT LEORA CATH) - ANESTHESIA Hx Anesthesia: Yes Hx Anesthesia Reactions: No Hx Malignant Hyperthermia: No Meds Allergies/Adverse Reactions: Allergies Allergy/AdvReac Type Severity Reaction Status Date / Time No Known Allergies Allergy Verified 08/31/17 08:03 - Medications Medications: Current Medications Acetaminophen (Tylenol 325mg Tab) 650 mg PO Q6 PRN PRN Reason: Fever >100.4 F Bacitracin (Bacitracin Opht Oint) 0 applic OU BID [facility] Last Admin: 09/07/17 09:52 Dose: Not Given Dexamethasone (Decadron Inj) 4 mg IV Q6 [facility] Last Admin: 09/07/17 11:16 Dose: 4 mg Famotidine (Pepcid) 20 mg PO BID [facility] Last Admin: 09/07/17 09:52 Dose: Not Given Morphine Sulfate (Morphine) 2 mg IVP Q4 PRN PRN Reason: Pain, severe (8-10) Last Admin: 09/07/17 05:50 Dose: 2 mg Ondansetron HCl (Zofran Inj) 4 mg IVP Q6 PRN PRN Reason: Nausea/Vomiting Potassium Chloride (K-Dur 20 Meq Er Tab) 40 meq PO DAILY [facility] Last Admin: 09/07/17 11:16 Dose: 40 meq Tramadol HCl (Ultram) 25 mg PO TID PRN PRN Reason: Pain, moderate (4-7) Last Admin: 09/01/17 11:00 Dose: 25 mg Physical Exam - Constitutional Appears: Chronically Ill - Head Exam Head Exam: ATRAUMATIC, NORMAL INSPECTION, NORMOCEPHALIC Additional comments: Hair loss - Eye Exam Eye Exam: EOMI, Normal appearance, PERRL Pupil Exam: NORMAL ACCOMODATION - ENT Exam ENT Exam: Mucous Membranes Moist, Normal Exam - Neck Exam Neck exam: Positive for: Normal Inspection - Respiratory Exam Respiratory Exam: Decreased Breath Sounds, NORMAL BREATHING PATTERN - Cardiovascular Exam Cardiovascular Exam: Tachycardia, REGULAR RHYTHM - GI/Abdominal Exam GI & Abdominal Exam: Distended, Hypoactive Bowel Sounds - Rectal Exam Rectal Exam: Deferred - Extremities Exam Extremities exam: Positive for: normal inspection - Back Exam Back exam: NORMAL INSPECTION - Neurological Exam Neurological exam: Alert, Altered - Psychiatric Exam Psychiatric exam: Depressed, Flat Affect - Skin Skin Exam: Dry, Intact, Normal Color, Warm Results - Vital Signs Recent Vital Signs: Last Vital Signs Temp 98.0 F 09/07/17 07:58 Pulse 84 09/07/17 07:58 Resp 20 09/07/17 07:58 BP 125/86 09/07/17 07:58 Pulse Ox 100 09/07/17 07:58 - Labs Result Diagrams: 09/06/17 07:30 09/06/17 07:30 Assessment & Plan - Assessment and Plan (Free Text) Assessment: Palliative consult DNR/DNI, no Living Will/Advance Directive on chart, PPS 30% I reviewed medical records, all diagnostic studies, examined and interviewed patient in the bed and spoke to her sister over the phone. Patient is alert, mildly confused, looking tired, S/P radiation at [facility]. The lunch tray was before the patient, but she refused to eat. Abdomen is softly distended, dminished bowel sounds, PleuEX cath in place. Breath sounds diminished, denies SOB. Skin intact. Right mastectomy. Right upper chest Doreen cath. Patient denies pain. Morphine and Ultram on board PRN. BP 126/86, HR 84, [id number]% RA, RR 20. WBC 9.6, hb 13.5, Na 131, AST and ALT elevated. I spoke to patient's sister Shoaib Taylor over the phone and she agreed to meet with me at 3 pm today for further goals of care discussion. Impression * This is chronically ill patient with advanced metastatic disease * It is not clear how much patient knows about her disease as she is mildly confused on exam * Patient is suffering from symptoms caused by aggressive treatments, due to metastatic disease * There is quality of life concerns * Code status is DNR/DNI; supportive legal documents are missing * Suggestion * I will meet with patient's sister at 3 pm today * Will have sister sign the POLST * Will discuses goals of care including hospice later on as disease progresses Thank yo for consulting Palliative Care
[2017-09-08] MEDS: Dexamethasone 4 mg/1 ml IV SCH ×4 (00:17→18:13)
--- NOTE | 2017-09-08 07:05 | CP.PCM.PN ---
<Torrey Palma - Last Filed: 09/08/17 15:27> Subjective - Date & Time of Evaluation Date of Evaluation: 09/08/17 Time of Evaluation: 07:01 - Subjective Subjective: PGY-[address] Fournier. No acute overnight events noted. Patient seen and examined at bedside this AM. Sister was present at bedside. She awakens to verbal stimuli, she is alert. Pleurx catheter was clamped and capped yesterday, dressing applied, remains dry and intact. Sister says patient is more drowsy lately, we'll discontinue morphine. Also with poor appetite and constipation. She denied chest pain, abdominal pain, shortness of breath, nausea, vomiting, fever, chills, diarrhea, dysuria. Objective - Vital Signs/Intake and Output Vital Signs (last 24 hours): Temp Pulse Resp BP Pulse Ox 98 F 82 20 130/80 98 09/08/17 05:30 09/08/17 05:30 09/08/17 05:30 09/08/17 05:30 09/08/17 05:30 Intake and Output: 09/08/17 09/08/17 06:59 18:59 Intake Total 370 Balance 370 - Medications Medications: Current Medications Acetaminophen (Tylenol 325mg Tab) 650 mg PO Q6 PRN PRN Reason: Fever >100.4 F Bacitracin (Bacitracin Opht Oint) 0 applic OU BID [facility] Last Admin: 09/07/17 17:30 Dose: 1 applic Dexamethasone (Decadron Inj) 4 mg IV Q6 [facility] Last Admin: 09/08/17 05:17 Dose: 4 mg Famotidine (Pepcid) 20 mg PO BID [facility] Last Admin: 09/07/17 17:28 Dose: 20 mg Morphine Sulfate (Morphine) 2 mg IVP Q4 PRN PRN Reason: Pain, severe (8-10) Last Admin: 09/08/17 05:21 Dose: 2 mg Ondansetron HCl (Zofran Inj) 4 mg IVP Q6 PRN PRN Reason: Nausea/Vomiting Potassium Chloride (K-Dur 20 Meq Er Tab) 40 meq PO DAILY [facility] Last Admin: 09/07/17 11:16 Dose: 40 meq Tramadol HCl (Ultram) 25 mg PO TID PRN PRN Reason: Pain, moderate (4-7) Last Admin: 09/01/17 11:00 Dose: 25 mg - Labs Labs: 09/06/17 07:30 09/06/17 07:30 PT 11.2 SECONDS (9.7-12.2) 09/04/17 07:03 INR 1.0 09/04/17 07:03 APTT 25 SECONDS (21-34) 09/04/17 07:03 - Additional Findings Additional findings: - Constitutional Appears: Well, No Acute Distress - Head Exam Head Exam: ATRAUMATIC, NORMAL INSPECTION, hair loss noted - Eye Exam Eye Exam: EOMI Pupil Exam: PERRL - ENT Exam ENT Exam: Mucous Membranes Moist - Neck Exam Neck Exam: Normal Inspection. absent: Lymphadenopathy - Respiratory Exam Respiratory Exam: Clear to Ausculation Bilateral, NORMAL BREATHING PATTERN. absent: Rales, Rhonchi, Wheezes - Cardiovascular Exam Cardiovascular Exam: REGULAR RHYTHM. absent: Bradycardia, Tachycardia - GI/Abdominal Exam GI & Abdominal Exam: Soft, Normal Bowel Sounds. absent: Tenderness - Extremities Exam Extremities Exam: Normal Capillary Refill, Normal Inspection. absent: Pedal Edema - Neurological Exam Neurological Exam: Alert, Awake, Oriented x3 - Psychiatric Exam Psychiatric exam: Normal Affect, Normal Mood - Skin Skin Exam: Dry, Intact, Normal Color, Warm Additional Findings: Pleurx catheter clamped and capped, dressing applied, remains dry and intact. Assessment and Plan (1) Metastatic breast cancer Status: Acute (2) Pulmonary emboli Status: Acute (3) Osseous metastasis Status: Acute (4) Hydropneumothorax Status: Acute (5) Brain metastasis Status: Acute (6) Prophylactic measure Status: Acute - Assessment and Plan (Free Text) Assessment: (1) Metastatic breast cancer Assessment & Plan: Heme/Onc consulted, Dr Gordon Radiation Oncologist consulted, Dr Harper Graves Patient with ongoing whole brain radiation treatment coordinated by Dr Harper Graves at [facility] Hx of chestwall and regional amira irradiation at [facility] in 2012 Currently on chemotherapy Dexamethasone 4mg iv q6 tramadol 25mg po tid prn for pain Morphine 2mg ivp q4h prn for pain Status: Acute (2) Brain metastasis Assessment & Plan: (+) dizziness, (+) changes in speech, on admission MRI Brain 05/31/17: 1. Diffuse cerebral and cerebellar large metastatic lesions with mild surrounding vasogenic edema without evidence of mass effect, midline shift or herniation. No hydrocephalus. 2. Diffuse osteoblastic calvarial metastasis. Patient with ongoing whole brain radiation treatment coordinated by Dr Harper Graves at [facility] Marinol 2.5mg po bid Status: Acute (3) Pulmonary emboli Assessment & Plan: Denies shortness of breath, cough, hemoptysis CT chest/abd/pelvis 08/31/17: Peripheral filling defect within RIGHT main pulmonary artery and probable filling defects within branches of RIGHT upper lobe pulmonary artery. Patchy and confluent groundglass/airspace disease within RIGHT lung with volume. Hold anticoagulation due to cancer metastasis to the brain and whole brain radiation. Will start AO after completed of whole brain radiation. Status: Acute (4) Hydropneumothorax Assessment & Plan: Denies shortness of breath, cough, hemoptysis Thoracic surgery consulted, Dr Damon CT chest/abd/pelvis 08/31/17: Pleural space - Large RIGHT pleural effusion with few foci of air. s/p US guided right thoracentesis 08/31/17, 1400 cc of straw colored fluid removed s/p pleurex cath placement 09/04/[address] Damon. Pleurovac to wall suction Pleural effusion to be drained q 1week initially, freqency to be adjusted based on amount of effusion to be drained Pleural fluid culture 09/04 shows no growth up to date Incentive spirometry q1h Status: Acute (5) Osseous metastasis Assessment & Plan: CT chest/abd/pelvis 08/31/17: Innumerable sclerotic lesions throughout the visualized bones. Tramadol 25mg po tid prn tylenol 650mg po q6 prn for pain Status: Acute (6) Prophylactic measure Assessment & Plan: Famotidine 20mg po bid SCDs, hold anticoagulation due to brain metastasis PT/OT eval and treat Regular Diet Palliative care consult, Sarai had family meeting 09/07, sister signed POLST Fluids: NS 40 cc/hr colace 100mg bid prn Status: Acute <FournierScott carpenter H - Last Filed: 09/08/17 17:21> Objective - Vital Signs/Intake and Output Vital Signs (last 24 hours): Temp Pulse Resp BP Pulse Ox 97.5 F L 96 H 20 113/71 97 09/08/17 16:00 09/08/17 16:00 09/08/17 16:00 09/08/17 16:00 09/08/17 16:00 Intake and Output: 09/08/17 09/08/17 06:59 18:59 Intake Total 370 350 Balance 370 350 - Medications Medications: Current Medications Acetaminophen (Tylenol 325mg Tab) 650 mg PO Q6 PRN PRN Reason: Fever >100.4 F Bacitracin (Bacitracin Opht Oint) 0 applic OU BID [facility] Last Admin: 09/08/17 10:41 Dose: 1 applic Dexamethasone (Decadron Inj) 4 mg IV Q6 [facility] Last Admin: 09/08/17 12:14 Dose: 4 mg Docusate Sodium (Colace) 100 mg PO BID PRN PRN Reason: Constipation Dronabinol (Marinol) 2.5 mg PO BID [facility] Famotidine (Pepcid) 20 mg PO BID [facility] Last Admin: 09/08/17 10:40 Dose: 20 mg Sodium Chloride (Sodium Chloride 0.9%) 1,000 mls @ 40 mls/hr IV .Q24H [facility] Last Admin: 09/08/17 16:16 Dose: 40 mls/hr Ondansetron HCl (Zofran Inj) 4 mg IVP Q6 PRN PRN Reason: Nausea/Vomiting Potassium Chloride (K-Dur 20 Meq Er Tab) 40 meq PO DAILY [facility] Last Admin: 09/08/17 10:40 Dose: 40 meq Tramadol HCl (Ultram) 25 mg PO TID PRN PRN Reason: Pain, moderate (4-7) Last Admin: 09/08/17 12:24 Dose: 25 mg - Labs Labs: 09/08/17 07:28 09/08/17 07:28 PT 11.2 SECONDS (9.7-12.2) 09/04/17 07:03 INR 1.0 09/04/17 07:03 APTT 25 SECONDS (21-34) 09/04/17 07:03 Attending/Attestation - Attestation I have personally seen and examined this patient.: Yes I have fully participated in the care of the patient.: Yes I have reviewed all pertinent clinical information, including history, physical exam and plan: Yes Notes (Text): 09/08/17 17:21 Medical attending: Patient was seen and examined by me, agree the above note by caregivers non medical. The patient's family member was at bedside today, the patient was okay with this. As mentioned previously in the medical residents note above. The patient is now DNR and DNI, and POLST was created today as well. The patient has been getting radiation treatments at [facility]. According to the family member at bedside her appetite has been very minimal, and she is reporting constipation. We also discussed the patient's pain medication regimen as well. Currently the patient is on morphine and this is a when necessary medication. We added tramadol as well since according to the family says what she's been taking at home. Furthermore the patient explains that it seems like her breathing is better however she still has a lot of tenderness particularly around her chest. As mentioned before the patient did have a loculated area of fluid and required a catheter drainage Thank you very much, Scott Fournier
[2017-09-08 07:39] LABS: BASO % 0.1 % (0.0-2.0); HEMATOCRIT 44.2 % (34.0-47.0); LYMPH # 0.9 K/uL (1.0-4.3); MEAN CELL VOLUME 88.1 fL (81.0-99.0); MEAN CORPUSCULAR HEMOGLOBIN 28.3 pg (27.0-31.0); MEAN CORPUSCULAR HGB CONC 32.2 g/dL (33.0-37.0); MEAN PLATELET VOLUME 8.1 fL (7.2-11.7); MONO # 0.7 K/uL (0.0-0.8); MONO % 5.9 % (0.0-10.0); PLATELET COUNT 376 K/uL (130-400); RED CELL DISTRIBUTION WIDTH 21.2 % (11.5-14.5); WHITE BLOOD COUNT 11.2 K/uL (4.8-10.8)
[2017-09-08 07:47] LABS: CHLORIDE 92 mmol/L (98-107)
[2017-09-08 07:48] LABS: POTASSIUM 3.4 mmol/L (3.6-5.2); SODIUM 131 mmol/L (132-148)
[2017-09-08 07:50] LABS: AST/SGOT 178 U/L (14-36); BILIRUBIN,TOTAL 0.9 mg/dL (0.2-1.3); BLOOD UREA NITROGEN 21 mg/dL (7-17); CARBON DIOXIDE 27 mmol/L (22-30); GFR AFRICAN-AMERICAN > 60; TOTAL PROTEIN 5.9 g/dL (6.3-8.3)
[2017-09-08 07:51] LABS: ALKALINE PHOSPHATASE 175 U/L (38-126); ALT/SGPT 366 U/L (9-52); CALCIUM 8.7 mg/dl (8.6-10.4); GLUCOSE,RANDOM 132 mg/dL (65-105)
[2017-09-08 09:37] LABS: EOSINOPHIL 1 % (0-4); NEUTROPHIL 86 % (50-75); TOTAL CELLS COUNTED 100
[2017-09-08] MEDS: Potassium Chloride 20 mEq ER Tab PO SCH (10:40)
[2017-09-08] MEDS: Bacitracin Opht OINT 3.5GM OU SCH ×2 (10:41→18:14)
--- NOTE | 2017-09-08 12:15 | CP.PCM.PN ---
Subjective - Date & Time of Evaluation Date of Evaluation: 09/08/17 Time of Evaluation: 07:00 - Subjective Subjective: THORACIC SURGERY PROGRESS NOTE FOR DR. BAILEY Patient seen and examined at bedside. Patient resting comfortably. PleurX catheter was taken off wall suction yesterday and capped. Objective - Vital Signs/Intake and Output Vital Signs (last 24 hours): Temp Pulse Resp BP Pulse Ox 98 F 82 20 130/80 98 09/08/17 05:30 09/08/17 05:30 09/08/17 05:30 09/08/17 05:30 09/08/17 05:30 Intake and Output: 09/08/17 09/08/17 06:59 18:59 Intake Total 370 Balance 370 - Medications Medications: Current Medications Acetaminophen (Tylenol 325mg Tab) 650 mg PO Q6 PRN PRN Reason: Fever >100.4 F Bacitracin (Bacitracin Opht Oint) 0 applic OU BID [facility] Last Admin: 09/08/17 10:41 Dose: 1 applic Dexamethasone (Decadron Inj) 4 mg IV Q6 [facility] Last Admin: 09/08/17 05:17 Dose: 4 mg Famotidine (Pepcid) 20 mg PO BID [facility] Last Admin: 09/08/17 10:40 Dose: 20 mg Morphine Sulfate (Morphine) 2 mg IVP Q4 PRN PRN Reason: Pain, severe (8-10) Last Admin: 09/08/17 05:21 Dose: 2 mg Ondansetron HCl (Zofran Inj) 4 mg IVP Q6 PRN PRN Reason: Nausea/Vomiting Potassium Chloride (K-Dur 20 Meq Er Tab) 40 meq PO DAILY [facility] Last Admin: 09/08/17 10:40 Dose: 40 meq Tramadol HCl (Ultram) 25 mg PO TID PRN PRN Reason: Pain, moderate (4-7) Last Admin: 09/01/17 11:00 Dose: 25 mg - Labs Labs: 09/08/17 07:28 09/08/17 07:28 PT 11.2 SECONDS (9.7-12.2) 09/04/17 07:03 INR 1.0 09/04/17 07:03 APTT 25 SECONDS (21-34) 09/04/17 07:03 - Constitutional Appears: Non-toxic, No Acute Distress - Respiratory Exam Respiratory Exam: NORMAL BREATHING PATTERN. absent: Respiratory Distress - Cardiovascular Exam Cardiovascular Exam: +S1, +S2 Assessment and Plan - Assessment and Plan (Free Text) Assessment: 57yo F with recurrent malignant right pleural effusion s/p PleurX catheter placement POD#4 - CXR: trapped lung with post surgical space due to non-expanding lung (not pneumothorax) - PleurX catheter capped yesterday - Will drain pleural effusion once a week initially and then adjust frequency based on amount of effusion - Will repeat CXR Thursday and drain on Thursday - Discussed plan with Dr. Marisol Harper PGY-3
[2017-09-08] MEDS: Tramadol 25 mg PO PRN (12:24)
--- NOTE | 2017-09-08 12:26 | RAD ---
HISTORY: s/p Right PleurX catheter placement COMPARISON: 09/07/2017 FINDINGS: LUNGS: Persistent moderate to large right pneumothorax. No change compared to prior examination. Right pleural catheter unchanged in position. No left pneumothorax. No pulmonary infiltrate appreciated. PLEURA: No pleural effusion. Pneumothorax some as above on the right side. CARDIOVASCULAR: Normal. OSSEOUS STRUCTURES: Scattered sclerotic foci bilaterally in the proximal humerus, consistent with sclerotic osseous metastasis as previously demonstrated. VISUALIZED UPPER ABDOMEN: Normal. OTHER FINDINGS: None. IMPRESSION: Persistent moderate to large right pneumothorax. Right chest tube unchanged in position.
[2017-09-08] MEDS: Sodium Chloride 0.9% 1,000 ML IV SCH (16:16)
--- NOTE | 2017-09-08 20:06 | CP.PCM.PN ---
Subjective - Date & Time of Evaluation Date of Evaluation: 09/08/17 Time of Evaluation: 19:15 - Subjective Subjective: Appears comfortable, drowsy Objective - Vital Signs/Intake and Output Vital Signs (last 24 hours): Temp Pulse Resp BP Pulse Ox 97.5 F L 96 H 20 113/71 97 09/08/17 16:00 09/08/17 16:00 09/08/17 16:00 09/08/17 16:00 09/08/17 16:00 Intake and Output: 09/08/17 09/09/17 18:59 06:59 Intake Total 350 Balance 350 - Medications Medications: Current Medications Acetaminophen (Tylenol 325mg Tab) 650 mg PO Q6 PRN PRN Reason: Fever >100.4 F Bacitracin (Bacitracin Opht Oint) 0 applic OU BID [facility] Last Admin: 09/08/17 18:14 Dose: 1 applic Dexamethasone (Decadron Inj) 4 mg IV Q6 [facility] Last Admin: 09/08/17 18:13 Dose: 4 mg Docusate Sodium (Colace) 100 mg PO BID PRN PRN Reason: Constipation Dronabinol (Marinol) 2.5 mg PO BID [facility] Last Admin: 09/08/17 18:13 Dose: 2.5 mg Famotidine (Pepcid) 20 mg PO BID [facility] Last Admin: 09/08/17 18:13 Dose: 20 mg Sodium Chloride (Sodium Chloride 0.9%) 1,000 mls @ 40 mls/hr IV .Q24H [facility] Last Admin: 09/08/17 16:16 Dose: 40 mls/hr Ondansetron HCl (Zofran Inj) 4 mg IVP Q6 PRN PRN Reason: Nausea/Vomiting Potassium Chloride (K-Dur 20 Meq Er Tab) 40 meq PO DAILY [facility] Last Admin: 09/08/17 10:40 Dose: 40 meq Tramadol HCl (Ultram) 25 mg PO TID PRN PRN Reason: Pain, moderate (4-7) Last Admin: 09/08/17 12:24 Dose: 25 mg - Labs Labs: 09/08/17 07:28 09/08/17 07:28 PT 11.2 SECONDS (9.7-12.2) 09/04/17 07:03 INR 1.0 09/04/17 07:03 APTT 25 SECONDS (21-34) 09/04/17 07:03 - Head Exam Head Exam: ATRAUMATIC - Eye Exam Eye Exam: Normal appearance - ENT Exam ENT Exam: Mucous Membranes Dry - Respiratory Exam Respiratory Exam: Decreased Breath Sounds - Cardiovascular Exam Cardiovascular Exam: +S1, +S2 - GI/Abdominal Exam GI & Abdominal Exam: Normal Bowel Sounds Assessment and Plan (1) Brain metastasis Assessment & Plan: receiving whole brain radiotherapy anticoauglation post radiation Status: Acute (2) Pleural effusion Assessment & Plan: s/p pleurex catheter likely malignant Status: Acute (3) Pulmonary emboli Assessment & Plan: anticoagulation post radiotherapy Status: Acute (4) Breast cancer Assessment & Plan: stage IV patients sister hopeful she an receive more treatment to improve condition Status: Acute
[2017-09-09] MEDS: Dexamethasone 4 mg/1 ml IV SCH ×5 (00:08→18:24)
[2017-09-09] MEDS: Tramadol 25 mg PO PRN ×2 (00:09→09:28)
--- NOTE | 2017-09-09 07:03 | CP.PCM.PN ---
<Torrey Palma R - Last Filed: 09/09/17 12:44> Subjective - Date & Time of Evaluation Date of Evaluation: 09/09/17 Time of Evaluation: 07:00 - Subjective Subjective: PGY-[address] Fournier. No acute events overnight. Patient seen and examined at bedside this AM. She was asleep and easily arousable to verbal and tactile stimuli. Respiration easy and regular. Per sister the patient has had decreased appetite and prefers softer foods. She shook her head when I asked her if she had pain in her chest, abdomen, or head. Objective - Vital Signs/Intake and Output Vital Signs (last 24 hours): Temp Pulse Resp BP Pulse Ox 97.5 F L 81 20 129/89 99 09/09/17 00:00 09/09/17 00:00 09/09/17 00:00 09/09/17 00:00 09/09/17 00:00 Intake and Output: 09/09/17 09/09/17 06:59 18:59 Intake Total 400 Balance 400 - Medications Medications: Current Medications Acetaminophen (Tylenol 325mg Tab) 650 mg PO Q6 PRN PRN Reason: Fever >100.4 F Bacitracin (Bacitracin Opht Oint) 0 applic OU BID [facility] Last Admin: 09/08/17 18:14 Dose: 1 applic Dexamethasone (Decadron Inj) 4 mg IV Q6 [facility] Last Admin: 09/09/17 00:08 Dose: 4 mg Docusate Sodium (Colace) 100 mg PO BID PRN PRN Reason: Constipation Dronabinol (Marinol) 2.5 mg PO BID [facility] Last Admin: 09/08/17 18:13 Dose: 2.5 mg Famotidine (Pepcid) 20 mg PO BID [facility] Last Admin: 09/08/17 18:13 Dose: 20 mg Sodium Chloride (Sodium Chloride 0.9%) 1,000 mls @ 40 mls/hr IV .Q24H [facility] Last Admin: 09/08/17 16:16 Dose: 40 mls/hr Ondansetron HCl (Zofran Inj) 4 mg IVP Q6 PRN PRN Reason: Nausea/Vomiting Potassium Chloride (K-Dur 20 Meq Er Tab) 40 meq PO DAILY [facility] Last Admin: 09/08/17 10:40 Dose: 40 meq Tramadol HCl (Ultram) 25 mg PO TID PRN PRN Reason: Pain, moderate (4-7) Last Admin: 09/09/17 00:09 Dose: 25 mg - Labs Labs: 09/08/17 07:28 09/08/17 07:28 PT 11.2 SECONDS (9.7-12.2) 09/04/17 07:03 INR 1.0 09/04/17 07:03 APTT 25 SECONDS (21-34) 09/04/17 07:03 - Additional Findings Additional findings: - Constitutional Appears: Well, No Acute Distress - Head Exam Head Exam: ATRAUMATIC, NORMAL INSPECTION, hair loss noted - Eye Exam Eye Exam: EOMI Pupil Exam: PERRL - ENT Exam ENT Exam: Mucous Membranes Moist - Neck Exam Neck Exam: Normal Inspection. absent: Lymphadenopathy - Respiratory Exam Respiratory Exam: Clear to Ausculation Bilateral, NORMAL BREATHING PATTERN. absent: Rales, Rhonchi, Wheezes - Cardiovascular Exam Cardiovascular Exam: REGULAR RHYTHM. absent: Bradycardia, Tachycardia - GI/Abdominal Exam GI & Abdominal Exam: Soft, Normal Bowel Sounds. absent: Tenderness - Extremities Exam Extremities Exam: Normal Capillary Refill, Normal Inspection. absent: Pedal Edema - Neurological Exam Neurological Exam: Alert, Awake, Oriented x3 - Psychiatric Exam Psychiatric exam: Normal Affect, Normal Mood - Skin Skin Exam: Dry, Intact, Normal Color, Warm Additional Findings: Pleurx catheter clamped and capped, dressing applied, remains dry and intact. Assessment and Plan (1) Metastatic breast cancer Status: Acute (2) Pulmonary emboli Status: Acute (3) Osseous metastasis Status: Acute (4) Hydropneumothorax Status: Acute (5) Brain metastasis Status: Acute (6) Prophylactic measure Status: Acute - Assessment and Plan (Free Text) Assessment: (1) Metastatic breast cancer Assessment & Plan: Heme/Onc consulted, Dr Gordon Radiation Oncologist consulted, Dr Harper Graves Patient with ongoing whole brain radiation treatment coordinated by Dr Harper Graves at [facility] Hx of chestwall and regional amira irradiation at [facility] in 2012 Currently on chemotherapy Dexamethasone 4mg iv q6 tramadol 25mg po tid prn for pain Status: Acute (2) Brain metastasis Assessment & Plan: (+) dizziness, (+) changes in speech, on admission MRI Brain 05/31/17: 1. Diffuse cerebral and cerebellar large metastatic lesions with mild surrounding vasogenic edema without evidence of mass effect, midline shift or herniation. No hydrocephalus. 2. Diffuse osteoblastic calvarial metastasis. Patient with ongoing whole brain radiation treatment coordinated by Dr Harper Graves at [facility] Marinol 2.5mg po bid to stimulate appetite Status: Acute (3) Pulmonary emboli Assessment & Plan: Denies shortness of breath, cough, hemoptysis CT chest/abd/pelvis 08/31/17: Peripheral filling defect within RIGHT main pulmonary artery and probable filling defects within branches of RIGHT upper lobe pulmonary artery. Patchy and confluent groundglass/airspace disease within RIGHT lung with volume. Hold anticoagulation due to cancer metastasis to the brain and whole brain radiation. Will start AO after completed of whole brain radiation. Status: Acute (4) Hydropneumothorax Assessment & Plan: Denies shortness of breath, cough, hemoptysis Thoracic surgery consulted, Dr Damon CT chest/abd/pelvis 08/31/17: Pleural space - Large RIGHT pleural effusion with few foci of air. s/p US guided right thoracentesis 08/31/17, 1400 cc of straw colored fluid removed s/p pleurex cath placement 09/04/[address] Damon. Pleurovac to wall suction Pleural effusion to be drained q 1week initially, frequency to be adjusted based on amount of effusion to be drained Pleural fluid culture 09/04 shows no growth up to date Incentive spirometry q1h Status: Acute (5) Osseous metastasis Assessment & Plan: CT chest/abd/pelvis 08/31/17: Innumerable sclerotic lesions throughout the visualized bones. Tramadol 25mg po tid prn tylenol 650mg po q6 prn for pain Status: Acute (6) Prophylactic measure Assessment & Plan: Famotidine 20mg po bid SCDs, hold anticoagulation due to brain metastasis PT/OT eval and treat Regular Diet Palliative care consult, Sarai had family meeting 09/07, sister signed POLST Fluids: NS 40 cc/hr colace 100mg bid prn Status: Acute <Scott Fournier H - Last Filed: 09/09/17 17:35> Objective - Vital Signs/Intake and Output Vital Signs (last 24 hours): Temp Pulse Resp BP Pulse Ox 98.0 F 74 20 126/87 99 09/09/17 16:14 09/09/17 16:14 09/09/17 16:14 09/09/17 16:14 09/09/17 16:14 Intake and Output: 09/09/17 09/09/17 06:59 18:59 Intake Total 400 960 Balance 400 960 - Medications Medications: Current Medications Acetaminophen (Tylenol 325mg Tab) 650 mg PO Q6 PRN PRN Reason: Fever >100.4 F Bacitracin (Bacitracin Opht Oint) 0 applic OU BID [facility] Last Admin: 09/09/17 11:45 Dose: 1 applic Dexamethasone (Decadron Inj) 4 mg IV Q6 [facility] Last Admin: 09/09/17 14:43 Dose: 4 mg Docusate Sodium (Colace) 100 mg PO BID PRN PRN Reason: Constipation Last Admin: 09/09/17 11:34 Dose: 100 mg Dronabinol (Marinol) 2.5 mg PO BID [facility] Last Admin: 09/09/17 11:33 Dose: 2.5 mg Famotidine (Pepcid) 20 mg PO BID [facility] Last Admin: 09/09/17 11:34 Dose: 20 mg Sodium Chloride (Sodium Chloride 0.9%) 1,000 mls @ 40 mls/hr IV .Q24H [facility] Last Admin: 09/08/17 16:16 Dose: 40 mls/hr Ondansetron HCl (Zofran Inj) 4 mg IVP Q6 PRN PRN Reason: Nausea/Vomiting Potassium Chloride (K-Dur 20 Meq Er Tab) 40 meq PO DAILY [facility] Last Admin: 09/09/17 11:33 Dose: 40 meq Tramadol HCl (Ultram) 25 mg PO TID PRN PRN Reason: Pain, moderate (4-7) Last Admin: 09/09/17 09:28 Dose: 25 mg - Labs Labs: 09/09/17 07:33 09/09/17 07:33 PT 11.2 SECONDS (9.7-12.2) 09/04/17 07:03 INR 1.0 09/04/17 07:03 APTT 25 SECONDS (21-34) 09/04/17 07:03 Attending/Attestation - Attestation I have personally seen and examined this patient.: Yes I have fully participated in the care of the patient.: Yes I have reviewed all pertinent clinical information, including history, physical exam and plan: Yes Notes (Text): 09/09/17 17:35 Medical attending: Patient was seen and examined by me, agrees the above note by medical transcription radiology. The patient later underwent radiation treatment at [facility] today other than this the situation has not changed significantly from before. The overall prognosis unfortunately appears to be quite poor Hopefully the Marinol will help with the patient's minimal appetite. We also have her on a slow intravenous fluids as well we should also check a chest x-ray Thank you very much, Scott Fournier
[2017-09-09 07:47] LABS: BASO % 0.1 % (0.0-2.0); HEMATOCRIT 40.4 % (34.0-47.0); LYMPH % 8.9 % (20.0-40.0); MEAN CELL VOLUME 88.4 fL (81.0-99.0); MEAN CORPUSCULAR HEMOGLOBIN 29.3 pg (27.0-31.0); MEAN CORPUSCULAR HGB CONC 33.1 g/dL (33.0-37.0); MEAN PLATELET VOLUME 7.8 fL (7.2-11.7); MONO # 0.7 K/uL (0.0-0.8); MONO % 6.5 % (0.0-10.0); PLATELET COUNT 301 K/uL (130-400); RED CELL DISTRIBUTION WIDTH 21.3 % (11.5-14.5); WHITE BLOOD COUNT 10.7 K/uL (4.8-10.8)
[2017-09-09 08:44] LABS: CHLORIDE 94 mmol/L (98-107); POTASSIUM 3.9 mmol/L (3.6-5.2); SODIUM 129 mmol/L (132-148)
[2017-09-09 08:46] LABS: AST/SGOT 119 U/L (14-36); BILIRUBIN,TOTAL 0.8 mg/dL (0.2-1.3); CARBON DIOXIDE 26 mmol/L (22-30); GFR AFRICAN-AMERICAN > 60
[2017-09-09 08:47] LABS: ALB/GLOB RATIO 1.9 (1.0-2.1); ALKALINE PHOSPHATASE 154 U/L (38-126); ALT/SGPT 349 U/L (9-52); BLOOD UREA NITROGEN 22 mg/dL (7-17); CALCIUM 8.5 mg/dl (8.6-10.4); GLUCOSE,RANDOM 132 mg/dL (65-105); TOTAL PROTEIN 5.3 g/dL (6.3-8.3)
[2017-09-09 09:54] LABS: NEUTROPHIL 89 % (50-75); TOTAL CELLS COUNTED 100
[2017-09-09] MEDS: Bacitracin Opht OINT 3.5GM OU SCH ×3 (11:30→18:25)
[2017-09-09] MEDS: Potassium Chloride 20 mEq ER Tab PO SCH (11:33)
[2017-09-09] MEDS: Sodium Chloride 0.9% 1,000 ML IV SCH (18:26)
[2017-09-10] MEDS: Dexamethasone 4 mg/1 ml IV SCH ×4 (00:43→17:50)
--- NOTE | 2017-09-10 07:01 | CP.PCM.PN ---
<Torrey Palma - Last Filed: 09/10/17 13:06> Subjective - Date & Time of Evaluation Date of Evaluation: 09/10/17 Time of Evaluation: 06:59 - Subjective Subjective: PGY-[address] Fournier. No acute events overnight. Patient seen and examined at bedside this AM. She was asleep and easily arousable to verbal and tactile stimuli. Respiration easy and regular. She shook her head when I asked her if she had pain in her chest, abdomen, or head. She is again scheduled to go to [place] this morning for another round of whole brain radiation therapy. Objective - Vital Signs/Intake and Output Vital Signs (last 24 hours): Temp Pulse Resp BP Pulse Ox 98.5 F 78 20 139/78 97 09/09/17 23:46 09/09/17 23:46 09/09/17 23:46 09/09/17 23:46 09/09/17 23:46 Intake and Output: 09/09/17 09/10/17 18:59 06:59 Intake Total 960 Balance 960 - Medications Medications: Current Medications Acetaminophen (Tylenol 325mg Tab) 650 mg PO Q6 PRN PRN Reason: Fever >100.4 F Bacitracin (Bacitracin Opht Oint) 0 applic OU BID [facility] Last Admin: 09/09/17 18:25 Dose: 1 applic Dexamethasone (Decadron Inj) 4 mg IV Q6 [facility] Last Admin: 09/10/17 06:21 Dose: 4 mg Docusate Sodium (Colace) 100 mg PO BID PRN PRN Reason: Constipation Last Admin: 09/09/17 18:25 Dose: 100 mg Dronabinol (Marinol) 2.5 mg PO BID [facility] Last Admin: 09/09/17 18:25 Dose: 2.5 mg Famotidine (Pepcid) 20 mg PO BID [facility] Last Admin: 09/09/17 18:25 Dose: 20 mg Sodium Chloride (Sodium Chloride 0.9%) 1,000 mls @ 40 mls/hr IV .Q24H [facility] Last Admin: 09/09/17 18:26 Dose: 40 mls/hr Ondansetron HCl (Zofran Inj) 4 mg IVP Q6 PRN PRN Reason: Nausea/Vomiting Potassium Chloride (K-Dur 20 Meq Er Tab) 40 meq PO DAILY [facility] Last Admin: 09/09/17 11:33 Dose: 40 meq Tramadol HCl (Ultram) 25 mg PO TID PRN PRN Reason: Pain, moderate (4-7) Last Admin: 09/09/17 09:28 Dose: 25 mg - Labs Labs: 09/09/17 07:33 09/09/17 07:33 PT 11.2 SECONDS (9.7-12.2) 09/04/17 07:03 INR 1.0 09/04/17 07:03 APTT 25 SECONDS (21-34) 09/04/17 07:03 - Additional Findings Additional findings: - Constitutional Appears: Well, No Acute Distress - Head Exam Head Exam: ATRAUMATIC, NORMAL INSPECTION, hair loss noted - Eye Exam Eye Exam: EOMI Pupil Exam: PERRL - ENT Exam ENT Exam: Mucous Membranes Moist - Neck Exam Neck Exam: Normal Inspection. absent: Lymphadenopathy - Respiratory Exam Respiratory Exam: Clear to Ausculation Bilateral, NORMAL BREATHING PATTERN. absent: Rales, Rhonchi, Wheezes - Cardiovascular Exam Cardiovascular Exam: REGULAR RHYTHM. absent: Bradycardia, Tachycardia - GI/Abdominal Exam GI & Abdominal Exam: Soft, Normal Bowel Sounds. absent: Tenderness - Extremities Exam Extremities Exam: Normal Capillary Refill, Normal Inspection. absent: Pedal Edema - Neurological Exam Neurological Exam: Alert, Awake, Oriented x3 - Psychiatric Exam Psychiatric exam: Normal Affect, Normal Mood - Skin Skin Exam: Dry, Intact, Normal Color, Warm Additional Findings: Pleurx catheter clamped and capped, dressing applied, remains dry and intact. Assessment and Plan (1) Metastatic breast cancer Status: Acute (2) Pulmonary emboli Status: Acute (3) Osseous metastasis Status: Acute (4) Hydropneumothorax Status: Acute (5) Brain metastasis Status: Acute (6) Prophylactic measure Status: Acute - Assessment and Plan (Free Text) Assessment: (1) Metastatic breast cancer Assessment & Plan: Heme/Onc consulted, Dr Gordon Radiation Oncologist consulted, Dr Harper Graves Patient with ongoing whole brain radiation treatment coordinated by Dr Harper Graves at [facility] Hx of chestwall and regional amira irradiation at [facility] in 2012 Currently on chemotherapy Dexamethasone 4mg iv q6 tramadol 25mg po tid prn for pain Status: Acute (2) Brain metastasis Assessment & Plan: (+) dizziness, (+) changes in speech, on admission MRI Brain 05/31/17: 1. Diffuse cerebral and cerebellar large metastatic lesions with mild surrounding vasogenic edema without evidence of mass effect, midline shift or herniation. No hydrocephalus. 2. Diffuse osteoblastic calvarial metastasis. Patient with ongoing whole brain radiation treatment coordinated by Dr Harper Graves at [facility] Marinol 2.5mg po bid to stimulate appetite Status: Acute (3) Pulmonary emboli Assessment & Plan: Denies shortness of breath, cough, hemoptysis CT chest/abd/pelvis 08/31/17: Peripheral filling defect within RIGHT main pulmonary artery and probable filling defects within branches of RIGHT upper lobe pulmonary artery. Patchy and confluent groundglass/airspace disease within RIGHT lung with volume. Hold anticoagulation due to cancer metastasis to the brain and whole brain radiation. Will start AO after completed of whole brain radiation. Status: Acute (4) Hydropneumothorax Assessment & Plan: Denies shortness of breath, cough, hemoptysis Thoracic surgery consulted, Dr Damon CT chest/abd/pelvis 08/31/17: Pleural space - Large RIGHT pleural effusion with few foci of air. s/p US guided right thoracentesis 08/31/17, 1400 cc of straw colored fluid removed s/p pleurex cath placement 09/04/[address] Damon. Pleurovac to wall suction Pleural effusion to be drained q 1week initially, frequency to be adjusted based on amount of effusion to be drained Pleural fluid culture 09/04 shows no growth up to date Incentive spirometry q1h Status: Acute (5) Osseous metastasis Assessment & Plan: CT chest/abd/pelvis 08/31/17: Innumerable sclerotic lesions throughout the visualized bones. Tramadol 25mg po tid prn tylenol 650mg po q6 prn for pain Status: Acute (6) Prophylactic measure Assessment & Plan: Famotidine 20mg po bid SCDs, hold anticoagulation due to brain metastasis PT/OT eval and treat Regular Diet Palliative care consult, Sarai had family meeting 09/07, sister signed POLST Fluids: NS 40 cc/hr colace 100mg bid prn Status: Acute <Scott Fournier H - Last Filed: 09/10/17 17:31> Objective - Vital Signs/Intake and Output Vital Signs (last 24 hours): Temp Pulse Resp BP Pulse Ox 98.7 F 82 20 125/79 95 09/10/17 16:03 09/10/17 16:05 09/10/17 16:03 09/10/17 16:05 09/10/17 16:05 Intake and Output: 09/10/17 09/10/17 06:59 18:59 Intake Total 1180 Output Total 950 Balance 230 - Medications Medications: Current Medications Acetaminophen (Tylenol 325mg Tab) 650 mg PO Q6 PRN PRN Reason: Fever >100.4 F Bacitracin (Bacitracin Opht Oint) 0 applic OU BID [facility] Last Admin: 09/10/17 10:00 Dose: Not Given Dexamethasone (Decadron Inj) 4 mg IV Q6 [facility] Last Admin: 09/10/17 11:24 Dose: 4 mg Docusate Sodium (Colace) 100 mg PO BID PRN PRN Reason: Constipation Last Admin: 09/09/17 18:25 Dose: 100 mg Dronabinol (Marinol) 2.5 mg PO BID [facility] Last Admin: 09/10/17 11:04 Dose: 2.5 mg Famotidine (Pepcid) 20 mg PO BID [facility] Last Admin: 09/10/17 11:02 Dose: 20 mg Sodium Chloride (Sodium Chloride 0.9%) 1,000 mls @ 40 mls/hr IV .Q24H [facility] Last Admin: 09/10/17 16:19 Dose: 40 mls/hr Ondansetron HCl (Zofran Inj) 4 mg IVP Q6 PRN PRN Reason: Nausea/Vomiting Potassium Chloride (K-Dur 20 Meq Er Tab) 40 meq PO DAILY [facility] Last Admin: 09/10/17 11:03 Dose: 40 meq Tramadol HCl (Ultram) 25 mg PO TID PRN PRN Reason: Pain, moderate (4-7) Last Admin: 09/09/17 09:28 Dose: 25 mg - Labs Labs: 09/10/17 07:55 09/10/17 07:55 PT 11.2 SECONDS (9.7-12.2) 09/04/17 07:03 INR 1.0 09/04/17 07:03 APTT 25 SECONDS (21-34) 09/04/17 07:03 Attending/Attestation - Attestation I have personally seen and examined this patient.: Yes I have fully participated in the care of the patient.: Yes I have reviewed all pertinent clinical information, including history, physical exam and plan: Yes Notes (Text): 09/10/17 17:30 Medical attending: Patient was seen and examined by me, agree with the above note by medical technologist. When we saw the patient she had not yet had radiation treatment at [facility]. I asked her about her pain and she said that as long as she does not move she does not have pain however examination even to light palpation of her chest and abdomen she reports that this is painful to her. The patient is currently taking tramadol when necessary for pain. She is also on Decadron as well Thank you very much, Scott Fournier
[2017-09-10 08:08] LABS: BASO % 0.1 % (0.0-2.0); EOS % 0.1 % (0.0-4.0); HEMATOCRIT 39.4 % (34.0-47.0); LYMPH # 0.9 K/uL (1.0-4.3); LYMPH % 10.5 % (20.0-40.0); MEAN CELL VOLUME 88.7 fL (81.0-99.0); MEAN CORPUSCULAR HEMOGLOBIN 29.6 pg (27.0-31.0); MEAN CORPUSCULAR HGB CONC 33.3 g/dL (33.0-37.0); MEAN PLATELET VOLUME 8.1 fL (7.2-11.7); MONO # 0.5 K/uL (0.0-0.8); MONO % 6.5 % (0.0-10.0); NRBC % 0.1 % (0.0-2.0); RED CELL DISTRIBUTION WIDTH 20.7 % (11.5-14.5); WHITE BLOOD COUNT 8.3 K/uL (4.8-10.8)
[2017-09-10 08:48] LABS: CHLORIDE 94 mmol/L (98-107)
[2017-09-10 08:49] LABS: POTASSIUM 3.6 mmol/L (3.6-5.2); SODIUM 129 mmol/L (132-148)
[2017-09-10 08:51] LABS: AST/SGOT 57 U/L (14-36); BILIRUBIN,TOTAL 0.5 mg/dL (0.2-1.3); CARBON DIOXIDE 27 mmol/L (22-30); GFR AFRICAN-AMERICAN > 60
[2017-09-10 08:52] LABS: ALB/GLOB RATIO 1.3 (1.0-2.1); ALKALINE PHOSPHATASE 154 U/L (38-126); ALT/SGPT 248 U/L (9-52); BLOOD UREA NITROGEN 17 mg/dL (7-17); CALCIUM 8.6 mg/dl (8.6-10.4); GLUCOSE,RANDOM 117 mg/dL (65-105); TOTAL PROTEIN 6.1 g/dL (6.3-8.3)
[2017-09-10] MEDS: Bacitracin Opht OINT 3.5GM OU SCH ×2 (10:00→18:08)
[2017-09-10] MEDS: Potassium Chloride 20 mEq ER Tab PO SCH (11:03)
[2017-09-10] MEDS: Sodium Chloride 0.9% 1,000 ML IV SCH (16:19)
--- NOTE | 2017-09-10 21:52 | CP.PCM.PN ---
Subjective - Date & Time of Evaluation Date of Evaluation: 09/10/17 Time of Evaluation: 13:00 - Subjective Subjective: No complaints, sister at bedside Objective - Vital Signs/Intake and Output Vital Signs (last 24 hours): Temp Pulse Resp BP Pulse Ox 98.7 F 82 20 125/79 95 09/10/17 16:03 09/10/17 16:05 09/10/17 16:03 09/10/17 16:05 09/10/17 16:05 Intake and Output: 09/10/17 09/11/17 18:59 06:59 Intake Total 1180 Output Total 950 Balance 230 - Medications Medications: Current Medications Acetaminophen (Tylenol 325mg Tab) 650 mg PO Q6 PRN PRN Reason: Fever >100.4 F Bacitracin (Bacitracin Opht Oint) 0 applic OU BID [facility] Last Admin: 09/10/17 18:08 Dose: 1 applic Dexamethasone (Decadron Inj) 4 mg IV Q6 [facility] Last Admin: 09/10/17 17:50 Dose: 4 mg Docusate Sodium (Colace) 100 mg PO BID PRN PRN Reason: Constipation Last Admin: 09/10/17 18:09 Dose: 100 mg Dronabinol (Marinol) 2.5 mg PO BID [facility] Last Admin: 09/10/17 17:51 Dose: 2.5 mg Famotidine (Pepcid) 20 mg PO BID [facility] Last Admin: 09/10/17 17:51 Dose: 20 mg Sodium Chloride (Sodium Chloride 0.9%) 1,000 mls @ 40 mls/hr IV .Q24H [facility] Last Admin: 09/10/17 16:19 Dose: 40 mls/hr Ondansetron HCl (Zofran Inj) 4 mg IVP Q6 PRN PRN Reason: Nausea/Vomiting Potassium Chloride (K-Dur 20 Meq Er Tab) 40 meq PO DAILY [facility] Last Admin: 09/10/17 11:03 Dose: 40 meq Tramadol HCl (Ultram) 25 mg PO TID PRN PRN Reason: Pain, moderate (4-7) Last Admin: 09/09/17 09:28 Dose: 25 mg - Labs Labs: 09/10/17 07:55 09/10/17 07:55 PT 11.2 SECONDS (9.7-12.2) 09/04/17 07:03 INR 1.0 09/04/17 07:03 APTT 25 SECONDS (21-34) 09/04/17 07:03 - Eye Exam Eye Exam: Normal appearance - ENT Exam ENT Exam: Mucous Membranes Dry - Respiratory Exam Respiratory Exam: Decreased Breath Sounds - Cardiovascular Exam Cardiovascular Exam: +S1, +S2 - GI/Abdominal Exam GI & Abdominal Exam: Normal Bowel Sounds Assessment and Plan (1) Brain metastasis Assessment & Plan: receiving whole brain radiotherapy Status: Acute (2) Pleural effusion Assessment & Plan: malignant s/p pleurx catheter Status: Acute (3) Pulmonary emboli Assessment & Plan: provoked from malignancy anticoagulation on hold pending completion of radiotherapy to diffuse brain mets Status: Acute (4) Breast cancer Assessment & Plan: stage IV future therapy dependent on patients clinical status post radiotherapy; discussed at length with the patients sister Status: Acute
[2017-09-11] MEDS: Dexamethasone 4 mg/1 ml IV SCH ×4 (00:29→17:23)
[2017-09-11] MEDS: Tramadol 25 mg PO PRN ×2 (02:39→17:24)
--- NOTE | 2017-09-11 07:14 | CP.PCM.PN ---
<MinervaTorrey R - Last Filed: 09/11/17 12:36> Subjective - Date & Time of Evaluation Date of Evaluation: 09/11/17 Time of Evaluation: 07:10 - Subjective Subjective: PGY-[address] Fournier. No acute events overnight. Patient seen and examined at bedside this AM. She was asleep and easily arousable to verbal and tactile stimuli. Respiration easy and regular. She shook her head when I asked her if she had pain in her chest, abdomen, or head. She is again scheduled to go to [place] this morning for another round of whole brain radiation therapy. Per sister, the radiation therapy will end next week. Objective - Vital Signs/Intake and Output Vital Signs (last 24 hours): Temp Pulse Resp BP Pulse Ox 98.3 F 79 20 124/82 98 09/11/17 00:00 09/11/17 00:00 09/11/17 00:00 09/11/17 00:00 09/11/17 00:00 Intake and Output: 09/11/17 09/11/17 06:59 18:59 Intake Total 520 Output Total 300 Balance 220 - Medications Medications: Current Medications Acetaminophen (Tylenol 325mg Tab) 650 mg PO Q6 PRN PRN Reason: Fever >100.4 F Bacitracin (Bacitracin Opht Oint) 0 applic OU BID [facility] Last Admin: 09/10/17 18:08 Dose: 1 applic Dexamethasone (Decadron Inj) 4 mg IV Q6 [facility] Last Admin: 09/11/17 06:12 Dose: 4 mg Docusate Sodium (Colace) 100 mg PO BID PRN PRN Reason: Constipation Last Admin: 09/10/17 18:09 Dose: 100 mg Dronabinol (Marinol) 2.5 mg PO BID [facility] Last Admin: 09/10/17 17:51 Dose: 2.5 mg Famotidine (Pepcid) 20 mg PO BID [facility] Last Admin: 09/10/17 17:51 Dose: 20 mg Sodium Chloride (Sodium Chloride 0.9%) 1,000 mls @ 40 mls/hr IV .Q24H [facility] Last Admin: 09/10/17 16:19 Dose: 40 mls/hr Ondansetron HCl (Zofran Inj) 4 mg IVP Q6 PRN PRN Reason: Nausea/Vomiting Potassium Chloride (K-Dur 20 Meq Er Tab) 40 meq PO DAILY [facility] Last Admin: 09/10/17 11:03 Dose: 40 meq Tramadol HCl (Ultram) 25 mg PO TID PRN PRN Reason: Pain, moderate (4-7) Last Admin: 09/11/17 02:39 Dose: 25 mg - Labs Labs: 09/10/17 07:55 09/10/17 07:55 PT 11.2 SECONDS (9.7-12.2) 09/04/17 07:03 INR 1.0 09/04/17 07:03 APTT 25 SECONDS (21-34) 09/04/17 07:03 - Additional Findings Additional findings: - Constitutional Appears: Well, No Acute Distress - Head Exam Head Exam: ATRAUMATIC, NORMAL INSPECTION, hair loss noted - Eye Exam Eye Exam: EOMI Pupil Exam: PERRL - ENT Exam ENT Exam: Mucous Membranes Moist - Neck Exam Neck Exam: Normal Inspection. absent: Lymphadenopathy - Respiratory Exam Respiratory Exam: Clear to Ausculation Bilateral, NORMAL BREATHING PATTERN. absent: Rales, Rhonchi, Wheezes - Cardiovascular Exam Cardiovascular Exam: REGULAR RHYTHM. absent: Bradycardia, Tachycardia - GI/Abdominal Exam GI & Abdominal Exam: Soft, Normal Bowel Sounds. absent: Tenderness - Extremities Exam Extremities Exam: Normal Capillary Refill, Normal Inspection. absent: Pedal Edema - Neurological Exam Neurological Exam: Alert, Awake, Oriented x3 - Psychiatric Exam Psychiatric exam: Normal Affect, Normal Mood - Skin Skin Exam: Dry, Intact, Normal Color, Warm Additional Findings: Pleurx catheter clamped and capped, dressing applied, remains dry and intact. Assessment and Plan (1) Metastatic breast cancer Status: Acute (2) Pulmonary emboli Status: Acute (3) Osseous metastasis Status: Acute (4) Hydropneumothorax Status: Acute (5) Brain metastasis Status: Acute (6) Prophylactic measure Status: Acute - Assessment and Plan (Free Text) Assessment: (1) Metastatic breast cancer Assessment & Plan: stage IV Heme/Onc consulted, Dr Gordon Radiation Oncologist consulted, Dr Harper Graves Patient with ongoing whole brain radiation treatment coordinated by Dr Harper Graves at [facility] Hx of chest wall and regional amira irradiation at [facility] in 2012 Currently on chemotherapy Dexamethasone 4mg iv q6 tramadol 25mg po tid prn for pain Status: Acute (2) Brain metastasis Assessment & Plan: (+) dizziness, (+) changes in speech, on admission MRI Brain 05/31/17: 1. Diffuse cerebral and cerebellar large metastatic lesions with mild surrounding vasogenic edema without evidence of mass effect, midline shift or herniation. No hydrocephalus. 2. Diffuse osteoblastic calvarial metastasis. Patient with ongoing whole brain radiation treatment coordinated by Dr Harper Graves at [facility] Marinol 2.5mg po bid to stimulate appetite Status: Acute (3) Pulmonary emboli Assessment & Plan: provoked from malignancy Denies shortness of breath, cough, hemoptysis CT chest/abd/pelvis 08/31/17: Peripheral filling defect within RIGHT main pulmonary artery and probable filling defects within branches of RIGHT upper lobe pulmonary artery. Patchy and confluent groundglass/airspace disease within RIGHT lung with volume. Hold anticoagulation due to cancer metastasis to the brain and whole brain radiation. Will start AO after completed of whole brain radiation. duplex venous dopplers b/l, F/U Status: Acute (4) Hydropneumothorax Assessment & Plan: Denies shortness of breath, cough, hemoptysis Thoracic surgery consulted, Dr Damon CT chest/abd/pelvis 08/31/17: Pleural space - Large RIGHT pleural effusion with few foci of air. s/p US guided right thoracentesis 08/31/17, 1400 cc of straw colored fluid removed s/p pleurex cath placement 09/04/[address] Damon. Pleurovac to wall suction Pleural effusion to be drained q 1week initially, frequency to be adjusted based on amount of effusion to be drained Pleural fluid culture 09/04 shows no growth up to date Incentive spirometry q1h Status: Acute (5) Osseous metastasis Assessment & Plan: CT chest/abd/pelvis 08/31/17: Innumerable sclerotic lesions throughout the visualized bones. Tramadol 25mg po tid prn tylenol 650mg po q6 prn for pain Status: Acute (6) Prophylactic measure Assessment & Plan: Famotidine 20mg po bid SCDs, hold anticoagulation due to brain metastasis PT/OT eval and treat Regular Diet Palliative care consult, Sarai had family meeting 09/07, sister signed POLST Fluids: NS 40 cc/hr colace 100mg bid prn Status: Acute <Scott Fournier - Last Filed: 09/11/17 14:53> Objective - Vital Signs/Intake and Output Vital Signs (last 24 hours): Temp Pulse Resp BP Pulse Ox 98.1 F 77 20 117/66 98 09/11/17 08:42 09/11/17 08:42 09/11/17 08:42 09/11/17 08:42 09/11/17 08:42 Intake and Output: 09/11/17 09/11/17 06:59 18:59 Intake Total 520 520 Output Total 300 350 Balance 220 170 - Medications Medications: Current Medications Acetaminophen (Tylenol 325mg Tab) 650 mg PO Q6 PRN PRN Reason: Fever >100.4 F Bacitracin (Bacitracin Opht Oint) 0 applic OU BID [facility] Last Admin: 09/11/17 11:24 Dose: Not Given Dexamethasone (Decadron Inj) 4 mg IV Q6 [facility] Last Admin: 09/11/17 11:33 Dose: 4 mg Docusate Sodium (Colace) 100 mg PO BID PRN PRN Reason: Constipation Last Admin: 09/11/17 11:33 Dose: 100 mg Dronabinol (Marinol) 2.5 mg PO BID [facility] Last Admin: 09/11/17 11:33 Dose: 2.5 mg Famotidine (Pepcid) 20 mg PO BID [facility] Last Admin: 09/11/17 11:33 Dose: 20 mg Ondansetron HCl (Zofran Inj) 4 mg IVP Q6 PRN PRN Reason: Nausea/Vomiting Potassium Chloride (K-Dur 20 Meq Er Tab) 40 meq PO DAILY [facility] Last Admin: 09/11/17 11:33 Dose: 40 meq Tramadol HCl (Ultram) 25 mg PO TID PRN PRN Reason: Pain, moderate (4-7) Last Admin: 09/11/17 02:39 Dose: 25 mg - Labs Labs: 09/11/17 06:59 09/11/17 06:59 PT 11.2 SECONDS (9.7-12.2) 09/04/17 07:03 INR 1.0 09/04/17 07:03 APTT 25 SECONDS (21-34) 09/04/17 07:03 Attending/Attestation - Attestation I have personally seen and examined this patient.: Yes I have fully participated in the care of the patient.: Yes I have reviewed all pertinent clinical information, including history, physical exam and plan: Yes Notes (Text): 09/11/17 14:53 Medical attending: Patient was seen and examined by me, agrees the above note by medical sonographer. The patient very early in the morning went to [facility] by the time we will rounding the patient had already returned. She explained to us that she did not have any pain while at rest. I asked her repeatedly about the pain and she insisted that she did not have any pain. The patient has been tolerating her diet better than previously and she is taking more liquid by mouth at this time. So she is no longer on the intravenous fluids. We have been giving her Marinol to try to stimulate her oral intake. Thank you very much, Scott Fournier
[2017-09-11 07:40] LABS: BASO % 0.3 % (0.0-2.0); HEMATOCRIT 40.4 % (34.0-47.0); LYMPH % 10.8 % (20.0-40.0); MEAN CORPUSCULAR HEMOGLOBIN 29.6 pg (27.0-31.0); MEAN CORPUSCULAR HGB CONC 33.6 g/dL (33.0-37.0); MONO # 0.7 K/uL (0.0-0.8); MONO % 8.1 % (0.0-10.0); RED CELL DISTRIBUTION WIDTH 21.1 % (11.5-14.5); WHITE BLOOD COUNT 9.1 K/uL (4.8-10.8)
[2017-09-11 08:12] LABS: CHLORIDE 94 mmol/L (98-107); SODIUM 128 mmol/L (132-148)
[2017-09-11 08:13] LABS: POTASSIUM 3.7 mmol/L (3.6-5.2)
[2017-09-11 08:15] LABS: ALB/GLOB RATIO 1.7 (1.0-2.1); ALKALINE PHOSPHATASE 148 U/L (38-126); AST/SGOT 40 U/L (14-36); BILIRUBIN,TOTAL 0.9 mg/dL (0.2-1.3); BLOOD UREA NITROGEN 15 mg/dL (7-17); CARBON DIOXIDE 23 mmol/L (22-30); GFR AFRICAN-AMERICAN > 60; GLUCOSE,RANDOM 127 mg/dL (65-105); TOTAL PROTEIN 5.5 g/dL (6.3-8.3)
[2017-09-11 08:16] LABS: ALT/SGPT 177 U/L (9-52); CALCIUM 8.9 mg/dl (8.6-10.4)
--- NOTE | 2017-09-11 08:39 | RAD ---
Chest x-ray single frontal view History: Pleural effusion. Comparison: 09/08/2017 Findings: Moderate to large loculated right pleural effusion. Drain projects over the right lower mack thorax/upper abdomen, clinical correlation. Right chest wall port with tip extending to the cavoatrial junction. Moderate venous congestion. Tortuous ectatic aorta. Surgical clips in the right axilla. Degenerative changes in the spine and shoulders. Impression Moderate to large loculated right pleural effusion. Drain projects over the right lower mack thorax/upper abdomen, clinical correlation. Right chest wall port with tip extending to the cavoatrial junction. Moderate venous congestion. Tortuous ectatic aorta. Surgical clips in the right axilla. Degenerative changes in the spine and shoulders.
[2017-09-11] MEDS: Bacitracin Opht OINT 3.5GM OU SCH ×2 (11:24→17:24)
[2017-09-11] MEDS: Potassium Chloride 20 mEq ER Tab PO SCH (11:33)
--- NOTE | 2017-09-11 14:14 | CP.PCM.PN ---
Subjective - Date & Time of Evaluation Date of Evaluation: 09/11/17 Time of Evaluation: 14:12 - Subjective Subjective: Pt s/e. Just returned from RT to brain at [place]. No sob. CXR: a moderate pleural effusion. Will drain today/ d/w Dr. Grace. Objective - Vital Signs/Intake and Output Vital Signs (last 24 hours): Temp Pulse Resp BP Pulse Ox 98.1 F 77 20 117/66 98 09/11/17 08:42 09/11/17 08:42 09/11/17 08:42 09/11/17 08:42 09/11/17 08:42 Intake and Output: 09/11/17 09/11/17 06:59 18:59 Intake Total 520 520 Output Total 300 350 Balance 220 170 - Medications Medications: Current Medications Acetaminophen (Tylenol 325mg Tab) 650 mg PO Q6 PRN PRN Reason: Fever >100.4 F Bacitracin (Bacitracin Opht Oint) 0 applic OU BID [facility] Last Admin: 09/11/17 11:24 Dose: Not Given Dexamethasone (Decadron Inj) 4 mg IV Q6 [facility] Last Admin: 09/11/17 11:33 Dose: 4 mg Docusate Sodium (Colace) 100 mg PO BID PRN PRN Reason: Constipation Last Admin: 09/11/17 11:33 Dose: 100 mg Dronabinol (Marinol) 2.5 mg PO BID [facility] Last Admin: 09/11/17 11:33 Dose: 2.5 mg Famotidine (Pepcid) 20 mg PO BID [facility] Last Admin: 09/11/17 11:33 Dose: 20 mg Ondansetron HCl (Zofran Inj) 4 mg IVP Q6 PRN PRN Reason: Nausea/Vomiting Potassium Chloride (K-Dur 20 Meq Er Tab) 40 meq PO DAILY [facility] Last Admin: 09/11/17 11:33 Dose: 40 meq Tramadol HCl (Ultram) 25 mg PO TID PRN PRN Reason: Pain, moderate (4-7) Last Admin: 09/11/17 02:39 Dose: 25 mg - Labs Labs: 09/11/17 06:59 09/11/17 06:59 PT 11.2 SECONDS (9.7-12.2) 09/04/17 07:03 INR 1.0 09/04/17 07:03 APTT 25 SECONDS (21-34) 09/04/17 07:03
--- NOTE | 2017-09-11 14:35 | VASCLAB ---
PROCEDURE: Lower Extremity Venous Duplex Exam. HISTORY: r/o dvt; hx of breast CA w/ mets to brain/bones PRIORS: None. TECHNIQUE: Bilateral common femoral, femoral, popliteal and posterior tibial, peroneal and great saphenous veins were evaluated. Flow was assessed with color Doppler, compressibility, assessment of phasic flow and augmentation response. Report prepared by Rashaun Gotti, DAVID, RVT FINDINGS: RIGHT: 1. Common Femoral Vein: 1.1. Compressibility - Fully compressible: Thrombus - None : Flow - Phasic: Augmentation -Normal: Reflux - None. 2. Femoral Vein: 2.1. Compressibility - Fully compressible: Thrombus - None : Flow - Phasic: Augmentation -Normal: Reflux - None. 3. Popliteal Vein: 3.1. Compressibility - Fully compressible: Thrombus - None : Flow - Phasic: Augmentation -Normal: Reflux - None. 4. Posterior Tibial Vein: 4.1. Compressibility - Fully compressible: Thrombus - None: Flow - Phasic: Augmentation -Normal: Reflux - None. 5. Peroneal Vein: 5.1. Compressibility - Fully compressible: Thrombus - None: Flow - Phasic: Augmentation -Normal: Reflux - None. 6. Great Saphenous Vein: 6.1. Compressibility - Fully compressible: Thrombus - None: Flow - Phasic: Augmentation - Normal: Reflux - None. LEFT: 1. Common Femoral Vein: 1.1. Compressibility - Fully compressible: Thrombus - None: Flow - Phasic: Augmentation -Normal: Reflux - None. 2. Femoral Vein: 2.1. Compressibility - Fully compressible: Thrombus - None: Flow - Phasic: Augmentation -Normal: Reflux - None. 3. Popliteal Vein: 3.1. Compressibility - Fully compressible: Thrombus - None : Flow - Phasic: Augmentation -Normal: Reflux - None. 4. Posterior Tibial Vein: 4.1. Compressibility - Fully compressible: Thrombus - None: Flow - Phasic: Augmentation -Normal: Reflux - None. 5. Peroneal Vein: 5.1. Compressibility - Fully compressible: Thrombus - None: Flow - Phasic: Augmentation -Normal: Reflux - None. 6. Great Saphenous Vein: 6.1. Compressibility - Fully compressible: Thrombus - None: Flow - Phasic: Augmentation - Normal: Reflux - None. OTHER FINDINGS: Right: None significant. Left: None significant. IMPRESSION: Right: No evidence of deep or superficial vein thrombosis of the right lower extremity. Normal valve function noted of the right side. Left: No evidence of deep or superficial vein thrombosis of the left lower extremity. Normal valve function noted of the left side.
--- NOTE | 2017-09-12 03:40 | CP.PCM.PN ---
Addendum entered and electronically signed by Catrina Calderón DO 09/12/17 14 :00: Spoke extensively with family members present bedside. Patient stated that she has not had a bowel movement in several days time. It was discussed that an enema could be administered but patient declined. She was concerned that the insertion of the enema would hurt. At this time, patient willing to consider an oral agent. She admits to tenderness of her shoulder with palpation. Original Note: <Tawana Angel - Last Filed: 09/12/17 03:38> Subjective - Date & Time of Evaluation Date of Evaluation: 09/12/17 Time of Evaluation: 03:38 - Subjective Subjective: PGY-[address] Fournier. No acute events overnight. Patient seen and examined at bedside. She was asleep and easily aroused with verbal and tactile stimuli. Denies pain in her chest, abdomen, or head. Objective - Vital Signs/Intake and Output Vital Signs (last 24 hours): Temp Pulse Resp BP Pulse Ox 98.2 F 82 20 142/92 H 100 09/12/17 00:00 09/12/17 00:00 09/12/17 00:00 09/12/17 00:00 09/12/17 00:00 Intake and Output: 09/11/17 09/12/17 18:59 06:59 Intake Total 820 200 Output Total 350 360 Balance 470 -160 - Medications Medications: Current Medications Acetaminophen (Tylenol 325mg Tab) 650 mg PO Q6 PRN PRN Reason: Fever >100.4 F Bacitracin (Bacitracin Opht Oint) 0 applic OU BID [facility] Last Admin: 09/11/17 17:24 Dose: 1 applic Dexamethasone (Decadron Inj) 4 mg IV Q6 [facility] Last Admin: 09/12/17 00:00 Dose: 4 mg Docusate Sodium (Colace) 100 mg PO BID PRN PRN Reason: Constipation Last Admin: 09/11/17 17:22 Dose: 100 mg Dronabinol (Marinol) 2.5 mg PO BID [facility] Last Admin: 09/11/17 17:22 Dose: 2.5 mg Famotidine (Pepcid) 20 mg PO BID [facility] Last Admin: 09/11/17 17:23 Dose: 20 mg Ondansetron HCl (Zofran Inj) 4 mg IVP Q6 PRN PRN Reason: Nausea/Vomiting Potassium Chloride (K-Dur 20 Meq Er Tab) 40 meq PO DAILY [facility] Last Admin: 09/11/17 11:33 Dose: 40 meq Tramadol HCl (Ultram) 25 mg PO TID PRN PRN Reason: Pain, moderate (4-7) Last Admin: 09/11/17 17:24 Dose: 25 mg - Labs Labs: 09/11/17 06:59 09/11/17 06:59 PT 11.2 SECONDS (9.7-12.2) 09/04/17 07:03 INR 1.0 09/04/17 07:03 APTT 25 SECONDS (21-34) 09/04/17 07:03 - Additional Findings Additional findings: - Constitutional Appears: Well, No Acute Distress - Head Exam Head Exam: ATRAUMATIC, NORMAL INSPECTION, hair loss noted - Eye Exam Eye Exam: EOMI Pupil Exam: PERRL - ENT Exam ENT Exam: Mucous Membranes Moist - Neck Exam Neck Exam: Normal Inspection. absent: Lymphadenopathy - Respiratory Exam Respiratory Exam: Clear to Ausculation Bilateral, NORMAL BREATHING PATTERN. absent: Rales, Rhonchi, Wheezes - Cardiovascular Exam Cardiovascular Exam: REGULAR RHYTHM. absent: Bradycardia, Tachycardia - GI/Abdominal Exam GI & Abdominal Exam: Soft, Normal Bowel Sounds. absent: Tenderness - Extremities Exam Extremities Exam: Normal Capillary Refill, Normal Inspection. absent: Pedal Edema - Neurological Exam Neurological Exam: Alert, Awake, Oriented x3 - Psychiatric Exam Psychiatric exam: Normal Affect, Normal Mood - Skin Skin Exam: Dry, Intact, Normal Color, Warm Additional Findings: Pleurx catheter clamped and capped, dressing applied, remains dry and intact. Assessment and Plan - Assessment and Plan (Free Text) Plan: (1) Metastatic breast cancer Assessment & Plan: stage IV Heme/Onc consulted, Dr Gordon Radiation Oncologist consulted, Dr Harper Graves Patient with ongoing whole brain radiation treatment coordinated by Dr Harper Graves at [facility] Hx of chest wall and regional amira irradiation at [facility] in 2012 Currently on chemotherapy Dexamethasone 4mg iv q6 tramadol 25mg po tid prn for pain Status: Acute (2) Brain metastasis Assessment & Plan: (+) dizziness, (+) changes in speech, on admission MRI Brain 05/31/17: 1. Diffuse cerebral and cerebellar large metastatic lesions with mild surrounding vasogenic edema without evidence of mass effect, midline shift or herniation. No hydrocephalus. 2. Diffuse osteoblastic calvarial metastasis. Patient with ongoing whole brain radiation treatment coordinated by Dr Harper Graves at [facility] Marinol 2.5mg po bid to stimulate appetite Status: Acute (3) Pulmonary emboli Assessment & Plan: provoked from malignancy Denies shortness of breath, cough, hemoptysis CT chest/abd/pelvis 08/31/17: Peripheral filling defect within RIGHT main pulmonary artery and probable filling defects within branches of RIGHT upper lobe pulmonary artery. Patchy and confluent groundglass/airspace disease within RIGHT lung with volume. Hold anticoagulation due to cancer metastasis to the brain and whole brain radiation. Will start AO after completed of whole brain radiation. duplex venous dopplers b/l, F/U Status: Acute (4) Hydropneumothorax Assessment & Plan: Denies shortness of breath, cough, hemoptysis Thoracic surgery consulted, Dr Damon CT chest/abd/pelvis 08/31/17: Pleural space - Large RIGHT pleural effusion with few foci of air. s/p US guided right thoracentesis 08/31/17, 1400 cc of straw colored fluid removed s/p pleurex cath placement 09/04/[address] Damon. Pleurovac to wall suction Pleural effusion to be drained q 1week initially, frequency to be adjusted based on amount of effusion to be drained Pleural fluid culture 09/04 shows no growth up to date Incentive spirometry q1h Status: Acute (5) Osseous metastasis Assessment & Plan: CT chest/abd/pelvis 08/31/17: Innumerable sclerotic lesions throughout the visualized bones. Tramadol 25mg po tid prn tylenol 650mg po q6 prn for pain Status: Acute (6) Prophylactic measure Assessment & Plan: Famotidine 20mg po bid SCDs, hold anticoagulation due to brain metastasis PT/OT eval and treat Regular Diet Palliative care consult, Sarai had family meeting 09/07, sister signed POLST Fluids: NS 40 cc/hr colace 100mg bid prn Status: Acute <Scott Fournier H - Last Filed: 09/12/17 15:45> Objective - Vital Signs/Intake and Output Vital Signs (last 24 hours): Temp Pulse Resp BP Pulse Ox 97.7 F 86 20 158/11 H 99 09/12/17 08:46 09/12/17 08:46 09/12/17 08:46 09/12/17 08:46 09/12/17 08:46 Intake and Output: 09/12/17 09/12/17 06:59 18:59 Intake Total 200 240 Output Total 360 200 Balance -160 40 - Medications Medications: Current Medications Acetaminophen (Tylenol 325mg Tab) 650 mg PO Q6 PRN PRN Reason: Fever >100.4 F Bacitracin (Bacitracin Opht Oint) 0 applic OU BID [facility] Last Admin: 09/12/17 10:11 Dose: 1 applic Dexamethasone (Decadron Inj) 4 mg IV Q6 [facility] Last Admin: 09/12/17 12:47 Dose: 4 mg Docusate Sodium (Colace) 100 mg PO BID PRN PRN Reason: Constipation Last Admin: 09/11/17 17:22 Dose: 100 mg Dronabinol (Marinol) 2.5 mg PO BID [facility] Last Admin: 09/12/17 10:10 Dose: 2.5 mg Famotidine (Pepcid) 20 mg PO BID [facility] Last Admin: 09/12/17 10:10 Dose: 20 mg Ondansetron HCl (Zofran Inj) 4 mg IVP Q6 PRN PRN Reason: Nausea/Vomiting Potassium Chloride (K-Dur 20 Meq Er Tab) 40 meq PO DAILY [facility] Last Admin: 09/12/17 10:11 Dose: 40 meq Tramadol HCl (Ultram) 25 mg PO TID PRN PRN Reason: Pain, moderate (4-7) Last Admin: 09/12/17 10:10 Dose: 25 mg - Labs Labs: 09/12/17 06:46 09/12/17 06:46 PT 11.2 SECONDS (9.7-12.2) 09/04/17 07:03 INR 1.0 09/04/17 07:03 APTT 25 SECONDS (21-34) 09/04/17 07:03 Attending/Attestation - Attestation I have personally seen and examined this patient.: Yes I have fully participated in the care of the patient.: Yes I have reviewed all pertinent clinical information, including history, physical exam and plan: Yes Notes (Text): 09/12/17 15:40 Medical attending: Patient was seen and examined by me, agree with the above note by director biomedical engineering. The patient was awake and alert. She had 2 other family members present at bedside these were the other family members who have often been at bedside many times. Patient reported that she was not having any pain. She had further drainage the left Pleurx catheter yesterday. According to the family members the patient is able to tolerate her food. We will continue with the Marinol at this moment to help stimulate her appetite She'll continue to have radiation treatments at [facility] until either Thursday or Thursday of this coming thank you Scott Fournier
[2017-09-12] MEDS: Dexamethasone 4 mg/1 ml IV SCH ×4 (05:31→17:29)
[2017-09-12 07:04] LABS: BASO % 0.1 % (0.0-2.0); LYMPH # 0.9 K/uL (1.0-4.3); LYMPH % 7.7 % (20.0-40.0); MEAN CELL VOLUME 87.7 fL (81.0-99.0); MEAN CORPUSCULAR HEMOGLOBIN 28.5 pg (27.0-31.0); MEAN CORPUSCULAR HGB CONC 32.5 g/dL (33.0-37.0); MEAN PLATELET VOLUME 7.5 fL (7.2-11.7); MONO # 0.7 K/uL (0.0-0.8); NRBC % 0.1 % (0.0-2.0); PLATELET COUNT 321 K/uL (130-400); WHITE BLOOD COUNT 11.2 K/uL (4.8-10.8)
[2017-09-12 07:12] LABS: CHLORIDE 92 mmol/L (98-107)
[2017-09-12 07:13] LABS: POTASSIUM 3.6 mmol/L (3.6-5.2); SODIUM 130 mmol/L (132-148)
[2017-09-12 07:15] LABS: ALB/GLOB RATIO 1.7 (1.0-2.1); ALKALINE PHOSPHATASE 167 U/L (38-126); AST/SGOT 40 U/L (14-36); BILIRUBIN,TOTAL 0.9 mg/dL (0.2-1.3); CARBON DIOXIDE 28 mmol/L (22-30); GFR AFRICAN-AMERICAN > 60; TOTAL PROTEIN 6.1 g/dL (6.3-8.3)
[2017-09-12 07:16] LABS: ALT/SGPT 163 U/L (9-52); BLOOD UREA NITROGEN 21 mg/dL (7-17); CALCIUM 9.1 mg/dl (8.6-10.4); GLUCOSE,RANDOM 151 mg/dL (65-105)
[2017-09-12 08:54] LABS: NEUTROPHIL 89 % (50-75); TOTAL CELLS COUNTED 100
--- NOTE | 2017-09-12 09:29 | CP.PCM.PN ---
Subjective - Date & Time of Evaluation Date of Evaluation: 09/12/17 Time of Evaluation: 07:50 - Subjective Subjective: Thoracic Surgery Dr. Damon Pt S&E @bedside. ROCCO. pt c/o R-sided CP and tightness. CXR performed this AM. tolerating diet. Objective - Vital Signs/Intake and Output Vital Signs (last 24 hours): Temp Pulse Resp BP Pulse Ox 97.7 F 86 20 158/11 H 99 09/12/17 08:46 09/12/17 08:46 09/12/17 08:46 09/12/17 08:46 09/12/17 08:46 Intake and Output: 09/12/17 09/12/17 06:59 18:59 Intake Total 200 Output Total 360 Balance -160 - Medications Medications: Current Medications Acetaminophen (Tylenol 325mg Tab) 650 mg PO Q6 PRN PRN Reason: Fever >100.4 F Bacitracin (Bacitracin Opht Oint) 0 applic OU BID [facility] Last Admin: 09/11/17 17:24 Dose: 1 applic Dexamethasone (Decadron Inj) 4 mg IV Q6 [facility] Last Admin: 09/12/17 05:31 Dose: 4 mg Docusate Sodium (Colace) 100 mg PO BID PRN PRN Reason: Constipation Last Admin: 09/11/17 17:22 Dose: 100 mg Dronabinol (Marinol) 2.5 mg PO BID [facility] Last Admin: 09/11/17 17:22 Dose: 2.5 mg Famotidine (Pepcid) 20 mg PO BID [facility] Last Admin: 09/11/17 17:23 Dose: 20 mg Ondansetron HCl (Zofran Inj) 4 mg IVP Q6 PRN PRN Reason: Nausea/Vomiting Potassium Chloride (K-Dur 20 Meq Er Tab) 40 meq PO DAILY [facility] Last Admin: 09/11/17 11:33 Dose: 40 meq Tramadol HCl (Ultram) 25 mg PO TID PRN PRN Reason: Pain, moderate (4-7) Last Admin: 09/11/17 17:24 Dose: 25 mg - Labs Labs: 09/12/17 06:46 09/12/17 06:46 PT 11.2 SECONDS (9.7-12.2) 09/04/17 07:03 INR 1.0 09/04/17 07:03 APTT 25 SECONDS (21-34) 09/04/17 07:03 - Constitutional Appears: Non-toxic, No Acute Distress - Head Exam Head Exam: NORMAL INSPECTION - Eye Exam Eye Exam: Normal appearance - ENT Exam ENT Exam: Mucous Membranes Moist - Respiratory Exam Respiratory Exam: NORMAL BREATHING PATTERN. absent: Accessory Muscle Use, Respiratory Distress Additional comments: dressing c/d/i - Cardiovascular Exam Cardiovascular Exam: absent: Bradycardia, Tachycardia - GI/Abdominal Exam GI & Abdominal Exam: Soft. absent: Distended, Tenderness - Extremities Exam Extremities Exam: Normal Inspection - Neurological Exam Neurological Exam: Alert, Awake, Oriented x3 - Psychiatric Exam Psychiatric exam: Normal Affect, Normal Mood - Skin Skin Exam: Dry, Intact, Normal Color, Warm Assessment and Plan - Assessment and Plan (Free Text) Assessment: 57 y/o F w/ recurrent malignant right pleural effusion POD#8 s/p PleurX catheter placement - CXR shows recurrent pleural effusion - reattach catheter to pleuravac, continuous wall suction - repeat CXR tomorrow - cont pain management - cont medical management per PMD Pt discussed w/ Dr. Marisol Prescott DO PGY2
[2017-09-12] MEDS: Tramadol 25 mg PO PRN (10:10)
[2017-09-12] MEDS: Bacitracin Opht OINT 3.5GM OU SCH ×2 (10:11→17:33)
[2017-09-12] MEDS: Potassium Chloride 20 mEq ER Tab PO SCH (10:11)
--- NOTE | 2017-09-12 11:01 | RAD ---
HISTORY: s/p PleurX catheter drainage COMPARISON: Chest x-ray performed 09/11/17 TECHNIQUE: Chest, one view. FINDINGS: Right-sided MediPort extends to the SVC. LUNGS: Mild moderate pulmonary venous congestion. Please note that chest x-ray has limited sensitivity for the detection of pulmonary masses. PLEURA: Moderate to large loculated right pleural effusion. No definite pneumothorax . CARDIOVASCULAR: Borderline cardiomegaly. Ectatic aorta. OSSEOUS STRUCTURES: Degenerative changes. VISUALIZED UPPER ABDOMEN: Unremarkable. OTHER FINDINGS: Right axillary clips. Drain projects over the right lower mack thorax/upper abdomen. Mild subcutaneous emphysema, right lateral chest. IMPRESSION: Moderate to large loculated right pleural effusion. Mild to moderate pulmonary venous congestion. Borderline cardiomegaly. Ectatic aorta. Right-sided MediPort extends to the SVC. Right axillary clips. Drain projects over the right lower mack thorax/upper abdomen. Mild subcutaneous emphysema, right lateral chest.
[2017-09-13] MEDS: Dexamethasone 4 mg/1 ml IV SCH ×3 (00:12→18:13)
--- NOTE | 2017-09-13 01:55 | CP.PCM.PN ---
<Tawana Angel - Last Filed: 09/13/17 01:51 EST> Subjective - Date & Time of Evaluation Date of Evaluation: 09/13/17 Time of Evaluation: 01:51 - Subjective Subjective: Medicine note for Dr. Fournier No acute events overnight. Patient seen and examined at bedside. Patient resting comfortably in bed sleeping. Patient was easily awakened. She had no new complaints at this time. Denies pain in her chest, abdomen, or head. Objective - Vital Signs/Intake and Output Vital Signs (last 24 hours): Temp Pulse Resp BP Pulse Ox 97.4 F L 85 20 144/96 H 100 09/13/17 00:00 09/13/17 00:00 09/13/17 00:00 09/13/17 00:00 09/13/17 00:00 Intake and Output: 09/12/17 09/13/17 18:59 05:59 Intake Total 240 Output Total 200 Balance 40 - Medications Medications: Current Medications Acetaminophen (Tylenol 325mg Tab) 650 mg PO Q6 PRN PRN Reason: Fever >100.4 F Bacitracin (Bacitracin Opht Oint) 0 applic OU BID [facility] Last Admin: 09/12/17 17:33 Dose: 1 applic Dexamethasone (Decadron Inj) 4 mg IV Q6 [facility] Last Admin: 09/13/17 00:12 Dose: 4 mg Docusate Sodium (Colace) 100 mg PO BID PRN PRN Reason: Constipation Last Admin: 09/11/17 17:22 Dose: 100 mg Dronabinol (Marinol) 2.5 mg PO BID [facility] Last Admin: 09/12/17 17:28 Dose: 2.5 mg Famotidine (Pepcid) 20 mg PO BID [facility] Last Admin: 09/12/17 17:28 Dose: 20 mg Ondansetron HCl (Zofran Inj) 4 mg IVP Q6 PRN PRN Reason: Nausea/Vomiting Potassium Chloride (K-Dur 20 Meq Er Tab) 40 meq PO DAILY [facility] Last Admin: 09/12/17 10:11 Dose: 40 meq Tramadol HCl (Ultram) 25 mg PO TID PRN PRN Reason: Pain, moderate (4-7) Last Admin: 09/12/17 10:10 Dose: 25 mg - Labs Labs: 09/12/17 06:46 09/12/17 06:46 PT 11.2 SECONDS (9.7-12.2) 09/04/17 07:03 INR 1.0 09/04/17 07:03 APTT 25 SECONDS (21-34) 09/04/17 07:03 - Additional Findings Additional findings: - Constitutional Appears: Well, No Acute Distress - Head Exam Head Exam: ATRAUMATIC, NORMAL INSPECTION, hair loss noted - Eye Exam Eye Exam: EOMI Pupil Exam: PERRL - ENT Exam ENT Exam: Mucous Membranes Moist - Neck Exam Neck Exam: Normal Inspection. absent: Lymphadenopathy - Respiratory Exam Respiratory Exam: Clear to Ausculation Bilateral, NORMAL BREATHING PATTERN. absent: Rales, Rhonchi, Wheezes - Cardiovascular Exam Cardiovascular Exam: REGULAR RHYTHM. absent: Bradycardia, Tachycardia - GI/Abdominal Exam GI & Abdominal Exam: Soft, Normal Bowel Sounds. absent: Tenderness - Extremities Exam Extremities Exam: Normal Capillary Refill, Normal Inspection. absent: Pedal Edema - Neurological Exam Neurological Exam: Alert, Awake, Oriented x3 - Psychiatric Exam Psychiatric exam: Normal Affect, Normal Mood - Skin Skin Exam: Dry, Intact, Normal Color, Warm Additional Findings: Pleurx catheter clamped and capped, dressing applied, remains dry and intact. Assessment and Plan - Assessment and Plan (Free Text) Plan: (1) Metastatic breast cancer Assessment & Plan: stage IV Heme/Onc consulted, Dr Gordon Radiation Oncologist consulted, Dr Harper Graves Patient with ongoing whole brain radiation treatment coordinated by Dr Harper Graves at [facility] Hx of chest wall and regional amira irradiation at [facility] in 2012 Currently on chemotherapy Dexamethasone 4mg iv q6 tramadol 25mg po tid prn for pain Status: Acute (2) Brain metastasis Assessment & Plan: (+) dizziness, (+) changes in speech, on admission MRI Brain 05/31/17: 1. Diffuse cerebral and cerebellar large metastatic lesions with mild surrounding vasogenic edema without evidence of mass effect, midline shift or herniation. No hydrocephalus. 2. Diffuse osteoblastic calvarial metastasis. Patient with ongoing whole brain radiation treatment coordinated by Dr Harper Graves at [facility] Marinol 2.5mg po bid to stimulate appetite Status: Acute (3) Pulmonary emboli Assessment & Plan: provoked from malignancy Denies shortness of breath, cough, hemoptysis CT chest/abd/pelvis 08/31/17: Peripheral filling defect within RIGHT main pulmonary artery and probable filling defects within branches of RIGHT upper lobe pulmonary artery. Patchy and confluent groundglass/airspace disease within RIGHT lung with volume. Hold anticoagulation due to cancer metastasis to the brain and whole brain radiation. Will start AO after completed of whole brain radiation. duplex venous dopplers b/l, F/U Status: Acute (4) Hydropneumothorax Assessment & Plan: Denies shortness of breath, cough, hemoptysis Thoracic surgery consulted, Dr Damon CT chest/abd/pelvis 08/31/17: Pleural space - Large RIGHT pleural effusion with few foci of air. s/p US guided right thoracentesis 08/31/17, 1400 cc of straw colored fluid removed s/p pleurex cath placement 09/04/[address] Damon. Pleurovac to wall suction Pleural effusion to be drained q 1week initially, frequency to be adjusted based on amount of effusion to be drained Pleural fluid culture 09/04 shows no growth up to date Incentive spirometry q1h Status: Acute (5) Osseous metastasis Assessment & Plan: CT chest/abd/pelvis 08/31/17: Innumerable sclerotic lesions throughout the visualized bones. Tramadol 25mg po tid prn tylenol 650mg po q6 prn for pain Status: Acute (6) Prophylactic measure Assessment & Plan: Famotidine 20mg po bid SCDs, hold anticoagulation due to brain metastasis PT/OT eval and treat Regular Diet Palliative care consult, Sarai had family meeting 09/07, sister signed POLST Fluids: NS 40 cc/hr colace 100mg bid prn Status: Acute <Scott Fournier H - Last Filed: 09/13/17 12:18> Objective - Vital Signs/Intake and Output Vital Signs (last 24 hours): Temp Pulse Resp BP Pulse Ox 97.9 F 87 20 142/101 H 99 09/13/17 09:49 09/13/17 09:49 09/13/17 09:49 09/13/17 09:49 09/13/17 09:49 Intake and Output: 09/13/17 09/13/17 06:59 18:59 Intake Total Balance - Medications Medications: Current Medications Acetaminophen (Tylenol 325mg Tab) 650 mg PO Q6 PRN PRN Reason: Fever >100.4 F Last Admin: 09/13/17 09:29 Dose: 650 mg Bacitracin (Bacitracin Opht Oint) 0 applic OU BID [facility] Last Admin: 09/13/17 09:28 Dose: 1 applic Dexamethasone (Decadron Inj) 4 mg IV Q6 [facility] Last Admin: 09/13/17 05:19 Dose: 4 mg Docusate Sodium (Colace) 100 mg PO BID PRN PRN Reason: Constipation Last Admin: 09/13/17 09:30 Dose: 100 mg Dronabinol (Marinol) 2.5 mg PO BID [facility] Last Admin: 09/13/17 09:34 Dose: 2.5 mg Famotidine (Pepcid) 20 mg PO BID [facility] Last Admin: 09/13/17 09:30 Dose: 20 mg Ondansetron HCl (Zofran Inj) 4 mg IVP Q6 PRN PRN Reason: Nausea/Vomiting Potassium Chloride (K-Dur 20 Meq Er Tab) 40 meq PO DAILY [facility] Last Admin: 09/13/17 09:30 Dose: 40 meq Tramadol HCl (Ultram) 25 mg PO TID PRN PRN Reason: Pain, moderate (4-7) Last Admin: 09/12/17 10:10 Dose: 25 mg - Labs Labs: 09/13/17 07:04 09/13/17 07:04 PT 11.2 SECONDS (9.7-12.2) 09/04/17 07:03 INR 1.0 09/04/17 07:03 APTT 25 SECONDS (21-34) 09/04/17 07:03 Attending/Attestation - Attestation I have personally seen and examined this patient.: Yes I have fully participated in the care of the patient.: Yes I have reviewed all pertinent clinical information, including history, physical exam and plan: Yes Notes (Text): 09/13/17 12:18 Medical attending: Patient was seen and examined by me, agrees the above note by biomedical manager. The patient appeared to be comfortable and not in any acute distress when I saw her today. She stated that her pain was controlled at this time with the tramadol that she is getting. She allowed for auscultation of her heart and of her lungs. But she did not want me to look at the chest area with the Pleurx catheter. Appetite was somewhat minimal today. Can continue with the Marinol. From what I understand the patient still has several more radiation treatments at [facility] this week and hopefully after this could be discharged. However at this time she still is very weak is mostly bedbound. Scott Fournier
[2017-09-13 07:13] LABS: BASO % 0.2 % (0.0-2.0); HEMATOCRIT 43.1 % (34.0-47.0); LYMPH # 0.9 K/uL (1.0-4.3); LYMPH % 6.1 % (20.0-40.0); MEAN CELL VOLUME 88.4 fL (81.0-99.0); MEAN CORPUSCULAR HEMOGLOBIN 29.1 pg (27.0-31.0); MEAN CORPUSCULAR HGB CONC 32.9 g/dL (33.0-37.0); MEAN PLATELET VOLUME 7.6 fL (7.2-11.7); MONO # 0.9 K/uL (0.0-0.8); MONO % 6.4 % (0.0-10.0); NRBC % 0.1 % (0.0-2.0); PLATELET COUNT 288 K/uL (130-400); RED CELL DISTRIBUTION WIDTH 20.9 % (11.5-14.5); WHITE BLOOD COUNT 14.2 K/uL (4.8-10.8)
--- NOTE | 2017-09-13 07:15 | CP.PCM.PN ---
Subjective - Date & Time of Evaluation Date of Evaluation: 09/13/17 Time of Evaluation: 07:00 - Subjective Subjective: Thoracic Surgery Dr. Damon Pt S&E @bedside. NAEO. 200cc fluid drain yesterday. Today, pt denies chest pain , SOB, F/C. tolerating diet. Objective - Vital Signs/Intake and Output Vital Signs (last 24 hours): Temp Pulse Resp BP Pulse Ox 97.4 F L 85 20 144/96 H 100 09/13/17 00:00 09/13/17 00:00 09/13/17 00:00 09/13/17 00:00 09/13/17 00:00 Intake and Output: 09/13/17 09/13/17 06:59 18:59 Intake Total Balance - Medications Medications: Current Medications Acetaminophen (Tylenol 325mg Tab) 650 mg PO Q6 PRN PRN Reason: Fever >100.4 F Bacitracin (Bacitracin Opht Oint) 0 applic OU BID [facility] Last Admin: 09/12/17 17:33 Dose: 1 applic Dexamethasone (Decadron Inj) 4 mg IV Q6 [facility] Last Admin: 09/13/17 05:19 Dose: 4 mg Docusate Sodium (Colace) 100 mg PO BID PRN PRN Reason: Constipation Last Admin: 09/11/17 17:22 Dose: 100 mg Dronabinol (Marinol) 2.5 mg PO BID [facility] Last Admin: 09/12/17 17:28 Dose: 2.5 mg Famotidine (Pepcid) 20 mg PO BID [facility] Last Admin: 09/12/17 17:28 Dose: 20 mg Ondansetron HCl (Zofran Inj) 4 mg IVP Q6 PRN PRN Reason: Nausea/Vomiting Potassium Chloride (K-Dur 20 Meq Er Tab) 40 meq PO DAILY [facility] Last Admin: 09/12/17 10:11 Dose: 40 meq Tramadol HCl (Ultram) 25 mg PO TID PRN PRN Reason: Pain, moderate (4-7) Last Admin: 09/12/17 10:10 Dose: 25 mg - Labs Labs: 09/12/17 06:46 09/12/17 06:46 PT 11.2 SECONDS (9.7-12.2) 09/04/17 07:03 INR 1.0 09/04/17 07:03 APTT 25 SECONDS (21-34) 09/04/17 07:03 - Constitutional Appears: Non-toxic, No Acute Distress - Head Exam Head Exam: NORMAL INSPECTION - Eye Exam Eye Exam: Normal appearance - ENT Exam ENT Exam: Mucous Membranes Moist - Respiratory Exam Respiratory Exam: NORMAL BREATHING PATTERN. absent: Accessory Muscle Use, Respiratory Distress Additional comments: dressing c/d/i port in place - Cardiovascular Exam Cardiovascular Exam: absent: Bradycardia, Tachycardia - GI/Abdominal Exam GI & Abdominal Exam: Soft. absent: Distended, Tenderness - Extremities Exam Extremities Exam: Normal Inspection - Neurological Exam Neurological Exam: Alert, Awake, Oriented x3 - Psychiatric Exam Psychiatric exam: Normal Affect, Normal Mood - Skin Skin Exam: Dry, Intact, Normal Color, Warm Assessment and Plan - Assessment and Plan (Free Text) Assessment: 57 y/o F w/ recurrent malignant right pleural effusion POD#9 s/p PleurX catheter placement - f/u AM CXR - cont pain management - cont medical management per PMD Pt discussed w/ Dr. Marisol Prescott DO PGY2
[2017-09-13 07:23] LABS: CHLORIDE 96 mmol/L (98-107)
[2017-09-13 07:25] LABS: POTASSIUM 3.9 mmol/L (3.6-5.2); SODIUM 132 mmol/L (132-148)
[2017-09-13 07:27] LABS: ALB/GLOB RATIO 1.1 (1.0-2.1); ALKALINE PHOSPHATASE 148 U/L (38-126); ALT/SGPT 137 U/L (9-52); AST/SGOT 32 U/L (14-36); BILIRUBIN,TOTAL 0.6 mg/dL (0.2-1.3); BLOOD UREA NITROGEN 17 mg/dL (7-17); CARBON DIOXIDE 27 mmol/L (22-30); GFR AFRICAN-AMERICAN > 60; GLUCOSE,RANDOM 138 mg/dL (65-105); PHOSPHOROUS 3.1 mg/dL (2.5-4.5); TOTAL PROTEIN 6.9 g/dL (6.3-8.3)
[2017-09-13 07:28] LABS: CALCIUM 9.4 mg/dl (8.6-10.4); MAGNESIUM 2.2 mg/dL (1.6-2.3)
[2017-09-13 08:46] LABS: NEUTROPHIL 85 % (50-75); TOTAL CELLS COUNTED 100
[2017-09-13] MEDS: Bacitracin Opht OINT 3.5GM OU SCH ×2 (09:28→18:36)
[2017-09-13] MEDS: Potassium Chloride 20 mEq ER Tab PO SCH (09:30)
--- NOTE | 2017-09-13 14:46 | RAD ---
HISTORY: portable COMPARISON: Chest x-ray performed 09/12/17 TECHNIQUE: Chest, one view. FINDINGS: Right-sided MediPort extends the SVC. Drain projects over the right lower mack thorax/upper abdomen. LUNGS: Large right-sided pneumothorax measuring approximately 6.2 cm from pleural edge. Moderate pulmonary venous congestion. CARDIOVASCULAR: Heart size appears within normal limits. OSSEOUS STRUCTURES: Degenerative changes. VISUALIZED UPPER ABDOMEN: Unremarkable. OTHER FINDINGS: Subcutaneous emphysema, right lateral chest wall. IMPRESSION: Large right-sided pneumothorax. Moderate pulmonary venous congestion. Right-sided MediPort extends the SVC. Drain projects over the right lower mack thorax/upper abdomen. Subcutaneous emphysema, right lateral chest wall. Findings discussed with patient YARELY Shaikh on 09/13/17 at 2:40 p.m..
[2017-09-14] MEDS: Dexamethasone 4 mg/1 ml IV SCH ×2 (00:19→17:24)
--- NOTE | 2017-09-14 07:10 | CP.PCM.PN ---
<Torrey Palma R - Last Filed: 09/14/17 11:17> Subjective - Date & Time of Evaluation Date of Evaluation: 09/14/17 Time of Evaluation: 07:08 - Subjective Subjective: PGY-[address] Miles. No acute events overnight. Patient seen and examined at bedside. A translation device was used to communicate as her sister was not bedside. Patient resting comfortably in bed sleeping. Patient was easily awakened. She had no new complaints at this time. She said her appetite is poor. Denies pain in her chest , abdomen, or head. However there is guarding when trying to auscultate the chest. She will be taken to [place] this afternoon for whole brain radiation. Objective - Vital Signs/Intake and Output Vital Signs (last 24 hours): Temp Pulse Resp BP Pulse Ox 98.3 F 88 20 140/92 H 99 09/14/17 00:00 09/14/17 00:00 09/14/17 00:00 09/14/17 00:00 09/14/17 00:00 Intake and Output: 09/14/17 09/14/17 06:59 18:59 Intake Total 400 Output Total 400 Balance 0 - Medications Medications: Current Medications Acetaminophen (Tylenol 325mg Tab) 650 mg PO Q6 PRN PRN Reason: Fever >100.4 F Last Admin: 09/13/17 09:29 Dose: 650 mg Bacitracin (Bacitracin Opht Oint) 0 applic OU BID [facility] Last Admin: 09/13/17 18:36 Dose: 1 applic Dexamethasone (Decadron Inj) 4 mg IV Q6 [facility] Last Admin: 09/14/17 00:19 Dose: 4 mg Docusate Sodium (Colace) 100 mg PO BID PRN PRN Reason: Constipation Last Admin: 09/13/17 18:13 Dose: 100 mg Dronabinol (Marinol) 2.5 mg PO BID [facility] Last Admin: 09/13/17 18:13 Dose: 2.5 mg Famotidine (Pepcid) 20 mg PO BID [facility] Last Admin: 09/13/17 18:13 Dose: 20 mg Ondansetron HCl (Zofran Inj) 4 mg IVP Q6 PRN PRN Reason: Nausea/Vomiting Potassium Chloride (K-Dur 20 Meq Er Tab) 40 meq PO DAILY [facility] Last Admin: 09/13/17 09:30 Dose: 40 meq Tramadol HCl (Ultram) 25 mg PO TID PRN PRN Reason: Pain, moderate (4-7) Last Admin: 09/12/17 10:10 Dose: 25 mg - Labs Labs: 09/13/17 07:04 09/13/17 07:04 PT 11.2 SECONDS (9.7-12.2) 09/04/17 07:03 INR 1.0 09/04/17 07:03 APTT 25 SECONDS (21-34) 09/04/17 07:03 - Additional Findings Additional findings: - Constitutional Appears: Well, No Acute Distress - Head Exam Head Exam: ATRAUMATIC, NORMAL INSPECTION, hair loss noted - Eye Exam Eye Exam: EOMI Pupil Exam: PERRL - ENT Exam ENT Exam: Mucous Membranes Moist - Neck Exam Neck Exam: Normal Inspection. absent: Lymphadenopathy - Respiratory Exam Respiratory Exam: Clear to Ausculation Bilateral, NORMAL BREATHING PATTERN. absent: Rales, Rhonchi, Wheezes - Cardiovascular Exam Cardiovascular Exam: REGULAR RHYTHM. absent: Bradycardia, Tachycardia - GI/Abdominal Exam GI & Abdominal Exam: Soft, Normal Bowel Sounds. absent: Tenderness - Extremities Exam Extremities Exam: Normal Capillary Refill, Normal Inspection. absent: Pedal Edema - Neurological Exam Neurological Exam: Alert, Awake, Oriented x3 - Psychiatric Exam Psychiatric exam: Normal Affect, Normal Mood - Skin Skin Exam: Dry, Intact, Normal Color, Warm Additional Findings: Pleurx catheter clamped and capped, dressing applied, remains dry and intact. Assessment and Plan (1) Metastatic breast cancer Status: Acute (2) Pulmonary emboli Status: Acute (3) Osseous metastasis Status: Acute (4) Hydropneumothorax Status: Acute (5) Brain metastasis Status: Acute (6) Prophylactic measure Status: Acute - Assessment and Plan (Free Text) Assessment: (1) Metastatic breast cancer Assessment & Plan: stage IV Heme/Onc consulted, Dr Gordon Radiation Oncologist consulted, Dr Harper Graves Patient with ongoing whole brain radiation treatment coordinated by Dr Harper Graves at [facility] Hx of chest wall and regional amira irradiation at [facility] in 2012 Currently on chemotherapy Dexamethasone 4mg iv q6 tramadol 25mg po tid prn for pain Status: Acute (2) Brain metastasis Assessment & Plan: (+) dizziness, (+) changes in speech, on admission MRI Brain 05/31/17: 1. Diffuse cerebral and cerebellar large metastatic lesions with mild surrounding vasogenic edema without evidence of mass effect, midline shift or herniation. No hydrocephalus. 2. Diffuse osteoblastic calvarial metastasis. Patient with ongoing whole brain radiation treatment coordinated by Dr Harper Graves at [facility] Marinol 2.5mg po bid to stimulate appetite Status: Acute (3) Pulmonary emboli Assessment & Plan: provoked from malignancy Denies shortness of breath, cough, hemoptysis CT chest/abd/pelvis 08/31/17: Peripheral filling defect within RIGHT main pulmonary artery and probable filling defects within branches of RIGHT upper lobe pulmonary artery. Patchy and confluent groundglass/airspace disease within RIGHT lung with volume. Hold anticoagulation due to cancer metastasis to the brain and whole brain radiation. Will start AO after completed of whole brain radiation. duplex venous dopplers b/l 09/11/17: normal Status: Acute (4) Hydropneumothorax Assessment & Plan: Denies shortness of breath, cough, hemoptysis. Saturating well on nasal cannula 3L. Thoracic surgery consulted, Dr Damon Pleural effusion to be drained q 1week initially, frequency to be adjusted based on amount of effusion to be drained Pleural fluid culture 09/04 shows no growth up to date Incentive spirometry q1h Large right-sided pneumothorax identified on CXR 09/13, discuss with and F/U recs from Dr Damon Imaging: CT chest/abd/pelvis 08/31/17: Pleural space - Large RIGHT pleural effusion with few foci of air. CXR 09/13/17: Large right sided pneumothorax Procedures: s/p US guided right thoracentesis 08/31/17, 1400 cc of straw colored fluid removed s/p pleurex cath placement 09/04/[address] Damon. Pleurovac to wall suction s/p fluid drainage via pleurex 200cc on 09/12/17 Status: Acute (5) Osseous metastasis Assessment & Plan: CT chest/abd/pelvis 08/31/17: Innumerable sclerotic lesions throughout the visualized bones. Tramadol 25mg po tid prn tylenol 650mg po q6 prn for pain Status: Acute (6) Prophylactic measure Assessment & Plan: Famotidine 20mg po bid SCDs, hold anticoagulation due to brain metastasis PT/OT eval and treat Regular Diet Palliative care consult, Sarai had family meeting 09/07, sister signed POLST Fluids: NS 40 cc/hr colace 100mg bid prn Status: Acute DISPOSITION: Per social work progess note: Sisters expressed concern about caring for pt at home and potential difficulties of managing clinical issues, ie obtaining medical supplies and removing fluid at home. SW to discuss d/c concerns with correctional casework specialist on Thursday, Sep 14 as no plans for d/c at this time. <Riley Miles - Last Filed: 09/14/17 17:56> Objective - Vital Signs/Intake and Output Vital Signs (last 24 hours): Temp Pulse Resp BP Pulse Ox 97.6 F 95 H 20 122/87 98 09/14/17 15:00 09/14/17 15:00 09/14/17 15:00 09/14/17 15:00 09/14/17 15:00 Intake and Output: 09/14/17 09/14/17 06:59 18:59 Intake Total 400 350 Output Total 400 Balance 0 350 - Medications Medications: Current Medications Acetaminophen (Tylenol 325mg Tab) 650 mg PO Q6 PRN PRN Reason: Fever >100.4 F Last Admin: 09/13/17 09:29 Dose: 650 mg Bacitracin (Bacitracin Opht Oint) 0 applic OU BID [facility] Last Admin: 09/14/17 17:24 Dose: 1 applic Dexamethasone (Decadron Inj) 4 mg IV Q6 [facility] Last Admin: 09/14/17 17:24 Dose: 4 mg Docusate Sodium (Colace) 100 mg PO BID PRN PRN Reason: Constipation Last Admin: 09/13/17 18:13 Dose: 100 mg Dronabinol (Marinol) 2.5 mg PO BID [facility] Last Admin: 09/14/17 17:23 Dose: 2.5 mg Famotidine (Pepcid) 20 mg PO BID [facility] Last Admin: 09/14/17 17:23 Dose: 20 mg Ondansetron HCl (Zofran Inj) 4 mg IVP Q6 PRN PRN Reason: Nausea/Vomiting Potassium Chloride (K-Dur 20 Meq Er Tab) 40 meq PO DAILY [facility] Last Admin: 09/14/17 10:20 Dose: 40 meq Tramadol HCl (Ultram) 25 mg PO TID PRN PRN Reason: Pain, moderate (4-7) Last Admin: 09/12/17 10:10 Dose: 25 mg - Labs Labs: 09/14/17 08:34 09/14/17 08:34 PT 11.2 SECONDS (9.7-12.2) 09/04/17 07:03 INR 1.0 09/04/17 07:03 APTT 25 SECONDS (21-34) 09/04/17 07:03 Attending/Attestation - Attestation I have personally seen and examined this patient.: Yes I have fully participated in the care of the patient.: Yes I have reviewed all pertinent clinical information, including history, physical exam and plan: Yes Notes (Text): The patient was seen and examined.communicated with the translation service.Denies pain,no chest pain,denies sob,Poor intake and poor appetite.She is weak and mostly on bed Chest x ray finding discussed with the surgery team Discussed with the palliative care RN continue radiation treatment as per radiation oncology. Discussed with the resident I agree with the resident's documentation of the assessment and plan
[2017-09-14 08:45] LABS: BASO # 0.1 K/uL (0.0-0.2); BASO % 0.3 % (0.0-2.0); HEMATOCRIT 41.5 % (34.0-47.0); MEAN CELL VOLUME 87.8 fL (81.0-99.0); MEAN CORPUSCULAR HEMOGLOBIN 29.5 pg (27.0-31.0); MEAN CORPUSCULAR HGB CONC 33.6 g/dL (33.0-37.0); MONO # 1.1 K/uL (0.0-0.8); MONO % 6.2 % (0.0-10.0); NRBC % 0.1 % (0.0-2.0); PLATELET COUNT 294 K/uL (130-400); RED CELL DISTRIBUTION WIDTH 20.4 % (11.5-14.5)
[2017-09-14 09:18] LABS: CHLORIDE 92 mmol/L (98-107); POTASSIUM 3.5 mmol/L (3.6-5.2); SODIUM 129 mmol/L (132-148)
[2017-09-14 09:20] LABS: ALB/GLOB RATIO 1.5 (1.0-2.1); ALKALINE PHOSPHATASE 149 U/L (38-126); ALT/SGPT 134 U/L (9-52); AST/SGOT 54 U/L (14-36); BLOOD UREA NITROGEN 18 mg/dL (7-17); CARBON DIOXIDE 28 mmol/L (22-30); GFR AFRICAN-AMERICAN > 60; TOTAL PROTEIN 5.8 g/dL (6.3-8.3)
[2017-09-14 09:21] LABS: CALCIUM 8.8 mg/dl (8.6-10.4); GLUCOSE,RANDOM 150 mg/dL (65-105); PHOSPHOROUS 2.9 mg/dL (2.5-4.5)
[2017-09-14 10:13] LABS: NEUTROPHIL 83 % (50-75); TOTAL CELLS COUNTED 100
[2017-09-14] MEDS: Potassium Chloride 20 mEq ER Tab PO SCH (10:20)
[2017-09-14] MEDS: Bacitracin Opht OINT 3.5GM OU SCH ×2 (10:20→17:24)
[2017-09-15] MEDS: Dexamethasone 4 mg/1 ml IV SCH ×5 (00:07→23:40)
--- NOTE | 2017-09-15 07:09 | CP.PCM.PN ---
<Torrey Palma - Last Filed: 09/15/17 12:49> Subjective - Date & Time of Evaluation Date of Evaluation: 09/15/17 Time of Evaluation: 07:06 - Subjective Subjective: PGY-[address] Miles. No acute events overnight. Patient seen and examined at bedside. Patient resting comfortably in bed sleeping. Patient was easily awakened. She had no new complaints at this time. Clinically she is the same as yesterday. Denies pain in her chest, abdomen, or head. However there is guarding when trying to auscultate the chest. She again was taken to [facility] today for whole brain radiation. Objective - Vital Signs/Intake and Output Vital Signs (last 24 hours): Temp Pulse Resp BP Pulse Ox 98 F 93 H 20 124/90 96 09/15/17 00:00 09/15/17 00:00 09/15/17 00:00 09/15/17 00:00 09/15/17 00:00 Intake and Output: 09/15/17 09/15/17 06:59 18:59 Intake Total 450 Balance 450 - Medications Medications: Current Medications Acetaminophen (Tylenol 325mg Tab) 650 mg PO Q6 PRN PRN Reason: Fever >100.4 F Last Admin: 09/13/17 09:29 Dose: 650 mg Bacitracin (Bacitracin Opht Oint) 0 applic OU BID [facility] Last Admin: 09/14/17 17:24 Dose: 1 applic Dexamethasone (Decadron Inj) 4 mg IV Q6 [facility] Last Admin: 09/15/17 05:37 Dose: 4 mg Docusate Sodium (Colace) 100 mg PO BID PRN PRN Reason: Constipation Last Admin: 09/13/17 18:13 Dose: 100 mg Dronabinol (Marinol) 2.5 mg PO BID [facility] Last Admin: 09/14/17 17:23 Dose: 2.5 mg Famotidine (Pepcid) 20 mg PO BID [facility] Last Admin: 09/14/17 17:23 Dose: 20 mg Ondansetron HCl (Zofran Inj) 4 mg IVP Q6 PRN PRN Reason: Nausea/Vomiting Potassium Chloride (K-Dur 20 Meq Er Tab) 40 meq PO DAILY [facility] Last Admin: 09/14/17 10:20 Dose: 40 meq Tramadol HCl (Ultram) 25 mg PO TID PRN PRN Reason: Pain, moderate (4-7) Last Admin: 09/12/17 10:10 Dose: 25 mg - Labs Labs: 09/14/17 08:34 09/14/17 08:34 PT 11.2 SECONDS (9.7-12.2) 09/04/17 07:03 INR 1.0 09/04/17 07:03 APTT 25 SECONDS (21-34) 09/04/17 07:03 - Additional Findings Additional findings: - Constitutional Appears: Well, No Acute Distress - Head Exam Head Exam: ATRAUMATIC, NORMAL INSPECTION, hair loss noted - Eye Exam Eye Exam: EOMI Pupil Exam: PERRL - ENT Exam ENT Exam: Mucous Membranes Moist - Neck Exam Neck Exam: Normal Inspection. absent: Lymphadenopathy - Respiratory Exam Respiratory Exam: Clear to Ausculation Bilateral, NORMAL BREATHING PATTERN. absent: Rales, Rhonchi, Wheezes - Cardiovascular Exam Cardiovascular Exam: REGULAR RHYTHM. absent: Bradycardia, Tachycardia - GI/Abdominal Exam GI & Abdominal Exam: Soft, Normal Bowel Sounds. absent: Tenderness - Extremities Exam Extremities Exam: Normal Capillary Refill, Normal Inspection. absent: Pedal Edema - Neurological Exam Neurological Exam: Alert, Awake, Oriented x3 - Psychiatric Exam Psychiatric exam: Normal Affect, Normal Mood - Skin Skin Exam: Dry, Intact, Normal Color, Warm Additional Findings: Pleurx catheter clamped and capped, dressing applied, remains dry and intact. Assessment and Plan (1) Metastatic breast cancer Status: Acute (2) Pulmonary emboli Status: Acute (3) Osseous metastasis Status: Acute (4) Hydropneumothorax Status: Acute (5) Brain metastasis Status: Acute (6) Prophylactic measure Status: Acute - Assessment and Plan (Free Text) Assessment: (1) Metastatic breast cancer Assessment & Plan: stage IV Heme/Onc consulted, Dr Gordon Radiation Oncologist consulted, Dr Harper Graves Patient with whole brain radiation treatment coordinated by Dr Harper Graves at [facility]. Last Tx 09/15. Post radiation visit tentatively scheduled for 10/27/[address] [facility]. Hx of chest wall and regional amira irradiation at [facility] in 2012 Currently on chemotherapy Dexamethasone 4mg PO BID tramadol 25mg po tid prn for pain Status: Acute (2) Brain metastasis Assessment & Plan: On admission: (+) dizziness, (+) changes in speech MRI Brain 05/31/17: 1. Diffuse cerebral and cerebellar large metastatic lesions with mild surrounding vasogenic edema without evidence of mass effect, midline shift or herniation. No hydrocephalus. 2. Diffuse osteoblastic calvarial metastasis. Patient with whole brain radiation treatment coordinated by Dr Harper Graves at [facility]. Last Tx 09/15. Post radiation visit tentatively scheduled for 10/27/[address] [facility]. Marinol 2.5mg po bid to stimulate appetite Status: Acute (3) Pulmonary emboli Assessment & Plan: provoked from malignancy Denies shortness of breath, cough, hemoptysis CT chest/abd/pelvis 08/31/17: Peripheral filling defect within RIGHT main pulmonary artery and probable filling defects within branches of RIGHT upper lobe pulmonary artery. Patchy and confluent groundglass/airspace disease within RIGHT lung with volume. Lovenox 70mg SC Q12H started 09/15 (after last tx of whole brain radiation). duplex venous dopplers b/l 09/11/17: normal Status: Acute (4) Hydropneumothorax Assessment & Plan: Denies shortness of breath, cough, hemoptysis. Saturating well on nasal cannula 3L. Thoracic surgery consulted, Dr Damon Pleural effusion to be drained q 1week initially, frequency to be adjusted based on amount of effusion to be drained Pleural fluid culture 09/04 shows no growth up to date Incentive spirometry q1h Large right-sided pneumothorax identified on CXR 09/13 - Dr Damon is aware - The space is due to nonexpanding lung from chronic process (tumor). Imaging: CT chest/abd/pelvis 08/31/17: Pleural space - Large RIGHT pleural effusion with few foci of air. CXR 09/13/17: Large right sided pneumothorax Procedures: s/p US guided right thoracentesis 08/31/17, 1400 cc of straw colored fluid removed s/p pleurex cath placement 09/04/[address] Damon. Pleurovac to wall suction s/p fluid drainage via pleurex 200cc on 09/12/17 Status: Acute (5) Osseous metastasis Assessment & Plan: CT chest/abd/pelvis 08/31/17: Innumerable sclerotic lesions throughout the visualized bones. Tramadol 25mg po tid prn tylenol 650mg po q6 prn for pain Status: Acute (6) Prophylactic measure Assessment & Plan: Famotidine 20mg po bid SCDs Lovenox 70mg SC Q12H started 09/15 (after last tx of whole brain radiation). PT/OT eval and treat Regular Diet Palliative care consult, Sarai had family meeting 09/07, sister signed POLST Fluids: NS 40 cc/hr colace 100mg bid prn Status: Acute DISPOSITION: Per social work progess note: Sisters expressed concern about caring for pt at home and potential difficulties of managing clinical issues, ie obtaining medical supplies and removing fluid at home. <Riley Miles - Last Filed: 09/15/17 17:40> Objective - Vital Signs/Intake and Output Vital Signs (last 24 hours): Temp Pulse Resp BP Pulse Ox 97.6 F 94 H 20 137/92 H 96 09/15/17 16:18 09/15/17 16:18 09/15/17 16:18 09/15/17 16:18 09/15/17 16:18 Intake and Output: 09/15/17 09/15/17 06:59 18:59 Intake Total 450 240 Balance 450 240 - Medications Medications: Current Medications Acetaminophen (Tylenol 325mg Tab) 650 mg PO Q6 PRN PRN Reason: Fever >100.4 F Last Admin: 09/13/17 09:29 Dose: 650 mg Bacitracin (Bacitracin Opht Oint) 0 applic OU BID [facility] Last Admin: 09/15/17 09:16 Dose: 1 applic Dexamethasone (Decadron Inj) 4 mg IV Q6 [facility] Last Admin: 09/15/17 13:00 Dose: 4 mg Docusate Sodium (Colace) 100 mg PO BID PRN PRN Reason: Constipation Last Admin: 09/13/17 18:13 Dose: 100 mg Dronabinol (Marinol) 2.5 mg PO BID [facility] Last Admin: 09/15/17 09:59 Dose: Not Given Enoxaparin Sodium (Lovenox) 70 mg SC Q12 [facility] Famotidine (Pepcid) 20 mg PO BID [facility] Last Admin: 09/15/17 09:59 Dose: Not Given Ondansetron HCl (Zofran Inj) 4 mg IVP Q6 PRN PRN Reason: Nausea/Vomiting Potassium Chloride (K-Dur 20 Meq Er Tab) 40 meq PO DAILY [facility] Last Admin: 09/15/17 14:07 Dose: 40 meq Tramadol HCl (Ultram) 25 mg PO TID PRN PRN Reason: Pain, moderate (4-7) Last Admin: 09/12/17 10:10 Dose: 25 mg - Labs Labs: 09/15/17 07:18 09/15/17 07:18 PT 11.2 SECONDS (9.7-12.2) 09/04/17 07:03 INR 1.0 09/04/17 07:03 APTT 25 SECONDS (21-34) 09/04/17 07:03 Attending/Attestation - Attestation I have personally seen and examined this patient.: Yes I have fully participated in the care of the patient.: Yes I have reviewed all pertinent clinical information, including history, physical exam and plan: Yes Notes (Text): Patient is lying on bed comfortable,She is weak.patient denies pain d/w her sister at bedside about the discharge plan. Patient's sister like to discuss with her oncologist about her prognosis and treatment option before decide about hospice evaluation I spoke to Dr Gordon this afternoon.Dr Gordon will see her and talk to her sister d/w CW I agree with the resident's documentation of the plan and the assessment
[2017-09-15 07:35] LABS: BASO % 0.2 % (0.0-2.0); HEMATOCRIT 42.2 % (34.0-47.0); LYMPH # 0.8 K/uL (1.0-4.3); LYMPH % 5.7 % (20.0-40.0); MEAN CELL VOLUME 88.9 fL (81.0-99.0); MEAN CORPUSCULAR HEMOGLOBIN 28.9 pg (27.0-31.0); MEAN CORPUSCULAR HGB CONC 32.5 g/dL (33.0-37.0); MONO # 0.6 K/uL (0.0-0.8); MONO % 3.7 % (0.0-10.0); NRBC % 0.1 % (0.0-2.0); PLATELET COUNT 293 K/uL (130-400); RED CELL DISTRIBUTION WIDTH 21.5 % (11.5-14.5); WHITE BLOOD COUNT 14.8 K/uL (4.8-10.8)
[2017-09-15 07:47] LABS: CHLORIDE 92 mmol/L (98-107)
[2017-09-15 07:48] LABS: POTASSIUM 3.5 mmol/L (3.6-5.2); SODIUM 130 mmol/L (132-148)
[2017-09-15 07:50] LABS: ALB/GLOB RATIO 2.1 (1.0-2.1); ALKALINE PHOSPHATASE 142 U/L (38-126); ALT/SGPT 127 U/L (9-52); AST/SGOT 35 U/L (14-36); BILIRUBIN,TOTAL 0.8 mg/dL (0.2-1.3); BLOOD UREA NITROGEN 16 mg/dL (7-17); CALCIUM 8.1 mg/dl (8.6-10.4); CARBON DIOXIDE 26 mmol/L (22-30); GFR AFRICAN-AMERICAN > 60; GLUCOSE,RANDOM 128 mg/dL (65-105); TOTAL PROTEIN 5.6 g/dL (6.3-8.3)
[2017-09-15] MEDS: Bacitracin Opht OINT 3.5GM OU SCH ×2 (09:16→17:58)
[2017-09-15] MEDS: Potassium Chloride 20 mEq ER Tab PO SCH ×3 (09:17→14:07)
[2017-09-15 09:54] LABS: NEUTROPHIL 88 % (50-75); TOTAL CELLS COUNTED 100
--- NOTE | 2017-09-15 18:43 | CP.PCM.PN ---
Subjective - Date & Time of Evaluation Date of Evaluation: 09/15/17 Time of Evaluation: 18:00 - Subjective Subjective: Appears comfortable Had at length discussion with the patients sister; discussed chemotherapy at this point would cause more harm than good Pt profoundly debilitated; hospice would be a good option +/- hormonal therapy with checkpoint inhibitor (pills) Radiotherapy completed today okay to start lovenox 1mg/kg q12 Objective - Vital Signs/Intake and Output Vital Signs (last 24 hours): Temp Pulse Resp BP Pulse Ox 97.6 F 94 H 20 137/92 H 96 09/15/17 16:18 09/15/17 16:18 09/15/17 16:18 09/15/17 16:18 09/15/17 16:18 Intake and Output: 09/15/17 09/15/17 06:59 18:59 Intake Total 450 240 Balance 450 240 - Medications Medications: Current Medications Acetaminophen (Tylenol 325mg Tab) 650 mg PO Q6 PRN PRN Reason: Fever >100.4 F Last Admin: 09/13/17 09:29 Dose: 650 mg Bacitracin (Bacitracin Opht Oint) 0 applic OU BID [facility] Last Admin: 09/15/17 17:58 Dose: 1 applic Dexamethasone (Decadron Inj) 4 mg IV Q6 [facility] Last Admin: 09/15/17 17:57 Dose: 4 mg Docusate Sodium (Colace) 100 mg PO BID PRN PRN Reason: Constipation Last Admin: 09/15/17 17:57 Dose: 100 mg Dronabinol (Marinol) 2.5 mg PO BID [facility] Last Admin: 09/15/17 17:57 Dose: 2.5 mg Enoxaparin Sodium (Lovenox) 70 mg SC Q12 [facility] Famotidine (Pepcid) 20 mg PO BID [facility] Last Admin: 09/15/17 17:57 Dose: 20 mg Ondansetron HCl (Zofran Inj) 4 mg IVP Q6 PRN PRN Reason: Nausea/Vomiting Potassium Chloride (K-Dur 20 Meq Er Tab) 40 meq PO DAILY [facility] Last Admin: 09/15/17 14:07 Dose: 40 meq Tramadol HCl (Ultram) 25 mg PO TID PRN PRN Reason: Pain, moderate (4-7) Last Admin: 09/12/17 10:10 Dose: 25 mg - Labs Labs: 09/15/17 07:18 09/15/17 07:18 PT 11.2 SECONDS (9.7-12.2) 09/04/17 07:03 INR 1.0 09/04/17 07:03 APTT 25 SECONDS (21-34) 09/04/17 07:03 - Head Exam Head Exam: ATRAUMATIC - Eye Exam Eye Exam: Normal appearance - ENT Exam ENT Exam: Mucous Membranes Dry Assessment and Plan (1) Brain metastasis Status: Acute (2) Pleural effusion Status: Acute (3) Pulmonary emboli Status: Acute (4) Breast cancer Status: Acute
[2017-09-15] MEDS: Enoxaparin 80 mg Syringe SC SCH (21:18)
[2017-09-16] MEDS: Dexamethasone 4 mg/1 ml IV SCH ×4 (05:39→23:35)
[2017-09-16 06:44] LABS: BASO # 0.1 K/uL (0.0-0.2); BASO % 0.4 % (0.0-2.0); HEMATOCRIT 39.9 % (34.0-47.0); LYMPH # 0.8 K/uL (1.0-4.3); LYMPH % 5.4 % (20.0-40.0); MEAN CELL VOLUME 88.7 fL (81.0-99.0); MEAN CORPUSCULAR HEMOGLOBIN 29.6 pg (27.0-31.0); MEAN CORPUSCULAR HGB CONC 33.3 g/dL (33.0-37.0); MONO # 0.7 K/uL (0.0-0.8); NRBC % 0.1 % (0.0-2.0); PLATELET COUNT 293 K/uL (130-400); RED CELL DISTRIBUTION WIDTH 21.3 % (11.5-14.5)
[2017-09-16 07:06] LABS: ALB/GLOB RATIO 1.4 (1.0-2.1); ALKALINE PHOSPHATASE 144 U/L (38-126); ALT/SGPT 107 U/L (9-52); AST/SGOT 24 U/L (14-36); BILIRUBIN,TOTAL 0.7 mg/dL (0.2-1.3); BLOOD UREA NITROGEN 15 mg/dL (7-17); CALCIUM 9.2 mg/dl (8.6-10.4); CARBON DIOXIDE 25 mmol/L (22-30); CHLORIDE 94 mmol/L (98-107); GFR AFRICAN-AMERICAN > 60; GLUCOSE,RANDOM 142 mg/dL (65-105); POTASSIUM 3.5 mmol/L (3.6-5.2); SODIUM 131 mmol/L (132-148); TOTAL PROTEIN 6.2 g/dL (6.3-8.3)
[2017-09-16] MEDS ORDERED: Potassium Chloride 20 mEq ER Tab PO ONE (07:38)
[2017-09-16 08:21] LABS: NEUTROPHIL 91 % (50-75); TOTAL CELLS COUNTED 100
[2017-09-16] MEDS: Bacitracin Opht OINT 3.5GM OU SCH ×2 (09:16→17:28)
[2017-09-16] MEDS: Enoxaparin 80 mg Syringe SC SCH ×2 (09:18→21:10)
[2017-09-16] MEDS: Potassium Chloride 20 mEq ER Tab PO SCH (09:18)
--- NOTE | 2017-09-16 11:30 | CP.PCM.PN ---
<Torrey Palma R - Last Filed: 09/16/17 11:24> Subjective - Date & Time of Evaluation Date of Evaluation: 09/16/17 Time of Evaluation: 11:24 - Subjective Subjective: PGY-[address] Miles. No acute events overnight. Patient seen and examined at bedside. Patient resting comfortably in bed sleeping. Patient was easily awakened. She had no new complaints at this time. Clinically she is the same as yesterday. Denies pain in her chest, abdomen, or head. Her last whole brain radiation treatment was 09/15/17. Objective - Vital Signs/Intake and Output Vital Signs (last 24 hours): Temp Pulse Resp BP Pulse Ox 97.9 F 93 H 20 137/92 H 96 09/16/17 07:26 09/16/17 07:26 09/16/17 07:26 09/16/17 07:26 09/16/17 07:26 Intake and Output: 09/16/17 09/16/17 06:59 18:59 Intake Total 240 Balance 240 - Medications Medications: Current Medications Acetaminophen (Tylenol 325mg Tab) 650 mg PO Q6 PRN PRN Reason: Fever >100.4 F Last Admin: 09/13/17 09:29 Dose: 650 mg Bacitracin (Bacitracin Opht Oint) 0 applic OU BID [facility] Last Admin: 09/16/17 09:16 Dose: 1 applic Dexamethasone (Decadron Inj) 4 mg IV Q6 [facility] Last Admin: 09/16/17 05:39 Dose: 4 mg Docusate Sodium (Colace) 100 mg PO BID PRN PRN Reason: Constipation Last Admin: 09/15/17 17:57 Dose: 100 mg Dronabinol (Marinol) 2.5 mg PO BID [facility] Last Admin: 09/16/17 09:18 Dose: 2.5 mg Enoxaparin Sodium (Lovenox) 70 mg SC Q12 [facility] Last Admin: 09/16/17 09:18 Dose: 70 mg Famotidine (Pepcid) 20 mg PO BID [facility] Last Admin: 09/16/17 09:18 Dose: 20 mg Ondansetron HCl (Zofran Inj) 4 mg IVP Q6 PRN PRN Reason: Nausea/Vomiting Potassium Chloride (K-Dur 20 Meq Er Tab) 40 meq PO DAILY [facility] Last Admin: 09/16/17 09:18 Dose: 40 meq Tramadol HCl (Ultram) 25 mg PO TID PRN PRN Reason: Pain, moderate (4-7) Last Admin: 09/12/17 10:10 Dose: 25 mg - Labs Labs: 09/16/17 06:35 09/16/17 06:35 PT 11.2 SECONDS (9.7-12.2) 09/04/17 07:03 INR 1.0 09/04/17 07:03 APTT 25 SECONDS (21-34) 09/04/17 07:03 - Additional Findings Additional findings: - Constitutional Appears: Well, No Acute Distress - Head Exam Head Exam: ATRAUMATIC, NORMAL INSPECTION, hair loss noted - Eye Exam Eye Exam: EOMI Pupil Exam: PERRL - ENT Exam ENT Exam: Mucous Membranes Moist - Neck Exam Neck Exam: Normal Inspection. absent: Lymphadenopathy - Respiratory Exam Respiratory Exam: Clear to Ausculation Bilateral, NORMAL BREATHING PATTERN. absent: Rales, Rhonchi, Wheezes - Cardiovascular Exam Cardiovascular Exam: REGULAR RHYTHM. absent: Bradycardia, Tachycardia - GI/Abdominal Exam GI & Abdominal Exam: Soft, Normal Bowel Sounds. absent: Tenderness - Extremities Exam Extremities Exam: Normal Capillary Refill, Normal Inspection. absent: Pedal Edema - Neurological Exam Neurological Exam: Alert, Awake, Oriented x3 - Psychiatric Exam Psychiatric exam: Normal Affect, Normal Mood - Skin Skin Exam: Dry, Intact, Normal Color, Warm Additional Findings: Pleurx catheter clamped and capped, dressing applied, remains dry and intact. Assessment and Plan (1) Metastatic breast cancer Status: Acute (2) Pulmonary emboli Status: Acute (3) Osseous metastasis Status: Acute (4) Hydropneumothorax Status: Acute (5) Brain metastasis Status: Acute (6) Prophylactic measure Status: Acute - Assessment and Plan (Free Text) Assessment: (1) Metastatic breast cancer Assessment & Plan: stage IV Heme/Onc consulted, Dr Gordon Radiation Oncologist consulted, Dr Harper Graves Patient with whole brain radiation treatment coordinated by Dr Harper Graves at [facility]. Last Tx 09/15. Post radiation visit tentatively scheduled for 10/27/17 at [facility]. Hx of chest wall and regional amira irradiation at [facility] in 2012 Currently on chemotherapy Dexamethasone 4mg PO BID tramadol 25mg po tid prn for pain Status: Acute (2) Brain metastasis Assessment & Plan: On admission: (+) dizziness, (+) changes in speech MRI Brain 05/31/17: 1. Diffuse cerebral and cerebellar large metastatic lesions with mild surrounding vasogenic edema without evidence of mass effect, midline shift or herniation. No hydrocephalus. 2. Diffuse osteoblastic calvarial metastasis. Patient with whole brain radiation treatment coordinated by Dr Harper Graves at [facility]. Last Tx 09/15. Post radiation visit tentatively scheduled for 10/27/17 at [facility]. Marinol 2.5mg po bid to stimulate appetite Status: Acute (3) Pulmonary emboli Assessment & Plan: provoked from malignancy Denies shortness of breath, cough, hemoptysis CT chest/abd/pelvis 08/31/17: Peripheral filling defect within RIGHT main pulmonary artery and probable filling defects within branches of RIGHT upper lobe pulmonary artery. Patchy and confluent groundglass/airspace disease within RIGHT lung with volume. Lovenox 70mg SC Q12H started 09/15 (after last tx of whole brain radiation). duplex venous dopplers b/l 09/11/17: normal Status: Acute (4) Hydropneumothorax Assessment & Plan: Denies shortness of breath, cough, hemoptysis. Saturating well on nasal cannula 3L. Thoracic surgery consulted, Dr Damon Pleural effusion to be drained q 1week initially, frequency to be adjusted based on amount of effusion to be drained Pleural fluid culture 09/04 shows no growth up to date Incentive spirometry q1h Large right-sided pneumothorax identified on CXR 09/13 - Dr Damon is aware - The space is due to nonexpanding lung from chronic process (tumor). Imaging: CT chest/abd/pelvis 08/31/17: Pleural space - Large RIGHT pleural effusion with few foci of air. CXR 09/13/17: Large right sided pneumothorax Procedures: s/p US guided right thoracentesis 08/31/17, 1400 cc of straw colored fluid removed s/p pleurex cath placement 09/04/[address] Damon. Pleurovac to wall suction s/p fluid drainage via pleurex 200cc on 09/12/17 Status: Acute (5) Osseous metastasis Assessment & Plan: CT chest/abd/pelvis 08/31/17: Innumerable sclerotic lesions throughout the visualized bones. Tramadol 25mg po tid prn tylenol 650mg po q6 prn for pain Status: Acute (6) Prophylactic measure Assessment & Plan: Famotidine 20mg po bid SCDs Lovenox 70mg SC Q12H started 09/15 (after last tx of whole brain radiation). PT/OT eval and treat Regular Diet Palliative care consult, Sarai had family meeting 09/07, sister signed POLST Fluids: NS 40 cc/hr colace 100mg bid prn Status: Acute DISPOSITION: Pending physical therapy evaluation, decision will be made for patient to go home or hospice. Dr Gordon and Dr Miles had lengthy discussion regarding disposition with patient's sister. They discussed that chemotherapy at this point would cause more harm than good. As patient is profoundly debilated, hospice would be a good option +/- hormonal therapy with checkpoint inhibitor (pills). <Riley Miles - Last Filed: 09/17/17 13:35> Objective - Vital Signs/Intake and Output Vital Signs (last 24 hours): Temp Pulse Resp BP Pulse Ox 98.1 F 86 20 131/90 96 09/17/17 08:03 09/17/17 08:03 09/17/17 08:03 09/17/17 08:03 09/17/17 08:03 Intake and Output: 09/17/17 09/17/17 06:59 18:59 Intake Total 120 Balance 120 - Medications Medications: Current Medications Acetaminophen (Tylenol 325mg Tab) 650 mg PO Q6 PRN PRN Reason: Fever >100.4 F Last Admin: 09/13/17 09:29 Dose: 650 mg Bacitracin (Bacitracin Opht Oint) 0 applic OU BID [facility] Last Admin: 09/16/17 17:28 Dose: 1 applic Dexamethasone (Decadron Inj) 4 mg IV Q6 [facility] Last Admin: 09/17/17 05:30 Dose: 4 mg Docusate Sodium (Colace) 100 mg PO BID PRN PRN Reason: Constipation Last Admin: 09/17/17 10:16 Dose: 100 mg Dronabinol (Marinol) 2.5 mg PO BID [facility] Last Admin: 09/17/17 10:16 Dose: 2.5 mg Enoxaparin Sodium (Lovenox) 70 mg SC Q12 [facility] Last Admin: 09/17/17 10:19 Dose: 70 mg Famotidine (Pepcid) 20 mg PO BID [facility] Last Admin: 09/17/17 10:16 Dose: 20 mg Ondansetron HCl (Zofran Inj) 4 mg IVP Q6 PRN PRN Reason: Nausea/Vomiting Potassium Chloride (K-Dur 20 Meq Er Tab) 40 meq PO DAILY [facility] Last Admin: 09/17/17 10:16 Dose: 40 meq Tramadol HCl (Ultram) 25 mg PO TID PRN PRN Reason: Pain, moderate (4-7) Last Admin: 09/17/17 10:26 Dose: 25 mg - Labs Labs: 09/17/17 06:10 09/17/17 06:10 PT 11.2 SECONDS (9.7-12.2) 09/04/17 07:03 INR 1.0 09/04/17 07:03 APTT 25 SECONDS (21-34) 09/04/17 07:03 Attending/Attestation - Attestation I have personally seen and examined this patient.: Yes I have fully participated in the care of the patient.: Yes I have reviewed all pertinent clinical information, including history, physical exam and plan: Yes Notes (Text): Patient was seen and examined Discussed with PT and munitions worker about discharge plan CW is trying to find placement/hospice care I agree with the resident's documentation
[2017-09-16] MEDS: Tramadol 25 mg PO PRN (12:56)
[2017-09-17] MEDS: Dexamethasone 4 mg/1 ml IV SCH ×5 (05:30→23:38)
[2017-09-17 06:23] LABS: BASO # 0.1 K/uL (0.0-0.2); BASO % 0.3 % (0.0-2.0); HEMATOCRIT 39.7 % (34.0-47.0); LYMPH # 0.7 K/uL (1.0-4.3); LYMPH % 3.4 % (20.0-40.0); MEAN CELL VOLUME 88.6 fL (81.0-99.0); MEAN CORPUSCULAR HEMOGLOBIN 29.1 pg (27.0-31.0); MEAN CORPUSCULAR HGB CONC 32.9 g/dL (33.0-37.0); MONO # 1.1 K/uL (0.0-0.8); MONO % 4.8 % (0.0-10.0); PLATELET COUNT 263 K/uL (130-400); RED CELL DISTRIBUTION WIDTH 20.6 % (11.5-14.5); WHITE BLOOD COUNT 21.9 K/uL (4.8-10.8)
[2017-09-17 06:36] LABS: ALB/GLOB RATIO 1.2 (1.0-2.1); ALKALINE PHOSPHATASE 144 U/L (38-126); ALT/SGPT 96 U/L (9-52); AST/SGOT 24 U/L (14-36); BILIRUBIN,TOTAL 0.7 mg/dL (0.2-1.3); BLOOD UREA NITROGEN 15 mg/dL (7-17); CALCIUM 8.9 mg/dl (8.6-10.4); CARBON DIOXIDE 28 mmol/L (22-30); CHLORIDE 96 mmol/L (98-107); GFR AFRICAN-AMERICAN > 60; GLUCOSE,RANDOM 147 mg/dL (65-105); POTASSIUM 3.8 mmol/L (3.6-5.2); SODIUM 133 mmol/L (132-148); TOTAL PROTEIN 6.4 g/dL (6.3-8.3)
[2017-09-17 08:24] LABS: NEUTROPHIL 94 % (50-75); TOTAL CELLS COUNTED 100
[2017-09-17] MEDS: Potassium Chloride 20 mEq ER Tab PO SCH (10:16)
[2017-09-17] MEDS: Enoxaparin 80 mg Syringe SC SCH ×2 (10:19→21:09)
[2017-09-17] MEDS: Tramadol 25 mg PO PRN (10:26)
--- NOTE | 2017-09-17 13:20 | CP.PCM.PN ---
Subjective - Date & Time of Evaluation Date of Evaluation: 09/17/17 Time of Evaluation: 13:17 - Subjective Subjective: PGY-[address] Miles. No acute events overnight. Patient seen and examined at bedside. Patient resting comfortably in bed sleeping. Patient was easily awakened. She had no new complaints at this time. Clinically she is the same as yesterday. Denies pain in her chest, abdomen, or head. Her last whole brain radiation treatment was 09/15/17. Objective - Vital Signs/Intake and Output Vital Signs (last 24 hours): Temp Pulse Resp BP Pulse Ox 98.1 F 86 20 131/90 96 09/17/17 08:03 09/17/17 08:03 09/17/17 08:03 09/17/17 08:03 09/17/17 08:03 Intake and Output: 09/17/17 09/17/17 06:59 18:59 Intake Total 120 Balance 120 - Medications Medications: Current Medications Acetaminophen (Tylenol 325mg Tab) 650 mg PO Q6 PRN PRN Reason: Fever >100.4 F Last Admin: 09/13/17 09:29 Dose: 650 mg Bacitracin (Bacitracin Opht Oint) 0 applic OU BID [facility] Last Admin: 09/16/17 17:28 Dose: 1 applic Dexamethasone (Decadron Inj) 4 mg IV Q6 [facility] Last Admin: 09/17/17 05:30 Dose: 4 mg Docusate Sodium (Colace) 100 mg PO BID PRN PRN Reason: Constipation Last Admin: 09/17/17 10:16 Dose: 100 mg Dronabinol (Marinol) 2.5 mg PO BID [facility] Last Admin: 09/17/17 10:16 Dose: 2.5 mg Enoxaparin Sodium (Lovenox) 70 mg SC Q12 [facility] Last Admin: 09/17/17 10:19 Dose: 70 mg Famotidine (Pepcid) 20 mg PO BID [facility] Last Admin: 09/17/17 10:16 Dose: 20 mg Ondansetron HCl (Zofran Inj) 4 mg IVP Q6 PRN PRN Reason: Nausea/Vomiting Potassium Chloride (K-Dur 20 Meq Er Tab) 40 meq PO DAILY [facility] Last Admin: 09/17/17 10:16 Dose: 40 meq Tramadol HCl (Ultram) 25 mg PO TID PRN PRN Reason: Pain, moderate (4-7) Last Admin: 09/17/17 10:26 Dose: 25 mg - Labs Labs: 09/17/17 06:10 09/17/17 06:10 PT 11.2 SECONDS (9.7-12.2) 09/04/17 07:03 INR 1.0 09/04/17 07:03 APTT 25 SECONDS (21-34) 09/04/17 07:03 - Additional Findings Additional findings: - Constitutional Appears: Well, No Acute Distress - Head Exam Head Exam: ATRAUMATIC, NORMAL INSPECTION, hair loss noted - Eye Exam Eye Exam: EOMI Pupil Exam: PERRL - ENT Exam ENT Exam: Mucous Membranes Moist - Neck Exam Neck Exam: Normal Inspection. absent: Lymphadenopathy - Respiratory Exam Respiratory Exam: Clear to Ausculation Bilateral, NORMAL BREATHING PATTERN. absent: Rales, Rhonchi, Wheezes - Cardiovascular Exam Cardiovascular Exam: REGULAR RHYTHM. absent: Bradycardia, Tachycardia - GI/Abdominal Exam GI & Abdominal Exam: Soft, Normal Bowel Sounds. absent: Tenderness - Extremities Exam Extremities Exam: Normal Capillary Refill, Normal Inspection. absent: Pedal Edema - Neurological Exam Neurological Exam: Alert, Awake, Oriented x3 - Psychiatric Exam Psychiatric exam: Normal Affect, Normal Mood - Skin Skin Exam: Dry, Intact, Normal Color, Warm Additional Findings: Pleurx catheter clamped and capped, dressing applied, remains dry and intact. Assessment and Plan (1) Metastatic breast cancer Status: Acute (2) Pulmonary emboli Status: Acute (3) Osseous metastasis Status: Acute (4) Hydropneumothorax Status: Acute (5) Brain metastasis Status: Acute (6) Prophylactic measure Status: Acute - Assessment and Plan (Free Text) Assessment: (1) Metastatic breast cancer Assessment & Plan: stage IV Heme/Onc consulted, Dr Gordon Radiation Oncologist consulted, Dr Harper Graves Patient with whole brain radiation treatment coordinated by Dr Harper Graves at [facility]. Last Tx 09/15. Post radiation visit tentatively scheduled for 10/27/17 at [facility]. Hx of chest wall and regional amira irradiation at [facility] in 2012 Currently on chemotherapy Dexamethasone 4mg PO BID tramadol 25mg po tid prn for pain Status: Acute (2) Brain metastasis Assessment & Plan: On admission: (+) dizziness, (+) changes in speech MRI Brain 05/31/17: 1. Diffuse cerebral and cerebellar large metastatic lesions with mild surrounding vasogenic edema without evidence of mass effect, midline shift or herniation. No hydrocephalus. 2. Diffuse osteoblastic calvarial metastasis. Patient with whole brain radiation treatment coordinated by Dr Harper Graves at [facility]. Last Tx 09/15. Post radiation visit tentatively scheduled for 10/27/17 at [facility]. Marinol 2.5mg po bid to stimulate appetite Status: Acute (3) Pulmonary emboli Assessment & Plan: provoked from malignancy Denies shortness of breath, cough, hemoptysis CT chest/abd/pelvis 08/31/17: Peripheral filling defect within RIGHT main pulmonary artery and probable filling defects within branches of RIGHT upper lobe pulmonary artery. Patchy and confluent groundglass/airspace disease within RIGHT lung with volume. Lovenox 70mg SC Q12H started 09/15 (after last tx of whole brain radiation). duplex venous dopplers b/l 09/11/17: normal Status: Acute (4) Hydropneumothorax Assessment & Plan: Denies shortness of breath, cough, hemoptysis. Saturating well on nasal cannula 3L. Thoracic surgery consulted, Dr Damon Pleural effusion to be drained q 1week initially, frequency to be adjusted based on amount of effusion to be drained Pleural fluid culture 09/04 shows no growth up to date Incentive spirometry q1h Large right-sided pneumothorax identified on CXR 09/13 - Dr Damon is aware - The space is due to nonexpanding lung from chronic process (tumor). Imaging: CT chest/abd/pelvis 08/31/17: Pleural space - Large RIGHT pleural effusion with few foci of air. CXR 09/13/17: Large right sided pneumothorax Procedures: s/p US guided right thoracentesis 08/31/17, 1400 cc of straw colored fluid removed s/p pleurex cath placement 09/04/[address] Damon. Pleurovac to wall suction s/p fluid drainage via pleurex 200cc on 09/12/17 Status: Acute (5) Osseous metastasis Assessment & Plan: CT chest/abd/pelvis 08/31/17: Innumerable sclerotic lesions throughout the visualized bones. Tramadol 25mg po tid prn tylenol 650mg po q6 prn for pain Status: Acute (6) Prophylactic measure Assessment & Plan: Famotidine 20mg po bid S[facility] Lovenox 70mg SC Q12H started 09/15 (after last tx of whole brain radiation). PT/OT eval and treat Regular Diet Palliative care consult, Sarai had family meeting 09/07, sister signed POLST Fluids: NS 40 cc/hr colace 100mg bid prn Status: Acute DISPOSITION: 09/17: Per correctional case manager today, patient is in process to attain [facility]. A wheelchair will be ready upon discharge. Prior to discharge, surgery will need to give patient's sister instructions on how to drain the pleurX catheter that is inserted in patient's right thorax. 09/16: Pending physical therapy evaluation, decision will be made for patient to go home or hospice. Dr Gordon and Dr Miles had lengthy discussion regarding disposition with patient's sister. They discussed that chemotherapy at this point would cause more harm than good. As patient is profoundly debilated, hospice would be a good option +/- hormonal therapy with checkpoint inhibitor ( pills).
[2017-09-17] MEDS: Bacitracin Opht OINT 3.5GM OU SCH ×2 (13:44→18:00)
[2017-09-18] MEDS: Dexamethasone 4 mg/1 ml IV SCH ×3 (05:50→18:17)
[2017-09-18 06:50] LABS: BASO # 0.1 K/uL (0.0-0.2); BASO % 0.6 % (0.0-2.0); HEMATOCRIT 38.4 % (34.0-47.0); LYMPH # 0.4 K/uL (1.0-4.3); LYMPH % 1.8 % (20.0-40.0); MEAN CELL VOLUME 89.2 fL (81.0-99.0); MEAN CORPUSCULAR HEMOGLOBIN 29.5 pg (27.0-31.0); MEAN CORPUSCULAR HGB CONC 33.1 g/dL (33.0-37.0); MEAN PLATELET VOLUME 8.2 fL (7.2-11.7); MONO # 0.7 K/uL (0.0-0.8); MONO % 3.2 % (0.0-10.0); PLATELET COUNT 234 K/uL (130-400); RED CELL DISTRIBUTION WIDTH 21.7 % (11.5-14.5); WHITE BLOOD COUNT 22.9 K/uL (4.8-10.8)
[2017-09-18 07:12] LABS: ALB/GLOB RATIO 1.1 (1.0-2.1); ALKALINE PHOSPHATASE 138 U/L (38-126); ALT/SGPT 83 U/L (9-52); AST/SGOT 23 U/L (14-36); BILIRUBIN,TOTAL 0.7 mg/dL (0.2-1.3); BLOOD UREA NITROGEN 13 mg/dL (7-17); CALCIUM 8.8 mg/dl (8.6-10.4); CARBON DIOXIDE 26 mmol/L (22-30); CHLORIDE 96 mmol/L (98-107); GFR AFRICAN-AMERICAN > 60; GLUCOSE,RANDOM 162 mg/dL (65-105); POTASSIUM 3.9 mmol/L (3.6-5.2); SODIUM 131 mmol/L (132-148); TOTAL PROTEIN 6.6 g/dL (6.3-8.3)
[2017-09-18 08:55] LABS: NEUTROPHIL 89 % (50-75); TOTAL CELLS COUNTED 100
--- NOTE | 2017-09-18 09:10 | CP.PCM.PN ---
Subjective - Date & Time of Evaluation Date of Evaluation: 09/18/17 Time of Evaluation: 09:05 - Subjective Subjective: PGY-[address] Miles. No acute events overnight. Patient seen and examined at bedside. Patient resting comfortably in bed sleeping. Patient was easily awakened. She had no new complaints at this time. Clinically she is the same as yesterday. Denies pain in her chest, abdomen, calves, or head. Her last whole brain radiation treatment was 09/15/17. Objective - Vital Signs/Intake and Output Vital Signs (last 24 hours): Temp Pulse Resp BP Pulse Ox 98.1 F 95 H 20 119/78 96 09/18/17 07:52 09/18/17 07:52 09/18/17 07:52 09/18/17 07:52 09/18/17 07:52 Intake and Output: 09/18/17 09/18/17 06:59 18:59 Intake Total 540 Output Total 300 Balance 240 - Medications Medications: Current Medications Acetaminophen (Tylenol 325mg Tab) 650 mg PO Q6 PRN PRN Reason: Fever >100.4 F Last Admin: 09/13/17 09:29 Dose: 650 mg Bacitracin (Bacitracin Opht Oint) 0 applic OU BID [facility] Last Admin: 09/17/17 18:00 Dose: 1 applic Dexamethasone (Decadron Inj) 4 mg IV Q6 [facility] Last Admin: 09/18/17 05:50 Dose: 4 mg Docusate Sodium (Colace) 100 mg PO BID PRN PRN Reason: Constipation Last Admin: 09/17/17 17:49 Dose: 100 mg Dronabinol (Marinol) 2.5 mg PO BID [facility] Last Admin: 09/17/17 17:48 Dose: 2.5 mg Enoxaparin Sodium (Lovenox) 70 mg SC Q12 [facility] Last Admin: 09/17/17 21:09 Dose: Not Given Famotidine (Pepcid) 20 mg PO BID [facility] Last Admin: 09/17/17 17:48 Dose: 20 mg Ondansetron HCl (Zofran Inj) 4 mg IVP Q6 PRN PRN Reason: Nausea/Vomiting Potassium Chloride (K-Dur 20 Meq Er Tab) 40 meq PO DAILY [facility] Last Admin: 09/17/17 10:16 Dose: 40 meq Tramadol HCl (Ultram) 25 mg PO TID PRN PRN Reason: Pain, moderate (4-7) Last Admin: 09/17/17 10:26 Dose: 25 mg - Labs Labs: 09/18/17 06:30 09/18/17 06:30 PT 11.2 SECONDS (9.7-12.2) 09/04/17 07:03 INR 1.0 09/04/17 07:03 APTT 25 SECONDS (21-34) 09/04/17 07:03 - Additional Findings Additional findings: - Constitutional Appears: Well, No Acute Distress - Head Exam Head Exam: ATRAUMATIC, NORMAL INSPECTION, hair loss noted - Eye Exam Eye Exam: EOMI Pupil Exam: PERRL - ENT Exam ENT Exam: Mucous Membranes Moist - Neck Exam Neck Exam: Normal Inspection. absent: Lymphadenopathy - Respiratory Exam Respiratory Exam: Clear to Ausculation Bilateral, NORMAL BREATHING PATTERN. absent: Rales, Rhonchi, Wheezes - Cardiovascular Exam Cardiovascular Exam: REGULAR RHYTHM. absent: Bradycardia, Tachycardia - GI/Abdominal Exam GI & Abdominal Exam: Soft, Normal Bowel Sounds. absent: Tenderness - Extremities Exam Extremities Exam: Normal Capillary Refill, Normal Inspection. absent: Pedal Edema - Neurological Exam Neurological Exam: Alert, Awake, Oriented x3 - Psychiatric Exam Psychiatric exam: Normal Affect, Normal Mood - Skin Skin Exam: Dry, Intact, Normal Color, Warm Additional Findings: Pleurx catheter on right clamped and capped, dressing applied, remains dry and intact. Assessment and Plan - Assessment and Plan (Free Text) Plan: (1) Metastatic breast cancer Assessment & Plan: stage IV Heme/Onc consulted, Dr Gordon Radiation Oncologist consulted, Dr Harper Graves Patient with whole brain radiation treatment coordinated by Dr Harper Graves at [facility]. Last Tx 09/15. Post radiation visit tentatively scheduled for 10/27/17 at [facility]. Hx of chest wall and regional amira irradiation at [facility] in 2012 Currently on chemotherapy Dexamethasone 4mg PO BID tramadol 25mg po tid prn for pain Status: Acute (2) Brain metastasis Assessment & Plan: On admission: (+) dizziness, (+) changes in speech MRI Brain 05/31/17: 1. Diffuse cerebral and cerebellar large metastatic lesions with mild surrounding vasogenic edema without evidence of mass effect, midline shift or herniation. No hydrocephalus. 2. Diffuse osteoblastic calvarial metastasis. Patient with whole brain radiation treatment coordinated by Dr Harper Graves at [facility]. Last Tx 09/15. Post radiation visit tentatively scheduled for 10/27/17 at [facility]. Marinol 2.5mg po bid to stimulate appetite Status: Acute (3) Pulmonary emboli Assessment & Plan: provoked from malignancy Denies shortness of breath, cough, hemoptysis CT chest/abd/pelvis 08/31/17: Peripheral filling defect within RIGHT main pulmonary artery and probable filling defects within branches of RIGHT upper lobe pulmonary artery. Patchy and confluent groundglass/airspace disease within RIGHT lung with volume. Lovenox 70mg SC Q12H started 09/15 (after last tx of whole brain radiation). duplex venous dopplers b/l 09/11/17: normal Status: Acute (4) Hydropneumothorax Assessment & Plan: Denies shortness of breath, cough, hemoptysis. Saturating well on nasal cannula 3L. Thoracic surgery consulted, Dr Damon Pleural effusion to be drained q 1week initially, frequency to be adjusted based on amount of effusion to be drained Pleural fluid culture 09/04 shows no growth up to date Incentive spirometry q1h Large right-sided pneumothorax identified on CXR 09/13 - Dr Damon is aware - The space is due to nonexpanding lung from chronic process (tumor). Imaging: CT chest/abd/pelvis 08/31/17: Pleural space - Large RIGHT pleural effusion with few foci of air. CXR 09/13/17: Large right sided pneumothorax Procedures: s/p US guided right thoracentesis 08/31/17, 1400 cc of straw colored fluid removed s/p pleurex cath placement 09/04/[address] Damon. Pleurovac to wall suction s/p fluid drainage via pleurex 200cc on 09/12/17 Status: Acute (5) Osseous metastasis Assessment & Plan: CT chest/abd/pelvis 08/31/17: Innumerable sclerotic lesions throughout the visualized bones. Tramadol 25mg po tid prn tylenol 650mg po q6 prn for pain Status: Acute (6) Prophylactic measure Assessment & Plan: Famotidine 20mg po bid SCDs Lovenox 70mg SC Q12H started 09/15 (after last tx of whole brain radiation). PT/OT eval and treat Regular Diet Palliative care consult, Sarai had family meeting 09/07, sister signed POLST Fluids: NS 40 cc/hr colace 100mg bid prn Status: Acute DISPOSITION: 09/18: Patient will [facility] on . She will need dexamethasone 4 mg PO BID upon discharge and anticoagulation per Dr. Gordon. 09/17: Per piano case maker today, patient is in process to attain [facility]. A wheelchair will be ready upon discharge. Prior to discharge, surgery will need to give patient's sister instructions on how to drain the pleurX catheter that is inserted in patient's right thorax. 09/16: Pending physical therapy evaluation, decision will be made for patient to go home or hospice. Dr Gordon and Dr Miles had lengthy discussion regarding disposition with patient's sister. They discussed that chemotherapy at this point would cause more harm than good. As patient is profoundly debilated, hospice would be a good option +/- hormonal therapy with checkpoint inhibitor ( pills).
[2017-09-18] MEDS: Potassium Chloride 20 mEq ER Tab PO SCH (09:37)
[2017-09-18] MEDS: Bacitracin Opht OINT 3.5GM OU SCH ×2 (10:21→18:16)
[2017-09-18] MEDS: Enoxaparin 80 mg Syringe SC SCH ×2 (10:21→21:29)
--- NOTE | 2017-09-18 14:13 | RAD ---
HISTORY: pleural effusion s/p PleurX catheter COMPARISON: 09/13/2017. FINDINGS: The right MediPort terminates at the cavoatrial junction. LUNGS: Complete collapse of the right lung. The left lung is clear. PLEURA: The right chest tube is in stable position. There is interval increase in size of known right pneumothorax with shift of mediastinal to the left. CARDIOVASCULAR: Normal. OSSEOUS STRUCTURES: Multiple sclerotic lesions in the left humerus, clavicle and acromion process concerning for metastatic deposits. . VISUALIZED UPPER ABDOMEN: Normal. OTHER FINDINGS: There are multiple surgical clips in the right axilla. . IMPRESSION: Stable position of right chest tube. Interval worsening of right pneumothorax with collapse of the right lung with shift of mediastinal to the left.
[2017-09-19] MEDS: Dexamethasone 4 mg/1 ml IV SCH ×6 (00:15→23:38)
--- NOTE | 2017-09-19 00:24 | CP.PCM.PN ---
Subjective - Date & Time of Evaluation Date of Evaluation: 09/19/17 Time of Evaluation: 00:24 - Subjective Subjective: PGY-[address] Miles. No acute events overnight. Patient seen and examined at bedside. Patient resting comfortably in bed sleeping. Patient was easily awakened. She had no new complaints at this time. Clinically she is the same as yesterday. Denies pain in her chest, abdomen, calves, or head. Her last whole brain radiation treatment was 09/15/17. Objective - Vital Signs/Intake and Output Vital Signs (last 24 hours): Temp Pulse Resp BP Pulse Ox 98.1 F 92 H 20 133/90 96 09/18/17 23:49 09/18/17 23:49 09/18/17 23:49 09/18/17 23:49 09/18/17 23:49 Intake and Output: 09/18/17 09/19/17 18:59 06:59 Intake Total 500 350 Output Total 160 Balance 500 190 - Medications Medications: Current Medications Acetaminophen (Tylenol 325mg Tab) 650 mg PO Q6 PRN PRN Reason: Fever >100.4 F Last Admin: 09/13/17 09:29 Dose: 650 mg Bacitracin (Bacitracin Opht Oint) 0 applic OU BID [facility] Last Admin: 09/18/17 18:16 Dose: 1 applic Cephalexin Monohydrate (Keflex) 500 mg PO Q6H [facility] Last Admin: 09/19/17 00:17 Dose: 500 mg Dexamethasone (Decadron Inj) 4 mg IV Q6 [facility] Last Admin: 09/19/17 00:15 Dose: 4 mg Docusate Sodium (Colace) 100 mg PO BID PRN PRN Reason: Constipation Last Admin: 09/18/17 18:17 Dose: 100 mg Dronabinol (Marinol) 2.5 mg PO BID [facility] Last Admin: 09/18/17 18:17 Dose: 2.5 mg Famotidine (Pepcid) 20 mg PO BID [facility] Last Admin: 09/18/17 18:16 Dose: 20 mg Ondansetron HCl (Zofran Inj) 4 mg IVP Q6 PRN PRN Reason: Nausea/Vomiting Potassium Chloride (K-Dur 20 Meq Er Tab) 40 meq PO DAILY [facility] Last Admin: 09/18/17 09:37 Dose: 40 meq Tramadol HCl (Ultram) 25 mg PO TID PRN PRN Reason: Pain, moderate (4-7) Last Admin: 09/17/17 10:26 Dose: 25 mg - Labs Labs: 09/18/17 06:30 09/18/17 06:30 PT 11.2 SECONDS (9.7-12.2) 09/04/17 07:03 INR 1.0 09/04/17 07:03 APTT 25 SECONDS (21-34) 09/04/17 07:03 - Additional Findings Additional findings: - Constitutional Appears: Well, No Acute Distress - Head Exam Head Exam: ATRAUMATIC, NORMAL INSPECTION, hair loss noted - Eye Exam Eye Exam: EOMI Pupil Exam: PERRL - ENT Exam ENT Exam: Mucous Membranes Moist - Neck Exam Neck Exam: Normal Inspection. absent: Lymphadenopathy - Respiratory Exam Respiratory Exam: Clear to Ausculation Bilateral, NORMAL BREATHING PATTERN. absent: Rales, Rhonchi, Wheezes - Cardiovascular Exam Cardiovascular Exam: REGULAR RHYTHM. absent: Bradycardia, Tachycardia - GI/Abdominal Exam GI & Abdominal Exam: Soft, Normal Bowel Sounds. absent: Tenderness - Extremities Exam Extremities Exam: Normal Capillary Refill, Normal Inspection. absent: Pedal Edema - Neurological Exam Neurological Exam: Alert, Awake, Oriented x3 - Psychiatric Exam Psychiatric exam: Normal Affect, Normal Mood - Skin Skin Exam: Dry, Intact, Normal Color, Warm Additional Findings: Pleurx catheter on right clamped and capped, dressing applied, remains dry and intact. Assessment and Plan (1) Metastatic breast cancer Status: Acute (2) Pulmonary emboli Status: Acute (3) Osseous metastasis Status: Acute (4) Hydropneumothorax Status: Acute (5) Brain metastasis Status: Acute (6) Prophylactic measure Status: Acute - Assessment and Plan (Free Text) Assessment: (1) Metastatic breast cancer Assessment & Plan: stage IV Heme/Onc consulted, Dr Gordon Radiation Oncologist consulted, Dr Harper Graves Patient with whole brain radiation treatment coordinated by Dr Harper Graves at [facility]. Last Tx 09/15. Post radiation visit tentatively scheduled for 10/27/17 at [facility]. Hx of chest wall and regional amira irradiation at [facility] in 2012 Currently on chemotherapy Dexamethasone 4mg PO BID tramadol 25mg po tid prn for pain Status: Acute (2) Brain metastasis Assessment & Plan: On admission: (+) dizziness, (+) changes in speech MRI Brain 05/31/17: 1. Diffuse cerebral and cerebellar large metastatic lesions with mild surrounding vasogenic edema without evidence of mass effect, midline shift or herniation. No hydrocephalus. 2. Diffuse osteoblastic calvarial metastasis. Patient with whole brain radiation treatment coordinated by Dr Harper Graves at [facility]. Last Tx 09/15. Post radiation visit tentatively scheduled for 10/27/17 at [facility]. Marinol 2.5mg po bid to stimulate appetite Status: Acute (3) Pulmonary emboli Assessment & Plan: provoked from malignancy Denies shortness of breath, cough, hemoptysis CT chest/abd/pelvis 08/31/17: Peripheral filling defect within RIGHT main pulmonary artery and probable filling defects within branches of RIGHT upper lobe pulmonary artery. Patchy and confluent groundglass/airspace disease within RIGHT lung with volume. Lovenox 70mg SC Q12H started 09/15 (after last tx of whole brain radiation). duplex venous dopplers b/l 09/11/17: normal Status: Acute (4) Hydropneumothorax Assessment & Plan: Denies shortness of breath, cough, hemoptysis. Saturating well on nasal cannula 3L. Thoracic surgery consulted, Dr Damon Pleural effusion to be drained q 1week initially, frequency to be adjusted based on amount of effusion to be drained Pleural fluid culture 09/04 shows no growth up to date Incentive spirometry q1h Large right-sided pneumothorax identified on CXR 09/13 - Dr Damon is aware - The space is due to nonexpanding lung from chronic process (tumor). Imaging: CT chest/abd/pelvis 08/31/17: Pleural space - Large RIGHT pleural effusion with few foci of air. CXR 09/13/17: Large right sided pneumothorax Procedures: s/p US guided right thoracentesis 08/31/17, 1400 cc of straw colored fluid removed s/p pleurex cath placement 09/04/[address] Damon. Pleurovac to wall suction s/p fluid drainage via pleurex 200cc on 09/12/17 Status: Acute (5) Osseous metastasis Assessment & Plan: CT chest/abd/pelvis 08/31/17: Innumerable sclerotic lesions throughout the visualized bones. Tramadol 25mg po tid prn tylenol 650mg po q6 prn for pain Status: Acute (6) Prophylactic measure Assessment & Plan: Famotidine 20mg po bid SCDs Lovenox 70mg SC Q12H started 09/15 (after last tx of whole brain radiation). PT/OT eval and treat Regular Diet Palliative care consult, Sarai had family meeting 09/07, sister signed POLST Fluids: NS 40 cc/hr colace 100mg bid prn Status: Acute DISPOSITION: 09/18: [facility] . She will need dexamethasone 4 mg PO BID upon discharge and anticoagulation per Dr. Gordon. 09/17: Per case work aide today, patient is in process to attain [facility]. A wheelchair will be ready upon discharge. Prior to discharge, surgery will need to give patient's sister instructions on how to drain the pleurX catheter that is inserted in patient's right thorax. 09/16: Pending physical therapy evaluation, decision will be made for patient to go home or hospice. Dr Gordon and Dr Miles had lengthy discussion regarding disposition with patient's sister. They discussed that chemotherapy at this point would cause more harm than good. As patient is profoundly debilated, hospice would be a good option +/- hormonal therapy with checkpoint inhibitor ( pills).
--- NOTE | 2017-09-19 07:49 | CP.PCM.PN ---
Objective - Vital Signs/Intake and Output Vital Signs (last 24 hours): Temp Pulse Resp BP Pulse Ox 98.1 F 92 H 20 133/90 96 09/18/17 23:49 09/18/17 23:49 09/18/17 23:49 09/18/17 23:49 09/18/17 23:49 Intake and Output: 09/19/17 09/19/17 06:59 18:59 Intake Total 350 250 Output Total 160 Balance 190 250 - Medications Medications: Current Medications Acetaminophen (Tylenol 325mg Tab) 650 mg PO Q6 PRN PRN Reason: Fever >100.4 F Last Admin: 09/13/17 09:29 Dose: 650 mg Bacitracin (Bacitracin Opht Oint) 0 applic OU BID [facility] Last Admin: 09/18/17 18:16 Dose: 1 applic Cephalexin Monohydrate (Keflex) 500 mg PO Q6H [facility] Last Admin: 09/19/17 06:17 Dose: 500 mg Dexamethasone (Decadron Inj) 4 mg IV Q6 [facility] Last Admin: 09/19/17 06:16 Dose: 4 mg Docusate Sodium (Colace) 100 mg PO BID PRN PRN Reason: Constipation Last Admin: 09/18/17 18:17 Dose: 100 mg Dronabinol (Marinol) 2.5 mg PO BID [facility] Last Admin: 09/18/17 18:17 Dose: 2.5 mg Famotidine (Pepcid) 20 mg PO BID [facility] Last Admin: 09/18/17 18:16 Dose: 20 mg Ondansetron HCl (Zofran Inj) 4 mg IVP Q6 PRN PRN Reason: Nausea/Vomiting Potassium Chloride (K-Dur 20 Meq Er Tab) 40 meq PO DAILY [facility] Last Admin: 09/18/17 09:37 Dose: 40 meq Tramadol HCl (Ultram) 25 mg PO TID PRN PRN Reason: Pain, moderate (4-7) Last Admin: 09/17/17 10:26 Dose: 25 mg - Labs Labs: 09/18/17 06:30 09/18/17 06:30 PT 11.2 SECONDS (9.7-12.2) 09/04/17 07:03 INR 1.0 09/04/17 07:03 APTT 25 SECONDS (21-34) 09/04/17 07:03
[2017-09-19 08:09] LABS: CHLORIDE 95 mmol/L (98-107); POTASSIUM 4.2 mmol/L (3.6-5.2); SODIUM 130 mmol/L (132-148)
[2017-09-19 08:11] LABS: GFR AFRICAN-AMERICAN > 60
[2017-09-19 08:12] LABS: ALKALINE PHOSPHATASE 158 U/L (38-126); ALT/SGPT 86 U/L (9-52); AST/SGOT 23 U/L (14-36); BILIRUBIN,TOTAL 0.6 mg/dL (0.2-1.3); BLOOD UREA NITROGEN 12 mg/dL (7-17); CARBON DIOXIDE 26 mmol/L (22-30); GLUCOSE,RANDOM 265 mg/dL (65-105); TOTAL PROTEIN 6.7 g/dL (6.3-8.3)
[2017-09-19 08:13] LABS: BASO # 0.1 K/uL (0.0-0.2); BASO % 0.3 % (0.0-2.0); CALCIUM 8.8 mg/dl (8.6-10.4); HEMATOCRIT 39.9 % (34.0-47.0); LYMPH # 0.3 K/uL (1.0-4.3); LYMPH % 1.5 % (20.0-40.0); MEAN CELL VOLUME 89.8 fL (81.0-99.0); MEAN CORPUSCULAR HEMOGLOBIN 29.3 pg (27.0-31.0); MEAN CORPUSCULAR HGB CONC 32.6 g/dL (33.0-37.0); MEAN PLATELET VOLUME 8.5 fL (7.2-11.7); MONO # 0.6 K/uL (0.0-0.8); PLATELET COUNT 216 K/uL (130-400); RED CELL DISTRIBUTION WIDTH 21.6 % (11.5-14.5); WHITE BLOOD COUNT 20.4 K/uL (4.8-10.8)
[2017-09-19 09:03] LABS: NEUTROPHIL 85 % (50-75); TOTAL CELLS COUNTED 100
[2017-09-19 09:07] LABS: LARGE PLATELETS PRESENT
--- NOTE | 2017-09-19 09:18 | RAD ---
HISTORY: s/p L pleural effusion drainage 09/18 COMPARISON: 09/18/2017 FINDINGS: The right chest tube is stable position. The right MediPort terminates at the cavoatrial junction. LUNGS: There is near complete collapse of the right lung. The left lung is clear. There is persistent mild mediastinal shift to the left. PLEURA: There is interval development of haziness in the right lung. No large left pleural effusion. OSSEOUS STRUCTURES: No significant abnormalities. VISUALIZED UPPER ABDOMEN: Normal. OTHER FINDINGS: None. IMPRESSION: Persistent right pneumothorax with interval development of pleural effusion on the right.
[2017-09-19] MEDS: Bacitracin Opht OINT 3.5GM OU SCH ×2 (10:00→17:35)
[2017-09-19] MEDS: Potassium Chloride 20 mEq ER Tab PO SCH (10:01)
--- NOTE | 2017-09-19 18:27 | CP.PCM.PCO ---
Physician Communication Note - Physician Communication Note Physician Communication Note: Pleurx drained yesterday and started keflex for superficial skin drainage
--- NOTE | 2017-09-20 00:11 | CP.PCM.PN ---
<Torrey Palma R - Last Filed: 09/20/17 00:10> Subjective - Date & Time of Evaluation Date of Evaluation: 09/20/17 Time of Evaluation: 00:10 - Subjective Subjective: PGY-[address] Miles. No acute events overnight. Patient seen and examined at bedside. Patient resting comfortably in bed sleeping. Patient was easily awakened. She had no new complaints at this time. Clinically she is the same as yesterday. Denies pain in her chest, abdomen, calves, or head. Her last whole brain radiation treatment was 09/15/17. Objective - Vital Signs/Intake and Output Vital Signs (last 24 hours): Temp Pulse Resp BP Pulse Ox 97.9 F 111 H 20 136/96 H 96 09/19/17 15:15 09/19/17 15:15 09/19/17 15:15 09/19/17 15:15 09/19/17 15:15 Intake and Output: 09/19/17 09/20/17 18:59 06:59 Intake Total 490 240 Balance 490 240 - Medications Medications: Current Medications Acetaminophen (Tylenol 325mg Tab) 650 mg PO Q6 PRN PRN Reason: Fever >100.4 F Last Admin: 09/13/17 09:29 Dose: 650 mg Bacitracin (Bacitracin Opht Oint) 0 applic OU BID [facility] Last Admin: 09/19/17 17:35 Dose: 1 applic Cephalexin Monohydrate (Keflex) 500 mg PO Q6H [facility] Last Admin: 09/19/17 23:39 Dose: 500 mg Dexamethasone (Decadron Inj) 4 mg IV Q6 [facility] Last Admin: 09/19/17 23:38 Dose: 4 mg Docusate Sodium (Colace) 100 mg PO BID PRN PRN Reason: Constipation Last Admin: 09/19/17 17:33 Dose: 100 mg Dronabinol (Marinol) 2.5 mg PO BID [facility] Last Admin: 09/19/17 17:32 Dose: 2.5 mg Famotidine (Pepcid) 20 mg PO BID [facility] Last Admin: 09/19/17 17:32 Dose: 20 mg Ondansetron HCl (Zofran Inj) 4 mg IVP Q6 PRN PRN Reason: Nausea/Vomiting Potassium Chloride (K-Dur 20 Meq Er Tab) 40 meq PO DAILY [facility] Last Admin: 09/19/17 10:01 Dose: 40 meq Tramadol HCl (Ultram) 25 mg PO TID PRN PRN Reason: Pain, moderate (4-7) Last Admin: 09/17/17 10:26 Dose: 25 mg - Labs Labs: 09/19/17 07:38 09/19/17 07:38 PT 11.2 SECONDS (9.7-12.2) 09/04/17 07:03 INR 1.0 09/04/17 07:03 APTT 25 SECONDS (21-34) 09/04/17 07:03 - Additional Findings Additional findings: - Constitutional Appears: Well, No Acute Distress - Head Exam Head Exam: ATRAUMATIC, NORMAL INSPECTION, hair loss noted - Eye Exam Eye Exam: EOMI Pupil Exam: PERRL - ENT Exam ENT Exam: Mucous Membranes Moist - Neck Exam Neck Exam: Normal Inspection. absent: Lymphadenopathy - Respiratory Exam Respiratory Exam: Clear to Ausculation Bilateral, NORMAL BREATHING PATTERN. absent: Rales, Rhonchi, Wheezes - Cardiovascular Exam Cardiovascular Exam: REGULAR RHYTHM. absent: Bradycardia, Tachycardia - GI/Abdominal Exam GI & Abdominal Exam: Soft, Normal Bowel Sounds. absent: Tenderness - Extremities Exam Extremities Exam: Normal Capillary Refill, Normal Inspection. absent: Pedal Edema - Neurological Exam Neurological Exam: Alert, Awake, Oriented x3 - Psychiatric Exam Psychiatric exam: Normal Affect, Normal Mood - Skin Skin Exam: Dry, Intact, Normal Color, Warm Additional Findings: Pleurx catheter on right clamped and capped, dressing applied, remains dry and intact. Assessment and Plan (1) Metastatic breast cancer Status: Acute (2) Pulmonary emboli Status: Acute (3) Osseous metastasis Status: Acute (4) Hydropneumothorax Status: Acute (5) Brain metastasis Status: Acute (6) Prophylactic measure Status: Acute - Assessment and Plan (Free Text) Assessment: (1) Metastatic breast cancer Assessment & Plan: stage IV Heme/Onc consulted, Dr Gordon Radiation Oncologist consulted, Dr Harper Graves Patient with whole brain radiation treatment coordinated by Dr Harper Graves at [facility]. Last Tx 09/15. Post radiation visit tentatively scheduled for 10/27/17 at [facility]. Hx of chest wall and regional amira irradiation at [facility] in 2012 Currently on chemotherapy Dexamethasone 4mg PO BID tramadol 25mg po tid prn for pain Status: Acute (2) Brain metastasis Assessment & Plan: On admission: (+) dizziness, (+) changes in speech MRI Brain 05/31/17: 1. Diffuse cerebral and cerebellar large metastatic lesions with mild surrounding vasogenic edema without evidence of mass effect, midline shift or herniation. No hydrocephalus. 2. Diffuse osteoblastic calvarial metastasis. Patient with whole brain radiation treatment coordinated by Dr Harper Graves at [facility]. Last Tx 09/15. Post radiation visit tentatively scheduled for 10/27/17 at [facility]. Marinol 2.5mg po bid to stimulate appetite Status: Acute (3) Pulmonary emboli Assessment & Plan: provoked from malignancy Denies shortness of breath, cough, hemoptysis CT chest/abd/pelvis 08/31/17: Peripheral filling defect within RIGHT main pulmonary artery and probable filling defects within branches of RIGHT upper lobe pulmonary artery. Patchy and confluent groundglass/airspace disease within RIGHT lung with volume. Lovenox 70mg SC Q12H started 09/15 (after last tx of whole brain radiation). duplex venous dopplers b/l 09/11/17: normal Status: Acute (4) Hydropneumothorax Assessment & Plan: Denies shortness of breath, cough, hemoptysis. Saturating well on nasal cannula 3L. Thoracic surgery consulted, Dr Damon Pleural effusion to be drained q 1week initially, frequency to be adjusted based on amount of effusion to be drained Pleural fluid culture 09/04 shows no growth up to date Incentive spirometry q1h Large right-sided pneumothorax identified on CXR 09/13 - Dr Damon is aware - The space is due to nonexpanding lung from chronic process (tumor). Imaging: CT chest/abd/pelvis 08/31/17: Pleural space - Large RIGHT pleural effusion with few foci of air. CXR 09/13/17: Large right sided pneumothorax Procedures: s/p US guided right thoracentesis 08/31/17, 1400 cc of straw colored fluid removed s/p pleurex cath placement 09/04/[address] Damon. Pleurovac to wall suction s/p fluid drainage via pleurex 200cc on 09/12/17 Status: Acute (5) Osseous metastasis Assessment & Plan: CT chest/abd/pelvis 08/31/17: Innumerable sclerotic lesions throughout the visualized bones. Tramadol 25mg po tid prn tylenol 650mg po q6 prn for pain Status: Acute (6) Prophylactic measure Assessment & Plan: Famotidine 20mg po bid SCDs Lovenox 70mg SC Q12H started 09/15 (after last tx of whole brain radiation). PT/OT eval and treat Regular Diet Palliative care consult, Sarai had family meeting 09/07, sister signed POLST Fluids: NS 40 cc/hr colace 100mg bid prn Status: Acute DISPOSITION: 09/18: Patient [facility] on . She will need dexamethasone 4 mg PO BID upon discharge and anticoagulation per Dr. Gordon. 09/17: Per home health care case manager today, patient is in process to attain [facility]. A wheelchair will be ready upon discharge. Prior to discharge, surgery will need to give patient's sister instructions on how to drain the pleurX catheter that is inserted in patient's right thorax. 09/16: Pending physical therapy evaluation, decision will be made for patient to go home or hospice. Dr Gordon and Dr Miles had lengthy discussion regarding disposition with patient's sister. They discussed that chemotherapy at this point would cause more harm than good. As patient is profoundly debilated, hospice would be a good option +/- hormonal therapy with checkpoint inhibitor ( pills). <Riley Miles - Last Filed: 09/20/17 22:00> Objective - Vital Signs/Intake and Output Vital Signs (last 24 hours): Temp Pulse Resp BP Pulse Ox 97.8 F 100 H 20 145/96 H 99 09/20/17 15:00 09/20/17 15:00 09/20/17 15:00 09/20/17 15:00 09/20/17 15:00 Intake and Output: 09/20/17 09/21/17 18:59 06:59 Intake Total 240 Balance 240 - Medications Medications: Current Medications Acetaminophen (Tylenol 325mg Tab) 650 mg PO Q6 PRN PRN Reason: Fever >100.4 F Last Admin: 09/13/17 09:29 Dose: 650 mg Bacitracin (Bacitracin Opht Oint) 0 applic OU BID [facility] Last Admin: 09/20/17 17:55 Dose: 1 applic Cephalexin Monohydrate (Keflex) 500 mg PO Q6H [facility] Last Admin: 09/20/17 17:51 Dose: 500 mg Dexamethasone (Decadron Inj) 4 mg IV Q6 [facility] Last Admin: 09/20/17 17:51 Dose: 4 mg Docusate Sodium (Colace) 100 mg PO BID PRN PRN Reason: Constipation Last Admin: 09/19/17 17:33 Dose: 100 mg Dronabinol (Marinol) 2.5 mg PO BID [facility] Last Admin: 09/20/17 17:51 Dose: 2.5 mg Famotidine (Pepcid) 20 mg PO BID [facility] Last Admin: 09/20/17 17:52 Dose: 20 mg Ondansetron HCl (Zofran Inj) 4 mg IVP Q6 PRN PRN Reason: Nausea/Vomiting Potassium Chloride (K-Dur 20 Meq Er Tab) 40 meq PO DAILY [facility] Last Admin: 09/20/17 10:56 Dose: 40 meq Tramadol HCl (Ultram) 25 mg PO TID PRN PRN Reason: Pain, moderate (4-7) Last Admin: 09/17/17 10:26 Dose: 25 mg - Labs Labs: 09/20/17 08:14 09/20/17 08:14 PT 11.2 SECONDS (9.7-12.2) 09/04/17 07:03 INR 1.0 09/04/17 07:03 APTT 25 SECONDS (21-34) 09/04/17 07:03 Attending/Attestation - Attestation I have personally seen and examined this patient.: Yes I have fully participated in the care of the patient.: Yes I have reviewed all pertinent clinical information, including history, physical exam and plan: Yes Notes (Text): Patient was seen and examined No complain,denies pain Has elevated leukocytes.Could be due to steroid vs infection.No fever,no sob Noted with discharge from Pleurx site started on keflex d/c home with hospice care service
[2017-09-20] MEDS: Dexamethasone 4 mg/1 ml IV SCH ×5 (05:39→23:34)
[2017-09-20 08:28] LABS: BASO % 0.2 % (0.0-2.0); HEMATOCRIT 38.2 % (34.0-47.0); LYMPH # 0.4 K/uL (1.0-4.3); LYMPH % 2.5 % (20.0-40.0); MEAN CORPUSCULAR HEMOGLOBIN 29.6 pg (27.0-31.0); MEAN CORPUSCULAR HGB CONC 33.2 g/dL (33.0-37.0); MEAN PLATELET VOLUME 8.8 fL (7.2-11.7); MONO # 0.6 K/uL (0.0-0.8); MONO % 3.8 % (0.0-10.0); PLATELET COUNT 215 K/uL (130-400); RED CELL DISTRIBUTION WIDTH 21.5 % (11.5-14.5); WHITE BLOOD COUNT 16.2 K/uL (4.8-10.8)
[2017-09-20 08:45] LABS: CHLORIDE 95 mmol/L (98-107); POTASSIUM 4.5 mmol/L (3.6-5.2); SODIUM 131 mmol/L (132-148)
[2017-09-20 08:47] LABS: ALB/GLOB RATIO 0.9 (1.0-2.1); AST/SGOT 19 U/L (14-36); BILIRUBIN,TOTAL 0.6 mg/dL (0.2-1.3); CARBON DIOXIDE 26 mmol/L (22-30); GFR AFRICAN-AMERICAN > 60; TOTAL PROTEIN 7.2 g/dL (6.3-8.3)
[2017-09-20 08:48] LABS: ALKALINE PHOSPHATASE 151 U/L (38-126); ALT/SGPT 77 U/L (9-52); BLOOD UREA NITROGEN 13 mg/dL (7-17); CALCIUM 9.4 mg/dl (8.6-10.4); GLUCOSE,RANDOM 218 mg/dL (65-105)
[2017-09-20 09:12] LABS: NEUTROPHIL 84 % (50-75); TOTAL CELLS COUNTED 100
[2017-09-20 09:13] LABS: LARGE PLATELETS PRESENT
[2017-09-20] MEDS: Potassium Chloride 20 mEq ER Tab PO SCH (10:56)
[2017-09-20] MEDS: Bacitracin Opht OINT 3.5GM OU SCH ×2 (10:57→17:55)
[2017-09-21] MEDS: Dexamethasone 4 mg/1 ml IV SCH ×3 (05:30→17:52)
[2017-09-21 08:04] LABS: BASO % 0.3 % (0.0-2.0); HEMATOCRIT 35.3 % (34.0-47.0); LYMPH # 0.3 K/uL (1.0-4.3); LYMPH % 2.2 % (20.0-40.0); MEAN CORPUSCULAR HEMOGLOBIN 29.3 pg (27.0-31.0); MEAN CORPUSCULAR HGB CONC 32.6 g/dL (33.0-37.0); MEAN PLATELET VOLUME 8.9 fL (7.2-11.7); MONO # 0.5 K/uL (0.0-0.8); MONO % 4.4 % (0.0-10.0); PLATELET COUNT 198 K/uL (130-400); RED CELL DISTRIBUTION WIDTH 21.4 % (11.5-14.5); WHITE BLOOD COUNT 12.1 K/uL (4.8-10.8)
[2017-09-21 08:40] LABS: CHLORIDE 93 mmol/L (98-107)
[2017-09-21 08:42] LABS: POTASSIUM 4.7 mmol/L (3.6-5.2); SODIUM 129 mmol/L (132-148)
[2017-09-21 08:44] LABS: ALB/GLOB RATIO 1.2 (1.0-2.1); ALKALINE PHOSPHATASE 147 U/L (38-126); ALT/SGPT 58 U/L (9-52); AST/SGOT 20 U/L (14-36); BILIRUBIN,TOTAL 0.9 mg/dL (0.2-1.3); BLOOD UREA NITROGEN 20 mg/dL (7-17); CARBON DIOXIDE 26 mmol/L (22-30); GFR AFRICAN-AMERICAN > 60; GLUCOSE,RANDOM 240 mg/dL (65-105); PHOSPHOROUS 2.7 mg/dL (2.5-4.5); TOTAL PROTEIN 5.8 g/dL (6.3-8.3)
[2017-09-21 08:45] LABS: CALCIUM 8.9 mg/dl (8.6-10.4); MAGNESIUM 1.9 mg/dL (1.6-2.3)
[2017-09-21 08:52] LABS: NEUTROPHIL 84 % (50-75); TOTAL CELLS COUNTED 100
[2017-09-21] MEDS: Tramadol 25 mg PO PRN (10:20)
[2017-09-21] MEDS: Potassium Chloride 20 mEq ER Tab PO SCH (10:20)
[2017-09-21] MEDS: Bacitracin Opht OINT 3.5GM OU SCH ×2 (10:21→17:52)
--- NOTE | 2017-09-21 20:44 | CP.PCM.DIS ---
<MinervaTorrey R - Last Filed: 09/21/17 20:42> Provider - Provider Date of Admission: 08/31/17 10:25 Attending physician: Scott Fournier DO Primary care physician: PMD: Dr Simmons Consults: Hematology/Oncology: Dr Gianluca Gordon Radiation Oncologist: Dr Harper Graves Palliative Care: Sarai Goddard Thoracic Surgeon: Dr Damon Time Spent in preparation of Discharge (in minutes): 55 Diagnosis - Discharge Diagnosis (1) Metastatic breast cancer Status: Acute Priority: High (2) Pulmonary emboli Status: Acute Priority: High (3) Osseous metastasis Status: Acute Priority: High (4) Hydropneumothorax Status: Acute Priority: High (5) Brain metastasis Status: Acute Priority: High (6) Prophylactic measure Status: Acute Priority: Low Hospital Course - Lab Results Lab Results: Micro Results 09/04/17 Unknown Pleural Fluid Gram Stain - Final 09/04/17 Unknown Pleural Fluid Anaerobic Culture - Final NO ANAEROBES ISOLATED. 09/04/17 Unknown Pleural Fluid Body Fluid Culture - Final No Growth 09/04/17 Unknown Pleural Fluid Fungal Culture - Preliminary NO FUNGUS GROWTH IN 2 WEEKS. 09/04/17 10:34 Other: Please Indicate Mycobacterial Culture - Preliminary Most Recent Lab Values WBC 12.1 K/uL (4.8-10.8) H 09/21/17 07:50 RBC 3.92 Mil/uL (3.80-5.20) 09/21/17 07:50 Hgb 11.5 g/dL (11.0-16.0) 09/21/17 07:50 Hct 35.3 % (34.0-47.0) 09/21/17 07:50 MCV 90.0 fL (81.0-99.0) 09/21/17 07:50 MCH 29.3 pg (27.0-31.0) 09/21/17 07:50 MCHC 32.6 g/dL (33.0-37.0) L 09/21/17 07:50 RDW 21.4 % (11.5-14.5) H 09/21/17 07:50 Plt Count 198 K/uL (130-400) 09/21/17 07:50 MPV 8.9 fL (7.2-11.7) 09/21/17 07:50 Neut % (Auto) 93.1 % (50.0-75.0) H 09/21/17 07:50 Lymph % (Auto) 2.2 % (20.0-40.0) L 09/21/17 07:50 Piatt % (Auto) 4.4 % (0.0-10.0) 09/21/17 07:50 Eos % (Auto) 0.0 % (0.0-4.0) 09/21/17 07:50 Baso % (Auto) 0.3 % (0.0-2.0) 09/21/17 07:50 Neut # 11.3 K/uL (1.8-7.0) H 09/21/17 07:50 Lymph # 0.3 K/uL (1.0-4.3) L 09/21/17 07:50 Piatt # 0.5 K/uL (0.0-0.8) 09/21/17 07:50 Eos # 0.0 K/uL (0.0-0.7) 09/21/17 07:50 Baso # 0.0 K/uL (0.0-0.2) 09/21/17 07:50 Neutrophils % (Manual) 84 % (50-75) H 09/21/17 07:50 Band Neutrophils % 8 % (0-2) H 09/21/17 07:50 Lymphocytes % (Manual) 2 % (20-40) L 09/21/17 07:50 Monocytes % (Manual) 6 % (0-10) 09/21/17 07:50 Eosinophils % (Manual) 1 % (0-4) 09/08/17 07:28 Toxic Granulation Present 09/19/17 07:38 Platelet Estimate Normal (NORMAL) 09/21/17 07:50 Large Platelets Present 09/20/17 08:14 RBC Morphology Normal 09/08/17 07:28 Polychromasia Slight 09/20/17 08:14 Hypochromasia (manual) Slight 09/21/17 07:50 Poikilocytosis (manual Slight 09/21/17 07:50 Anisocytosis (manual) Slight 09/21/17 07:50 Microcytosis (manual) Slight 09/20/17 08:14 Macrocytosis (manual) Slight 09/20/17 08:14 Tear Drop Cells Slight 09/06/17 07:30 Ovalocytes Slight 09/20/17 08:14 PT 11.2 SECONDS (9.7-12.2) 09/04/17 07:03 INR 1.0 09/04/17 07:03 APTT 25 SECONDS (21-34) 09/04/17 07:03 Sodium 129 mmol/L (132-148) L 09/21/17 07:50 Potassium 4.7 mmol/L (3.6-5.2) 09/21/17 07:50 Chloride 93 mmol/L (98-107) L 09/21/17 07:50 Carbon Dioxide 26 mmol/L (22-30) 09/21/17 07:50 Anion Gap 14 (10-20) 09/21/17 07:50 BUN 20 mg/dL (7-17) H 09/21/17 07:50 Creatinine 0.5 mg/dL (0.7-1.2) L 09/21/17 07:50 Est GFR ( Amer) > 60 09/21/17 07:50 Est GFR (Non-Af Amer) > 60 09/21/17 07:50 Random Glucose 240 mg/dL (65-105) H 09/21/17 07:50 Calcium 8.9 mg/dl (8.6-10.4) 09/21/17 07:50 Phosphorus 2.7 mg/dL (2.5-4.5) 09/21/17 07:50 Magnesium 1.9 mg/dL (1.6-2.3) 09/21/17 07:50 Total Bilirubin 0.9 mg/dL (0.2-1.3) 09/21/17 07:50 AST 20 U/L (14-36) 09/21/17 07:50 ALT 58 U/L (9-52) H D 09/21/17 07:50 Alkaline Phosphatase 147 U/L (38-126) H 09/21/17 07:50 Total Creatine Kinase 65 U/L (30-135) 08/31/17 08:39 Total Protein 5.8 g/dL (6.3-8.3) L 09/21/17 07:50 Albumin 3.1 g/dL (3.5-5.0) L 09/21/17 07:50 Globulin 2.7 gm/dL (2.2-3.9) 09/21/17 07:50 Albumin/Globulin Ratio 1.2 (1.0-2.1) 09/21/17 07:50 Amylase 222 U/L (30-110) H 09/04/17 07:03 Urine Color Straw (YELLOW) 08/31/17 10:16 Urine Clarity Clear (Clear) 08/31/17 10:16 Urine pH 8.0 (5.0-8.0) 08/31/17 10:16 Ur Specific [place] 1.008 (1.003-1.030) 08/31/17 10:16 Urine Protein Negative mg/dL (NEGATIVE) 08/31/17 10:16 Urine Glucose (UA) Normal mg/dL (Normal) 08/31/17 10:16 Urine Ketones Negative mg/dL (NEGATIVE) 08/31/17 10:16 Urine Blood Negative (NEGATIVE) 08/31/17 10:16 Urine Nitrate Negative (NEGATIVE) 08/31/17 10:16 Urine Bilirubin Negative (NEGATIVE) 08/31/17 10:16 Urine Urobilinogen Normal mg/dL (0.2-1.0) 08/31/17 10:16 Ur Leukocyte Esterase Neg Waldemar/uL (Negative) 08/31/17 10:16 Urine WBC (Auto) 5 /hpf (0-5) 08/31/17 10:16 Urine RBC (Auto) 1 /hpf (0-3) 08/31/17 10:16 Urine Bacteria Rare (<OCC) 08/31/17 10:16 Fluid Source Pleural 09/04/17 16:54 Fluid Appearance Clear (CLEAR) 09/04/17 16:54 Fluid WBC 56.0 /mm3 (0.0-300.0) 09/04/17 16:54 Fluid RBC 2343.0 /mm3 (0.0-0.0) H 09/04/17 16:54 Fluid Tot Cell Count TEST NOT PERFORMED 09/04/17 16:54 Fluid Neutrophils 25.0 % (0-0) H 09/04/17 16:54 Fluid Lymphocytes 65.0 % (0-0) H 09/04/17 16:54 Fld Monocyte/Macrophag 10 % (0-0) H 09/04/17 16:54 Fluid Comment 09/04/17 16:54 Pleural Total Protein 3.9 g/dL 09/04/17 16:15 Pleural LDH 163 U/L 09/04/17 16:15 Pleural Glucose 142 mg/dL 09/04/17 16:15 - Hospital Course Hospital Course: Med H&P for Dr. Granados CC: General weakness and vomiting HPI: 57 year old female with PMHx of metastatic breast cancer and HTN presents to ED with complaints of generalized weakness, "full body pain," and vomiting. Through translation by patient's sister, patient states the weakness and vomiting has been going on for two weeks but worsened one day ago. Patient's sister stated she was able to eat a small amount last night at 7pm without vomiting. Patient denies vomiting today. Patient is currently receiving chemotherapy for breast cancer, last treatment Thursday08/26/2017. Patient has nausea and vomiting following chemotherapy for one day but usually resolves. Patient's sister stated that her sister had trouble forming words and slurred her speech yesterday but it has since resolved. ROS: * Const: Denies wt changes, fever, chills. * HEENT: Positive headache, sore throat. Denies rhinorhea. * Respiratory: Denies SOB, cough, hemoptysis. * Cardiac: Denies Chest pain, palpitations. * GI: Positive nausea, vomiting. Denies abdominal pain, diarrhea, constipation, changes in stool, or hematachezia. * : Positive urinary frequency. Denies dysuria, hematuria. * Breast: Positive hx of right mastectomy. * MSK: Positive muscle weakness. Denies falls. Does not use assistive devices. * Neuro: Positive dizziness and changes of speech. Denies syncope, LOC, confusion. PMH: Metastatic Breast Cancer, HTN PSH: Right mastectomy FH: Mother CKD, Father HTN SH: Patient lives with her sister and [id number]. Patient is , no children. Patient denies smoking, alcohol or illicit drugs. Medications: Tramadol, Nausea medication (unknown on name), multivitamins Allergies: NKDA PMD: [facility] COURSE: This is a patient with stage IV breast cancer who has metastasis to the brain, liver and bones. The metastasis was confirmed via imaging (all imaging results are listed below). Heme/Onc, Dr Gordon was consulted who coordinated care with radiation oncologist, Dr Harper Graves, at [facility]. The patient went for whole brain radiation [facility] (coordinated by Dr Harper Graves) almost everyday while she was hospitalized at [facility]. Via imaging, it was also discovered that the patient had a pulmonary emboli. Because the patient was receiving whole brain radiation, anticoagulation could not be administered to treat her PE, until completion of radiation. It is likely the pulmonary emboli was provoked from malignancy. A hydropneumothorax was also discovered. For this , thoracic surgeon, Dr Damon was consulted who performed a US guided right thoracentesis and 1400 cc of straw colored fluid was removed. He then placed a pleurX catheter with wall suction and intermittently removed fluid from the patient's lungs (~ once a week). Palliative care also saw the patient and had a discussion with the patient's sister who understood the advanced disease and poor prognosis, the sister signed a POLST and the patient was made DNR/DNI. Pain was treated with tramadol 25mg po TID prn and tylenol 650mg po q6g prn. The patient's sister requested she not be given morphine as this made the patient drowsy. To stimulate appetite, the patient was given marinol 2.5mg po bid. Once whole brain radiation was completed she was given lovenox 70mg iv q12 to treat her pulmonary emboli. Given the advanced nature of her disease, the patient was always very agreeable and rarely admitted to any pain or discomfort of any kind. As previously mention, imaging results are listed below. CT chest/abd/pelvis 08/31/17: Innumerable sclerotic lesions throughout the visualized bones. CXR 09/13/17: Large right sided pneumothorax CT chest/abd/pelvis 08/31/17: Pleural space - Large RIGHT pleural effusion with few foci of air. CT chest/abd/pelvis 08/31/17: Peripheral filling defect within RIGHT main pulmonary artery and probable filling defects within branches of RIGHT upper lobe pulmonary artery. Patchy and confluent groundglass/airspace disease within RIGHT lung with volume. MRI Brain 05/31/17: 1. Diffuse cerebral and cerebellar large metastatic lesions with mild surrounding vasogenic edema without evidence of mass effect, midline shift or herniation. No hydrocephalus. 2. Diffuse osteoblastic calvarial metastasis. Discharge Exam - Head Exam Head Exam: ATRAUMATIC - Additional Findings Additional findings: - Constitutional Appears: Well, No Acute Distress - Head Exam Head Exam: ATRAUMATIC, NORMAL INSPECTION, hair loss noted - Eye Exam Eye Exam: EOMI Pupil Exam: PERRL - ENT Exam ENT Exam: Mucous Membranes Moist - Neck Exam Neck Exam: Normal Inspection. absent: Lymphadenopathy - Respiratory Exam Respiratory Exam: Clear to Ausculation Bilateral, NORMAL BREATHING PATTERN. absent: Rales, Rhonchi, Wheezes - Cardiovascular Exam Cardiovascular Exam: REGULAR RHYTHM. absent: Bradycardia, Tachycardia - GI/Abdominal Exam GI & Abdominal Exam: Soft, Normal Bowel Sounds. absent: Tenderness - Extremities Exam Extremities Exam: Normal Capillary Refill, Normal Inspection. absent: Pedal Edema - Neurological Exam Neurological Exam: Alert, Awake, Oriented x3 - Psychiatric Exam Psychiatric exam: Normal Affect, Normal Mood - Skin Skin Exam: Dry, Intact, Normal Color, Warm Additional Findings: Pleurx catheter on right clamped and capped, dressing applied, remains dry and intact. Discharge Plan - Follow Up Plan Condition: FAIR Disposition: HOME/ ROUTINE Instructions: External Radiation Therapy (DC) Additional Instructions: Patient is medically stable for discharge. Patient is being discharged with the following NEW medications: Tramadol 25mg PO TID PRN, disp #90 Dronabinol 2.5mg PO BID, disp #60 Fentanyl 75mcg transdermal patch apply for 48 hours, disp #15 Dexamethasone 4mg PO BID, disp #60 Patient has been connected with "compassionate care" in-home hospice service who will participate in the care of this patient upon discharge. Instructions were provided to patient's sister by caser in. Patient is being discharged with a pleurX catheter in right thorax, instructions were given to the patient's sister by surgical team on how to properly drain the pleurX catheter. If symptoms return or worsen, please return to ER. <Scott Fournier - Last Filed: 09/22/17 09:12> Provider - Provider Date of Admission: 08/31/17 10:25 Attending physician: Scott Fournier DO Hospital Course - Lab Results Lab Results: Micro Results 09/04/17 Unknown Pleural Fluid Gram Stain - Final 09/04/17 Unknown Pleural Fluid Anaerobic Culture - Final NO ANAEROBES ISOLATED. 09/04/17 Unknown Pleural Fluid Body Fluid Culture - Final No Growth 09/04/17 Unknown Pleural Fluid Fungal Culture - Preliminary NO FUNGUS GROWTH IN 2 WEEKS. 09/04/17 10:34 Other: Please Indicate Mycobacterial Culture - Preliminary Most Recent Lab Values WBC 10.4 K/uL (4.8-10.8) 09/22/17 07:32 RBC 3.74 Mil/uL (3.80-5.20) L 09/22/17 07:32 Hgb 11.3 g/dL (11.0-16.0) 09/22/17 07:32 Hct 33.9 % (34.0-47.0) L 09/22/17 07:32 MCV 90.5 fL (81.0-99.0) 09/22/17 07:32 MCH 30.2 pg (27.0-31.0) 09/22/17 07:32 MCHC 33.4 g/dL (33.0-37.0) 09/22/17 07:32 RDW 21.7 % (11.5-14.5) H 09/22/17 07:32 Plt Count 193 K/uL (130-400) 09/22/17 07:32 MPV 8.9 fL (7.2-11.7) 09/22/17 07:32 Neut % (Auto) 91.4 % (50.0-75.0) H 09/22/17 07:32 Lymph % (Auto) 2.8 % (20.0-40.0) L 09/22/17 07:32 Piatt % (Auto) 5.1 % (0.0-10.0) 09/22/17 07:32 Eos % (Auto) 0.0 % (0.0-4.0) 09/22/17 07:32 Baso % (Auto) 0.7 % (0.0-2.0) 09/22/17 07:32 Neut # 9.5 K/uL (1.8-7.0) H 09/22/17 07:32 Lymph # 0.3 K/uL (1.0-4.3) L 09/22/17 07:32 Piatt # 0.5 K/uL (0.0-0.8) 09/22/17 07:32 Eos # 0.0 K/uL (0.0-0.7) 09/22/17 07:32 Baso # 0.1 K/uL (0.0-0.2) 09/22/17 07:32 Neutrophils % (Manual) 84 % (50-75) H 09/21/17 07:50 Band Neutrophils % 8 % (0-2) H 09/21/17 07:50 Lymphocytes % (Manual) 2 % (20-40) L 09/21/17 07:50 Monocytes % (Manual) 6 % (0-10) 09/21/17 07:50 Eosinophils % (Manual) 1 % (0-4) 09/08/17 07:28 Toxic Granulation Present 09/19/17 07:38 Platelet Estimate Normal (NORMAL) 09/21/17 07:50 Large Platelets Present 09/20/17 08:14 RBC Morphology Normal 09/08/17 07:28 Polychromasia Slight 09/20/17 08:14 Hypochromasia (manual) Slight 09/21/17 07:50 Poikilocytosis (manual Slight 09/21/17 07:50 Anisocytosis (manual) Slight 09/21/17 07:50 Microcytosis (manual) Slight 09/20/17 08:14 Macrocytosis (manual) Slight 09/20/17 08:14 Tear Drop Cells Slight 09/06/17 07:30 Ovalocytes Slight 09/20/17 08:14 PT 11.2 SECONDS (9.7-12.2) 09/04/17 07:03 INR 1.0 09/04/17 07:03 APTT 25 SECONDS (21-34) 09/04/17 07:03 Sodium 129 mmol/L (132-148) L 09/22/17 07:32 Potassium 4.3 mmol/L (3.6-5.2) 09/22/17 07:32 Chloride 95 mmol/L (98-107) L 09/22/17 07:32 Carbon Dioxide 26 mmol/L (22-30) 09/22/17 07:32 Anion Gap 12 (10-20) 09/22/17 07:32 BUN 19 mg/dL (7-17) H 09/22/17 07:32 Creatinine 0.5 mg/dL (0.7-1.2) L 09/22/17 07:32 Est GFR ( Amer) > 60 09/22/17 07:32 Est GFR (Non-Af Amer) > 60 09/22/17 07:32 Random Glucose 287 mg/dL (65-105) H 09/22/17 07:32 Calcium 8.2 mg/dl (8.6-10.4) L 09/22/17 07:32 Phosphorus 2.7 mg/dL (2.5-4.5) 09/21/17 07:50 Magnesium 1.9 mg/dL (1.6-2.3) 09/21/17 07:50 Total Bilirubin 0.7 mg/dL (0.2-1.3) 09/22/17 07:32 AST 19 U/L (14-36) 09/22/17 07:32 ALT 52 U/L (9-52) 09/22/17 07:32 Alkaline Phosphatase 139 U/L (38-126) H 09/22/17 07:32 Total Creatine Kinase 65 U/L (30-135) 08/31/17 08:39 Total Protein 5.3 g/dL (6.3-8.3) L 09/22/17 07:32 Albumin 2.9 g/dL (3.5-5.0) L 09/22/17 07:32 Globulin 2.4 gm/dL (2.2-3.9) 09/22/17 07:32 Albumin/Globulin Ratio 1.2 (1.0-2.1) 09/22/17 07:32 Amylase 222 U/L (30-110) H 09/04/17 07:03 Urine Color Straw (YELLOW) 08/31/17 10:16 Urine Clarity Clear (Clear) 08/31/17 10:16 Urine pH 8.0 (5.0-8.0) 08/31/17 10:16 Ur Specific [place] 1.008 (1.003-1.030) 08/31/17 10:16 Urine Protein Negative mg/dL (NEGATIVE) 08/31/17 10:16 Urine Glucose (UA) Normal mg/dL (Normal) 08/31/17 10:16 Urine Ketones Negative mg/dL (NEGATIVE) 08/31/17 10:16 Urine Blood Negative (NEGATIVE) 08/31/17 10:16 Urine Nitrate Negative (NEGATIVE) 08/31/17 10:16 Urine Bilirubin Negative (NEGATIVE) 08/31/17 10:16 Urine Urobilinogen Normal mg/dL (0.2-1.0) 08/31/17 10:16 Ur Leukocyte Esterase Neg Waldemar/uL (Negative) 08/31/17 10:16 Urine WBC (Auto) 5 /hpf (0-5) 08/31/17 10:16 Urine RBC (Auto) 1 /hpf (0-3) 08/31/17 10:16 Urine Bacteria Rare (<OCC) 08/31/17 10:16 Fluid Source Pleural 09/04/17 16:54 Fluid Appearance Clear (CLEAR) 09/04/17 16:54 Fluid WBC 56.0 /mm3 (0.0-300.0) 09/04/17 16:54 Fluid RBC 2343.0 /mm3 (0.0-0.0) H 09/04/17 16:54 Fluid Tot Cell Count TEST NOT PERFORMED 09/04/17 16:54 Fluid Neutrophils 25.0 % (0-0) H 09/04/17 16:54 Fluid Lymphocytes 65.0 % (0-0) H 09/04/17 16:54 Fld Monocyte/Macrophag 10 % (0-0) H 09/04/17 16:54 Fluid Comment 09/04/17 16:54 Pleural Total Protein 3.9 g/dL 09/04/17 16:15 Pleural LDH 163 U/L 09/04/17 16:15 Pleural Glucose 142 mg/dL 09/04/17 16:15 Attending/Attestation - Attestation I have personally seen and examined this patient.: Yes I have fully participated in the care of the patient.: Yes I have reviewed all pertinent clinical information, including history, physical exam and plan: Yes Notes (Text): Medical Attending: Patient was seen and examined by me. Agree with the above. I spoke with the family member at bedside for a rather extended period of time. The plan is for home hospice. There will be an RX for tramadol, RX fentanyl, and RX for marinol as well. I wished them the best thank you Scott Fournier
[2017-09-21 23:54] VITALS: BP 102/64; PULSE 90; TEMP 98.6; O2SAT 98
[2017-09-22] MEDS: Dexamethasone 4 mg/1 ml IV SCH ×3 (00:04→12:14)
[2017-09-22 07:50] LABS: BASO # 0.1 K/uL (0.0-0.2); BASO % 0.7 % (0.0-2.0); HEMATOCRIT 33.9 % (34.0-47.0); LYMPH # 0.3 K/uL (1.0-4.3); LYMPH % 2.8 % (20.0-40.0); MEAN CELL VOLUME 90.5 fL (81.0-99.0); MEAN CORPUSCULAR HEMOGLOBIN 30.2 pg (27.0-31.0); MEAN CORPUSCULAR HGB CONC 33.4 g/dL (33.0-37.0); MEAN PLATELET VOLUME 8.9 fL (7.2-11.7); MONO # 0.5 K/uL (0.0-0.8); MONO % 5.1 % (0.0-10.0); PLATELET COUNT 193 K/uL (130-400); RED CELL DISTRIBUTION WIDTH 21.7 % (11.5-14.5); WHITE BLOOD COUNT 10.4 K/uL (4.8-10.8)
[2017-09-22 08:10] LABS: CHLORIDE 95 mmol/L (98-107); POTASSIUM 4.3 mmol/L (3.6-5.2); SODIUM 129 mmol/L (132-148)
[2017-09-22 08:12] LABS: ALB/GLOB RATIO 1.2 (1.0-2.1); ALKALINE PHOSPHATASE 139 U/L (38-126); AST/SGOT 19 U/L (14-36); BILIRUBIN,TOTAL 0.7 mg/dL (0.2-1.3); CARBON DIOXIDE 26 mmol/L (22-30); GFR AFRICAN-AMERICAN > 60; TOTAL PROTEIN 5.3 g/dL (6.3-8.3)
[2017-09-22 08:13] LABS: ALT/SGPT 52 U/L (9-52); BLOOD UREA NITROGEN 19 mg/dL (7-17); CALCIUM 8.2 mg/dl (8.6-10.4); GLUCOSE,RANDOM 287 mg/dL (65-105)
[2017-09-22 09:15] LABS: NEUTROPHIL 85 % (50-75); TOTAL CELLS COUNTED 100
[2017-09-22 09:19] LABS: LARGE PLATELETS PRESENT; PLATELET CLUMPS PRESENT
[2017-09-22] MEDS: Tramadol 25 mg PO PRN (10:43)
[2017-09-22] MEDS: Bacitracin Opht OINT 3.5GM OU SCH (10:43)
[2017-09-22] MEDS: Potassium Chloride 20 mEq ER Tab PO SCH (10:45)
--- NOTE | 2017-09-23 18:16 | OP ---
PROCEDURE DATE: 09/04/2017 PREOPERATIVE DIAGNOSIS: Right pleural effusion. POSTOPERATIVE DIAGNOSIS: Right pleural effusion. OPERATION PERFORMED: Placement of PleurX catheter to the right chest. OPERATIVE PROCEDURE: The patient was taken to the operating room where under IV sedation after field was infiltrated with 0.5% Xylocaine. Using a 20-gauge needle attached to 10 mL syringe, chest wall was impaled at 8th intercostal space in anterior accessory line and after satisfactorily confirming the intraposition over intrapleural space, a 10-gauge needle was used and entered the pleural cavity and guidewire was advanced through the needle. After making 1-cm incision next to the needle, dilator with introducer sheath was advanced over the guidewire under direct fluoroscopic guidance. Approximately 5-cm anterior to the insertion site, 1-cm incision was made and fenestrated tip of PleurX catheter attached to tunneler was advanced from this anterior opening and was brought out through the anterior point. At this time, catheter was advanced through the introducer sheath after removing the guidewire and dilator. Catheter was manually advanced to appropriate position under fluoroscopic guidance. Finally, the introducer sheath was broke and peeled away. Polyethylene cover was approximately 1 cm from the anterior skin incision. Finally, wound was closed with interrupted 3-0 Prolene sutures. After confirming satisfactory function of the PleurX catheter, PleurX catheter was connected through pleural bag at 20 cm for water suction. Sterile dressing was applied and taped in general manner. The patient tolerated the procedure very well and was transferred to recovery room with good vital signs. Estimated blood loss was minimum. Sponge, needle and instruments counts were correct. Luis E Damon MD
== END 2017-09-22 16:45 | disposition hospice, home (50) | DRG 166 ==
LOC: C.ER 07:53 → C.9E 10:25 → C.3T 11:14
PROVIDERS: ADMIT Hospitalist; ATTEND Hospitalist
PROC: 0W993ZZ Drainage of Right Pleural Cavity, Percutaneous Approach (ICD-10-PCS; principal; 2017-09-01)
PROC: 0B9K30Z Drainage of Right Lung with Drainage Device, Percutaneous Approach (ICD-10-PCS; 2017-09-04)
DX: C78.01 Secondary malignant neoplasm of right lung (principal); I26.99 Other pulmonary embolism without acute cor pulmonale; G93.6 Cerebral edema; R18.0 Malignant ascites; J91.0 Malignant pleural effusion; C79.31 Secondary malignant neoplasm of brain; C78.7 Secondary malignant neoplasm of liver and intrahepatic bile duct; J94.8 Other specified pleural conditions; C79.51 Secondary malignant neoplasm of bone; J93.9 Pneumothorax, unspecified; J98.11 Atelectasis; C50.911 Malignant neoplasm of unspecified site of right female breast; I12.9 Hypertensive chronic kidney disease with stage 1 through stage 4 chronic kidney disease, or unspecified chronic kidney disease; N18.9 Chronic kidney disease, unspecified; K59.00 Constipation, unspecified; Z51.5 Encounter for palliative care; Z66 Do not resuscitate; Z82.49 Family history of ischemic heart disease and other diseases of the circulatory system; Z92.3 Personal history of irradiation